=== PATIENT | female | born 1950 | race Caucasian/White ===

== ENCOUNTER 2019-01-10 16:20 | Inpatient (IN) ==
[2019-01-10] MEDS ORDERED: OPTIRAY 320 125ml IV PRN (16:32)
--- NOTE | 2019-01-10 16:37 | CT Scan Report ---
CT SCAN OF THE BRAIN WITHOUT IV CONTRAST CLINICAL HISTORY: Strokelike symptoms. COMPARISON STUDY: CT of the brain dated 09/04/2015. TECHNIQUE: Unenhanced axial CT scan of the brain is performed from the vertex to the skull base. A do se lowering technique was utilized adhering to the principles of ALARA. FINDINGS: Brain parenchyma: There are age-related involutional changes noting mild subcortical and periventric ular microangiopathic change. There is no hemorrhage, mass effect, or evidence of acute territorial i schemia by CT criteria. There is a tiny chronic lacunar infarct in the right caudate head. Phan-white matter differentiation is preserved. No extra-axial fluid collection is seen. Mineralization is note d in the basal ganglia. Ventricles, sulci, cisterns: Prominent secondary to involutional change. Intracranial vasculature: There is atherosclerotic calcification of the cavernous carotid and vertebr al arteries. Calvarium: Unremarkable. Sinuses and mastoids: The visualized paranasal sinuses are clear. The mastoid air cells are well pneu matized. Orbits: The bony orbits are grossly intact. There are bilateral ocular lens implants. IMPRESSION: There is no hemorrhage, mass effect, or evidence of acute territorial ischemia by CT sandra weinstein. Electronically signed by: Jaren Alonzo M.D. 01/10/2019 4:35 PM
[2019-01-10] MEDS ORDERED: methylPREDNISolone 125 MG/2 ML VIAL IV STA (16:46)
[2019-01-10] MEDS ORDERED: VANCOMYCIN HCL 1,250 MG in SODIUM CHLORIDE 0.9% 500 ML IV ONE (16:46)
[2019-01-10] MEDS ORDERED: DOXYCYCLINE HYCLATE 100 MG in DEXTROSE 5% 100 ML IV STA (16:46)
[2019-01-10] MEDS ORDERED: VANCOMYCIN CONSULT ACTIVE PRN ×2 (16:46→22:24)
[2019-01-10] MEDS ORDERED: CEFEPIME 1,000 MG in SYRINGE 0 ML IV STA (16:46)
[2019-01-10] MEDS ORDERED: SODIUM CHLORIDE 0.9% 1000ML 500 ML IV ONE (16:46)
[2019-01-10] MEDS ORDERED: LEVALBUTEROL HCL 0.63 MG/3 ML NEB NEB STA (16:46)
--- NOTE | 2019-01-10 16:48 | XRay Report ---
XR chest 1V portable CLINICAL HISTORY: 68 years-old Female presenting with sob. TECHNIQUE: Portable upright AP view of the chest was obtained. COMPARISON: CTA chest from 12/24/2018 and chest x-ray from 12/24/2018. FINDINGS: Left subclavian implanted cardiac defibrillator with leads to the right atrium, coronary sinus, and r ight ventricular apex. Atherosclerosis of the aortic arch. Cardiac silhouette moderately enlarged. Mi ld pulmonary vascular prominence with overall coarsened lung markings. No focal opacity. No large eff usion or pneumothorax. Possible underlying osteopenia. Mild degenerative changes of the spine. Upper abdomen normal. IMPRESSION: 1. Cardiomegaly with mild volume overload. No will pulmonary edema. Electronically signed by: Keven Santo M.D. 01/10/2019 4:46 PM
[2019-01-10 16:54] LABS: Basophils # (auto) 0.04 K/uL (0-0.2); Basophils % (auto) 0.4 %; Hematocrit (blood only) 41.6 % (37-47); Immature Granulocytes # (auto) 0.02 K/uL (0.00-0.02); Immature Granulocytes % (auto) 0.2 %; Lymphocytes # (auto) 2.01 K/uL (1.2-3.4); Lymphocytes % (auto) 18.9 %; Mean Corpuscular Hgb Conc 33.7 g/dL (32-36); Mean Corpuscular Volume 97.9 fL (80-100); Mean Platelet Volume 9.9 fL (7.4-10.4); Monocytes # (auto) 0.84 K/uL (0.11-0.59); Monocytes % (auto) 7.9 %; Neutrophils # (auto) 7.73 K/uL (1.4-6.5); Neutrophils % (auto) 72.6 %; Platelet Count 175 K/uL (130-400); RDW Coefficient of Variation 13.4 % (11.5-14.5); RDW Standard Deviation 47.5 fL (36.4-46.3); Red Blood Count 4.25 M/uL (4.2-5.4); White Blood Count 10.64 K/uL (4.8-10.8)
--- NOTE | 2019-01-10 16:55 | CT Scan Report ---
CT ANGIOGRAM OF THE BRAIN; CT ANGIOGRAM OF THE NECK CLINICAL HISTORY: Left-sided facial droop. COMPARISON STUDY: CT scans of the brain dated 01/10/2019 and 09/04/2015. TECHNIQUE: Following the IV administration of 115 of Optiray 320, CT angiogram of the head and neck w as performed from the aortic arch to the vertex. Images are reviewed in the axial, sagittal, and lubna nal planes. 3-D MIPS images are created and assessed. IV contrast was administered without complicati on. All measurements were calculated based on NASCET criteria. A dose lowering technique was utilize d adhering to the principles of ALARA. CT DOSE: 1083.28 mGy.cm FINDINGS: Brain parenchyma: There is age-related involutional change noting mild subcortical and periventricula r microangiopathic disease. There is no hemorrhage, mass effect, or evidence of acute territorial isc hemia by CT criteria. There is no evidence of enhancing mass lesion on the angiogram phase images. Th e ventricles, sulci, and cisterns are normal in configuration. Phan-white matter differentiation is p reserved. No extra-axial fluid collection is seen. Thoracic aorta: There is atherosclerotic calcification of the thoracic aorta. Visualized portions of the thoracic aorta are normal in caliber. The aortic arch demonstrates standard 3-vessel anatomy. Right carotid arterial system: The right common carotid artery is widely patent noting atheroscleroti c irregularity. There is approximately 50% stenosis at the origin of the right internal carotid arter y secondary to densely calcified plaque. The remainder of the right internal carotid artery is clear, as is the right external carotid artery. Left carotid arterial system: The left common carotid artery is patent noting advanced atheroscleroti c irregularity. There is less than 50% stenosis at the origin of the left internal carotid artery sec ondary to calcific plaque. The remainder of the internal carotid artery as well as the left external carotid artery are widely patent. Vertebral arteries: The origin of the left vertebral artery is not well-visualized due to significant stranding streak artifact. The vertebral arteries are otherwise patent bilaterally and codominant. 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 The right subclavian artery is patent noting atherosclerotic irregularity. Intracranial vasculature: There is atherosclerotic calcification of the cavernous carotid and vertebr al arteries. There is origin of the right posterior cerebral artery. The internal carotid arter ies are patent at the skull base, as are the anterior and middle cerebral arteries bilaterally. The v ertebrobasilar system and posterior cerebral arteries are widely patent. The right vertebral artery i s dominant. 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 No additional aneurysm is seen. No high-grade stenosis 4 focal vessel cut off s een throughout the intracranial circulation. Jugular veins: Widely patent bilaterally. Dural sinuses: Patent. Lung apices: Emphysematous change is noted at the apices. Partially visualized upper lobe lung parenc hyma is otherwise clear. A cardiac pacemaker is present in the left chest wall. Soft tissues: The visualized pharyngeal soft tissues are normal in appearance noting angiographic pha se technique. The oropharyngeal airway appears widely patent. The salivary and thyroid glands are nor mal in appearance. No cervical lymphadenopathy is seen. Numerous paravertebral collaterals are observ ed. Skeletal structures: The skeletal structures are osteopenic. The calvarium appears intact. The cervic al spine is maintained noting multilevel spondylosis. No lytic or blastic lesion is identified. The p atient is edentulous. Sinuses and mastoids: Trace mucosal thickening is seen in the maxillary antra. The remaining paranasa l sinuses are clear. The mastoid air cells are well pneumatized. IMPRESSION: 1. There is no hemorrhage, mass effect, or evidence of acute territorial ischemia by CT criteria on t his angiographic phase examination. 2. 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 Neurosurgical assessment is advise d. 3. No additional aneurysm is identified throughout the intracranial circulation. There is no high-gra de stenosis or focal vessel cut off seen. 4. 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 Note that places the patient at risk for steal phenomenon. 5. There is approximately 50% stenosis seen at the origin of both the right and left internal carotid arteries. The carotid arteries are otherwise patent bilaterally. 6. The origin of the left vertebral artery is not well-visualized due to significant streak artifact. 7. Emphysematous change is noted at the apices. Electronically signed by: Jaren Alonzo M.D. 01/10/2019 4:53 PM
[2019-01-10 17:04] LABS: INR 1.2 (0.9-1.1); Partial Thromboplastin Ratio 0.9; Partial Thromboplastin Time 24.7 Seconds (21.0-31.0); Prothrombin Time 12.6 Seconds (9.0-12.0)
[2019-01-10 17:04] LABS: Base Excess VBG -2.9 mEq/L; Oxygen Saturation VBG 61.4 %; pH VBG 7.38 (7.36-7.41)
[2019-01-10 17:23] LABS: Albumin Level 3.6 gm/dl (3.4-5.0); BUN Creatinine Ratio 18.7 (10-20); Bilirubin Direct 0.2 mg/dl (0-0.2); Calcium 8.8 mg/dl (8.5-10.1); Creatinine Clr Calc Pharmacy 33.3 ml/min; Est GFR (African American) 45.1; Est GFR (Non-African American) 38.9; Potassium 3.6 mmol/L (3.5-5.1)
[2019-01-10 17:43] LABS: Albumin Globulin Ratio 0.9 (0.9-2); Bilirubin,Total 0.5 mg/dl (0.2-1); Globulin 4.1 gm/dl (2.5-4.0); Phosphorus 1.8 mg/dl (2.5-4.9); Total Protein 7.7 gm/dl (6.4-8.2); Troponin I 0.097 ng/ml (0-0.045)
[2019-01-10] MEDS ORDERED: POTASSIUM PHOS 3 MMOL/1 ML INFUSION IV STA ×2 (18:04→21:54)
[2019-01-10 18:29] LABS: Appearance Urine Clear (Clear); Bacteria Urine Automated 1+ (Negative); Bilirubin Urine Negative (Negative); Blood Urine 2+ (Negative); Color Urine Yellow; Epithelial Cell Urine Auto 0-5 /lpf (0-5); Glucose Urine UA Negative (Negative); Ketones Urine Negative (Negative); Leukocyte Esterase Urine 1+ (Negative); Nitrite Urine Positive (Negative); Protein Urine Negative (Negative); Specific Gravity Urine 1.023 (1.000-1.030); Urobilinogen Urine Negative (Negative); pH Urine 5.5 (4.5-7.5)
[2019-01-10 18:45] LABS: Influenza A virus by PCR Neg for Influ A (Neg); Influenza B virus by PCR Neg for Influ B (Neg)
[2019-01-10] MEDS ORDERED: ACETAMINOPHEN 1,000 MG/100 ML VIAL IV STA (19:06)
[2019-01-10] MEDS ORDERED: SODIUM CHLORIDE 0.9% 500 ML IV STA (19:06)
[2019-01-10 19:16] LABS: Lyme Ab IgG w/WB Rflx Negative (Negative)
[2019-01-10] MEDS ORDERED: POTASSIUM PHOSPHATE 9 MMOL in SODIUM CHLORIDE 0.9% 250 ML IV STA (19:31)
[2019-01-10 20:10] LABS: Lyme Ab IgM w/WB Rflx Equivocal (Negative)
--- NOTE | 2019-01-10 20:11 | Emergency Department Note ---
Entered by Paula Crews acting as a scribe for History of Present Illness General Chief complaint: Stroke Alert Stated complaint: SOB Source: patient Limitations: no limitations History of Present Illness Provider complaint: stoke-like symptoms Onset (ago): hour(s) 4 Location: chest Associated symptoms: + shortness of breath and + other (+slurred speech, +confusion ); no cough The patient is a 68 year old female who presents to the Emergency Room with complaints of stroke-like symptoms. The patient's last time known well was 4 hours prior to arrival. Per daughter, the patient woke up and had no symptoms. Per daughter, the patient was shopping when she started acting weird with slurred speech and confusion. Per daughter, the patient was driving home and noticed that the patient was having difficulty driving so had the patient pull- over. The patient states that she has shortness of breath upon arrival but denies a cough. EMR notes Reviewed: The patient has a history of COPD, CAD, SC, AICD, peripheral vascular disease, and TIA. The patient is a current smoker. The patient was admitted to the hospital for shortness of breath on December 24, 2018 which was thought to be secondary to her COPD exacerbation. The patient's troponin was mildly elevated at 0.05. The patient also had a CT of her chest done on 12/24/18 which showed no PE. 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 Home Medications Home Medications Medication Instructions Recorded Confirmed Type aspirin [Aspir-81] 81 mg PO DAILY 12/24/18 01/10/19 History buspirone 5 mg PO PM 12/24/18 01/10/19 History buspirone 10 mg PO DAILY 12/24/18 01/10/19 History clopidogrel 75 mg PO DAILY 12/24/18 01/10/19 History ezetimibe 10 mg PO DAILY 12/24/18 01/10/19 History furosemide 20 mg PO DAILY 12/24/18 01/10/19 History gabapentin 300 mg PO QID 12/24/18 01/10/19 History isosorbide mononitrate 30 mg PO DAILY 12/24/18 01/10/19 History losartan 25 mg PO DAILY 12/24/18 01/10/19 History magnesium oxide 400 mg PO HS 12/24/18 01/10/19 History pantoprazole 40 mg PO DAILY 12/24/18 01/10/19 History potassium chloride 20 meq PO DAILY 12/24/18 01/10/19 History spironolactone 12.5 mg PO DAILY 12/24/18 01/10/19 History ipratropium-albuterol [Combivent 1 puffs INH Q6H PRN #4 gm 12/26/18 01/10/19 Rx Respimat] carvedilol 1 tab PO BID 01/10/19 01/10/19 History ipratropium-albuterol [Combivent 1 puff INHALATION Q6H PRN 01/10/19 01/10/19 History Respimat] oxycodone-acetaminophen 5 mg PO DAILY PRN 01/10/19 01/10/19 History Allergies Allergy/AdvReac Type Severity Reaction Status Date / Time lisinopril AdvReac Mild cough Unverified 01/10/19 17:11 Past Med/Surg History Medical History GERD (gastroesophageal reflux disease) (Chronic) HTN (hypertension) (Chronic) COPD (chronic obstructive pulmonary disease) CHF (congestive heart failure) (Chronic) SC (myocardial infarction) (Resolved) Cardiac defibrillator in place (Chronic) CAD (coronary artery disease) (Chronic) PVD (peripheral vascular disease) (Chronic) History of TIA (transient ischemic attack) (Chronic) Hyperlipemia (Chronic) Pacemaker (Chronic) Bilateral femoral artery stenosis (Chronic) "Multiple stents " Depression (Chronic) Chronic low back pain (Chronic) Surgical History Stented coronary artery (Chronic) Family History Other Hypertension Social History Preferred Language: Iranian 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 Ability: Effective Beliefs That Will Affect Care: None marital status: Current Living Situation: Spouse and Other Current Living Situation Comment: Lived with and grandchildren Feels Safe at Home: Yes Smoking Status: Current every day smoker Hx Alcohol Use: No Hx Substance Use: No Review of Systems See HPI for pertinent positives & negatives. and A total of 10 systems reviewed and were otherwise negative See HPI for pertinent positives & negatives. A total of 10 systems reviewed and were otherwise negative. Physical Exam Vital Signs Vital Signs - 24 hr 01/10/19 16:38 01/10/19 16:46 01/10/19 17:14 Temperature 38.0 C H Temperature Source Oral Sepsis Recent Fever Within 48 Hours Yes Sepsis New/Unexplained Change in Mental Status Yes Sepsis Action Taken by Nursing Physician Notified Pulse Rate 121 H Pulse Rate [Finger] 106 H Pulse Rhythm Regular Pulse Rhythm [Finger] Pulse Strength Normal Pulse Strength [Finger] Respiratory Rate 32 H 20 Respiratory Effort / Characteristics Labored Non-Labored Spontaneous Respiratory Depth Normal Respiratory Pattern Regular Blood Pressure 105/69 Blood Pressure [Right Arm] Blood Pressure Mean 81 Blood Pressure Mean [Right Arm] Blood Pressure Position Sitting Blood Pressure Position [Right Arm] Pulse Oximetry 92 89 L 93 Oxygen Delivery Method Room Air Room Air Nasal Cannula Oxygen Flow Rate 3 01/10/19 17:54 01/10/19 18:20 01/10/19 19:58 Temperature 37 C Temperature Source Oral Sepsis Recent Fever Within 48 Hours Sepsis New/Unexplained Change in Mental Status Sepsis Action Taken by Nursing Pulse Rate Pulse Rate [Finger] 104 H 102 H 90 Pulse Rhythm Pulse Rhythm [Finger] Regular Pulse Strength Pulse Strength [Finger] Normal Respiratory Rate 30 H 22 18 Respiratory Effort / Characteristics Non-Labored Spontaneous Respiratory Depth Normal Respiratory Pattern Regular Blood Pressure Blood Pressure [Right Arm] 113/64 114/73 104/65 Blood Pressure Mean Blood Pressure Mean [Right Arm] 80 86 78 Blood Pressure Position Blood Pressure Position [Right Arm] Lying Sitting Pulse Oximetry 94 95 97 Oxygen Delivery Method Nasal Cannula Nasal Cannula Nasal Cannula Oxygen Flow Rate 4 3 4 01/10/19 21:06 01/10/19 23:27 01/11/19 01:44 Temperature 36.4 C L 36.3 C L Temperature Source Oral Axillary Sepsis Recent Fever Within 48 Hours Sepsis New/Unexplained Change in Mental Status Sepsis Action Taken by Nursing Pulse Rate Pulse Rate [Finger] 74 62 65 Pulse Rhythm Pulse Rhythm [Finger] Pulse Strength Pulse Strength [Finger] Respiratory Rate 18 17 14 Respiratory Effort / Characteristics Respiratory Depth Respiratory Pattern Blood Pressure Blood Pressure [Right Arm] 88/55 L 96/61 L Blood Pressure Mean Blood Pressure Mean [Right Arm] 66 72 Blood Pressure Position Blood Pressure Position [Right Arm] Lying Pulse Oximetry 92 95 96 Oxygen Delivery Method Nasal Cannula Nasal Cannula Nasal Cannula Oxygen Flow Rate 3 3 3 GENERAL: Awake, alert, chronically ill-appearing, in no distress HENT: Normocephalic, atraumatic. Oropharynx with dry mucous membranes and otherwise unremarkable. EYES: Normal conjunctiva. Sclera non-icteric. EOMI. No nystamgus. PEARRL. NECK: Supple. No nuchal rigidity. FROM. No JVD. RESPIRATORY: Diminished breath sounds at bases with scant intermittent wheezes. CARDIAC: Regular rate, normal rhythm. Extremities warm and well perfused. ABDOMEN: Soft, non-distended. No tenderness to palpation. No rebound or guarding. No masses. RECTAL: Deferred. MUSCULOSKELETAL: Chest examination reveals no tenderness. The back is symmetrical on inspection without obvious abnormality. There is no CVA tendern ess to palpation. No joint edema. LOWER EXTREMITIES: Calves are equal size bilaterally and non-tender. Scant BLE edema. No discoloration. NEURO: Normal sensorium. Mild left-sided droop. No dysarthria. NIH stroke scale of 3 ( 2+ facial droop, 1+ confusion). 5/5 strength and SILT x4 extremities. SKIN: No rash or jaundice noted. Course 163: Past medical records reviewed. The patient was evaluated in room B1, and a complete history and physical examination were performed. 1755: I discussed the patient's case with Dr. Chacon- Neurology who agrees with the CT findings of a subclavian occlusion. He states that the patient's ACS aneurysm are unlikely to be related to the patient's presentation today and states that it is reasonable to admit the patient today due to the patient's symptoms. 1807: I discussed the patient's case with Dr. Norbert Phillip Hospitalist who will evaluate the patient for further hospitalization. Consultations Consultation #1: Dr. Chacon- Neurology Time: 17:55 Consultation #2: Dr. Norbert Phillip Hospitalist Time: 18:08 Administered Medications Ioversol (Optiray 320 125ml) 115 ml IV ONCE PRN PRN Reason: Interaction Checking Stop: 01/14/19 16:31 Last Admin: 01/10/19 16:33 Dose: 115 ml Documented by: [id number] Levalbuterol HCl (Xopenex 0.63 Mg/3 Ml Neb) 0.63 mg NEB Q6R NIKOS Stop: 02/10/19 01:59 Last Admin: 01/11/19 01:44 Dose: 0.63 mg Documented by: [id number] Discontinued Medications Doxycycline Hyclate 100 mg/ (Dextrose) 110 mls @ 50 mls/hr IV NOW STA Stop: 01/10/19 18:57 Last Infusion: 01/10/19 19:56 Dose: 0 mls/hr Documented by: [id number] Admin: 01/10/19 17:50 Dose: 50 mls/hr Documented by: [id number] Sodium Chloride (Nss 1000ml) 500 mls @ 999 mls/hr IV .Q31M ONE Stop: 01/10/19 17:16 Last Infusion: 01/10/19 17:58 Dose: 0 mls/hr Documented by: [id number] Admin: 01/10/19 17:03 Dose: 999 mls/hr Documented by: [id number] Cefepime HCl 1,000 mg/ Syringe 11.3 mls @ 5.5 mls/min IV NOW STA Stop: 01/10/19 16:48 Last Admin: 01/10/19 17:49 Dose: 5.5 mls/min Documented by: [id number] Vancomycin HCl 1,250 mg/ (Sodium Chloride) 525 mls @ 200 mls/hr IV NOW ONE Stop: 01/10/19 19:23 Last Infusion: 01/10/19 20:58 Dose: 0 mls/hr Documented by: [id number] Admin: 01/10/19 18:08 Dose: 200 mls/hr Documented by: [id number] Sodium Chloride (Nss) 500 mls @ 125 mls/hr IV .Q4H STA Stop: 01/10/19 23:05 Last Infusion: 01/11/19 00:11 Dose: 0 mls/hr Documented by: [id number] Admin: 01/10/19 19:52 Dose: 125 mls/hr Documented by: [id number] Acetaminophen (Ofirmev) 1,000 mg in 100 mls @ 400 mls/hr IV NOW STA Stop: 01/10/19 19:20 Last Infusion: 01/10/19 19:48 Dose: 0 mls/hr Documented by: [id number] Admin: 01/10/19 19:33 Dose: 400 mls/hr Documented by: [id number] Potassium Phosphate 9 mmol/ (Sodium Chloride) 253 mls @ 88 mls/hr IV NOW STA Stop: 01/10/19 22:23 Last Infusion: 01/10/19 22:53 Dose: 0 mls/hr Documented by: [id number] Admin: 01/10/19 19:44 Dose: 88 mls/hr Documented by: [id number] Potassium Phosphate 9 mmol/ (Sodium Chloride) 253 mls @ 88 mls/hr IV ONE ONE Stop: 01/11/19 01:52 Last Infusion: 01/11/19 01:58 Dose: 0 mls/hr Documented by: [id number] Admin: 01/10/19 23:00 Dose: 88 mls/hr Documented by: [id number] Sodium Chloride (Nss 1000ml) 1,000 mls @ 100 mls/hr IV .Q10H NIKOS Stop: 01/11/19 08:14 Last Infusion: 01/10/19 23:46 Dose: 0 mls/hr Documented by: [id number] Admin: 01/10/19 23:00 Dose: 100 mls/hr Documented by: [id number] Levalbuterol HCl (Xopenex 0.63 Mg/3 Ml Neb) 0.63 mg NEB NOW STA Stop: 01/10/19 16:47 Last Admin: 01/10/19 17:14 Dose: 0.63 mg Documented by: [id number] Methylprednisolone (Solumedrol) 125 mg IV NOW STA Stop: 01/10/19 16:47 Last Admin: 01/10/19 17:03 Dose: 125 mg Documented by: [id number] Medical Decision Making Differential Diagnosis Differential diagnosis: Etiologies such as viral syndrome, otitis, pharyngitis, pneumonia, influenza, meningitis, urinary tract infection, sepsis, bacteremia, as well as others were entertained. Medical Records Attestation: I reviewed the patient's medical records. Home Medications Current Medication List: was personally reviewed by me Laboratory Data Attestation: I reviewed the patient's lab results. Result diagrams: 01/10/19 15:42 01/10/19 15:42 Lab Results 01/10/19 01/10/19 01/10/19 Range/Units 15:42 15:42 15:42 WBC 10.64 (4.8-10.8) K/uL RBC 4.25 (4.2-5.4) M/uL Hgb 14.0 (12.0-16.0) g/dL Hct 41.6 (37-47) % MCV 97.9 (80-100) fL MCH 32.9 (25-34) pg MCHC 33.7 (32-36) g/dL RDW Std Deviation 47.5 H (36.4-46.3) fL RDW Coeff of Ariela 13.4 (11.5-14.5) % Plt Count 175 (130-400) K/uL MPV 9.9 (7.4-10.4) fL Immature Gran % (Auto) 0.2 % Neut % (Auto) 72.6 % Lymph % (Auto) 18.9 % [place] % (Auto) 7.9 % Eos % (Auto) 0.0 % Baso % (Auto) 0.4 % Immature Gran # (Auto) 0.02 (0.00-0.02) K/uL Neut # (Auto) 7.73 H (1.4-6.5) K/uL Lymph # (Auto) 2.01 (1.2-3.4) K/uL [place] # (Auto) 0.84 H (0.11-0.59) K/uL Eos # (Auto) 0.00 (0-0.5) K/uL Baso # (Auto) 0.04 (0-0.2) K/uL PT 12.6 H (9.0-12.0) Seconds INR 1.2 H (0.9-1.1) APTT 24.7 (21.0-31.0) Seconds PTT Ratio 0.9 VBG pH (7.36-7.41) VBG pCO2 (38-50) mmHg VBG pO2 mmHg VBG HCO3 mmol/L VBG O2 Saturation % VBG Base Excess mEq/L Barometric Pressure mm/Hg Sodium 135 L (136-145) mmol/L Potassium 3.6 (3.5-5.1) mmol/L Chloride 101 (98-107) mmol/L Carbon Dioxide 25 (21-32) mmol/L Anion Gap 10.0 (3-11) BUN 26 H (7-18) mg/dl Creatinine 1.38 H (0.6-1.2) mg/dl Est Cr Clr Drug Dosing 33.3 ml/min Est GFR ( Amer) 45.1 Est GFR (Non-Af Amer) 38.9 BUN/Creatinine Ratio 18.7 (10-20) Glucose 98 (70-99) mg/dl Lactate (0.4-2.0) mmol/L Calcium 8.8 (8.5-10.1) mg/dl Phosphorus 1.8 L (2.5-4.9) mg/dl Magnesium 2.0 (1.8-2.4) mg/dl Total Bilirubin 0.5 (0.2-1) mg/dl Direct Bilirubin 0.2 (0-0.2) mg/dl AST 18 (15-37) U/L ALT 23 (12-78) U/L Alkaline Phosphatase 95 (45-117) U/L Troponin I 0.097 H* (0-0.045) ng/ml NT-Pro-B Natriuret Pep 7715 H (0-900) pg/ml Total Protein 7.7 (6.4-8.2) gm/dl Albumin 3.6 (3.4-5.0) gm/dl Globulin 4.1 H (2.5-4.0) gm/dl Albumin/Globulin Ratio 0.9 (0.9-2) TSH 0.563 (0.300-4.500) uIu/ml Urine Color Urine Appearance (Clear) Urine pH (4.5-7.5) Ur Specific [place] (1.000-1.030) Urine Protein (Negative) Urine Glucose (UA) (Negative) Urine Ketones (Negative) Urine Blood (Negative) Urine Nitrite (Negative) Urine Bilirubin (Negative) Urine Urobilinogen (Negative) Ur Leukocyte Esterase (Negative) Urine WBC (Auto) (0-5) /hpf Urine RBC (Auto) (0-4) /hpf U Hyaline Cast (Auto) (0-5) /lpf U Epithel Cells (Auto) (0-5) /lpf Urine Bacteria (Auto) (Negative) Urine Opiates Screen (Neg) Ur Methadone, Qual (Neg) Urine Barbiturates (Neg) Ur Phencyclidine (PCP) (Neg) U Amphetamin/Meth Scrn (Neg) MDMA (Ecstasy) Screen (Neg) U Benzodiazepines Scrn (Neg) Ur Cocaine Metabolite (Neg) U Marijuana (THC) Screen (Neg) Lyme Disease IgG Ab (Negative) Lyme Disease IgM Ab (Negative) Influenza Type A (PCR) (Neg) Influenza Type B (PCR) (Neg) Blood Type Antibody Screen 01/10/19 01/10/1901/10/19 Range/Units 16:55 16:55 17:40 WBC (4.8-10.8) K/uL RBC (4.2-5.4) M/uL Hgb (12.0-16.0) g/dL Hct (37-47) % MCV (80-100) fL MCH (25-34) pg MCHC (32-36) g/dL RDW Std Deviation (36.4-46.3) fL RDW Coeff of Ariela (11.5-14.5) % Plt Count (130-400) K/uL MPV (7.4-10.4) fL Immature Gran % (Auto) % Neut % (Auto) % Lymph % (Auto) % [place] % (Auto) % Eos % (Auto) % Baso % (Auto) % Immature Gran # (Auto) (0.00-0.02) K/uL Neut # (Auto) (1.4-6.5) K/uL Lymph # (Auto) (1.2-3.4) K/uL [place] # (Auto) (0.11-0.59) K/uL Eos # (Auto) (0-0.5) K/uL Baso # (Auto) (0-0.2) K/uL PT (9.0-12.0) Seconds INR (0.9-1.1) APTT (21.0-31.0) Seconds PTT Ratio VBG pH 7.38 (7.36-7.41) VBG pCO2 37 L (38-50) mmHg VBG pO2 31 mmHg VBG HCO3 22 mmol/L VBG O2 Saturation 61.4 % VBG Base Excess -2.9 mEq/L Barometric Pressure 721.7 mm/Hg Sodium (136-145) mmol/L Potassium (3.5-5.1) mmol/L Chloride (98-107) mmol/L Carbon Dioxide (21-32) mmol/L Anion Gap (3-11) BUN (7-18) mg/dl Creatinine (0.6-1.2) mg/dl Est Cr Clr Drug Dosing ml/min Est GFR ( Amer) Est GFR (Non-Af Amer) BUN/Creatinine Ratio (10-20) Glucose (70-99) mg/dl Lactate 1.3 (0.4-2.0) mmol/L Calcium (8.5-10.1) mg/dl Phosphorus (2.5-4.9) mg/dl Magnesium (1.8-2.4) mg/dl Total Bilirubin (0.2-1) mg/dl Direct Bilirubin (0-0.2) mg/dl AST (15-37) U/L ALT (12-78) U/L Alkaline Phosphatase (45-117) U/L Troponin I (0-0.045) ng/ml NT-Pro-B Natriuret Pep (0-900) pg/ml Total Protein (6.4-8.2) gm/dl Albumin (3.4-5.0) gm/dl Globulin (2.5-4.0) gm/dl Albumin/Globulin Ratio (0.9-2) TSH (0.300-4.500) uIu/ml Urine Color Urine Appearance (Clear) Urine pH (4.5-7.5) Ur Specific [place] (1.000-1.030) Urine Protein (Negative) Urine Glucose (UA) (Negative) Urine Ketones (Negative) Urine Blood (Negative) Urine Nitrite (Negative) Urine Bilirubin (Negative) Urine Urobilinogen (Negative) Ur Leukocyte Esterase (Negative) Urine WBC (Auto) (0-5) /hpf Urine RBC (Auto) (0-4) /hpf U Hyaline Cast (Auto) (0-5) /lpf U Epithel Cells (Auto) (0-5) /lpf Urine Bacteria (Auto) (Negative) Urine Opiates Screen (Neg) Ur Methadone, Qual (Neg) Urine Barbiturates (Neg) Ur Phencyclidine (PCP) (Neg) U Amphetamin/Meth Scrn (Neg) MDMA (Ecstasy) Screen (Neg) U Benzodiazepines Scrn (Neg) Ur Cocaine Metabolite (Neg) U Marijuana (THC) Screen (Neg) Lyme Disease IgG Ab (Negative) Lyme Disease IgM Ab (Negative) Influenza Type A (PCR) (Neg) Influenza Type B (PCR) (Neg) Blood Type A Positive Antibody Screen NEGATIVE 01/10/19 01/10/19 01/10/19 Range/Units 17:40 17:44 17:58 WBC (4.8-10.8) K/uL RBC (4.2-5.4) M/uL Hgb (12.0-16.0) g/dL Hct (37-47) % MCV (80-100) fL MCH (25-34) pg MCHC (32-36) g/dL RDW Std Deviation (36.4-46.3) fL RDW Coeff of Ariela (11.5-14.5) % Plt Count (130-400) K/uL MPV (7.4-10.4) fL Immature Gran % (Auto) % Neut % (Auto) % Lymph % (Auto) % [place] % (Auto) % Eos % (Auto) % Baso % (Auto) % Immature Gran # (Auto) (0.00-0.02) K/uL Neut # (Auto) (1.4-6.5) K/uL Lymph # (Auto) (1.2-3.4) K/uL [place] # (Auto) (0.11-0.59) K/uL Eos # (Auto) (0-0.5) K/uL Baso # (Auto) (0-0.2) K/uL PT (9.0-12.0) Seconds INR (0.9-1.1) APTT (21.0-31.0) Seconds PTT Ratio VBG pH (7.36-7.41) VBG pCO2 (38-50) mmHg VBG pO2 mmHg VBG HCO3 mmol/L VBG O2 Saturation % VBG Base Excess mEq/L Barometric Pressure mm/Hg Sodium (136-145) mmol/L Potassium (3.5-5.1) mmol/L Chloride (98-107) mmol/L Carbon Dioxide (21-32) mmol/L Anion Gap (3-11) BUN (7-18) mg/dl Creatinine (0.6-1.2) mg/dl Est Cr Clr Drug Dosing ml/min Est GFR ( Amer) Est GFR (Non-Af Amer) BUN/Creatinine Ratio (10-20) Glucose (70-99) mg/dl Lactate (0.4-2.0) mmol/L Calcium (8.5-10.1) mg/dl Phosphorus (2.5-4.9) mg/dl Magnesium (1.8-2.4) mg/dl Total Bilirubin (0.2-1) mg/dl Direct Bilirubin (0-0.2) mg/dl AST (15-37) U/L ALT (12-78) U/L Alkaline Phosphatase (45-117) U/L Troponin I (0-0.045) ng/ml NT-Pro-B Natriuret Pep (0-900) pg/ml Total Protein (6.4-8.2) gm/dl Albumin (3.4-5.0) gm/dl Globulin (2.5-4.0) gm/dl Albumin/Globulin Ratio (0.9-2) TSH (0.300-4.500) uIu/ml Urine Color Yellow Urine Appearance Clear (Clear) Urine pH 5.5 (4.5-7.5) Ur Specific [place] 1.023 (1.000-1.030) Urine Protein Negative (Negative) Urine Glucose (UA) Negative (Negative) Urine Ketones Negative (Negative) Urine Blood 2+ H (Negative) Urine Nitrite Positive H (Negative) Urine Bilirubin Negative (Negative) Urine Urobilinogen Negative (Negative) Ur Leukocyte Esterase 1+ H (Negative) Urine WBC (Auto) 10-30 H (0-5) /hpf Urine RBC (Auto) 5-10 H (0-4) /hpf U Hyaline Cast (Auto) 1-5 (0-5) /lpf U Epithel Cells (Auto) 0-5 (0-5) /lpf Urine Bacteria (Auto) 1+ H (Negative) Urine Opiates Screen (Neg) Ur Methadone, Qual (Neg) Urine Barbiturates (Neg) Ur Phencyclidine (PCP) (Neg) U Amphetamin/Meth Scrn (Neg) MDMA (Ecstasy) Screen (Neg) U Benzodiazepines Scrn (Neg) Ur Cocaine Metabolite (Neg) U Marijuana (THC) Screen (Neg) Lyme Disease IgG Ab Negative (Negative) Lyme Disease IgM Ab Equivocal H (Negative) Influenza Type A (PCR) Neg for Influ A (Neg) Influenza Type B (PCR) Neg for Influ B (Neg) Blood Type Antibody Screen 01/10/19 01/11/19 Range/Units 21:28 00:00 WBC (4.8-10.8) K/uL RBC (4.2-5.4) M/uL Hgb (12.0-16.0) g/dL Hct (37-47) % MCV (80-100) fL MCH (25-34) pg MCHC (32-36) g/dL RDW Std Deviation (36.4-46.3) fL RDW Coeff of Ariela (11.5-14.5) % Plt Count (130-400) K/uL MPV (7.4-10.4) fL Immature Gran % (Auto) % Neut % (Auto) % Lymph % (Auto) % [place] % (Auto) % Eos % (Auto) % Baso % (Auto) % Immature Gran # (Auto) (0.00-0.02) K/uL Neut # (Auto) (1.4-6.5) K/uL Lymph # (Auto) (1.2-3.4) K/uL [place] # (Auto) (0.11-0.59) K/uL Eos # (Auto) (0-0.5) K/uL Baso # (Auto) (0-0.2) K/uL PT (9.0-12.0) Seconds INR (0.9-1.1) APTT (21.0-31.0) Seconds PTT Ratio VBG pH (7.36-7.41) VBG pCO2 (38-50) mmHg VBG pO2 mmHg VBG HCO3 mmol/L VBG O2 Saturation % VBG Base Excess mEq/L Barometric Pressure mm/Hg Sodium (136-145) mmol/L Potassium (3.5-5.1) mmol/L Chloride (98-107) mmol/L Carbon Dioxide (21-32) mmol/L Anion Gap (3-11) BUN (7-18) mg/dl Creatinine (0.6-1.2) mg/dl Est Cr Clr Drug Dosing ml/min Est GFR ( Amer) Est GFR (Non-Af Amer) BUN/Creatinine Ratio (10-20) Glucose (70-99) mg/dl Lactate (0.4-2.0) mmol/L Calcium (8.5-10.1) mg/dl Phosphorus (2.5-4.9) mg/dl Magnesium (1.8-2.4) mg/dl Total Bilirubin (0.2-1) mg/dl Direct Bilirubin (0-0.2) mg/dl AST (15-37) U/L ALT (12-78) U/L Alkaline Phosphatase (45-117) U/L Troponin I 0.109 H* (0-0.045) ng/ml NT-Pro-B Natriuret Pep (0-900) pg/ml Total Protein (6.4-8.2) gm/dl Albumin (3.4-5.0) gm/dl Globulin (2.5-4.0) gm/dl Albumin/Globulin Ratio (0.9-2) TSH (0.300-4.500) uIu/ml Urine Color Urine Appearance (Clear) Urine pH (4.5-7.5) Ur Specific [place] (1.000-1.030) Urine Protein (Negative) Urine Glucose (UA) (Negative) Urine Ketones (Negative) Urine Blood (Negative) Urine Nitrite (Negative) Urine Bilirubin (Negative) Urine Urobilinogen (Negative) Ur Leukocyte Esterase (Negative) Urine WBC (Auto) (0-5) /hpf Urine RBC (Auto) (0-4) /hpf U Hyaline Cast (Auto) (0-5) /lpf U Epithel Cells (Auto) (0-5) /lpf Urine Bacteria (Auto) (Negative) Urine Opiates Screen Neg (Neg) Ur Methadone, Qual Neg (Neg) Urine Barbiturates Neg (Neg) Ur Phencyclidine (PCP) Neg (Neg) U Amphetamin/Meth Scrn Neg (Neg) MDMA (Ecstasy) Screen Neg (Neg) U Benzodiazepines Scrn Neg (Neg) Ur Cocaine Metabolite Neg (Neg) U Marijuana (THC) Screen Neg (Neg) Lyme Disease IgG Ab (Negative) Lyme Disease IgM Ab (Negative) Influenza Type A (PCR) (Neg) Influenza Type B (PCR) (Neg) Blood Type Antibody Screen Imaging Data Radiologist's Impression: Radiology results as stated below per my review and the radiologist's interpretation: CT ANGIOGRAM OF THE BRAIN; CT ANGIOGRAM OF THE NECK CLINICAL HISTORY: Left-sided facial droop. COMPARISON STUDY: CT scans of the brain dated 01/10/2019 and 09/04/2015. TECHNIQUE: Following the IV administration of 115 of Optiray 320, CT angiogram of the head and neck was performed from the aortic arch to the vertex. Images are reviewed in the axial, sagittal, and coronal planes. 3-D MIPS images are created and assessed. IV contrast was administered without complication. All measurements were calculated based on NASCET criteria. A dose lowering t echnique was utilized adhering to the principles of ALARA. CT DOSE: 1083.28 mGy.cm FINDINGS: Brain parenchyma: There is age-related involutional change noting mild subcortical and periventricular microangiopathic disease. There is no hemorrhage, mass effect, or evidence of acute territorial ischemia by CT criteria. There is no evidence of enhancing mass lesion on the angiogram phase images. The ventricles, sulci, and cisterns are normal in configuration. Phan- white matter differentiation is preserved. No extra-axial fluid collection is seen. Thoracic aorta: There is atherosclerotic calcification of the thoracic aorta. Visualized portions of the thoracic aorta are normal in caliber. The aortic arch demonstrates standard 3-vessel anatomy. Right carotid arterial system: The right common carotid artery is widely patent noting atherosclerotic irregularity. There is approximately 50% stenosis at the origin of the right internal carotid artery secondary to densely calcified plaque. The remainder of the right internal carotid artery is clear, as is the right external carotid artery. Left carotid arterial system: The left common carotid artery is patent noting advanced atherosclerotic irregularity. There is less than 50% stenosis at the origin of the left internal carotid artery secondary to calcific plaque. The remainder of the internal carotid artery as well as the left external carotid artery are widely patent. Vertebral arteries: The origin of the left vertebral artery is not well- visualized due to significant stranding streak artifact. The vertebral arteries are otherwise patent bilaterally and codominant. 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 The right subclavian artery is patent noting atherosclerotic irregularity. Intracranial vasculature: There is atherosclerotic calcification of the cavernous carotid and vertebral arteries. There is origin of the right posterior cerebral artery. The internal carotid arteries are patent at the skull base, as are the anterior and middle cerebral arteries bilaterally. The vertebrobasilar system and posterior cerebral arteries are widely patent. The right vertebral artery is dominant. 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 No additional aneurysm is seen. No high-grade stenosis 4 focal vessel cut off seen throughout the intracranial circulation. Jugular veins: Widely patent bilaterally. Dural sinuses: Patent. Lung apices: Emphysematous change is noted at the apices. Partially visualized upper lobe lung parenchyma is otherwise clear. A cardiac pacemaker is present in the left chest wall. Soft tissues: The visualized pharyngeal soft tissues are normal in appearance noting angiographic phase technique. The oropharyngeal airway appears widely patent. The salivary and thyroid glands are normal in appearance. No cervical lymphadenopathy is seen. Numerous paravertebral collaterals are observed. Skeletal structures: The skeletal structures are osteopenic. The calvarium appears intact. The cervical spine is maintained noting multilevel spondylosis. No lytic or blastic lesion is identified. The patient is edentulous. Sinuses and mastoids: Trace mucosal thickening is seen in the maxillary antra. The remaining paranasal sinuses are clear. The mastoid air cells are well pneumatized. IMPRESSION: 1. There is no hemorrhage, mass effect, or evidence of acute territorial ischemia by CT criteria on this angiographic phase examination. 2. 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 Neurosurgical assessment is advised. 3. No additional aneurysm is identified throughout the intracranial circulation. There is no high-grade stenosis or focal vessel cut off seen. 4. 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 Note that places the patient at risk for steal phenomenon. 5. There is approximately 50% stenosis seen at the origin of both the right and left internal carotid arteries. The carotid arteries are otherwise patent bilaterally. 6. The origin of the left vertebral artery is not well-visualized due to significant streak artifact. 7. Emphysematous change is noted at the apices. Electronically signed by: Jaren Alonzo M.D. 01/10/2019 4:[address] SCAN OF THE BRAIN WITHOUT IV CONTRAST CLINICAL HISTORY: Strokelike symptoms. COMPARISON STUDY: CT of the brain dated 09/04/2015. TECHNIQUE: Unenhanced axial CT scan of the brain is performed from the vertex to the skull base. A dose lowering technique was utilized adhering to the principles of ALARA. FINDINGS: Brain parenchyma: There are age-related involutional changes noting mild subcortical and periventricular microangiopathic change. There is no hemorrhage, mass effect, or evidence of acute territorial ischemia by CT criteria. There is a tiny chronic lacunar infarct in the right caudate head. Phan-white matter differentiation is preserved. No extra-axial fluid collection is seen. Mineralization is noted in the basal ganglia. Ventricles, sulci, cisterns: Prominent secondary to involutional change. Intracranial vasculature: There is atherosclerotic calcification of the cavernous carotid and vertebral arteries. Calvarium: Unremarkable. Sinuses and mastoids: The visualized paranasal sinuses are clear. The mastoid air cells are well pneumatized. Orbits: The bony orbits are grossly intact. There are bilateral ocular lens implants. IMPRESSION: There is no hemorrhage, mass effect, or evidence of acute territorial ischemia by CT criteria. Electronically signed by: Jaren Alonzo M.D. 01/10/2019 4:35 PM XR chest 1V portable CLINICAL HISTORY: 68 years-old Female presenting with sob. TECHNIQUE: Portable upright AP view of the chest was obtained. COMPARISON: CTA chest from 12/24/2018 and chest x-ray from 12/24/2018. FINDINGS: Left subclavian implanted cardiac defibrillator with leads to the right atrium, coronary sinus, and right ventricular apex. Atherosclerosis of the aortic arch. Cardiac silhouette moderately enlarged. Mild pulmonary vascular prominence with overall coarsened lung markings. No focal opacity. No large effusion or pneumothorax. Possible underlying osteopenia. Mild degenerative changes of the spine. Upper abdomen normal. IMPRESSION: 1. Cardiomegaly with mild volume overload. No will pulmonary edema. Electronically signed by: Keven Santo M.D. 01/10/2019 4:[address] ANGIOGRAM OF THE BRAIN; CT ANGIOGRAM OF THE NECK CLINICAL HISTORY: Left-sided facial droop. COMPARISON STUDY: CT scans of the brain dated 01/10/2019 and 09/04/2015. TECHNIQUE: Following the IV administration of 115 of Optiray 320, CT angiogram of the head and neck was performed from the aortic arch to the vertex. Images are reviewed in the axial, sagittal, and coronal planes. 3-D MIPS images are created and assessed. IV contrast was administered without complication. All measurements were calculated based on NASCET criteria. A dose lowering technique was utilized adhering to the principles of ALARA. CT DOSE: 1083.28 mGy.cm FINDINGS: Brain parenchyma: There is age-related involutional change noting mild subcortical and periventricular microangiopathic disease. There is no hemorrhage, mass effect, or evidence of acute territorial ischemia by CT criteria. There is no evidence of enhancing mass lesion on the angiogram phase images. The ventricles, sulci, and cisterns are normal in configuration. Phan- white matter differentiation is preserved. No extra-axial fluid collection is seen. Thoracic aorta: There is atherosclerotic calcification of the thoracic aorta. Visualized portions of the thoracic aorta are normal in caliber. The aortic arch demonstrates standard 3-vessel anatomy. Right carotid arterial system: The right common carotid artery is widely patent noting atherosclerotic irregularity. There is approximately 50% stenosis at the origin of the right internal carotid artery secondary to densely calcified plaque. The remainder of the right internal carotid artery is clear, as is the right external carotid artery. Left carotid arterial system: The left common carotid artery is patent noting advanced atherosclerotic irregularity. There is less than 50% stenosis at the origin of the left internal carotid artery secondary to calcific plaque. The remainder of the internal carotid artery as well as the left external carotid artery are widely patent. Vertebral arteries: The origin of the left vertebral artery is not well- visualized due to significant stranding streak artifact. The vertebral arteries are otherwise patent bilaterally and codominant. 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 The right subclavian artery is patent noting atherosclerotic irregularity. Intracranial vasculature: There is atherosclerotic calcification of the cavernous carotid and vertebral arteries. There is origin of the right posterior cerebral artery. The internal carotid arteries are patent at the skull base, as are the anterior and middle cerebral arteries bilaterally. The vertebrobasilar system and posterior cerebral arteries are widely patent. The right vertebral artery is dominant. 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 No additional aneurysm is seen. No high-grade stenosis 4 focal vessel cut off seen throughout the intracranial circulation. Jugular veins: Widely patent bilaterally. Dural sinuses: Patent. Lung apices: Emphysematous change is noted at the apices. Partially visualized upper lobe lung parenchyma is otherwise clear. A cardiac pacemaker is present in the left chest wall. Soft tissues: The visualized pharyngeal soft tissues are normal in appearance noting angiographic phase technique. The oropharyngeal airway appears widely patent. The salivary and thyroid glands are normal in appearance. No cervical lymphadenopathy is seen. Numerous paravertebral collaterals are observed. Skeletal structures: The skeletal structures are osteopenic. The calvarium appears intact. The cervical spine is maintained noting multilevel spondylosis. No lytic or blastic lesion is identified. The patient is edentulous. Sinuses and mastoids: Trace mucosal thickening is seen in the maxillary antra. The remaining paranasal sinuses are clear. The mastoid air cells are well pneumatized. IMPRESSION: 1. There is no hemorrhage, mass effect, or evidence of acute territorial ischemia by CT criteria on this angiographic phase examination. 2. 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 Neurosurgical assessment is advised. 3. No additional aneurysm is identified throughout the intracranial circulation. There is no high-grade stenosis or focal vessel cut off seen. 4. 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 Note that places the patient at risk for steal phenomenon. 5. There is approximately 50% stenosis seen at the origin of both the right and left internal carotid arteries. The carotid arteries are otherwise patent bilaterally. 6. The origin of the left vertebral artery is not well-visualized due to significant streak artifact. 7. Emphysematous change is noted at the apices. Electronically signed by: Jaren Alonzo M.D. 01/10/2019 4:53 PM ECG Data Attestation: I personally reviewed and interpreted this ECG as follows: Indication: other (stroke-like symptoms ) Rate (beats per minute): 118 Rhythm: other (atrial sense ventricular rhythm ) Findings: no acute ischemic change and no ectopy Blood Pressure Blood Pressure Findings: Normal blood pressure MDM Narrative The patient is a pleasant 68-year-old woman with a past medical history of COPD, CAD/SC, CHF status post AICD, PVD, hyperlipidemia, bilateral femoral artery stenosis who presents emergency department with worsening shortness of breath that began abruptly today with strokelike symptoms with left-sided facial droop, slurred speech and complaints of left arm numbness which occurred with last known well approximately 12:30 PM, per family per hpi. Patient was admitted to [facility] at the end of December for a COPD exacerbation and the family report that the patient has been doing well subsequently. Moreover, they felt the patient was feeling well enough to go shopping to where she drove herself and family member, however upon returning from shopping the family member noticed that the patient was more confused and not driving safely and so they pulled over and switch drivers. EMS was called several hours later for the patient's shortness of breath. Upon EMS arrival they did notice the patient's left-sided facial droop but the patient's slurred speech had improved did not have any additional focal deficits. Stroke alert was activated from med command call and patient was transferred directly to CT scan for CT head and CTA of the head and neck. Upon arrival to the critical care bay the patient did still exhibit mild left-sided facial droop and slight confusion where she provided the incorrect birthday so was given an NIH score of 3. The patient was also noted to be febrile to 38.0 with tachycardia and tachypnea and hypoxia on room air to 89%. Given the patient was already well beyond the 3-hour window for TPA, and her symptoms were minimal and also in the setting of evidence to suggest infectious metabolic process, it was determined that the patient was not a candidate for extended window for TPA. Moreover the patient's CTA subsequently did demonstrate an 11 mm NITHYA aneurysm, which would be a contraindication for TPA. On exam the patient does show some evidence of fluid overload with scant bilateral lower extremity edema however her mucous membranes did appear dry. A limited bedside echo demonstrated IVC with 100% variability, despite evidence of reduced EF, therefore the patient was provided with 500 cc NS bolus with improvement in her mental status. EKG demonstrates paced rhythm. Chest x-ray with evidence of mild venous congestion without overt pulmonary edema. WBC, H/H, and platelets within normal limits. VBG unremarkable. Creatinine 1.38 similar to prior admission in December. Phosphorus 1.8 with repletion provided. Electrolytes otherwise unremarkable. The patient's troponin was 0.097 which does appear similar to recent elevations on last admission but will continue to trend. BNP 7715, without prior values for comparison and therefore unclear significance at this time. Straight cath UA does show evidence of urinary infection with positive nitrites, LE 1+, WBC 10-30 and 1+ bacteria. Patient was treated empirically for sepsis upon arrival with empiric cefepime, vancomycin, and doxycycline for atypical coverage. Flu negative. I did discuss the patient's presentation and CT findings with [facility] neurology on-call, Dr. Chacon, and we agree that the patient's NITHYA aneurysm and left subclavian occlusion are unlikely to be contributing the patient's symptoms at this time therefore it is reasonable to continue with admission here at [facility]. Of note, I did review these findings with the patient and her family and they re port they were aware of her intracranial aneurysm as well as her left subclavian occlusion which was visualized on her last admission. Otherwise, the patient was feeling improved after her IV fluid hydration as well as Solu-Medrol, Xopenex for component of COPD exacerbation with heart rate improved from 120s- 100s respiratory rate improved from 30s to low 20s. Case was discussed with Dr. Porter, [facility] hospitalist, who will evaluate the patient for admission. Impression & Plan Acute UTI (urinary tract infection), Facial droop, COPD exacerbation Discharge Plan Visit Data *Final* Discharge Date/Time: 01/10/19 20:17 Chief Complaint: Stroke Alert Stated Complaint: SOB ED Provider: Robert Pollock Discharge Problem: Acute UTI (urinary tract infection), Facial droop, COPD exacerbation Patient Disposition: Admitted As Inpatient Discharge Instructions Interventions: ED Discharge Assessment Last Done: 01/10/19 20:17 The scribe's documentation has been prepared under my direction and personally reviewed by me in its entirety. I confirm that the note above accurately reflects all work, treatment, procedures, and medical decision making performed by me.
[2019-01-10] MEDS ORDERED: PHARMACIST DISCHARGE MED REC CONSULT PRN (20:24)
--- NOTE | 2019-01-10 22:05 | History & Physical Report ---
Date of Service January 10, 2019 Assessment & Plan (1) Slurred speech: (2) Weakness: Pt presented to ER for weakness, slurred speech and L arm numbness. Pt reports today around 1230 was driving home from shopping when started having blurred vision and she pulled over alongside the road and her [id number] drove her home. She denies any other symptoms at that time. Upon arrival home family then noticed pt with weakness and she needed assistance with transfer to bathroom. At that time they report some slurred speech and pt c/o left arm numbness. CT HEAD: no acute changes CTA HEAD & NECK: 1. There is no hemorrhage, mass effect, or evidence of acute territorial ischemia by CT criteria on this angiographic phase examination. 2. 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 Neurosurgical assessment is advised. 3. No additional aneurysm is identified throughout the intracranial circulation. There is no high-grade stenosis or focal vessel cut off seen. 4. 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 Note that places the patient at risk for steal phenomenon. 5. There is approximately 50% stenosis seen at the origin of both the right and left internal carotid arteries. The carotid arteries are otherwise patent bilaterally. 6. The origin of the left vertebral artery is not well-visualized due to significant streak artifact. DDX: stroke, UTI -In ER noted left sided facial droop which has since resolved. tele stroke recom mended not TPA candidate with known aneurysm. No noted slurred speech, or facial drooping, and has generalized weakness upon admission exam. 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 Note that places the patient at risk for steal phenomenon. Possible subclavian steal syndrome -may need to consider further consult (4) Hypoxia: In ER pt initially 92% on RA and noted dropped to 89% on RA and up to 94% on 4L oxygen via NC. It is reported that pt had some wheezing on exam. She was given solumedrol and xopenex neb. Upon admission exam pt without wheezing. She denies any SOB, CP, cough. CXR: Cardiomegaly with mild volume overload. No will pulmonary edema. Possible COPD exacerbation -pt reports uses oxygen HS and has been needing to use oxygen during the day -supplemental oxygen -xopenex nebs -monitor, if no improvement or worsening consider imaging to R/O PE (5) Fever: T: 38C in ER. P: 121 down to 102, R: 32 down to 22, 105/69, 114/73 CXR: Cardiomegaly with mild volume overload. No will pulmonary edema. WBC: 10, lactate: 1.3, negative flu PCR, UA: 1+ leuk, +nitrite, 1+bacteria, 10- 30 WBC, 5-10 RBC In ER given Tylenol, 500ml NSS, cefepime, vancomycin, doxycycline Pt does not examine fluid overloaded at this time and appears euvolemic. -cefepime, vancomycin -blood cultures, urine cultures pending (6) CHF (congestive heart failure): (7) Cardiac defibrillator in place: Cardiomyopathy Follows with Dr. Watson -[facility] cardiology. History echo 12/04/18: Severe global hypokinesis, EF: 15%, mild mitral regurgitation, mild aortic insufficiency, mild pulmonary hypertension -pt does not appear fluid overloaded at this time -hold lasix, spironolactone with borderline BP's (8) Elevated troponin: Denies CP, SOB Troponin: 0.09, paced rhythm on EKG Probable demand ischemia -Will trend troponin -continue ASA & beta maya, isosorbide -consider cardiology consult if worsening (9) CAD (coronary artery disease): S/P cardiac stent -continue ASA & beta maya, isosorbide (10) Hypophosphatemia: Phosphorus: 1.8. Magnesium, K: 3.6: 2 In ER given 9mmol pot phos -replace and monitor (11) Renal insufficiency: Cr: 1.38. Was 1.0 on 12/24/18 admission, then 1.5 -monitor renal functions -try to avoid nephrotoxic agents when possible (12) PVD (peripheral vascular disease): -continue plavix, aspirin (13) HTN (hypertension): lower BP's currently -hold losartan -monitor BP (14) Hyperlipemia: -continue zetia (15) Depression: -continue buspirone (16) GERD (gastroesophageal reflux disease): -continue PPI DVT Prophylaxis -Heparin SQ Full Code as per discussion with pt and pt's family Follows with Dr Crane for routine care Pt was seen with Dr Porter. See addendum History of Present Illness Chief Complaint: weakness Primary Care Provider: Deny Quentin Royce Pt is 68 y/o F with PMH COPD, tobacco use, CAD s/p stent, cardiomyopathy, h/o ICD, PVD, depression, TIA presented to ER with c/o weakness and possible stoke symptoms. She reports today around 1230 was [address] home from shopping when she states she started having blurred vision and then reports she could not see. Patient states she pulled over alongside the road and her [id number] drove her home. She denies any headaches, chest pain or shortness of breath, dizziness at that time. Patient's family report when patient got home they noticed that she had weakness and they had to help transfer her from chair to bathroom. They also noticed patient had some slurred speech and she was complaining of some left arm numbness. Currently patient complains of feeling weak. Denies nausea or vomiting. Reports chronic loose stools with 3-4 BMs daily. Denies known fever/chills, diaphoresis, PEREZ, dizziness, vision changes, neck pain, CP, SOB, orthopnea, palpitations, cough, sore throat, choking, otalgia, rhinorrhea, abdominal pain, extremity edema, rashes, urinary symptoms. Denies hx seizure disorder. Patient's family reports that patient follows with Dr. Watson -[facility] cardiology. History echo 12/04/18: Severe global hypokinesis, EF: 15%, mild mitral regurgitation, mild aortic insufficiency, mild pulmonary hypertension Patient with history hospitalization 12/24/18-12/26/18 for CP and SOB thought secondary to COPD exacerbation. Had CTA chest which was negative for PE. Had noted mild troponin elevation at 0.05, 0.09, 0.05. Family reports that pt had followed with neurology in [place] in past and has known brain aneurysm. Allergies Allergy/AdvReac Type Severity Reaction Status Date / Time lisinopril AdvReac Mild cough Unverified 01/10/19 17:11 Home Medications Home Medications Medication Instructions Recorded Confirmed Type aspirin [Aspir-81] 81 mg PO DAILY 12/24/18 01/10/19 History buspirone 5 mg PO PM 12/24/18 01/10/19 History buspirone 10 mg PO DAILY 12/24/18 01/10/19 History clopidogrel 75 mg PO DAILY 12/24/18 01/10/19 History ezetimibe 10 mg PO DAILY 12/24/18 01/10/19 History furosemide 20 mg PO DAILY 12/24/18 01/10/19 History gabapentin 300 mg PO QID 12/24/18 01/10/19 History isosorbide mononitrate 30 mg PO DAILY 12/24/18 01/10/19 History losartan 25 mg PO DAILY 12/24/18 01/10/19 History magnesium oxide 400 mg PO HS 12/24/18 01/10/19 History pantoprazole 40 mg PO DAILY 12/24/18 01/10/19 History potassium chloride 20 meq PO DAILY 12/24/18 01/10/19 History spironolactone 12.5 mg PO DAILY 12/24/18 01/10/19 History ipratropium-albuterol [Combivent 1 puffs INH Q6H PRN #4 gm 12/26/18 01/10/19 Rx Respimat] carvedilol 1 tab PO BID 01/10/19 01/10/19 History ipratropium-albuterol [Combivent 1 puff INHALATION Q6H PRN 01/10/19 01/10/19 History Respimat] oxycodone-acetaminophen 5 mg PO DAILY PRN 01/10/19 01/10/19 History Past Med/Surg History Medical History GERD (gastroesophageal reflux disease) (Chronic) HTN (hypertension) (Chronic) COPD (chronic obstructive pulmonary disease) CHF (congestive heart failure) (Chronic) GA (myocardial infarction) (Resolved) Cardiac defibrillator in place (Chronic) CAD (coronary artery disease) (Chronic) PVD (peripheral vascular disease) (Chronic) History of TIA (transient ischemic attack) (Chronic) Hyperlipemia (Chronic) Pacemaker (Chronic) Bilateral femoral artery stenosis (Chronic) "Multiple stents " Depression (Chronic) Chronic low back pain (Chronic) Surgical History Stented coronary artery (Chronic) Social History Preferred Language: German 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 Ability: Effective Beliefs That Will Affect Care: None marital status: Current Living Situation: Spouse and Other Current Living Situation Comment: Lived with and grandchildren Feels Safe at Home: Yes Smoking Status: Current every day smoker Hx Alcohol Use: No Hx Substance Use: No Review of Systems All systems reviewed & are unremarkable except as noted in HPI & below Physical Exam Vital Signs (Past 24 Hours): Last Vital Signs Temp 36.4 C L 01/10/19 21:06 Pulse 74 01/10/19 21:06 Resp 18 01/10/19 21:06 BP 88/55 L 01/10/19 21:06 Pulse Ox 92 01/10/19 21:06 Physical Exam: General: chronic ill appearing in no acute distress Head: normocephalic, atraumatic Eyes: PERRL, EOM's intact, conjunctiva non-injected, anicteric ENT: normal inspection external ears, nose, mucous membranes mildly dry Neck: supple, trachea midline Lungs: clear, no respiratory distress, no wheezing/rhonchi/rales noted CV: RRR, no murmur, no pretibial edema Abd: normal BS, soft, non-tender Ext: no cyanosis, no calf tenderness Neuro: Alert and oriented x 3, no focal deficits noted, no slurred speech, somewhat slower speech, no facial drooping noted, somewhat flat affect Skin: warm, wet Results & Data Laboratory Results Short CBC 01/10/19 01/10/19 Range/Units 15:42 15:42 WBC 10.64 (4.8-10.8) K/uL Hgb 14.0 (12.0-16.0) g/dL Hct 41.6 (37-47) % Plt Count 175 (130-400) K/uL Creatinine 1.38 H (0.6-1.2) mg/dl BMP 01/10/19 15:42 Sodium 135 L Potassium 3.6 Chloride 101 Carbon Dioxide 25 BUN 26 H Creatinine 1.38 H Glucose 98 Calcium 8.8 Cardiac Enzymes 01/10/19 01/10/19 Range/Units 15:42 21:28 Troponin I 0.097 H* 0.109 H* (0-0.045) ng/ml Liver Function 01/10/19 Range/Units 15:42 Total Bilirubin 0.5 (0.2-1) mg/dl Direct Bilirubin 0.2 (0-0.2) mg/dl AST 18 (15-37) U/L ALT 23 (12-78) U/L Alkaline Phosphatase 95 (45-117) U/L Albumin 3.6 (3.4-5.0) gm/dl Urine 01/10/19 Range/Units 17:44 Urine Color Yellow Urine Appearance Clear (Clear) Urine pH 5.5 (4.5-7.5) Ur Specific [place] 1.023 (1.000-1.030) Urine Protein Negative (Negative) Urine Glucose (UA) Negative (Negative) Diagnostic Findings CXR: IMPRESSION: 1. Cardiomegaly with mild volume overload. No will pulmonary edema. CT HEAD: IMPRESSION: There is no hemorrhage, mass effect, or evidence of acute territorial ischemia by CT criteria. CTA HEAD & NECK: IMPRESSION: 1. There is no hemorrhage, mass effect, or evidence of acute territorial ischemia by CT criteria on this angiographic phase examination. 2. 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 Neurosurgical assessment is advised. 3. No additional aneurysm is identified throughout the intracranial circulation. There is no high-grade stenosis or focal vessel cut off seen. 4. 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 Note that places the patient at risk for steal phenomenon. 5. There is approximately 50% stenosis seen at the origin of both the right and left internal carotid arteries. The carotid arteries are otherwise patent bilaterally. 6. The origin of the left vertebral artery is not well-visualized due to significant streak artifact. 7. Emphysematous change is noted at the apices. ECG Findings: + paced rhythm Supervising Physician Co-Signing Physician Notes I have seen and examined the patient and have discussed the case with the provider above. I agree with the assessment and plan as stated. This is a 68-year-old female with a history of known cardiomyopathy status post ICD, COPD, peripheral arterial disease who presents after an episode of weakness and possible confusion while coming home from shopping today. She reports feeling well up until today when the acute weakness made her cold and generally feel poorly. She concerned her family who thought days noticed some left-sided facial droop, however, the patient did not feel that she had any strokelike symptoms today. She specifically denies confusion, facial droop, difficulty understanding words or articulating words. She had no focal physical deficit aside from generalized weakness. At baseline she states she has "disequilibrium" and tends to furniture walk at home. She also uses oxygen at night and is reported to be using more oxygen during the day for months, indicat ing this hypoxia is not a new development. She denies any shortness of breath or wheezing or cough. She did have some fevers and has had chronic urinary issues including incomplete voiding and chronic incontinence for a couple of months. Urinalysis reveals presence of possible infection. Her blood pressure is low normal, but she does not appear septic on exam. She appears euvolemic, however, in setting of fever agree with holding diuretics. Baseline creatinine is also difficult to discern. Agree with holding losartan for now. Records requested from outside facility. Exam reveals generalized weakness with no focal deficits. There is no facial droop, no slurred speech, and patient is lucid. Continue plan as above. Appreciate neurology recommendations especially with respect to possible subclavian steal syndrome after CT angiography of the chest revealing occlusion of the left subclavian artery on 12/24/18. DO German
[2019-01-10] MEDS ORDERED: SODIUM CHLORIDE 0.9% 1000ML 1,000 ML IV SCH (22:15)
[2019-01-10] MEDS ORDERED: CEFEPIME CONSULT ACTIVE PRN (22:24)
[2019-01-10] MEDS ORDERED: POTASSIUM PHOSPHATE 9 MMOL in SODIUM CHLORIDE 0.9% 250 ML IV ONE (23:00)
[2019-01-11 00:51] LABS: Amphetamines+Metham, Urine Neg (Neg); Barbiturates, Urine Neg (Neg); Benzodiazepine, Urine Neg (Neg); Cocaine, Urine Neg (Neg); MDMA (Ecstacy), Urine Neg (Neg); Methadone, Urine Neg (Neg); Opiate, Urine Neg (Neg); Phencyclidine, Urine Neg (Neg)
[2019-01-11] MEDS: LEVALBUTEROL HCL 0.63 MG/3 ML NEB NEB SCH ×4 (01:44→19:53)
[2019-01-11 04:10] LABS: Basophils # (auto) 0.01 K/uL (0-0.2); Basophils % (auto) 0.1 %; Hematocrit (blood only) 36.3 % (37-47); Hemoglobin 12.2 g/dL (12.0-16.0); Immature Granulocytes # (auto) 0.02 K/uL (0.00-0.02); Immature Granulocytes % (auto) 0.2 %; Lymphocytes # (auto) 0.67 K/uL (1.2-3.4); Lymphocytes % (auto) 7.3 %; Mean Corpuscular Hgb Conc 33.6 g/dL (32-36); Mean Corpuscular Volume 96.8 fL (80-100); Mean Platelet Volume 9.6 fL (7.4-10.4); Monocytes # (auto) 0.27 K/uL (0.11-0.59); Neutrophils # (auto) 8.18 K/uL (1.4-6.5); Neutrophils % (auto) 89.4 %; Platelet Count 135 K/uL (130-400); RDW Coefficient of Variation 13.4 % (11.5-14.5); RDW Standard Deviation 47.3 fL (36.4-46.3); Red Blood Count 3.75 M/uL (4.2-5.4); White Blood Count 9.15 K/uL (4.8-10.8)
[2019-01-11 04:35] LABS: BUN Creatinine Ratio 19.5 (10-20); Calcium 7.4 mg/dl (8.5-10.1); Est GFR (African American) 63.5; Est GFR (Non-African American) 54.8; Magnesium 1.8 mg/dl (1.8-2.4); Potassium 3.6 mmol/L (3.5-5.1)
[2019-01-11 04:37] LABS: Phosphorus 4.2 mg/dl (2.5-4.9); Troponin I 0.06 ng/ml (0-0.045)
[2019-01-11] MEDS: CEFEPIME 2,000 MG in SYRINGE 7.5 ML IV SCH ×2 (06:01→18:31)
[2019-01-11 07:17] LABS: Estimated Average Glucose 137 mg/dl; Hemoglobin A1C 6.4 % (4.5-5.6)
--- NOTE | 2019-01-11 07:48 | Hospitalist Progress Note ---
Date of Service January 11, 2019 Assessment & Plan (1) Fever: T: 38 C in ER with tachycardia with HR in 120s Blood cx 1/2 now growing GNB Likely source is UTI -CXR - Mild volume overload, EF 15%, avoid IVF. Hold lasix, spironolactone -S/P Doxycyline, IV Vancomycin. Continue with IV Cefepime Q 12 hours. -Blood cx - follow up; Urine cx - follow up; CXR- no pneumonia Present on Admission?: Yes (2) Left arm numbness: Patient had left-sided facial droop, slurred speech, generalized weakness noted in the ED which has since resolved. -Tele stroke recommended no TPA with known aneurysm. No deficits on admission -Work up - CT head- Neg for acute abnormalities, CTA head/neck- Complete thrombosis of left subclavian artery at the thoracic inlet, Lipid panel- LDL 48, Tele monitor- No arrythmias; Echo 12/20 -Unable to do MRI head as has ICD -Continue with ASA, Plavix -Neurology consulted (3) Hypoxia: In Setting of home oxygen use, hx of COPD with active tobacco abuse In ER pt initially 92% on RA and noted dropped to 89% on RA and up to 94% on 4L oxygen via NC. It is reported that pt had some wheezing on exam. She was given solumedrol and xopenex neb. Upon admission exam pt without wheezing. She denies any SOB, CP, cough. CXR: Cardiomegaly with mild volume overload. No will pulmonary edema. Home oxygen: 2 L at night, Day time- As needed for SOB, does not check SaO2 -Xopenex Nebs -Wean as tolerated (4) CHF (congestive heart failure): (5) Cardiac defibrillator in place: Cardiomyopathy with EF 15% Follows with Dr. Watson - [facility] medical cardiology. History echo 12/04/18: Severe global hypokinesis, EF: 15%, mild mitral regurgitation, mild aortic insufficiency, mild pulmonary hypertension -Pt does not appear fluid overloaded at this time -Hold Lasix, Spironolactone with borderline BP's (6) Elevated troponin: Likely secondary to bacteremia/Infection Denies chest pain, SOB Troponin: 0.09, paced rhythm on EKG Probable demand ischemia -Troponin- trending down 0.097--> 0.109--> 0.060 -continue ASA & beta maya, isosorbide (7) CAD (coronary artery disease): S/P cardiac stent -continue ASA & beta maya, isosorbide (8) Hypophosphatemia: Repleted Monitor (9) Renal insufficiency: Cr: 1.38. Was 1.0 on 12/24/18 admission, then 1.5 -monitor renal functions -try to avoid nephrotoxic agents when possible (10) PVD (peripheral vascular disease): -continue plavix, aspirin (11) HTN (hypertension): lower BP's currently -hold losartan -monitor BP (12) Hyperlipemia: -continue zetia (13) Depression: -continue buspirone (14) GERD (gastroesophageal reflux disease): -continue PPI DVT Prophylaxis -Heparin SQ Full Code as per discussion with pt and pt's family Follows with Dr Crane for routine care Updated spouse Josué over phone (15) Fever: Present on Admission?: Yes Subjective Patient is a 68-year-old female who came to ER with generalized weakness, fever, chills, questionable left facial droop/arm numbness. Patient is not quite clear about what exactly happened. She has been sick for the past 2 days. T-max 38 C. No more chills. Denies any worsening of shortness of breath, no chest pain, cough, leg swelling or weight gain. On 3 L of oxygen now. At home, had been using 2-3 L oxygen as needed for shortness of breath, 2 L at night Physical Exam Vital Signs (Past 24 Hours): Vital Signs Temp Pulse Resp BP Pulse Ox 38.0 C H 121 H 32 H 105/69 92 01/10/19 16:38 01/10/19 16:38 01/10/19 16:38 01/10/19 16:38 01/10/19 16:38 Physical Exam: GENERAL- AAOX3, No acute distress, generalized weakness + HEAD- Atraumatic, Normocephalic EYES- No pallor, icterus, redness, discharge. Pupils are equal, round, reactive to light and accomodation. EARS- Normal pinna, no discharge, tenderness noted NOSE- No nasal discharge noted NECK- Supple, no JVD LUNGS- Air entry bilaterally decreased. No wheezing HEART- Regular rate and rhythm. No murmurs ABDOMEN- Soft, non tender, non distended, Bowel sounds heard. EXTREMITIES- Good peripheral pulses, no edema NEUROMUSCULAR- AAOX3, Grossly no focal deficits SKIN- No rashes
[2019-01-11] MEDS: CARVEDILOL 3.125 MG TAB PO SCH ×2 (09:34→20:49)
[2019-01-11] MEDS: HEPARIN SOD 5,000 UNIT/0.5 ML VIAL SQ SCH ×2 (09:35→20:49)
[2019-01-11] MEDS: ISOSORBIDE MONO EXTENDED REL 30 MG TABCR PO SCH (09:35)
[2019-01-11] MEDS: ASPIRIN 81 MG ECTAB PO SCH (09:35)
[2019-01-11] MEDS: EZETIMIBE 10 MG TABLET PO SCH (09:36)
[2019-01-11] MEDS: PANTOprazole 40 MG TAB PO SCH (09:36)
[2019-01-11] MEDS: CLOPIDOGREL BISULFATE 75 MG TAB PO SCH (09:36)
[2019-01-11] MEDS: GABAPENTIN 300 MG CAP PO SCH ×4 (09:36→20:49)
--- NOTE | 2019-01-11 14:31 | Neurology Consultation ---
Date of Consultation January 11, 2019 Assessment & Plan (1) Slurred speech: 1. CT head with no acute findings 2. CTA head/neck - 13 mm NITHYA ANR will need referral to neuro surgery for follow up 3. UTI treat to culture likely cause of change in MS febrile on presentation 4. repeat CT head with MS change 5. continue aspirin 81 mg 6. TTE done 12/04/18 per report 15% EF 7. subclavian artery occlusion chronic previous stenting 8. optimize HTN, DM, HDL LDL <70 9. smoking cessation strongly urged 10. PT/OT for discharge needs (2) Left arm numbness: (3) Weakness: Supervising Physician Co-Signing Physician Notes I have seen and discussed above patient with Dr Yehuda Chacon. Patient was seen and examined. Admitted yesterday from ED for weakness, confusion, fever. Urine cultures + E.Coli. Agree with treatment of UTI for suspected encephalopathy secondary to UTI. CT head Negative for acute hemorrhage or ischemic stroke. CTA head and neck reviewed and shows chronic thrombosis of left subclavian artery and large Anterior communicating artery aneurysm. Patient is currently smoking and has been for many years. Discussed findings with patient. I believe these are incidental findings. Patient will need Neurosurgery consult in [place] on discharge to discuss aneurysm. Discussed importance of smoking cessation and risk of smoking and intracranial aneurysms. Recommend to continue her current home dual antiplatlet therapy. States she has been on this for some time without complication. Please call with any further questions or concerns. History of Present Illness Reason for Consultation: altered MS and stroke like symptoms Requesting Physician: Yari Tobar MD Attending Physician: Yari Tobar History of Present Illness Samantha is a 68 year old female PMH COPD, tobacco use, CAD s/p stent, cardiomyopathy, h/o ICD, PVD, depression, TIA presented to ED with weakness and possible stoke symptoms. She was shopping and didn't feel well and started getting really cold. She was driving home and she remembers her daughter yelling at her so she pulled over alongside the road and her [id number] drove her home. The family noticed that she had weakness and they had to help transfer her from chair to bathroom and had some slurred speech and she was complaining of some left arm numbness. She has chronic loose stools with 3-4 BMs daily. She states she still feels cold and somewhat week. She states the aneurysm is known and she saw a neurosurgeon before in [place] but has not been back to see her. denies CP, SOB, abdominal pain, one sided weakness, numbness tingling, N, V, headache, swallowing difficulties, urinary urgency or loss of urine, burning. She has COPD and wears O2 at night. She started smoking when she was 14 and is now only smoking 5 cigs per day. She does not drink EtOH but does drink alot of coffee and soda with caffeine. Allergies Allergy/AdvReac Type Severity Reaction Status Date / Time lisinopril AdvReac Mild cough Unverified 01/10/19 17:11 Home Medications Home Medications Medication Instructions Recorded Confirmed Type aspirin [Aspir-81] 81 mg PO DAILY 12/24/18 01/10/19 History buspirone 5 mg PO PM 12/24/18 01/10/19 History buspirone 10 mg PO DAILY 12/24/18 01/10/19 History clopidogrel 75 mg PO DAILY 12/24/18 01/10/19 History ezetimibe 10 mg PO DAILY 12/24/18 01/10/19 History furosemide 20 mg PO DAILY 12/24/18 01/10/19 History gabapentin 300 mg PO QID 12/24/18 01/10/19 History isosorbide mononitrate 30 mg PO DAILY 12/24/18 01/10/19 History losartan 25 mg PO DAILY 12/24/18 01/10/19 History magnesium oxide 400 mg PO HS 12/24/18 01/10/19 History pantoprazole 40 mg PO DAILY 12/24/18 01/10/19 History potassium chloride 20 meq PO DAILY 12/24/18 01/10/19 History spironolactone 12.5 mg PO DAILY 12/24/18 01/10/19 History ipratropium-albuterol [Combivent 1 puffs INH Q6H PRN #4 gm 12/26/18 01/10/19 Rx Respimat] carvedilol 1 tab PO BID 01/10/19 01/10/19 History ipratropium-albuterol [Combivent 1 puff INHALATION Q6H PRN 01/10/19 01/10/19 History Respimat] oxycodone-acetaminophen 5 mg PO DAILY PRN 01/10/19 01/10/19 History Patient History Medical History GERD (gastroesophageal reflux disease) (Chronic) HTN (hypertension) (Chronic) COPD (chronic obstructive pulmonary disease) CHF (congestive heart failure) (Chronic) VT (myocardial infarction) (Resolved) Cardiac defibrillator in place (Chronic) CAD (coronary artery disease) (Chronic) PVD (peripheral vascular disease) (Chronic) History of TIA (transient ischemic attack) (Chronic) Hyperlipemia (Chronic) Pacemaker (Chronic) Bilateral femoral artery stenosis (Chronic) "Multiple stents " Depression (Chronic) Chronic low back pain (Chronic) Surgical History Stented coronary artery (Chronic) Family History Other Hypertension Social History 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 Ability: Effective Beliefs That Will Affect Care: None marital status: Current Living Situation: Spouse and Other Current Living Situation Comment: Lived with and grandchildren Feels Safe at Home: Yes Smoking Status: Current every day smoker Hx Alcohol Use: No Hx Substance Use: No Physical Exam Vital Signs (Past 24 Hours): Last Vital Signs Temp 36.6 C 01/11/19 12:02 Pulse 65 01/11/19 14:15 Resp 18 01/11/19 14:15 BP 94/58 L 01/11/19 12:02 Pulse Ox 96 01/11/19 14:15 Physical Exam: Constitutional: appearance nourished, ill appearing Ears, Nose, Mouth and Throat: mucous membranes moist, no injection and skin normal, eyes normal Cardiovascular: regular Respiratory: course breath sounds wearing O2 3/L and breathing treatment Musculoskeletal: no peripheral edema and distant pulses Skin: no stigmata of neurocutaneous disease noted and normal and intact Eyes: extraocular muscles intact (EOMI) and pupils equal, round and reactive to light (PERRL) NEUROLOGIC EXAMINATION: Mental status: Alert and interactive Oriented to full date and location Oriented to person Speech fluent with no evidence of aphasia Cranial Nerves smile eye brow raise intact Reflexes: Deep tendon reflexes were symmetrical and graded 2/5. Sensory: decrease sensation to vibration to ankle L>R, GT proprioception absent Coordination: finger to nose no bi pass Gait/Stance: Posture lying in bed Motor: Negative for pronator drift of out stretched arms with eyes closed. Strength: biceps triceps hand bar captain 5/5 bilaterally, hip flex plantar flex ext 5/5 bilaterally Results & Data Laboratory Results Abnormal lab results 01/10/19 01/10/19 01/10/19 Range/Units 15:42 15:42 15:42 RBC (4.2-5.4) M/uL Hct (37-47) % RDW Std Deviation 47.5 H (36.4-46.3) fL Neut # (Auto) 7.73 H (1.4-6.5) K/uL Lymph # (Auto) (1.2-3.4) K/uL [place] # (Auto) 0.84 H (0.11-0.59) K/uL PT 12.6 H (9.0-12.0) Seconds INR 1.2 H (0.9-1.1) VBG pCO2 (38-50) mmHg Sodium 135 L (136-145) mmol/L Chloride (98-107) mmol/L BUN 26 H (7-18) mg/dl Creatinine 1.38 H (0.6-1.2) mg/dl Glucose (70-99) mg/dl Hemoglobin A1c (4.5-5.6) % Calcium (8.5-10.1) mg/dl Phosphorus 1.8 L (2.5-4.9) mg/dl Troponin I 0.097 H* (0-0.045) ng/ml NT-Pro-B Natriuret Pep 7715 H (0-900) pg/ml Globulin 4.1 H (2.5-4.0) gm/dl Urine Blood (Negative) Urine Nitrite (Negative) Ur Leukocyte Esterase (Negative) Urine WBC (Auto) (0-5) /hpf Urine RBC (Auto) (0-4) /hpf Urine Bacteria (Auto) (Negative) Lyme Disease IgM Ab (Negative) 01/10/19 01/10/19 01/10/19 Range/Units 16:55 16:59 17:40 RBC (4.2-5.4) M/uL Hct (37-47) % RDW Std Deviation (36.4-46.3) fL Neut # (Auto) (1.4-6.5) K/uL Lymph # (Auto) (1.2-3.4) K/uL [place] # (Auto) (0.11-0.59) K/uL PT (9.0-12.0) Seconds INR (0.9-1.1) VBG pCO2 37 L (38-50) mmHg Sodium (136-145) mmol/L Chloride (98-107) mmol/L BUN (7-18) mg/dl Creatinine (0.6-1.2) mg/dl Glucose (70-99) mg/dl Hemoglobin A1c 6.4 H (4.5-5.6) % Calcium (8.5-10.1) mg/dl Phosphorus (2.5-4.9) mg/dl Troponin I (0-0.045) ng/ml NT-Pro-B Natriuret Pep (0-900) pg/ml Globulin (2.5-4.0) gm/dl Urine Blood (Negative) Urine Nitrite (Negative) Ur Leukocyte Esterase (Negative) Urine WBC (Auto) (0-5) /hpf Urine RBC (Auto) (0-4) /hpf Urine Bacteria (Auto) (Negative) Lyme Disease IgM Ab Equivocal H (Negative) 01/10/19 01/10/19 01/11/19 Range/Units 17:44 21:28 03:40 RBC (4.2-5.4) M/uL Hct (37-47) % RDW Std Deviation (36.4-46.3) fL Neut # (Auto) (1.4-6.5) K/uL Lymph # (Auto) (1.2-3.4) K/uL [place] # (Auto) (0.11-0.59) K/uL PT (9.0-12.0) Seconds INR (0.9-1.1) VBG pCO2 (38-50) mmHg Sodium (136-145) mmol/L Chloride 111 H (98-107) mmol/L BUN 20 H (7-18) mg/dl Creatinine (0.6-1.2) mg/dl Glucose 151 H (70-99) mg/dl Hemoglobin A1c (4.5-5.6) % Calcium 7.4 L D (8.5-10.1) mg/dl Phosphorus (2.5-4.9) mg/dl Troponin I 0.109 H* 0.060 H* (0-0.045) ng/ml NT-Pro-B Natriuret Pep (0-900) pg/ml Globulin (2.5-4.0) gm/dl Urine Blood 2+ H (Negative) Urine Nitrite Positive H (Negative) Ur Leukocyte Esterase 1+ H (Negative) Urine WBC (Auto) 10-30 H (0-5) /hpf Urine RBC (Auto) 5-10 H (0-4) /hpf Urine Bacteria (Auto) 1+ H (Negative) Lyme Disease IgM Ab (Negative) 01/11/19 Range/Units 03:40 RBC 3.75 L (4.2-5.4) M/uL Hct 36.3 L (37-47) % RDW Std Deviation 47.3 H (36.4-46.3) fL Neut # (Auto) 8.18 H (1.4-6.5) K/uL Lymph # (Auto) 0.67 L (1.2-3.4) K/uL [place] # (Auto) (0.11-0.59) K/uL PT (9.0-12.0) Seconds INR (0.9-1.1) VBG pCO2 (38-50) mmHg Sodium (136-145) mmol/L Chloride (98-107) mmol/L BUN (7-18) mg/dl Creatinine (0.6-1.2) mg/dl Glucose (70-99) mg/dl Hemoglobin A1c (4.5-5.6) % Calcium (8.5-10.1) mg/dl Phosphorus (2.5-4.9) mg/dl Troponin I (0-0.045) ng/ml NT-Pro-B Natriuret Pep (0-900) pg/ml Globulin (2.5-4.0) gm/dl Urine Blood (Negative) Urine Nitrite (Negative) Ur Leukocyte Esterase (Negative) Urine WBC (Auto) (0-5) /hpf Urine RBC (Auto) (0-4) /hpf Urine Bacteria (Auto) (Negative) Lyme Disease IgM Ab (Negative) Diagnostic Findings CXR- Cardiomegaly with mild volume overload. No will pulmonary edema. CT head- There are age-related involutional changes noting mild subcortical and periventricular microangiopathic change. There is no hemorrhage, mass effect, or evidence of acute territorial ischemia by CT criteria. There is a tiny chronic lacunar infarct in the right caudate head. Phan-white matter differentiation is preserved. No extra-axial fluid collection is seen. Mineralization is noted in the basal ganglia. CTA head and neck -There is no hemorrhage, mass effect, or evidence of acute territorial ischemia by CT criteria on this angiographic phase examination. 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 Neurosurgical assessment is advised. No additional aneurysm is identified throughout the intracranial circulation. There is no high-grade stenosis or focal vessel cut off seen. 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 Note that places the patient at risk for steal phenomenon. There is approximately 50% stenosis seen at the origin of both the right and left internal carotid arteries. The carotid arteries are otherwise patent bilate rally. The origin of the left vertebral artery is not well-visualized due to significant streak artifact. Emphysematous change is noted at the apices.
[2019-01-12] MEDS: LEVALBUTEROL HCL 0.63 MG/3 ML NEB NEB SCH ×4 (02:00→19:51)
[2019-01-12] MEDS ORDERED: METOPROLOL TARTRATE 1 MG/ML VIAL IV STA ×2 (04:06→06:24)
[2019-01-12] MEDS ORDERED: METOPROLOL TARTRATE 1 MG/ML VIAL IV ONE ×2 (04:07→06:25)
[2019-01-12] MEDS ORDERED: POTASSIUM CHLORIDE 20 MEQ TABCR PO STA (04:08)
[2019-01-12] MEDS ORDERED: MAGNESIUM SULFATE / D5W 1 GM/100 ML BAG IV ONE (04:08)
[2019-01-12 04:25] LABS: Basophils # (auto) 0.02 K/uL (0-0.2); Basophils % (auto) 0.2 %; Hematocrit (blood only) 34.6 % (37-47); Hemoglobin 11.8 g/dL (12.0-16.0); Immature Granulocytes # (auto) 0.03 K/uL (0.00-0.02); Immature Granulocytes % (auto) 0.2 %; Lymphocytes # (auto) 1.82 K/uL (1.2-3.4); Lymphocytes % (auto) 15.1 %; Mean Corpuscular Hgb Conc 34.1 g/dL (32-36); Mean Corpuscular Volume 96.9 fL (80-100); Mean Platelet Volume 9.6 fL (7.4-10.4); Monocytes # (auto) 0.68 K/uL (0.11-0.59); Monocytes % (auto) 5.7 %; Neutrophils # (auto) 9.48 K/uL (1.4-6.5); Neutrophils % (auto) 78.8 %; Platelet Count 146 K/uL (130-400); RDW Coefficient of Variation 13.6 % (11.5-14.5); RDW Standard Deviation 48.9 fL (36.4-46.3); Red Blood Count 3.57 M/uL (4.2-5.4); White Blood Count 12.03 K/uL (4.8-10.8)
[2019-01-12 04:41] LABS: BUN Creatinine Ratio 23.1 (10-20); Calcium 8.1 mg/dl (8.5-10.1); Creatinine Clr Calc Pharmacy 33.5 ml/min; Est GFR (African American) 45.9; Est GFR (Non-African American) 39.6; Magnesium 1.8 mg/dl (1.8-2.4)
[2019-01-12] MEDS ORDERED: ALBUMIN 25% 50 ML IV ONE (04:47)
[2019-01-12] MEDS: CEFEPIME 2,000 MG in SYRINGE 7.5 ML IV SCH (05:47)
[2019-01-12] MEDS: HEPARIN SOD 5,000 UNIT/0.5 ML VIAL SQ SCH ×2 (08:17→21:30)
[2019-01-12] MEDS: EZETIMIBE 10 MG TABLET PO SCH (08:18)
[2019-01-12] MEDS: CLOPIDOGREL BISULFATE 75 MG TAB PO SCH (08:18)
[2019-01-12] MEDS: GABAPENTIN 300 MG CAP PO SCH ×4 (08:18→21:30)
[2019-01-12] MEDS: CARVEDILOL 3.125 MG TAB PO SCH ×2 (08:18→21:32)
[2019-01-12] MEDS: PANTOprazole 40 MG TAB PO SCH (08:18)
[2019-01-12] MEDS: ISOSORBIDE MONO EXTENDED REL 30 MG TABCR PO SCH (08:19)
[2019-01-12] MEDS: ASPIRIN 81 MG ECTAB PO SCH (08:19)
[2019-01-12] MEDS ORDERED: ACETAMINOPHEN 325 MG TAB PO PRN (08:25)
[2019-01-12] MEDS ORDERED: ACETAMINOPHEN 325 MG TAB ONE (08:28)
[2019-01-12] MEDS ORDERED: FUROSEMIDE 40 MG/4 ML VIAL IV ONE (08:34)
[2019-01-12] MEDS ORDERED: LORazepam 2 MG/4 ML VIAL ONE (08:35)
[2019-01-12] MEDS ORDERED: MoRPHine SULFATE 2 MG/ML CARP ONE (08:38)
--- NOTE | 2019-01-12 09:01 | XRay Report ---
XR chest 1V portable HISTORY: 68 years-old Female SOB acute shortness of breath COMPARISON: Chest radiograph 01/10/2019 TECHNIQUE: Portable AP view of the chest FINDINGS: Cardiac silhouette is enlarged, unchanged. Stable positioning of the left subclavian pacer/AICD. Calc ification of the thoracic aortic arch. No pneumothorax. Mild pulmonary vascular congestion with progr essed bibasilar densities. Possible trace pleural effusion on the left. Degenerative changes of the s houlders and spine. IMPRESSION: 1. Cardiomegaly with progressed pulmonary vascular congestion and possible mild pulmonary edema. 2. Progressed bibasilar densities suggestive of probable atelectasis. 3. Possible trace left pleural effusion. The above report was generated using voice recognition software. It may contain grammatical, syntax o r spelling errors. Electronically signed by: Felipe Tan M.D. 01/12/2019 8:59 AM
[2019-01-12] MEDS ORDERED: MoRPHine SULFATE 2 MG/ML CARP IV STA (09:06)
[2019-01-12] MEDS ORDERED: LORazepam 1 MG/2 ML VIAL IV STA (09:06)
[2019-01-12] MEDS ORDERED: FUROSEMIDE 40 MG/4 ML VIAL IV STA (09:06)
[2019-01-12 09:16] LABS: iSTAT Allen Test Pass; iSTAT Arterial Blood Gas HCO3 17 meg/L (19-24); iSTAT Arterial Blood Gas pCO2 33 mmHg (35-46); iSTAT Arterial Blood Gas pH 7.35 (7.35-7.45); iSTAT Carbon Dioxide 18 mEq/l (24-31); iSTAT FiO2 100 %; iSTAT Site R Radial
[2019-01-12] MEDS ORDERED: FUROSEMIDE 40 MG in SYRINGE 0 ML IV STA (09:18)
--- NOTE | 2019-01-12 09:26 | Hospitalist Progress Note ---
Date of Service January 12, 2019 Assessment & Plan (1) Acute and chronic respiratory failure with hypoxia: Worsening, went into acute respiratory distress today AM S/P Code purple today morning Secondary to CHF exacerbation, systolic dysfunction, history of COPD, active tobacco abuse, on home oxygen2 L at night, as needed during daytime which she has been using for the past few weeks In ER pt initially 92% on RA and noted dropped to 89% on RA and up to 94% on 4L oxygen via NC. It is reported that pt had some wheezing on exam. She was given solumedrol and xopenex neb. CXR: Cardiomegaly with mild volume overload. No will pulmonary edema. 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 Will transfer patient to ICU. Present on Admission?: No (2) Sepsis: (3) Bacteremia: T: 38 C in ER with tachycardia with HR in 120s--> met sepsis criteria Still febrile 39 F, leucocytosis trending down Blood cx 1/2 now growing GNB Likely source is UTI with urine culture growing E coli -CXR - Mild volume overload, EF 15%, avoided IVF. Hold lasix, spironolactone - home, but received IV Lasix 40 mg x 1 dose today -S/P Doxycyline, IV Vancomycin. Continue with IV Cefepime Q 12 hours - Day 2 -Blood cx 1/2- GNB; Urine cx - E coli; CXR- no pneumonia -Will repeat blood cultures today (4) Altered mental status: Likely Metabolic Encephalopathy secondary to sepsis/bacteremia/resp failure Confused and disoriented and in distress Monitor response to treatment (5) CHF (congestive heart failure): SYSTOLIC Known Cardiomyopathy with EF 15% Follows with Dr. Watson - [facility] medical cardiology. History echo 12/04/18: Severe global hypokinesis, EF: 15%, mild mitral regurgitation, mild aortic insufficiency, mild pulmonary hypertension Mildly elevated troponin admission likely secondary to demand ischemia -Pt was not fluid overloaded on admission. Lasix, Aldactone was held due to sepsis. No IVF were given while she was on floors. -Today went into CHF exacerbation---> Hypoxic, resp distress, Crackles, CXR- pulm congestion/pulm edema -Received IV lasix 40 mg x 1 dose ---> IV lasix 40 mg BID -Continue with coreg, not on ACEI (may be due to low BP) - (6) Wide-complex tachycardia: Hx of CMP with EF 15% with ICD in situ Noted to have wide-complex tachycardia overnight. Coreg was held, restarted today morning. Received IV Lopressor overnight for tachycardia Heart rate went up to 160s in a.m. Did come down to 130s after IV Ativan, IV morphine Continue with Coreg with holding parameters Monitor (7) Left arm numbness: Patient had left-sided facial droop, slurred speech, generalized weakness noted in the ED which has since resolved. -Tele stroke recommended no TPA with known aneurysm. No deficits on admission -Work up - CT head- Neg for acute abnormalities, CTA head/neck- Complete thrombosis of left subclavian artery at the thoracic inlet, Lipid panel- LDL 48, Tele monitor- No arrythmias; Echo 12/20 -Unable to do MRI head as has ICD -Continue with ASA, Plavix -Neurology consulted (8) Cardiac defibrillator in place: Cardiomyopathy with EF 15% Follows with Dr. Shirley [facility] medical cardiology. History echo 12/04/18: Severe global hypokinesis, EF: 15%, mild mitral regurgitation, mild aortic insufficiency, mild pulmonary hypertension -Pt does not appear fluid overloaded at this time -Hold Lasix, Spironolactone with borderline BP's (9) Elevated troponin: Likely secondary to bacteremia/Infection Denies chest pain, SOB Troponin: 0.09, paced rhythm on EKG Probable demand ischemia -Troponin- trending down 0.097--> 0.109--> 0.060 -continue ASA & beta maya, isosorbide (10) CAD (coronary artery disease): S/P cardiac stent -continue ASA & beta maya, isosorbide (11) Hypophosphatemia: Repleted Monitor (12) Renal insufficiency: Cr: 1.38. Was 1.0 on 12/24/18 admission, then 1.5 -monitor renal functions -try to avoid nephrotoxic agents when possible (13) PVD (peripheral vascular disease): -continue plavix, aspirin (14) HTN (hypertension): lower BP's currently -hold losartan -monitor BP (15) Hyperlipemia: -continue zetia (16) Depression: -continue buspirone (17) GERD (gastroesophageal reflux disease): -continue PPI DVT Prophylaxis -Heparin SQ Full Code as per discussion with pt and pt's family Follows with Dr Crane for routine care Updated spouse Josué over phone Subjective Patient is a 68-year-old female who came to ER with generalized weakness, fever, chills, questionable left facial droop/arm numbness. S/P Stroke alert. Overnight patient had more SOB, HR in 120s, received IV Lopressor. 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 Temp 39 C. On evaluation, patient is very restless and in distress secondary to SOB. Received IV morphine 2 mg , IV Lorazepam 1 mg, IV Lasix 40 mg which calmed her down. BIPAP placed. Physical Exam Vital Signs (Past 24 Hours): Last Vital Signs Temp 39.0 C H 01/12/19 07:07 Pulse 143 H 01/12/19 08:40 Resp 38 H 01/12/19 08:40 BP 107/68 01/12/19 07:07 Pulse Ox 95 01/12/19 08:40 Physical Exam: GENERAL- Awake, restless, in resp distress HEAD- Atraumatic, Normocephalic NECK- Supple, no JVD LUNGS- Air entry bilaterally decreased, coarse breath sounds, crackles +, no wheezing HEART- Tachycaria + EXTREMITIES-No edema NEUROMUSCULAR- Grossly moving all extremities (1) CHF (congestive heart failure) Heart failure chronicity: acute on chronic Heart failure type: systolic Qualified Code(s): I50.23 - Acute on chronic systolic (congestive) heart failure
[2019-01-12] MEDS ORDERED: ACETAMINOPHEN 650 MG SUPP PR PRN (10:10)
--- NOTE | 2019-01-12 11:57 | Critical Care Progress Note ---
Date of Service January 12, 2019 Assessment & Plan (1) Admitted to intensive care unit: Reason Critically Ill: 68-year-old female here for ARDS in setting of bateremia concerning for sepsis. Past medical history significant for COPD, tobacco use, CAD s/p stent, cardiomyopathy, h/o ICD, PVD, depression, TIA Neuro: -[facility] ICU: NEGATIVE -presented to the ED as a stroke alert, -ve workup. AMS thought to be 2/2 to bacteremia -13 mm NITHYA aneurysm noted on CTA will need f/u with neurosurg Cardiac: -Mildly elevated Trop on admission thought to be demand ischemia, -ve ekg changes, trop trended down no cp/ pressure -CHF: last echo 12/04/18 showed EF of 15%, defibrillator in place, AI, PHTN -Crackles on resp exam this am given lasix -HX of CAD and stent placement -HX HTN holding home meds in setting of hypotension -cont carvedilol 3.125 po bid -Lasix 40 mgs q12h -Episode of wide complex tachycardia last night resolved s/p lopressor, this morning tachy as well likely 2/2 to hypoxia Respiratory: -Severe COPD requiring 2L of O2 at night at home -PRN o2 sat goal 90-94%, avoid elevated sats as pt has chronic COPD and this may lead to inappropriate responce -Tobacco Abuse-> smoking cessation -CXR negative for pneumonia, consider procal if no improvement -Code purple this morning for ARDS possibly 2/2 to CHF, previously on 3L NC now requiring BIpap -s/p 1mg lorzapam, 2mg morphine -xopenex nebs prn -ABG pH7.374, pCO2 29.8, pO2 147, BE-8, bicarb 17.4, O2 sat 99% -monitor in the ICU on Bipap, wean as tolerated GI: -AHA diet -pantoprazole for ppx RENAL/LYTES: -No significant electrolyte derangement. -Replace lytes as needed. -Elevated CR 1.04->1.36 continue to trend -avoid nephrotoxic meds : - Castle in place, no concerns at this time. ENDO: - no hx of dm or thyroid dz -ICU hyperglycemia protocol HEME: -Stable H&H. ID: -Pt dx'd with UTI ecoli resistant to amp and currently bactermic with Gram - bacilli speciation pending -Leukocytosis was resolving, today 12.03 from 9, febrile overnight and ths morning -F/U cultures -Started on CTX today dc'd cefepime -PT s/p dose of vanc, doxy, solumedrol in the ED has been on cefepime since admission w/o significant improvement -Monitor fever curve. LINES/IV ACCESS: -PIVs x2 intact -if pt remains hypotensive, can consider central line for ease of access and admin of medication DVT PROPHYLAXIS: - Heparin Sq 5000 units q12h Dispo:Monitor in the ICU if stable overnight tx out of the ICU Thank you for allowing us to be part of this patient's care. Please refer to Dr. Moore's documentation for any further recommendations. Supervising Physician Co-Signing Physician Notes Dr. Catalan was resident physician during care of patient. I separately evaluated patient for turner portions of the history and the exam. I was present during the critical portion of medical decision making, and I discussed the case with the resident. I generally agree with the findings and plan. Severe sepsis secondary to bacteremia, gram-negative E. coli I have personally spent 35 minutes of critical care time in the direct management of this patient. This is a life/limb threatening event. This inc ludes time spent evaluating patient, direct bedside care, chart review, placing orders, interpretation of diagnostic studies, discussion with consultants, patient, and/or family members regarding treatment decisions, as well as other required patient management activities. This time is exclusive of all separately billable procedures, and teaching time and separate from and in addition to any other critical care service time. Subjective Code purple was called this morning as pt was having respiratory distress and difficulty breathing. Pt was in bed struggling to find a comfortable position and repeatedly stating she cannot breathe. Pt was evaluated at bedside. Code was completed with application of bipap mask and administration of morphine and lorazepam. Pt has since stabilized, is in no acute distress, transferred to the ICU, and resting comfortably with bipap mask in place. Pt has been tolerating her diet, castle is in place, no bm recorded, sleeping well. Nursing offered to d/c bipap and place to pt on NC, she requested to remain on Bipap. No acute concerns at present, will continue to monitor. Admission H&P:She is a 68-year-old female with significant past medical history of COPD with continued smoking, CAD with history of heart attack and placement of a ICD in the past, peripheral vascular disease, history of TIA and depression has been complaining of shortness of breath with central chest pain since last evening. She has had an attack of chest pain with shortness of breath one third of this month at [facility] and she was transferred to [facility] for continuation of care. She was discharged on the sixth of this month from [facility]. She has been complaining of shortness of breath since last night associated with some chest pain and has been using her nitro to control the chest pain. She denies any fever and/or chills with the pain and she does not have any cough or hemoptysis. She denies any sweating no radiation of the pain or any increase in leg swelling and/or weight recently. In the ER she received Nitropaste and her chest pain was reasonably controlled she was more than with a stable and chest x-ray did not show any CHF and troponin was borderline elevated at 0.055. Given the complex cardiac history she was admitted to telemetry unit for continuation of care. Physical Exam Vital Signs (Past 24 Hours): Last Vital Signs Temp 38.5 C H 01/12/19 10:09 Pulse 115 H 01/12/19 11:01 Resp 19 01/12/19 11:01 BP 102/69 01/12/19 11:01 Pulse Ox 98 01/12/19 11:01 Physical Exam: Gen: WD/WN female wearing bipap Eyes: EOMI Neck: trachea midline, normal to visual inspection -ve JVD Chest: B/L poor air movement, crackles, scattered wheezes Cards: RRR no MRG nl s1/s2, good capillary refill, -ve edema GI: Soft, Nontender, Nondistended, nl bs MSK: moves all extremities Neuro: alert awake anxious earlier has since resolved : Castle in place Results & Data Laboratory Results 01/12/19 04:14 01/12/19 04:14 01/12/19 01/12/19 01/12/19 Range/Units 10:35 08:58 04:14 WBC (4.8-10.8) K/uL RBC (4.2-5.4) M/uL Hgb (12.0-16.0) g/dL Hct (37-47) % MCV (80-100) fL MCH (25-34) pg MCHC (32-36) g/dL RDW Std Deviation (36.4-46.3) fL RDW Coeff of Ariela (11.5-14.5) % Plt Count (130-400) K/uL MPV (7.4-10.4) fL Immature Gran % (Auto) % Neut % (Auto) % Lymph % (Auto) % [place] % (Auto) % Eos % (Auto) % Baso % (Auto) % Immature Gran # (Auto) (0.00-0.02) K/uL Neut # (Auto) (1.4-6.5) K/uL Lymph # (Auto) (1.2-3.4) K/uL [place] # (Auto) (0.11-0.59) K/uL Eos # (Auto) (0-0.5) K/uL Baso # (Auto) (0-0.2) K/uL Sample Site R Radial POC pH 7.35 (7.35-7.45) POC pCO2 33 L (35-46) mmHg POC pO2 160 H (80-95) mmHg POC HCO3 17 L (19-24) maria fernanda/L POC Total CO2 18 L (24-31) mEq/l POC Base Excess -8.0 (-9-1.8) maria fernanda/L POC ABG O2 Sat 99.0 H (90-95) % Rafi Test Pass O2 Delivery Device BIPAP POC O2 Rate 12 POC FiO2 100 % IPAP 14 Sodium 138 (136-145) mmol/L Potassium 4.0 (3.5-5.1) mmol/L Chloride 108 H (98-107) mmol/L Carbon Dioxide 25 (21-32) mmol/L Anion Gap 5.0 (3-11) BUN 31 H D (7-18) mg/dl Creatinine 1.36 H D (0.6-1.2) mg/dl Est Cr Clr Drug Dosing 33.5 ml/min Est GFR ( Amer) 45.9 Est GFR (Non-Af Amer) 39.6 BUN/Creatinine Ratio 23.1 H (10-20) Glucose 91 (70-99) mg/dl POC Glucose 98 (70-99) Calcium 8.1 L (8.5-10.1) mg/dl Magnesium 1.8 (1.8-2.4) mg/dl 01/12/19 Range/Units 04:14 WBC 12.03 H (4.8-10.8) K/uL RBC 3.57 L (4.2-5.4) M/uL Hgb 11.8 L (12.0-16.0) g/dL Hct 34.6 L (37-47) % MCV 96.9 (80-100) fL MCH 33.1 (25-34) pg MCHC 34.1 (32-36) g/dL RDW Std Deviation 48.9 H (36.4-46.3) fL RDW Coeff of Ariela 13.6 (11.5-14.5) % Plt Count 146 (130-400) K/uL MPV 9.6 (7.4-10.4) fL Immature Gran % (Auto) 0.2 % Neut % (Auto) 78.8 % Lymph % (Auto) 15.1 % [place] % (Auto) 5.7 % Eos % (Auto) 0.0 % Baso % (Auto) 0.2 % Immature Gran # (Auto) 0.03 H (0.00-0.02) K/uL Neut # (Auto) 9.48 H (1.4-6.5) K/uL Lymph # (Auto) 1.82 (1.2-3.4) K/uL [place] # (Auto) 0.68 H (0.11-0.59) K/uL Eos # (Auto) 0.00 (0-0.5) K/uL Baso # (Auto) 0.02 (0-0.2) K/uL Sample Site POC pH (7.35-7.45) POC pCO2 (35-46) mmHg POC pO2 (80-95) mmHg POC HCO3 (19-24) maria fernanda/L POC Total CO2 (24-31) mEq/l POC Base Excess (-9-1.8) maria fernanda/L POC ABG O2 Sat (90-95) % Rafi Test O2 Delivery Device POC O2 Rate POC FiO2 % IPAP Sodium (136-145) mmol/L Potassium (3.5-5.1) mmol/L Chloride (98-107) mmol/L Carbon Dioxide (21-32) mmol/L Anion Gap (3-11) BUN (7-18) mg/dl Creatinine (0.6-1.2) mg/dl Est Cr Clr Drug Dosing ml/min Est GFR ( Amer) Est GFR (Non-Af Amer) BUN/Creatinine Ratio (10-20) Glucose (70-99) mg/dl POC Glucose (70-99) Calcium (8.5-10.1) mg/dl Magnesium (1.8-2.4) mg/dl Medications Administered Current Inpatient Medications Acetaminophen (Tylenol) 650 mg PO Q4H PRN PRN Reason: Fever Stop: 02/11/19 08:24 Acetaminophen (Tylenol) 650 mg SD Q4H PRN PRN Reason: Fever Stop: 02/11/19 10:09 Last Admin: 01/12/19 10:41 Dose: 650 mg Documented by: Aspirin (Ecotrin Ectab) 81 mg PO DAILY [facility] Stop: 02/10/19 08:59 Last Admin: 01/12/19 08:19 Dose: 81 mg Documented by: Buspirone HCl (Buspar) 10 mg PO DAILY NIKOS Stop: 02/10/19 08:59 Last Admin: 01/12/19 08:17 Dose: 10 mg Documented by: Buspirone HCl (Buspar) 5 mg PO PM NIKOS Stop: 02/10/19 20:59 Last Admin: 01/11/19 20:49 Dose: 5 mg Documented by: Carvedilol (Coreg) 3.125 mg PO BID [facility] Stop: 02/10/19 08:59 Last Admin: 01/12/19 08:18 Dose: 3.125 mg Documented by: Clopidogrel Bisulfate (Plavix) 75 mg PO DAILY NIKOS Stop: 02/10/19 08:59 Last Admin: 01/12/19 08:18 Dose: 75 mg Documented by: Ezetimibe (Zetia) 10 mg PO DAILY NIKOS Stop: 02/10/19 08:59 Last Admin: 01/12/19 08:18 Dose: 10 mg Documented by: Gabapentin (Neurontin) 300 mg PO QID NIKOS Stop: 02/10/19 08:59 Last Admin: 01/12/19 08:18 Dose: 300 mg Documented by: Heparin Sodium (Porcine) (Heparin Sodium (Porcine)) 5,000 units SQ Q12 NIKOS Stop: 02/10/19 08:59 Last Admin: 01/12/19 08:17 Dose: 5,000 units Documented by: Furosemide 40 mg/ Syringe 4 mls @ 4 mls/min IV Q12 NIKOS Stop: 02/11/19 20:59 Ceftriaxone Sodium 2,000 mg/ (Dextrose) 70 mls @ 140 mls/hr IV Q24H NIKOS Stop: 01/25/19 23:59 Ioversol (Optiray 320 125ml) 115 ml IV ONCE PRN PRN Reason: Interaction Checking Stop: 01/14/19 16:31 Last Admin: 01/10/19 16:33 Dose: 115 ml Documented by: Isosorbide Mononitrate (Imdur Extended Rel) 30 mg PO DAILY NIKOS Stop: 02/10/19 08:59 Last Admin: 01/12/19 08:19 Dose: 30 mg Documented by: Levalbuterol HCl (Xopenex 0.63 Mg/3 Ml Neb) 0.63 mg NEB Q6R [facility] Stop: 02/10/19 01:59 Last Admin: 01/12/19 07:15 Dose: 0.63 mg Documented by: Miscellaneous Information (Pharmacist Discharge Med Rec Consult) 1 ea N/A UD PRN PRN Reason: Consult Stop: 02/09/19 20:23 Pantoprazole Sodium (Protonix) 40 mg PO DAILY NIKOS Stop: 02/10/19 08:59 Last Admin: 01/12/19 08:18 Dose: 40 mg Documented by: Resident Activity Tracking Resident Involvement: Resident Care Provided Care Provided: Adult Hospital Medicine (ICU )
[2019-01-12] MEDS: cefTRIAXone SODIUM 2,000 MG in DEXTROSE 5% 50 ML IV SCH (17:25)
[2019-01-12] MEDS ORDERED: FUROSEMIDE 40 MG in SYRINGE 0 ML IV SCH (21:00)
[2019-01-12] MEDS: FUROSEMIDE 40 MG in SYRINGE 0 ML IV SCH (21:44)
[2019-01-13] MEDS: LEVALBUTEROL HCL 0.63 MG/3 ML NEB NEB SCH ×4 (01:56→19:54)
[2019-01-13 04:22] LABS: 18KDIGG Band NONREACTIVE (NONREACTIVE); 23KDIGG Band NONREACTIVE (NONREACTIVE); 23KDIGM Band REACTIVE (NONREACTIVE); 28KDIGG Band REACTIVE (NONREACTIVE); 30KDIGG Band NONREACTIVE (NONREACTIVE); 39KDIGG Band NONREACTIVE (NONREACTIVE); 39KDIGM Band NONREACTIVE (NONREACTIVE); 41KDIGG Band NONREACTIVE (NONREACTIVE); 41KDIGM Band NONREACTIVE (NONREACTIVE); 45KDIGG Band NONREACTIVE (NONREACTIVE); 58KDIGG Band NONREACTIVE (NONREACTIVE); 66KDIGG Band REACTIVE (NONREACTIVE); 93KDIGG Band NONREACTIVE (NONREACTIVE); Lyme Antibodies, WB IgG NEGATIVE (NEGATIVE); Lyme Antibodies, WB IgM NEGATIVE (NEGATIVE)
--- NOTE | 2019-01-13 06:49 | Critical Care Progress Note ---
Date of Service January 13, 2019 Assessment & Plan (1) Admitted to intensive care unit: Reason Critically Ill: 68-year-old female here for ARDS in setting of bateremia concerning for sepsis. Past medical history significant for COPD, tobacco use, CAD s/p stent, cardiomyopathy, h/o ICD, PVD, depression, TIA Neuro: -[facility] ICU: NEGATIVE -presented to the ED as a stroke alert, -ve workup. AMS thought to be 2/2 to bacteremia -AMS improving AAOx3 today -cx resulted see ID -13 mm NITHYA aneurysm noted on CTA will need f/u with neurosurg Cardiac: -borderline HOTN 87/60 -> 500 ml normosol bolus -> responded bp now 110/60 -Mildly elevated Trop on admission thought to be demand ischemia, -ve ekg changes, trop trended down no cp/ pressure - Hx of significant cardiomyopathy s/p pacemaker Paced rhythm - -CHF: last echo 12/04/18 showed EF of 15%, defibrillator in place, AI, PHTN -HX of CAD and stent placement -HX HTN holding home meds in setting of hypotension -cont carvedilol 3.125 po bid -Lasix 40 mgs q12h -Episode of wide complex tachycardia last night resolved s/p lopressor, this morning tachy as well likely 2/2 to hypoxia Respiratory: -Severe COPD requiring 2L of O2 at night at home -PRN O2 sat goal 90-94%, avoid elevated sats as pt has chronic COPD and this may lead to inappropriate response -Tobacco Abuse-> smoking cessation -CXR negative for pneumonia, consider procal if no improvement -Code purple 01/12 for ARDS possibly 2/2 to CHF, back on NC satting 97% on 2L -wears bipap at night GI: -AHA diet -pantoprazole for ppx RENAL/LYTES: -No significant electrolyte derangement. -Replace lytes as needed. -Elevated CR 1.04->1.36->1.25 gianluca resolving -avoid nephrotoxic meds : - Castle in place, no concerns at this time. ENDO: -No hx of dm or thyroid dz -ICU hyperglycemia protocol HEME: -Stable H&H. ID: -Pt dx'd with UTI ecoli resistant to amp and currently bacteremic with e coli as well -Downgraded abx to CTX yesterday day 01/15 of abx therapy -Leukocytosis was resolving, 9->12.3->4.85, afebrile overnight -Cx from 01/12 NGTD continue to follow -PT s/p dose of vanc, doxy, solumedrol in the ED has been on cefepime since admission w/o significant improvement -Monitor fever curve. LINES/IV ACCESS: -PIVs x2 intact -if pt remains hypotensive, can consider central line for ease of access and admin of medication DVT PROPHYLAXIS: -Heparin Sq 5000 units q12h -SCDS Dispo:ICU for ongoing supervision of bacteremia and sepsis Thank you for allowing us to be part of this patient's care. Please refer to Dr. Moore's documentation for any further recommendations. Supervising Physician Co-Signing Physician Notes Dr. Catalan was resident physician during care of patient. I separately evaluated patient for turner portions of the history and the exam. I was present during the critical portion of medical decision making, and I discussed the case with the resident. I generally agree with the findings and plan. Cardiovascular: Borderline hypotension, responded to 500 mL bolus of Normosol. Paced rhythm, known cardiomyopathy with poor EF, elevated troponins which are downtrending including in the setting of an GIANLUCA, holding antihypertensives for today Respiratory wears BiPAP at nighttime otherwise stable Renal: GIANLUCA, careful fluid resuscitation continue diet: Healthy heart Infectious disease: de-escalated to ceftriaxone for E. coli bacteremia and UTI, 14-day course of effective therapy day day 4 of 14, repeat blood cultures negative to date Endocrine: Random cortisol pending Hematology: DVT prophylaxis subcutaneous heparin with SCDs CODE STATUS: Full Dispel: Remains in ICU secondary to ongoing resuscitative efforts for bacteremia and sepsis I have personally spent 30 minutes of critical care time in the direct management of this patient. This is a life/limb threatening event. This includes time spent evaluating patient, direct bedside care, chart review, placing orders, interpretation of diagnostic studies, discussion with consultants, patient, and/or family members regarding treatment decisions, as well as other required patient management activities. This time is exclusive of all separately billable procedures, and teaching time and separate from and in addition to any other critical care service time. Subjective Pt laying in bed this morning receiving neb tx in NAD. PT did well vernight, no complaints. She has no recollection of the Code purple that occurred yesterday. Pt reports respirtory status has improved. Pt producing uring castle in place, no reported bm, tolerating her diet, satting 97% on 2L per nc, and slept well overnight. No current concerns. Physical Exam Vital Signs (Past 24 Hours): Last Vital Signs Temp 36.6 C 01/13/19 04:00 Pulse 92 H 01/13/19 06:02 Resp 26 H 01/13/19 06:02 BP 122/68 01/13/19 06:02 Pulse Ox 97 01/13/19 06:02 Physical Exam: Gen: WD/WN female Eyes: EOMI Neck: trachea midline, normal to visual inspection -ve JVD Chest: B/L poor air movement, crackles, scattered wheezes s/p neb tx Cards: RRR no MRG nl s1/s2, good capillary refill, -ve edema GI: Soft, Nontender, Nondistended, nl bs MSK: moves all extremities Neuro: AAOx3 : Castle in place Results & Data Laboratory Results 01/13/19 07:59 01/13/19 07:59 01/13/19 01/13/19 01/13/19 Range/Units 08:25 07:59 07:59 WBC 4.85 (4.8-10.8) K/uL RBC 3.48 L (4.2-5.4) M/uL Hgb 11.3 L (12.0-16.0) g/dL Hct 33.6 L (37-47) % MCV 96.6 (80-100) fL MCH 32.5 (25-34) pg MCHC 33.6 (32-36) g/dL RDW Std Deviation 48.4 H (36.4-46.3) fL RDW Coeff of Ariela 13.6 (11.5-14.5) % Plt Count 144 (130-400) K/uL MPV 9.9 (7.4-10.4) fL Immature Gran % (Auto) 0.2 % Neut % (Auto) 73.5 % Lymph % (Auto) 21.4 % [place] % (Auto) 4.7 % Eos % (Auto) 0.0 % Baso % (Auto) 0.2 % Immature Gran # (Auto) 0.01 (0.00-0.02) K/uL Neut # (Auto) 3.56 (1.4-6.5) K/uL Lymph # (Auto) 1.04 L (1.2-3.4) K/uL [place] # (Auto) 0.23 (0.11-0.59) K/uL Eos # (Auto) 0.00 (0-0.5) K/uL Baso # (Auto) 0.01 (0-0.2) K/uL Sodium 136 (136-145) mmol/L Potassium 3.5 (3.5-5.1) mmol/L Chloride 105 (98-107) mmol/L Carbon Dioxide 23 (21-32) mmol/L Anion Gap 9.0 (3-11) BUN 27 H (7-18) mg/dl Creatinine 1.25 H (0.6-1.2) mg/dl Est Cr Clr Drug Dosing 33.6 ml/min Est GFR ( Amer) 50.8 Est GFR (Non-Af Amer) 43.9 BUN/Creatinine Ratio 21.4 H (10-20) Glucose 107 H (70-99) mg/dl POC Glucose (70-99) Calcium 8.1 L (8.5-10.1) mg/dl Phosphorus 2.4 L (2.5-4.9) mg/dl Magnesium 2.2 (1.8-2.4) mg/dl Random Cortisol 12.32 mcg/dl Nasal Screen MRSA (PCR) (Negative) Lyme IgG (Western Blot) (NEGATIVE) Lyme IgG 18 kDa Band (NONREACTIVE) Lyme IgG 23 kDa Band (NONREACTIVE) Lyme IgG 28 kDa Band (NONREACTIVE) Lyme IgG 30 kDa Band (NONREACTIVE) Lyme IgG 39 kDa Band (NONREACTIVE) Lyme IgG 41 kDa Band (NONREACTIVE) Lyme IgG 45 kDa Band (NONREACTIVE) Lyme IgG 58 kDa Band (NONREACTIVE) Lyme IgG 66 kDa Band (NONREACTIVE) Lyme IgG 93 kDa Band (NONREACTIVE) Lyme IgM (Western Blot) (NEGATIVE) Lyme IgM 23 kDa Band (NONREACTIVE) Lyme IgM 39 kDa Band (NONREACTIVE) Lyme IgM 41 kDa Band (NONREACTIVE) 01/13/19 01/12/19 01/12/19 Range/Units 06:45 20:11 16:27 WBC (4.8-10.8) K/uL RBC (4.2-5.4) M/uL Hgb (12.0-16.0) g/dL Hct (37-47) % MCV (80-100) fL MCH (25-34) pg MCHC (32-36) g/dL RDW Std Deviation (36.4-46.3) fL RDW Coeff of Ariela (11.5-14.5) % Plt Count (130-400) K/uL MPV (7.4-10.4) fL Immature Gran % (Auto) % Neut % (Auto) % Lymph % (Auto) % [place] % (Auto) % Eos % (Auto) % Baso % (Auto) % Immature Gran # (Auto) (0.00-0.02) K/uL Neut # (Auto) (1.4-6.5) K/uL Lymph # (Auto) (1.2-3.4) K/uL [place] # (Auto) (0.11-0.59) K/uL Eos # (Auto) (0-0.5) K/uL Baso # (Auto) (0-0.2) K/uL Sodium (136-145) mmol/L Potassium (3.5-5.1) mmol/L Chloride (98-107) mmol/L Carbon Dioxide (21-32) mmol/L Anion Gap (3-11) BUN (7-18) mg/dl Creatinine (0.6-1.2) mg/dl Est Cr Clr Drug Dosing ml/min Est GFR ( Amer) Est GFR (Non-Af Amer) BUN/Creatinine Ratio (10-20) Glucose (70-99) mg/dl POC Glucose 99 98 97 (70-99) Calcium (8.5-10.1) mg/dl Phosphorus (2.5-4.9) mg/dl Magnesium (1.8-2.4) mg/dl Random Cortisol mcg/dl Nasal Screen MRSA (PCR) (Negative) Lyme IgG (Western Blot) (NEGATIVE) Lyme IgG 18 kDa Band (NONREACTIVE) Lyme IgG 23 kDa Band (NONREACTIVE) Lyme IgG 28 kDa Band (NONREACTIVE) Lyme IgG 30 kDa Band (NONREACTIVE) Lyme IgG 39 kDa Band (NONREACTIVE) Lyme IgG 41 kDa Band (NONREACTIVE) Lyme IgG 45 kDa Band (NONREACTIVE) Lyme IgG 58 kDa Band (NONREACTIVE) Lyme IgG 66 kDa Band (NONREACTIVE) Lyme IgG 93 kDa Band (NONREACTIVE) Lyme IgM (Western Blot) (NEGATIVE) Lyme IgM 23 kDa Band (NONREACTIVE) Lyme IgM 39 kDa Band (NONREACTIVE) Lyme IgM 41 kDa Band (NONREACTIVE) 01/12/19 01/10/19 Range/Units 11:40 17:40 WBC (4.8-10.8) K/uL RBC (4.2-5.4) M/uL Hgb (12.0-16.0) g/dL Hct (37-47) % MCV (80-100) fL MCH (25-34) pg MCHC (32-36) g/dL RDW Std Deviation (36.4-46.3) fL RDW Coeff of Ariela (11.5-14.5) % Plt Count (130-400) K/uL MPV (7.4-10.4) fL Immature Gran % (Auto) % Neut % (Auto) % Lymph % (Auto) % [place] % (Auto) % Eos % (Auto) % Baso % (Auto) % Immature Gran # (Auto) (0.00-0.02) K/uL Neut # (Auto) (1.4-6.5) K/uL Lymph # (Auto) (1.2-3.4) K/uL [place] # (Auto) (0.11-0.59) K/uL Eos # (Auto) (0-0.5) K/uL Baso # (Auto) (0-0.2) K/uL Sodium (136-145) mmol/L Potassium (3.5-5.1) mmol/L Chloride (98-107) mmol/L Carbon Dioxide (21-32) mmol/L Anion Gap (3-11) BUN (7-18) mg/dl Creatinine (0.6-1.2) mg/dl Est Cr Clr Drug Dosing ml/min Est GFR ( Amer) Est GFR (Non-Af Amer) BUN/Creatinine Ratio (10-20) Glucose (70-99) mg/dl POC Glucose (70-99) Calcium (8.5-10.1) mg/dl Phosphorus (2.5-4.9) mg/dl Magnesium (1.8-2.4) mg/dl Random Cortisol mcg/dl Nasal Screen MRSA (PCR) Negative (Negative) Lyme IgG (Western Blot) NEGATIVE (NEGATIVE) Lyme IgG 18 kDa Band NONREACTIVE (NONREACTIVE) Lyme IgG 23 kDa Band NONREACTIVE (NONREACTIVE) Lyme IgG 28 kDa Band REACTIVE A (NONREACTIVE) Lyme IgG 30 kDa Band NONREACTIVE (NONREACTIVE) Lyme IgG 39 kDa Band NONREACTIVE (NONREACTIVE) Lyme IgG 41 kDa Band NONREACTIVE (NONREACTIVE) Lyme IgG 45 kDa Band NONREACTIVE (NONREACTIVE) Lyme IgG 58 kDa Band NONREACTIVE (NONREACTIVE) Lyme IgG 66 kDa Band REACTIVE A (NONREACTIVE) Lyme IgG 93 kDa Band NONREACTIVE (NONREACTIVE) Lyme IgM (Western Blot) NEGATIVE (NEGATIVE) Lyme IgM 23 kDa Band REACTIVE A (NONREACTIVE) Lyme IgM 39 kDa Band NONREACTIVE (NONREACTIVE) Lyme IgM 41 kDa Band NONREACTIVE (NONREACTIVE) Medications Administered Current Inpatient Medications Acetaminophen (Tylenol) 650 mg PO Q4H PRN PRN Reason: Fever Stop: 02/11/19 08:24 Acetaminophen (Tylenol) 650 mg MA Q4H PRN PRN Reason: Fever Stop: 02/11/19 10:09 Last Admin: 01/12/19 10:41 Dose: 650 mg Documented by: Aspirin (Ecotrin Ectab) 81 mg PO DAILY [facility] Stop: 02/10/19 08:59 Last Admin: 01/13/19 07:53 Dose: 81 mg Documented by: Bisacodyl (Dulcolax) 5 mg PO DAILY PRN PRN Reason: CONSTIPATION Stop: 02/12/19 08:58 Buspirone HCl (Buspar) 10 mg PO DAILY [facility] Stop: 02/10/19 08:59 Last Admin: 01/13/19 07:52 Dose: 10 mg Documented by: Buspirone HCl (Buspar) 5 mg PO PM [facility] Stop: 02/10/19 20:59 Last Admin: 01/12/19 21:30 Dose: 5 mg Documented by: Carvedilol (Coreg) 3.125 mg PO BID [facility] Stop: 02/10/19 08:59 Last Admin: 01/13/19 08:30 Dose: Not Given Documented by: Clopidogrel Bisulfate (Plavix) 75 mg PO DAILY [facility] Stop: 02/10/19 08:59 Last Admin: 01/13/19 07:54 Dose: 75 mg Documented by: Docusate Sodium (Colace) 100 mg PO BID PRN PRN Reason: CONSTIPATION Stop: 02/12/19 08:59 Last Admin: 01/13/19 09:07 Dose: 100 mg Documented by: Ezetimibe (Zetia) 10 mg PO DAILY [facility] Stop: 02/10/19 08:59 Last Admin: 01/13/19 07:54 Dose: 10 mg Documented by: Gabapentin (Neurontin) 300 mg PO QID [facility] Stop: 02/10/19 08:59 Last Admin: 01/13/19 07:54 Dose: 300 mg Documented by: Heparin Sodium (Porcine) (Heparin Sodium (Porcine)) 5,000 units SQ Q12 [facility] Stop: 02/10/19 08:59 Last Admin: 01/13/19 07:53 Dose: 5,000 units Documented by: Furosemide 40 mg/ Syringe 4 mls @ 4 mls/min IV Q12 [facility] Stop: 02/11/19 20:59 Last Admin: 01/13/19 08:31 Dose: Not Given Documented by: Ceftriaxone Sodium 2,000 mg/ (Dextrose) 70 mls @ 140 mls/hr IV Q24H [facility] Stop: 01/25/19 23:59 Last Infusion: 01/12/19 18:00 Dose: Infused Documented by: Ioversol (Optiray 320 125ml) 115 ml IV ONCE PRN PRN Reason: Interaction Checking Stop: 01/14/19 16:31 Last Admin: 01/10/19 16:33 Dose: 115 ml Documented by: Isosorbide Mononitrate (Imdur Extended Rel) 30 mg PO DAILY [facility] Stop: 02/10/19 08:59 Last Admin: 01/13/19 08:31 Dose: Not Given Documented by: Levalbuterol HCl (Xopenex 0.63 Mg/3 Ml Neb) 0.63 mg NEB Q6R [facility] Stop: 02/10/19 01:59 Last Admin: 01/13/19 07:13 Dose: 0.63 mg Documented by: Miscellaneous Information (Pharmacist Discharge Med Rec Consult) 1 ea N/A UD PRN PRN Reason: Consult Stop: 02/09/19 20:23 Pantoprazole Sodium (Protonix) 40 mg PO DAILY [facility] Stop: 02/10/19 08:59 Last Admin: 01/13/19 07:54 Dose: 40 mg Documented by: Polyethylene Glycol (Miralax Powder Packet) 17 gm PO DAILY PRN PRN Reason: CONSTIPATION Stop: 02/12/19 08:59 Last Admin: 01/13/19 09:07 Dose: 17 gm Documented by: Resident Activity Tracking Resident Involvement: Resident Care Provided Care Provided: Adult Hospital Medicine (ICU )
[2019-01-13] MEDS: CARVEDILOL 3.125 MG TAB PO SCH ×3 (07:52→20:33)
[2019-01-13] MEDS: ISOSORBIDE MONO EXTENDED REL 30 MG TABCR PO SCH ×2 (07:53→08:31)
[2019-01-13] MEDS: FUROSEMIDE 40 MG in SYRINGE 0 ML IV SCH ×3 (07:53→20:39)
[2019-01-13] MEDS: ASPIRIN 81 MG ECTAB PO SCH (07:53)
[2019-01-13] MEDS: HEPARIN SOD 5,000 UNIT/0.5 ML VIAL SQ SCH ×2 (07:53→20:35)
[2019-01-13] MEDS: GABAPENTIN 300 MG CAP PO SCH ×4 (07:54→20:34)
[2019-01-13] MEDS: EZETIMIBE 10 MG TABLET PO SCH (07:54)
[2019-01-13] MEDS: PANTOprazole 40 MG TAB PO SCH (07:54)
[2019-01-13] MEDS: CLOPIDOGREL BISULFATE 75 MG TAB PO SCH (07:54)
[2019-01-13] MEDS ORDERED: NORMOSOL-R 500 ML IV SCH (08:15)
[2019-01-13 08:42] LABS: Basophils # (auto) 0.01 K/uL (0-0.2); Basophils % (auto) 0.2 %; Hematocrit (blood only) 33.6 % (37-47); Hemoglobin 11.3 g/dL (12.0-16.0); Immature Granulocytes # (auto) 0.01 K/uL (0.00-0.02); Immature Granulocytes % (auto) 0.2 %; Lymphocytes # (auto) 1.04 K/uL (1.2-3.4); Lymphocytes % (auto) 21.4 %; Mean Corpuscular Hgb Conc 33.6 g/dL (32-36); Mean Corpuscular Volume 96.6 fL (80-100); Mean Platelet Volume 9.9 fL (7.4-10.4); Monocytes # (auto) 0.23 K/uL (0.11-0.59); Monocytes % (auto) 4.7 %; Neutrophils # (auto) 3.56 K/uL (1.4-6.5); Neutrophils % (auto) 73.5 %; Platelet Count 144 K/uL (130-400); RDW Coefficient of Variation 13.6 % (11.5-14.5); RDW Standard Deviation 48.4 fL (36.4-46.3); Red Blood Count 3.48 M/uL (4.2-5.4); White Blood Count 4.85 K/uL (4.8-10.8)
[2019-01-13 08:52] LABS: BUN Creatinine Ratio 21.4 (10-20); Calcium 8.1 mg/dl (8.5-10.1); Creatinine Clr Calc Pharmacy 33.6 ml/min; Est GFR (African American) 50.8; Est GFR (Non-African American) 43.9; Magnesium 2.2 mg/dl (1.8-2.4); Potassium 3.5 mmol/L (3.5-5.1)
[2019-01-13] MEDS ORDERED: BISACODYL 5 MG TABEC PO PRN (08:59)
[2019-01-13] MEDS ORDERED: POLYETHYLENE (MIRALAX) 17 GM PACK PO PRN (09:00)
[2019-01-13] MEDS ORDERED: DOCUSATE SODIUM 100 MG CAP PO PRN (09:00)
[2019-01-13 09:04] LABS: Phosphorus 2.4 mg/dl (2.5-4.9)
--- NOTE | 2019-01-13 13:01 | Hospitalist Progress Note ---
Date of Service January 13, 2019 Assessment & Plan (1) Acute and chronic respiratory failure with hypoxia: S/P Code purple on 01/12/19 --> Transferred to ICU Secondary to CHF exacerbation, systolic dysfunction, history of COPD, active tobacco abuse, on home oxygen2 L at night, as needed during daytime which she has been using for the past few weeks In ER pt initially 92% on RA and noted dropped to 89% on RA and up to 94% on 4L oxygen via NC. It is reported that pt had some wheezing on exam. She was given solumedrol and xopenex neb. CXR: Cardiomegaly with mild volume overload. No will pulmonary edema. Repeat CXR 01/12: Cardiomegaly with progressive pulmonary vascular congestion and possible mild pulmonary edema, atelectasis, trace left pleural effusion From oxygen 3 L --> Code purple :non re breather mask --> BIPAP briefly---> 2 L oxy -Mx as below -Xopenex Nebs -Wean as tolerated -Appreciate Software Quality Specialist inputs (2) Sepsis: (3) Bacteremia: T: 38 C in ER with tachycardia with HR in 120s--> met sepsis criteria Afebrile now, Leucocytosis has resolved Blood cx 1/2 & Urine culture now growing E coli -CXR - Mild volume overload, EF 15%, avoided IVF. Hold lasix, spironolactone - home, but received IV Lasix 40 mg x 1 dose today -S/P Doxycyline, IV Vancomycin. IV Cefepime x 2 days--> IV Rocephin (Day 4/14 of antibiotics. Duration: 14 days from negative blood cultures) -Blood cx 1/2- GNB; Urine cx - E coli; CXR- no pneumonia -Follow up repeat blood cultures (4) Altered mental status: Likely Metabolic Encephalopathy secondary to sepsis/bacteremia/resp failure Resolved Currently: AAOX3 (5) CHF (congestive heart failure): SYSTOLIC Known Cardiomyopathy with EF 15% Follows with Dr. Watson - [facility] medical cardiology. History echo 12/04/18: Severe global hypokinesis, EF: 15%, mild mitral regurgitation, mild aortic insufficiency, mild pulmonary hypertension Mildly elevated troponin admission likely secondary to demand ischemia -Pt was not fluid overloaded on admission. Lasix, Aldactone was held due to sepsis. No IVF were given while she was on floors. -On 01/12 went into CHF exacerbation---> Hypoxic, resp distress, Crackles, CXR- pulm congestion/pulm edema Weight is down by approx 5 Kilos -Received IV lasix 40 mg x 1 dose ---> IV lasix 40 mg BID - Day 2 -Continue with coreg, not on ACEI (may be due to low BP) - (6) Wide-complex tachycardia: Hx of CMP with EF 15% with ICD in situ Resolved -Noted to have wide-complex tachycardia overnight 01/12. Received IV Lopressor -Continue with Coreg with holding parameters -Monitor (7) Left arm numbness: Patient had left-sided facial droop, slurred speech, generalized weakness noted in the ED which has since resolved. -Tele stroke recommended no TPA with known aneurysm. 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 Watson [facility] medical cardiology. History echo 12/04/18: Severe global hypokinesis, EF: 15%, mild mitral regurgitation, mild aortic insufficiency, mild pulmonary hypertension (9) Elevated troponin: Likely secondary to bacteremia/Infection Denies chest pain, SOB Troponin: 0.09, paced rhythm on EKG Probable demand ischemia -Troponin- trending down 0.097--> 0.109--> 0.060 -continue ASA & beta maya, isosorbide (10) CAD (coronary artery disease): S/P cardiac stent -continue ASA & beta maya, isosorbide (11) Hypophosphatemia: Resolved Monitor (12) Renal insufficiency: Cr: 1.38. Was 1.0 on 12/24/18 admission, then 1.5--> trending down -try to avoid nephrotoxic agents when possible (13) Aneurysm of anterior communicating artery: as per CTA head/neck Follow up with neurosurgery outpatient as per neurology (14) PVD (peripheral vascular disease): -continue plavix, aspirin (15) HTN (hypertension): lower BP's currently -hold losartan due to borderline low BP and elevated creatinine -monitor BP (16) Hyperlipemia: -continue zetia (17) Depression: -continue buspirone (18) GERD (gastroesophageal reflux disease): -continue PPI DVT Prophylaxis -Heparin SQ Disposition Continue with ICU monitoring Full Code as per discussion with pt and pt's family Follows with Dr Crane for routine care Updated daughter over phone Subjective Patient was transferred to ICU yesterday for acute respiratory distress, CHF exacerbation, bacteremia/Sepsis. Doing better. C/o generalized weakness. No nausea, vomiting, fever, chills Fever has resolved Tolerating PO well Weight is down by approx 5 Kilos On 2 L oxgyen Tele monitor- NSR Physical Exam Vital Signs (Past 24 Hours): Last Vital Signs Temp 36.6 C 01/13/19 12:05 Pulse 78 01/13/19 12:06 Resp 23 01/13/19 12:06 BP 102/81 01/13/19 12:06 Pulse Ox 94 01/13/19 12:06 Physical Exam: GENERAL- Awake, restless, in resp distress HEAD- Atraumatic, Normocephalic NECK- Supple, no JVD LUNGS- Air entry bilaterally decreased, coarse breath sounds, crackles +, no wheezing HEART- Tachycardia + EXTREMITIES-No edema (1) CHF (congestive heart failure) Heart failure chronicity: acute on chronic Heart failure type: systolic Qualified Code(s): I50.23 - Acute on chronic systolic (congestive) heart failure
[2019-01-13] MEDS: cefTRIAXone SODIUM 2,000 MG in DEXTROSE 5% 50 ML IV SCH (16:56)
[2019-01-14] MEDS: LEVALBUTEROL HCL 0.63 MG/3 ML NEB NEB SCH ×4 (01:56→19:39)
[2019-01-14 05:10] LABS: Hematocrit (blood only) 35.2 % (37-47); Mean Corpuscular Hgb Conc 34.1 g/dL (32-36); Mean Corpuscular Volume 95.1 fL (80-100); Mean Platelet Volume 9.9 fL (7.4-10.4); Platelet Count 168 K/uL (130-400); RDW Coefficient of Variation 13.4 % (11.5-14.5); RDW Standard Deviation 46.7 fL (36.4-46.3); White Blood Count 4.99 K/uL (4.8-10.8)
[2019-01-14 05:37] LABS: Calcium 8.1 mg/dl (8.5-10.1); Creatinine Clr Calc Pharmacy 32.3 ml/min; Est GFR (African American) 48.5; Est GFR (Non-African American) 41.8; Potassium 3.4 mmol/L (3.5-5.1)
[2019-01-14] MEDS: HEPARIN SOD 5,000 UNIT/0.5 ML VIAL SQ SCH ×2 (07:39→20:15)
[2019-01-14] MEDS: ASPIRIN 81 MG ECTAB PO SCH (07:39)
[2019-01-14] MEDS: CLOPIDOGREL BISULFATE 75 MG TAB PO SCH (07:40)
[2019-01-14] MEDS: GABAPENTIN 300 MG CAP PO SCH ×4 (07:40→20:14)
[2019-01-14] MEDS: PANTOprazole 40 MG TAB PO SCH (07:40)
[2019-01-14] MEDS: EZETIMIBE 10 MG TABLET PO SCH (07:41)
[2019-01-14] MEDS: ISOSORBIDE MONO EXTENDED REL 30 MG TABCR PO SCH (09:23)
[2019-01-14] MEDS: CARVEDILOL 3.125 MG TAB PO SCH ×2 (09:23→20:08)
[2019-01-14] MEDS: FUROSEMIDE 40 MG in SYRINGE 0 ML IV SCH ×2 (09:23→20:08)
[2019-01-14] MEDS ORDERED: POTASSIUM CHLORIDE 20 MEQ TABCR PO STA (09:24)
--- NOTE | 2019-01-14 09:27 | Critical Care Progress Note ---
Date of Service January 14, 2019 Supervising Physician Co-Signing Physician Notes Admitted to intensive care unit: Reason Critically Ill: 68-year-old female here for ARDS in setting of bateremia concerning for sepsis. Past medical history significant for COPD, tobacco use, CAD s/p stent, cardiomyopathy, h/o ICD, PVD, depression, TIA Neuro: -[facility] ICU: NEGATIVE -presented to the ED as a stroke alert, -ve workup. AMS thought to be 2/2 to bacteremia -AMS improving AAOx3 today -cx resulted see ID -13 mm NITHYA aneurysm noted on CTA will need f/u with neurosurg Cardiac: Hypotension: Resolved - Hx of significant cardiomyopathy s/p pacemaker Paced rhythm - -CHF: last echo 12/04/18 showed EF of 15%, defibrillator in place, AI, PHTN -HX of CAD and stent placement -HX HTN holding home meds today -cont carvedilol 3.125 po bid -Lasix 40 mgs q12h Elevated troponins: Improved Respiratory: -Severe COPD requiring 2L of O2 at night at home -PRN O2 sat goal 90-94%, avoid elevated sats as pt has chronic COPD and this may lead to inappropriate response -Tobacco Abuse-> smoking cessation -wears bipap at night GI: -AHA diet -pantoprazole for ppx RENAL/LYTES: Hypokalemia: 20 mEq K-Dur -Elevated CR : -Discontinue German ENDO: -No hx of dm or thyroid dz -ICU hyperglycemia protocol HEME: -Stable H&H. ID: -Bacteremia: Improved -2 weeks antibiotics day 5 of 14 -Convert from IV ceftriaxone to Omnicef 300 mg twice daily for 20 total doses -Urinary tract infection LINES/IV ACCESS: -PIVs x2 intact -if pt remains hypotensive, can consider central line for ease of access and admin of medication DVT PROPHYLAXIS: -Heparin Sq 5000 units q12h -SCDS Stable for downgrade out of ICU today Subjective No overnight events Physical Exam Vital Signs (Past 24 Hours): Last Vital Signs Temp 36.3 C L 01/14/19 04:01 Pulse 73 01/14/19 07:56 Resp 16 01/14/19 07:56 BP 137/78 01/14/19 04:01 Pulse Ox 95 01/14/19 07:56 General: Alert. nontoxic. Skin: Warm, dry, Head: Atraumatic Ears, nose, mouth and throat: airway patent Cardiovascular: Normal peripheral perfusion Respiratory: no respiratory distress Gastrointestinal: Non distended Musculoskeletal: No deformity Results & Data Laboratory Results 01/14/19 01/14/19 01/14/19 Range/Units 04:36 04:36 00:05 WBC 4.99 (4.8-10.8) K/uL RBC 3.70 L (4.2-5.4) M/uL Hgb 12.0 (12.0-16.0) g/dL Hct 35.2 L (37-47) % MCV 95.1 (80-100) fL MCH 32.4 (25-34) pg MCHC 34.1 (32-36) g/dL RDW Std Deviation 46.7 H (36.4-46.3) fL RDW Coeff of Ariela 13.4 (11.5-14.5) % Plt Count 168 (130-400) K/uL MPV 9.9 (7.4-10.4) fL Sodium 135 L (136-145) mmol/L Potassium 3.4 L (3.5-5.1) mmol/L Chloride 103 (98-107) mmol/L Carbon Dioxide 25 (21-32) mmol/L Anion Gap 7.0 (3-11) BUN 21 H (7-18) mg/dl Creatinine 1.30 H (0.6-1.2) mg/dl Est Cr Clr Drug Dosing 32.3 ml/min Est GFR ( Amer) 48.5 Est GFR (Non-Af Amer) 41.8 BUN/Creatinine Ratio 16.0 (10-20) Glucose 110 H (70-99) mg/dl POC Glucose 116 H (70-99) Calcium 8.1 L (8.5-10.1) mg/dl
[2019-01-14] MEDS: CEFDINIR 300 MG CAP PO SCH ×2 (11:11→20:17)
--- NOTE | 2019-01-14 12:42 | Hospitalist Progress Note ---
Date of Service January 14, 2019 Assessment & Plan (1) Acute and chronic respiratory failure with hypoxia: S/P Code purple on 01/12/19 --> Transferred to ICU --> Transfer back to floor 01/14/19 Secondary to CHF exacerbation, systolic,, history of COPD, active tobacco abuse, on home oxygen2 L at night, as needed during daytime which she has been using for the past few weeks -CXR: Cardiomegaly with mild volume overload. No will pulmonary edema. Repeat CXR 01/12: Cardiomegaly with progressive pulmonary vascular congestion and possible mild pulmonary edema, atelectasis, trace left pleural effusion From oxygen 3 L --> Code purple :non re breather mask --> BIPAP briefly---> 2 L oxy--> 1 L oxygen today -Mx as below -Xopenex Nebs -Wean as tolerated -Appreciate Paper Production Engineer inputs (2) Sepsis: (3) Bacteremia: T: 38 C in ER with tachycardia with HR in 120s--> met sepsis criteria Afebrile now, Leucocytosis has resolved Blood cx 1/2 & Urine culture now growing E coli -CXR - Mild volume overload, EF 15%, avoided IVF. On lasix -S/P Doxycyline, IV Vancomycin. IV Cefepime x 2 days--> IV Rocephin--> Omnicef 300 mg PO BID started today (Day 314 of antibx from neg blood cx) -Blood cx 1/2- E coli; Urine cx - E coli; CXR- no pneumonia -Follow up repeat blood cultures- Negative preliminary (4) Altered mental status: Likely Metabolic Encephalopathy secondary to sepsis/bacteremia/resp failure Resolved Currently: AAOX3 (5) CHF (congestive heart failure): SYSTOLIC Known Cardiomyopathy with EF 15% History echo 12/04/18: Severe global hypokinesis, EF: 15%, mild mitral regurgitation, mild aortic insufficiency, mild pulmonary hypertension Mildly elevated troponin admission likely secondary to demand ischemia -Pt was not fluid overloaded on admission. Lasix, Aldactone was held due to sepsis. No IVF were given while she was on floors. -On 01/12 went into CHF exacerbation---> Hypoxic, resp distress, Crackles, CXR- pulm congestion/pulm edema--> Tx to ICU Weight is down by approx 3.6 kilos, neg balance -Received IV lasix 40 mg x 1 dose ---> IV lasix 40 mg BID - Day 3--> Likely convert to PO in AM -Continue with coreg, not on ACEI (may be due to low BP) - (6) Wide-complex tachycardia: Hx of CMP with EF 15% with ICD in situ Resolved -Noted to have wide-complex tachycardia overnight 01/12. Received IV Lopressor -Continue with Coreg with holding parameters -Monitor (7) Left arm numbness: Patient had left-sided facial droop, slurred speech, generalized weakness noted in the ED which has since resolved. -Tele stroke recommended no TPA with known aneurysm. 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 Watson - [facility] medical cardiology. History echo 12/04/18: Severe global hypokinesis, EF: 15%, mild mitral regurgitation, mild aortic insufficiency, mild pulmonary hypertension (9) Elevated troponin: Likely secondary to bacteremia/Infection Denies chest pain, SOB Troponin: 0.09, paced rhythm on EKG Probable demand ischemia -Troponin- trending down 0.097--> 0.109--> 0.060 -continue ASA & beta maya, isosorbide (10) CAD (coronary artery disease): S/P cardiac stent -continue ASA & beta maya, isosorbide (11) Hypophosphatemia: Resolved Monitor (12) Renal insufficiency: Cr: 1.38. 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 C/o generalized weakness. No nausea, vomiting, fever, chills Fever has resolved Tolerating PO well Weight is down by approx 3.6 Kilos since admission Oxygen down to 1 L Tele monitor- NSR Physical Exam Vital Signs (Past 24 Hours): Last Vital Signs Temp 36.6 C 01/14/19 12:00 Pulse 85 01/14/19 12:02 Resp 19 01/14/19 12:02 BP 177/113 H 01/14/19 12:02 Pulse Ox 95 01/14/19 12:02 Physical Exam: GENERAL- Awake, restless, in resp distress HEAD- Atraumatic, Normocephalic NECK- Supple, no JVD LUNGS- Air entry bilaterally decreased, coarse breath sounds, mild wheezing HEART- S1, S2 normal EXTREMITIES-No edema (1) CHF (congestive heart failure) Heart failure type: systolic Heart failure chronicity: acute on chronic Qualified Code(s): I50.23 - Acute on chronic systolic (congestive) heart failure
[2019-01-15] MEDS: LEVALBUTEROL HCL 0.63 MG/3 ML NEB NEB SCH ×4 (02:00→18:52)
[2019-01-15 06:45] LABS: Hematocrit (blood only) 37.5 % (37-47); Hemoglobin 12.8 g/dL (12.0-16.0); Mean Corpuscular Hgb Conc 34.1 g/dL (32-36); Mean Corpuscular Volume 95.9 fL (80-100); Mean Platelet Volume 9.7 fL (7.4-10.4); Platelet Count 194 K/uL (130-400); RDW Coefficient of Variation 13.4 % (11.5-14.5); RDW Standard Deviation 47.1 fL (36.4-46.3); Red Blood Count 3.91 M/uL (4.2-5.4); White Blood Count 5.66 K/uL (4.8-10.8)
[2019-01-15 07:21] LABS: BUN Creatinine Ratio 18.5 (10-20); Calcium 8.9 mg/dl (8.5-10.1); Creatinine Clr Calc Pharmacy 35.9 ml/min; Est GFR (African American) 55.1; Est GFR (Non-African American) 47.5; Potassium 4.2 mmol/L (3.5-5.1)
[2019-01-15] MEDS: HEPARIN SOD 5,000 UNIT/0.5 ML VIAL SQ SCH ×2 (09:08→20:07)
[2019-01-15] MEDS: EZETIMIBE 10 MG TABLET PO SCH (09:09)
[2019-01-15] MEDS: CEFDINIR 300 MG CAP PO SCH ×2 (09:09→20:08)
[2019-01-15] MEDS: ISOSORBIDE MONO EXTENDED REL 30 MG TABCR PO SCH (09:09)
[2019-01-15] MEDS: ASPIRIN 81 MG ECTAB PO SCH (09:09)
[2019-01-15] MEDS: CARVEDILOL 3.125 MG TAB PO SCH ×2 (09:09→20:07)
[2019-01-15] MEDS: GABAPENTIN 300 MG CAP PO SCH ×4 (09:09→20:07)
[2019-01-15] MEDS: CLOPIDOGREL BISULFATE 75 MG TAB PO SCH (09:09)
[2019-01-15] MEDS: PANTOprazole 40 MG TAB PO SCH (09:09)
[2019-01-15] MEDS: FUROSEMIDE 40 MG in SYRINGE 0 ML IV SCH (09:33)
--- NOTE | 2019-01-15 09:54 | Hospitalist Progress Note ---
Date of Service January 15, 2019 Assessment & Plan (1) Acute and chronic respiratory failure with hypoxia: S/P Code purple on 01/12/19 --> Transferred to ICU --> Transfer back to floor 01/14/19 Secondary to CHF exacerbation, systolic,, history of COPD, active tobacco abuse, on home oxygen2 L at night, as needed during daytime which she has been using for the past few weeks -CXR: Cardiomegaly with mild volume overload. No will pulmonary edema. Repeat CXR 01/12: Cardiomegaly with progressive pulmonary vascular congestion and possible mild pulmonary edema, atelectasis, trace left pleural effusion From oxygen 3 L --> Code purple :non re breather mask --> BIPAP briefly---> 2 L oxy--> 1 L oxygen today -Mx as below -Xopenex Nebs -Wean as tolerated -Appreciate Maintenance Electrician inputs (2) Sepsis: (3) Bacteremia: T: 38 C in ER with tachycardia with HR in 120s--> met sepsis criteria Afebrile now, Leucocytosis has resolved Blood cx 1/2 & Urine culture now growing E coli -CXR - Mild volume overload, EF 15%, avoided IVF. On lasix -S/P Doxycyline, IV Vancomycin. IV Cefepime x 2 days--> IV Rocephin--> Omnicef 300 mg PO BID started today (Day 01/15 of antibx from neg blood cx) -Blood cx 1/2- E coli; Urine cx - E coli; CXR- no pneumonia -Follow up repeat blood cultures- Negative preliminary (4) Altered mental status: Likely Metabolic Encephalopathy secondary to sepsis/bacteremia/resp failure Resolved Currently: AAOX3 (5) CHF (congestive heart failure): SYSTOLIC Known Cardiomyopathy with EF 15% History echo 12/04/18: Severe global hypokinesis, EF: 15%, mild mitral regurgitation, mild aortic insufficiency, mild pulmonary hypertension Mildly elevated troponin admission likely secondary to demand ischemia -Pt was not fluid overloaded on admission. Lasix, Aldactone was held due to sepsis. No IVF were given while she was on floors. -On 01/12 went into CHF exacerbation---> Hypoxic, resp distress, Crackles, CXR- pulm congestion/pulm edema--> Tx to ICU -Baseline weight around 58-59 kilos, went up to 63.5, now down to 60.1 kilos -Received IV lasix 40 mg x 1 dose ---> IV lasix 40 mg BID - Day 3--> Change to lasix 40 mg daily from today (Home dose: lasix 20 mg daily) -Continue with coreg, on losartan at home (held here due to GIANLUCA). Will restart and monitor BP on all these medications - (6) Wide-complex tachycardia: Hx of CMP with EF 15% with ICD in situ Resolved -Noted to have wide-complex tachycardia overnight 01/12. Received IV Lopressor -Continue with Coreg with holding parameters -Monitor (7) Left arm numbness: Patient had left-sided facial droop, slurred speech, generalized weakness noted in the ED which has since resolved. -Tele stroke recommended no TPA with known aneurysm. 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 Watson - [facility] cardiology. History echo 12/04/18: Severe global hypokinesis, EF: 15%, mild mitral regurgitation, mild aortic insufficiency, mild pulmonary hypertension (9) Elevated troponin: Likely secondary to bacteremia/Infection Denies chest pain, SOB Troponin: 0.09, paced rhythm on EKG Probable demand ischemia -Troponin- trending down 0.097--> 0.109--> 0.060 -continue ASA & beta maya, isosorbide (10) CAD (coronary artery disease): S/P cardiac stent -continue ASA & beta maya, isosorbide (11) Hypophosphatemia: Resolved Monitor (12) Renal insufficiency: GIANLUCA-creatinine peaked to 1.5 -GIANLUCA now resolved -Monitor on diuretics (13) Aneurysm of anterior communicating artery: As per CTA head/neck Follow up with neurosurgery outpatient as per neurology (14) PVD (peripheral vascular disease): -continue plavix, aspirin (15) HTN (hypertension): lower BP's currently -Restart losartan as creatinine has normalized -BP in 100s, will have to monitor BP closely with restarting all these medications, increased dose of lasix. Restart Aldactone as well -monitor BP (16) Hyperlipemia: -continue zetia (17) Depression: -continue buspirone (18) GERD (gastroesophageal reflux disease): -continue PPI DVT Prophylaxis -Heparin SQ Disposition Transferred from ICU to floors on 01/14/19 Home with home health services- likely in 1-2 days Full Code as per discussion with pt and pt's family Follows with Dr Crane for routine care Subjective Doing much better. Generalized weakness has improved. Afebrile. No nausea, vomiting, abdominal pain, urinary frequency or burning. Tolerating PO well Weight is down, Negative balance Oxygen down to 2 L Tele monitor- NSR Physical Exam Vital Signs (Past 24 Hours): Last Vital Signs Temp 36.6 C 01/15/19 07:09 Pulse 76 01/15/19 07:18 Resp 18 01/15/19 07:18 BP 101/67 01/15/19 07:09 Pulse Ox 95 01/15/19 07:18 Physical Exam: GENERAL- Awake, alert, oriented x3, not in acute distress HEAD- Atraumatic, Normocephalic NECK- Supple, no JVD LUNGS- Air entry bilaterally equal, no wheezing. HEART- S1, S2 normal EXTREMITIES-No edema (1) CHF (congestive heart failure) Heart failure type: systolic Heart failure chronicity: acute on chronic Qualified Code(s): I50.23 - Acute on chronic systolic (congestive) heart failure
[2019-01-15] MEDS: LOSARTAN POTASSIUM 25 MG TAB PO SCH (10:47)
[2019-01-15] MEDS: FUROSEMIDE 40 MG TAB PO SCH (10:47)
[2019-01-15] MEDS: SPIRONOLACTONE 25 MG TAB PO SCH (10:47)
[2019-01-16] MEDS: LEVALBUTEROL HCL 0.63 MG/3 ML NEB NEB SCH ×3 (01:58→13:36)
[2019-01-16 05:42] LABS: Basophils # (auto) 0.02 K/uL (0-0.2); Basophils % (auto) 0.3 %; Eosinophils # (auto) 0.01 K/uL (0-0.5); Eosinophils % (auto) 0.2 %; Hematocrit (blood only) 34.9 % (37-47); Hemoglobin 11.7 g/dL (12.0-16.0); Immature Granulocytes # (auto) 0.01 K/uL (0.00-0.02); Immature Granulocytes % (auto) 0.2 %; Lymphocytes # (auto) 2.11 K/uL (1.2-3.4); Lymphocytes % (auto) 32.7 %; Mean Corpuscular Hgb Conc 33.5 g/dL (32-36); Mean Corpuscular Volume 96.1 fL (80-100); Mean Platelet Volume 9.3 fL (7.4-10.4); Monocytes # (auto) 0.61 K/uL (0.11-0.59); Monocytes % (auto) 9.4 %; Neutrophils % (auto) 57.2 %; Platelet Count 215 K/uL (130-400); RDW Coefficient of Variation 13.3 % (11.5-14.5); RDW Standard Deviation 46.7 fL (36.4-46.3); Red Blood Count 3.63 M/uL (4.2-5.4); White Blood Count 6.46 K/uL (4.8-10.8)
[2019-01-16 06:07] LABS: Calcium 8.9 mg/dl (8.5-10.1); Creatinine Clr Calc Pharmacy 34.7 ml/min; Est GFR (African American) 52.9; Est GFR (Non-African American) 45.6; Potassium 4.1 mmol/L (3.5-5.1)
[2019-01-16] MEDS: GABAPENTIN 300 MG CAP PO SCH ×3 (07:49→16:38)
[2019-01-16] MEDS: PANTOprazole 40 MG TAB PO SCH (07:49)
[2019-01-16] MEDS: EZETIMIBE 10 MG TABLET PO SCH (07:50)
[2019-01-16] MEDS: CLOPIDOGREL BISULFATE 75 MG TAB PO SCH (07:50)
[2019-01-16] MEDS: CEFDINIR 300 MG CAP PO SCH (07:50)
[2019-01-16] MEDS: ASPIRIN 81 MG ECTAB PO SCH (07:50)
[2019-01-16] MEDS: HEPARIN SOD 5,000 UNIT/0.5 ML VIAL SQ SCH (07:51)
[2019-01-16] MEDS: SPIRONOLACTONE 25 MG TAB PO SCH (09:28)
[2019-01-16] MEDS: LOSARTAN POTASSIUM 25 MG TAB PO SCH (09:28)
[2019-01-16] MEDS: CARVEDILOL 3.125 MG TAB PO SCH (09:30)
[2019-01-16] MEDS: FUROSEMIDE 40 MG TAB PO SCH (09:30)
--- NOTE | 2019-01-16 10:49 | Hospitalist Progress Note ---
Date of Service January 16, 2019 Assessment & Plan (1) Acute and chronic respiratory failure with hypoxia: RESOLVED- Currently off oxygen day time, 2 L at night (As at home) -S/P Code purple on 01/12/19 --> Transferred to ICU --> Transfer back to floor 01/14/19 -Secondary to CHF exacerbation, systolic,, history of COPD, active tobacco abuse, home oxygen -CXR: Cardiomegaly with mild volume overload. No will pulmonary edema. -Repeat CXR 01/12: Cardiomegaly with progressive pulmonary vascular congestion and possible mild pulmonary edema, atelectasis, trace left pleural effusion From oxygen 3 L --> Code purple :non re breather mask --> BIPAP briefly---> 2 L oxy--> 1 L oxygen --> now off it -Mx as below -Xopenex Nebs -Wean as tolerated -Appreciate Engineering Laboratory Technician inputs (2) Sepsis: (3) Bacteremia: T: 38 C in ER with tachycardia with HR in 120s--> met sepsis criteria Afebrile now, Leucocytosis has resolved Blood cx 1/2 & Urine culture now growing E coli -CXR - Mild volume overload, EF 15%, avoided IVF. On lasix -S/P Doxycyline, IV Vancomycin. IV Cefepime x 2 days--> IV Rocephin--> Omnicef 300 mg PO BID started today (Day 5 of antibx from neg blood cx) -Blood cx 1/2- E coli; Urine cx - E coli; CXR- no pneumonia -Follow up repeat blood cultures- Negative (4) Altered mental status: Likely Metabolic Encephalopathy secondary to sepsis/bacteremia/resp failure Resolved Currently: AAOX3 (5) CHF (congestive heart failure): SYSTOLIC Known Cardiomyopathy with EF 15% History echo 12/04/18: Severe global hypokinesis, EF: 15%, mild mitral regurgitation, mild aortic insufficiency, mild pulmonary hypertension Mildly elevated troponin admission likely secondary to demand ischemia -Pt was not fluid overloaded on admission. Lasix, Aldactone was held due to sepsis. No IVF were given while she was on floors. -On 01/12 went into CHF exacerbation---> Hypoxic, resp distress, Crackles, CXR- pulm congestion/pulm edema--> Tx to ICU -Baseline weight around 58-59 kilos, went up to 63.5, now down to 60 kilos -S/P IV lasix 40 mg BID - Day 3--> Changed to lasix 40 mg daily on 01/15/19 (Home dose: lasix 20 mg daily) -Continue with coreg, lasix with holding parameters -Will discontinue Losartan as BP unable to tolerate it - (6) Wide-complex tachycardia: Hx of CMP with EF 15% with ICD in situ Resolved -Noted to have wide-complex tachycardia overnight 01/12. Received IV Lopressor -Continue with Coreg with holding parameters (7) Left arm numbness: Patient had left-sided facial droop, slurred speech, generalized weakness noted in the ED which has since resolved. -Tele stroke recommended no TPA with known aneurysm. 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 Watson - [facility] medical cardiology. History echo 12/04/18: Severe global hypokinesis, EF: 15%, mild mitral regurgitation, mild aortic insufficiency, mild pulmonary hypertension (9) Elevated troponin: Likely secondary to bacteremia/Infection Denies chest pain, SOB Troponin: 0.09, paced rhythm on EKG Probable demand ischemia -Troponin- trending down 0.097--> 0.109--> 0.060 -continue ASA & beta maya, isosorbide (10) CAD (coronary artery disease): S/P cardiac stent -continue ASA & beta maya, isosorbide -Discontinued losartan as BP unable to tolerate it (11) Hypophosphatemia: Resolved Monitor (12) Renal insufficiency: GIANLUCA-creatinine peaked to 1.5 -GIANLUCA now resolved -Monitor on diuretics (13) Aneurysm of anterior communicating artery: As per CTA head/neck Follow up with neurosurgery outpatient as per neurology (14) PVD (peripheral vascular disease): -continue plavix, aspirin (15) HTN (hypertension): BP has been persistently low throughout hospitalization I restarted her losartan, aldactone yesterday, BP dropped down to 80s. Per patient she is not on aldactone any more--> discontinued. Will discontinue Losartan as well as increased dose of lasix from 20 to 40 mg and BP unable to tolerate it. -Will continue with coreg, lasix, isosorbide -Monitor BP for next few hours (16) Hyperlipemia: -continue zetia (17) Depression: -continue buspirone (18) GERD (gastroesophageal reflux disease): -continue PPI DVT Prophylaxis -Heparin SQ Disposition Transferred from ICU to floors on 01/14/19 Eager to be discharged. Monitor BP for next few hours, if stable, okay to discharge Home with home health services today Full Code as per discussion with pt and pt's family Follows with Dr Crane for routine care Subjective Doing much better. Generalized weakness has improved. Afebrile. No nausea, vomiting, abdominal pain, urinary frequency or burning. Tolerating PO well Weight is down, Negative balance Off oxygen now, saturating 94% on room air Tele monitor- NSR Physical Exam Vital Signs (Past 24 Hours): Last Vital Signs Temp 36.5 C 01/16/19 03:05 Pulse 84 01/16/19 09:27 Resp 18 01/16/19 07:01 BP 87/58 L 01/16/19 09:27 Pulse Ox 94 01/16/19 09:31 Physical Exam: GENERAL- Awake, alert, oriented x3, not in acute distress HEAD- Atraumatic, Normocephalic NECK- Supple, no JVD LUNGS- Air entry bilaterally equal, no wheezing. HEART- S1, S2 normal EXTREMITIES-No edema (1) CHF (congestive heart failure) Heart failure chronicity: acute on chronic Heart failure type: systolic Qualified Code(s): I50.23 - Acute on chronic systolic (congestive) heart failure
[2019-01-16] MEDS: ISOSORBIDE MONO EXTENDED REL 30 MG TABCR PO SCH (10:52)
[2019-01-16] MEDS ORDERED: ISOSORBIDE MONO EXTENDED REL 30 MG TABCR PO SCH (13:00)
--- NOTE | 2019-01-16 16:26 | Discharge Summary ---
Date of Service January 16, 2019 Admission HPI Per Admitting Provider Pt is 68 y/o F with PMH COPD, tobacco use, CAD s/p stent, cardiomyopathy, h/o ICD, PVD, depression, TIA presented to ER with c/o weakness and possible stoke symptoms. She reports today around 1230 [address] home from shopping when she states she started having blurred vision and then reports she could not see. Patient states she pulled over alongside the road and her [id number] drove her home. She denies any headaches, chest pain or shortness of breath, dizziness at that time. Patient's family report when patient got home they noticed that she had weakness and they had to help transfer her from chair to bathroom. They also noticed patient had some slurred speech and she was complaining of some left arm numbness. Currently patient complains of feeling weak. Denies nausea or vomiting. Reports chronic loose stools with 3-4 BMs daily. Denies known fever/chills, diaphoresis, PEREZ, dizziness, vision changes, neck pain, CP, SOB, orthopnea, palpitations, cough, sore throat, choking, otalgia, rhinorrhea, abdominal pain, extremity edema, rashes, urinary symptoms. Denies hx seizure disorder. Patient's family reports that patient follows with Dr. Watson -[facility] medical cardiology. History echo 12/04/18: Severe global hypokinesis, EF: 15%, mild mitral regurgitation, mild aortic insufficiency, mild pulmonary hypertension Patient with history hospitalization 12/24/18-12/26/18 for CP and SOB thought secondary to COPD exacerbation. Had CTA chest which was negative for PE. Had noted mild troponin elevation at 0.05, 0.09, 0.05. Family reports that pt had followed with neurology in [place] in past and has known brain aneurysm. Principal Diagnosis 1. Bacteremia secondary to UTI, E. coli 2. Sepsis secondary to above 3. Acute on chronic systolic congestive heart failure 4. Acute on chronic hypoxic respiratory failure 6. Elevated troponin secondary to demand ischemia 7. GIANLUCA 8. Hypophosphatemia Secondary diagnoses on discharge 1. ICD in situ 2. Coronary artery disease status post stent 3. Anterior communicating artery aneurysm 4. Hypertension 5. Hyperlipidemia 6. GERD Discharge Exam GENERAL- Awake, alert, oriented x3, not in acute distress HEAD- Atraumatic, Normocephalic NECK- Supple, no JVD LUNGS- Air entry bilaterally equal, no wheezing. HEART- S1, S2 normal EXTREMITIES-No edema Discharge Data Allergies Allergy/AdvReac Type Severity Reaction Status Date / Time lisinopril AdvReac Mild cough Unverified 01/10/19 17:11 Consultations 01/10/19 18:03 ED Decision to Admit Stat 01/10/19 20:24 Consult Case Management - Discharge Planning Routine Consult Case Management - Discharge Planning Routine Consult Neurology Routine 01/12/19 10:10 Consult Bowling Alley Refinisher Routine Ordered Studies 01/10/19 16:12 CT head/brain wo con Stat 01/10/19 16:13 CT angio head w con Stat CT angio neck with con Stat Hospital Course (1) Acute and chronic respiratory failure with hypoxia: RESOLVED - Currently off oxygen day time, 2 L at night (As at home) -S/P Code purple on 01/12/19 --> Transferred to ICU --> Transfer back to floor 01/14/19 -Secondary to CHF exacerbation, systolic,, history of COPD, active tobacco abuse, home oxygen -CXR: Cardiomegaly with mild volume overload. No will pulmonary edema. -Repeat CXR 01/12: Cardiomegaly with progressive pulmonary vascular congestion and possible mild pulmonary edema, atelectasis, trace left pleural effusion From oxygen 3 L --> Code purple :non re breather mask --> BIPAP briefly---> 2 L oxy--> 1 L oxygen --> now off it -Mx as below -Xopenex Nebs -Wean as tolerated -Appreciate Bowling Alley Refinisher inputs (2) Sepsis: (3) Bacteremia: T: 38 C in ER with tachycardia with HR in 120s--> met sepsis criteria Afebrile now, Leucocytosis has resolved Blood cx 1/2 & Urine culture now growing E coli -CXR - Mild volume overload, EF 15%, avoided IVF. On lasix -S/P Doxycyline, IV Vancomycin. IV Cefepime x 2 days--> IV Rocephin--> Omnicef 300 mg PO BID started today (Day 5/14 of antibx from neg blood cx) -Blood cx 1/2- E coli; Urine cx - E coli; CXR- no pneumonia -Follow up repeat blood cultures- Negative (4) Altered mental status: Likely Metabolic Encephalopathy secondary to sepsis/bacteremia/resp failure Resolved Currently: AAOX3 (5) CHF (congestive heart failure): SYSTOLIC Known Cardiomyopathy with EF 15% History echo 12/04/18: Severe global hypokinesis, EF: 15%, mild mitral regurgitation, mild aortic insufficiency, mild pulmonary hypertension Mildly elevated troponin admission likely secondary to demand ischemia -Pt was not fluid overloaded on admission. Lasix, Aldactone was held due to sepsis. No IVF were given while she was on floors. -On 01/12 went into CHF exacerbation---> Hypoxic, resp distress, Crackles, CXR- pulm congestion/pulm edema--> Tx to ICU -Baseline weight around 58-59 kilos, went up to 63.5, now down to 60 kilos -S/P IV lasix 40 mg BID - Day 3--> Changed to lasix 40 mg daily on 01/15/19 (Home dose: lasix 20 mg daily) -Continue with coreg, lasix with holding parameters -Will discontinue Losartan as BP unable to tolerate it - (6) Wide-complex tachycardia: Hx of CMP with EF 15% with ICD in situ Resolved -Noted to have wide-complex tachycardia overnight 01/12. Received IV Lopressor -Continue with Coreg with holding parameters (7) Left arm numbness: Patient had left-sided facial droop, slurred speech, generalized weakness noted in the ED which has since resolved. -Tele stroke recommended no TPA with known aneurysm. 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 Watson - [facility] medical cardiology. History echo 12/04/18: Severe global hypokinesis, EF: 15%, mild mitral regurgitation, mild aortic insufficiency, mild pulmonary hypertension (9) Elevated troponin: Likely secondary to bacteremia/Infection Denies chest pain, SOB Troponin: 0.09, paced rhythm on EKG Probable demand ischemia -Troponin- trending down 0.097--> 0.109--> 0.060 -continue ASA & beta maya, isosorbide (10) CAD (coronary artery disease): S/P cardiac stent -continue ASA & beta maya, isosorbide -Discontinued losartan as BP unable to tolerate it (11) Hypophosphatemia: Resolved Monitor (12) Renal insufficiency: GIANLUCA-creatinine peaked to 1.5 -GIANLUCA now resolved -Monitor on diuretics (13) Aneurysm of anterior communicating artery: As per CTA head/neck Follow up with neurosurgery outpatient as per neurology (14) PVD (peripheral vascular disease): -continue plavix, aspirin (15) HTN (hypertension): BP has been persistently low throughout hospitalization I restarted her losartan, aldactone yesterday, BP dropped down to 80s. Per patient she is not on aldactone any more--> discontinued. Will discontinue Losartan as well as increased dose of lasix from 20 to 40 mg and BP unable to tolerate it. -Will continue with coreg, lasix, isosorbide -Monitor BP outpatient (16) Hyperlipemia: -continue zetia (17) Depression: -continue buspirone (18) GERD (gastroesophageal reflux disease): -continue PPI DVT Prophylaxis -Heparin SQ Disposition Transferred from ICU to floors on 01/14/19 Eager to be discharged. Monitor BP for next few hours, if stable, okay to discharge Home with home health services today Full Code as per discussion with pt and pt's family Follows with Dr Crane for routine care Total Time Total Time Spent Total Time Spent (In Minutes): 40 minutes Discharge Plan Discharge Items Patient Disposition: Home - Home Health Services Reason For Visit: SOB Discharge Diagnosis: 1. Bacteremia secondary to UTI 2. Congestive heart failure exacerbation Discharge Goals: Improve disease control Activity: Resume your previous activity Non-emergency contact: Primary Care Provider Call non-emergency contact if: your symptoms worsen Follow-up/Referrals: Deny Crane [Primary Care Provider] - (Call for an appt within 7 days) Diet: Low Sodium (2gm) Addtl Provider Instructions: MEDICATION CHANGES 1. New medication- Omnicef 300 mg PO BID x 10 more days to complete 14 days of antibiotics 2. Losartan and Aldactone discontinued 3. Lasix increased to 40 mg daily Prescriptions: New furosemide 40 mg Tablet 40 mg PO QAM 30 Days Qty: 30 RF: 0 cefdinir 300 mg Capsule 300 mg PO BID 10 Days Qty: 20 RF: 0 Continued buspirone 5 mg tablet 5 mg PO PM RF: 0 buspirone 5 mg tablet 10 mg PO DAILY RF: 0 isosorbide mononitrate 30 mg tablet extended release 24 hr 30 mg PO DAILY RF: 0 clopidogrel 75 mg tablet 75 mg PO DAILY RF: 0 aspirin [Aspir-81] 81 mg Tablet,Delayed Release (Dr/Ec) 81 mg PO DAILY RF: 0 gabapentin 300 mg capsule 300 mg PO QID RF: 0 ezetimibe 10 mg tablet 10 mg PO DAILY RF: 0 pantoprazole 40 mg tablet,delayed release (DR/EC) 40 mg PO DAILY RF: 0 potassium chloride 20 mEq Tablet Extended Release 20 meq PO DAILY RF: 0 magnesium oxide 400 mg magnesium Tablet 400 mg PO HS RF: 0 Combivent Respimat 20-100 mcg/actuation mist 1 puffs INH Q6H PRN (Reason: Shortness of breath and wheezing) Qty: 4 RF: 0 oxycodone-acetaminophen 5-325 mg tablet 5 mg PO DAILY PRN (Reason: Pain) RF: 0 Combivent Respimat 20-100 mcg/actuation mist 1 puff inhalation Q6H PRN (Reason: Shortness Of Breath) RF: 0 carvedilol 3.125 mg tablet 1 tab PO BID RF: 0 Discontinued spironolactone 25 mg tablet 12.5 mg PO DAILY RF: 0 losartan 25 mg tablet 25 mg PO DAILY RF: 0 furosemide 20 mg tablet 20 mg PO DAILY RF: 0 Stand-Alone Forms: [facility]/Other Patient Handouts: Prediabetes, Diabetes Meal Planning Discharge Orders: Discharge Order (Routine); Ordered 01/16/19 Ordered By: Yari Tobar Admission Data Admit Date/Time: 01/10/19 19:09 Attending Provider: Yari Tobar Admit Provider: Jodi Porter Primary Care Provider: Deny Crane. Other Providers: Jodi Porter ; Amanda Grey ; Valeriy Schroeder ; Amanda [place] ; Benoit Fagan ; Yehuda Chacon ; Yan Moore Service: Telemetry Medical
== END 2019-01-16 16:45 | disposition home or self-care (01) | DRG 871 ==
LOC: ED 16:20 → SUATTDRO 19:09 → 2S 19:09 → 1E 01-12 08:56 → 2N 01-14 13:33

== ENCOUNTER 2021-05-07 12:52 | Observation (INO) ==
[2021-05-07] MEDS ORDERED: SODIUM CHLORIDE 0.9% 1000ML 500 ML IV ONE ×2 (13:15→15:39)
--- NOTE | 2021-05-07 13:25 | Emergency Department Note ---
Impression & Plan Urinary tract infection, Weakness, Hypoxia, Acute hypotension ED Provider Note NAME: JOSE DUTTA AGE: 70 SEX: F : 1950 ARRIVES VIA: Walk-In INFORMANT: Patient, ED PROVIDER(S): Cheikh Fisher DO CHIEF COMPLAINT: Weakness HPI: The patient is a 70-year-old female who presented to the emergency department with multiple complaints. She presented with a family member who states that she has had problems with frequent and recurrent urinary tract infections for the last month or so. The patient has a history of COPD and continues to smoke. She has a history of sepsis from bacteremia from urinary tract infection. She has a history of ventricular tachycardia and has a pacer defibrillator. She also has a history of renal insufficiency. The patient states that she has tried to be compliant with her outpatient medications. She is not been seen by her primary care physician recently for the symptoms. She denies having any vomiting but does have some nausea. She notices some back pain as well. She also notices difficulty breathing and generalized weakness. The patient states her symptoms are mildly improved with rest. She has had no hematuria. She denies having any black or bloody bowel movements. ROS: See above HPI for pertinent positives & negatives. A total of 10 systems reviewed and were otherwise negative. PAST MEDICAL HISTORY: See Below PAST SURGICAL HISTORY: See Below FAMILY HISTORY: See Below SOCIAL HISTORY: See Below HOME MEDICATIONS: See Below ALLERGIES: See Below VITALS: See Below PHYSICAL EXAMINATION: GENERAL: The patient is awake and alert. She is frail appearing. EYES: The conjunctivae are clear. The pupils are round and reactive. EARS, NOSE, MOUTH AND THROAT: The nose is without any evidence of any deformity. Mucous membranes are dry. NECK: The neck is nontender and supple. RESPIRATORY: Diminished breath sounds are noted throughout. Rales were noted in all lung calderon. CARDIOVASCULAR: Irregular heart sounds were noted to auscultation. No definite murmur could be noted. GASTROINTESTINAL: The abdomen was soft and mildly distended. There is right upper quadrant tenderness to palpation but no guarding rigidity. MUSCULOSKELETAL/EXTREMITIES: There is no evidence of gross deformity full range of motion is noted in the hips and shoulders. SKIN: Skin was warm and dry. There was trace pedal edema bilaterally. NEUROLOGIC: Patient is awake alert and oriented x3. MEDICAL DECISION MAKING: The patient is a 70-year-old female who presented to the emergency department with family member for an evaluation of generalized weakness. The patient was found to have hypotension. She does have a history of frequent urinary tract infections in the past. The patient also has a history of COPD and continues to use tobacco products. Exam was consistent with abnormal lung sounds which could be related to pulmonary edema given her history but also COPD. The patient was treated with a small fluid bolus as well as IV antibiotics for presumed urinary tract infection. I discussed the patient's laboratory and radiographic studies with her. She was feeling somewhat improved on reevaluation. Given the patient's findings and comorbidities I did [facility] have agreed to evaluate the patient in the emergency department for further management and disposition. Triage Nursing notes reviewed. Prior medical records reviewed Vital Signs: reviewed and remarkable for no significant abnormalities Differential diagnosis: Sepsis, UTI, pneumonia, metabolic, electrolyte abnormalities, cardiac sources, intracerebral event, toxicologic, neurologic, as well as other pathologies. ER treatment provided: See below Diagnostics interpreted by me: ECG: EKG was obtained in the emergency department. My interpretation is atrial sensed rhythm with a ventricular paced rhythm. PVCs were noted. Diffuse ST depressions with T wave abnormalities were noted. This was compared to a tracing from January 12, 2019. The T wave inversions are new compared to the earlier tracing. Cardiac Monitoring: An order was placed for continuous cardiac monitoring. The monitor shows a rate of 88 bpm with sinus rhythm. Laboratory studies: As stated above and show below. Imaging studies: See below Consultation(s): I discussed this case with Diane who [facility] They will evaluate the patient in the emergency department for further management. Past Med/Surg History Medical History (Updated 05/07/21 @ 18:59 by Cheikh Fisher DO) Bilateral femoral artery stenosis "Multiple stents " CAD (coronary artery disease) Cardiac defibrillator in place CHF (congestive heart failure) Chronic low back pain COPD (chronic obstructive pulmonary disease) Depression GERD (gastroesophageal reflux disease) History of TIA (transient ischemic attack) HTN (hypertension) Hyperlipemia MD (myocardial infarction) Pacemaker PVD (peripheral vascular disease) Surgical History Stented coronary artery Family History Other Hypertension Social History Smoking Status: Current every day smoker Cigarettes Per Day: 5; Second Hand Exposure: No; Hx Alcohol Use: No Hx Substance Use: No Preferred Language: Spanish 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 Ability: Effective Legal Document Assistant Required: No Beliefs That Will Affect Care: None marital status: Current Living Situation: Family Current Living Situation Comment: Lived with and grandchildren Other Information That Helps Us Care for You: No Feels Safe at Home: Yes Safety Concerns: Feels Safe At This Time Assistive Devices: Cane, Denture - Upper, Denture - Lower, Glasses and Oxygen - at Night Allergies Allergies Allergy/AdvReac Type Severity Reaction Status Date / Time lisinopril AdvReac Mild cough Unverified 05/07/21 15:13 Home Meds Home Medications Medication Instructions Recorded Confirmed buspirone 5 mg tablet 5 mg PO TID 12/24/18 05/07/21 clopidogrel 75 mg tablet (Plavix) 75 mg PO HS 12/24/18 05/07/21 ezetimibe 10 mg tablet (Zetia) 10 mg PO HS 12/24/18 05/07/21 gabapentin 300 mg capsule 300 mg PO QID 12/24/18 05/07/21 (Neurontin) isosorbide mononitrate 30 mg 30 mg PO BID 12/24/18 05/07/21 tablet,extended release 24 hr magnesium oxide 400 mg PO HS 12/24/18 05/07/21 pantoprazole 40 mg tablet,delayed 40 mg PO QAM 12/24/18 05/07/21 release (Protonix) carvedilol 3.125 mg tablet (Coreg) 3.125 tab PO BID 01/10/19 05/07/21 furosemide 20 mg tablet 20 mg PO QAM 08/07/19 05/07/21 losartan 25 mg tablet (Cozaar) 12.5 mg PO QAM 08/07/19 05/07/21 nitroglycerin 0.4 mg sublingual 0.4 mg SUBLINGUAL UD 08/07/19 05/07/21 tablet (Nitrostat) rosuvastatin 20 mg tablet (Crestor) 20 mg PO HS 08/07/19 05/07/21 aspirin 81 mg tablet,delayed 81 mg PO QAM 05/07/21 05/07/21 release (Aspirin Low Dose) cranberry extract 650 mg capsule 1,300 mg PO UD 05/07/21 05/07/21 (Theracran) phenazopyridine 95 mg tablet (Azo 95 mg PO UD 05/07/21 05/07/21 Urinary Pain Relief) Previous Rx's Medication Instructions Recorded ipratropium 20 mcg-albuterol 100 1 puffs INH Q6H PRN #4 gm 12/26/18 mcg/actuation mist for inhalation (Combivent Respimat) Results & Data (ED) Vital Signs Vital Signs - 24 hr 05/07/21 12:57 05/07/21 14:00 05/07/21 14:11 Temperature 37.5 C Temperature Source Temporal Artery Scan Pulse Rate 113 H 100 H 86 Pulse Rate from SpO2 Sensor 97 H Pulse Rhythm Regular Regular Pulse Strength Normal Respiratory Rate 16 24 24 Respiratory Effort / Characteristics Non-Labored Spontaneous Labored Respiratory Depth Normal Respiratory Pattern Regular Blood Pressure 94/63 L 93/67 L Blood Pressure Mean 73 75 Blood Pressure Position Sitting Pulse Oximetry 90 92 92 Oxygen Delivery Method Room Air Nasal Cannula Oxygen Flow Rate 3 Sepsis Recent Fever Within 48 Hours No Sepsis New/Unexplained Change in Mental Status N/A Sepsis Action Taken by Nursing No Action Required 05/07/21 14:30 05/07/21 15:00 05/07/21 15:19 Temperature Temperature Source Pulse Rate 99 H 93 H Pulse Rate from SpO2 Sensor 99 H 94 H Pulse Rhythm Pulse Strength Respiratory Rate 29 H 26 H Respiratory Effort / Characteristics Non-Labored Spontaneous Respiratory Depth Respiratory Pattern Blood Pressure 84/68 L 91/59 L Blood Pressure Mean 73 69 Blood Pressure Position Pulse Oximetry 90 92 92 Oxygen Delivery Method Room Air Nasal Cannula Oxygen Flow Rate 2 Sepsis Recent Fever Within 48 Hours Sepsis New/Unexplained Change in Mental Status Sepsis Action Taken by Nursing 05/07/21 15:30 05/07/21 16:00 05/07/21 16:30 Temperature Temperature Source Pulse Rate 91 H 91 H 89 Pulse Rate from SpO2 Sensor 90 90 90 Pulse Rhythm Pulse Strength Respiratory Rate 23 24 27 H Respiratory Effort / Characteristics Respiratory Depth Respiratory Pattern Blood Pressure 81/52 L 93/67 L 103/62 Blood Pressure Mean 61 75 75 Blood Pressure Position Pulse Oximetry 91 93 94 Oxygen Delivery Method Oxygen Flow Rate Sepsis Recent Fever Within 48 Hours Sepsis New/Unexplained Change in Mental Status Sepsis Action Taken by Nursing 05/07/21 17:00 05/07/21 17:30 05/07/21 18:00 Temperature Temperature Source Pulse Rate 88 87 88 Pulse Rate from SpO2 Sensor 89 87 89 Pulse Rhythm Pulse Strength Respiratory Rate 50 H 26 H 21 Respiratory Effort / Characteristics Respiratory Depth Respiratory Pattern Blood Pressure 114/75 108/65 109/74 Blood Pressure Mean 88 79 85 Blood Pressure Position Pulse Oximetry 93 94 92 Oxygen Delivery Method Oxygen Flow Rate Sepsis Recent Fever Within 48 Hours Sepsis New/Unexplained Change in Mental Status Sepsis Action Taken by Nursing 05/07/21 18:30 Temperature Temperature Source Pulse Rate Pulse Rate from SpO2 Sensor 105 H Pulse Rhythm Pulse Strength Respiratory Rate 18 Respiratory Effort / Characteristics Respiratory Depth Respiratory Pattern Blood Pressure 103/65 Blood Pressure Mean 77 Blood Pressure Position Pulse Oximetry 93 Oxygen Delivery Method Oxygen Flow Rate Sepsis Recent Fever Within 48 Hours Sepsis New/Unexplained Change in Mental Status Sepsis Action Taken by Assisted Medications Current Medication List: was personally reviewed by me Laboratory Data Attestation: I reviewed the patient's lab results. Result diagrams: 05/07/21 14:00 05/07/21 14:00 Lab Results 05/07/21 05/07/21 05/07/21 Range/Units 14:00 14:00 14:00 WBC 11.36 H (4.8-10.8) K/uL RBC 4.08 L (4.2-5.4) M/uL Hgb 13.0 (12.0-16.0) g/dL Hct 39.4 (37-47) % MCV 96.6 (80-100) fL MCH 31.9 (25-34) pg MCHC 33.0 (32-36) g/dL RDW Std Deviation 50.2 H (36.4-46.3) fL RDW Coeff of Ariela 14.1 (11.5-14.5) % Plt Count 242 (130-400) K/uL MPV 9.8 (7.4-10.4) fL Immature Gran % (Auto) 0.1 % Neut % (Auto) 84.9 % Lymph % (Auto) 9.9 % [place] % (Auto) 4.8 % Eos % (Auto) 0.1 % Baso % (Auto) 0.2 % Neut # (Auto) 9.65 H (1.4-6.5) K/uL Lymph # (Auto) 1.13 L (1.2-3.4) K/uL [place] # (Auto) 0.54 (0.11-0.59) K/uL Eos # (Auto) 0.01 (0-0.5) K/uL Baso # (Auto) 0.02 (0-0.2) K/uL Immature Gran # (Auto) 0.01 (0.00-0.02) K/uL PT 11.6 (9.0-12.0) Seconds INR 1.2 H (0.9-1.1) APTT 25.9 (21.0-31.0) Seconds PTT Ratio 1.0 VBG pH (7.36-7.41) VBG pCO2 (38-50) mmHg VBG pO2 mmHg VBG HCO3 mmol/L VBG O2 Saturation % VBG Base Excess mEq/L Barometric Pressure mm/Hg Sodium 135 L (136-145) mmol/L Potassium 4.4 (3.5-5.1) mmol/L Chloride 105 (98-107) mmol/L Carbon Dioxide 24 (21-32) mmol/L Anion Gap 6.0 (3-11) BUN 9 (7-18) mg/dl Creatinine 1.04 (0.6-1.2) mg/dl Est Cr Clr Drug Dosing Not Reportable Est GFR ( Amer) 62.6 ml/min Est GFR (Non-Af Amer) 54.0 ml/min BUN/Creatinine Ratio 8.5 L (10-20) Glucose 108 H (70-99) mg/dl Lactate (0.4-2.0) mmol/L Calcium 8.6 (8.5-10.1) mg/dl Magnesium 2.0 (1.8-2.4) mg/dl Total Bilirubin 0.4 (0.2-1) mg/dl AST 19 (15-37) U/L ALT 14 (12-78) U/L Alkaline Phosphatase 94 (45-117) U/L Troponin I 0.750 H* (0-0.045) ng/ml NT-Pro-B Natriuret Pep (0-900) pg/ml Total Protein 7.3 (6.4-8.2) gm/dl Albumin 3.1 L (3.4-5.0) gm/dl Globulin 4.2 H (2.5-4.0) gm/dl Albumin/Globulin Ratio 0.7 L (0.9-2) Procalcitonin (0-0.5) ng/ml Urine Color Urine Appearance (Clear) Urine pH (4.5-7.5) Ur Specific [place] (1.000-1.030) Urine Protein (Negative) Urine Glucose (UA) (Negative) Urine Ketones (Negative) Urine Blood (Negative) Urine Nitrite (Negative) Urine Bilirubin (Negative) Urine Urobilinogen (Negative) Ur Leukocyte Esterase (Negative) Urine WBC (Auto) (0-5) /hpf Urine RBC (Auto) (0-4) /hpf U Hyaline Cast (Auto) (0-5) /lpf U Epithel Cells (Auto) (0-5) /lpf Urine Bacteria (Auto) (Negative) COVID-19 Eval Order SARS-CoV-2 (PCR) (Negative) 05/07/21 05/07/21 05/07/21 Range/Units 14:00 14:00 14:00 WBC (4.8-10.8) K/uL RBC (4.2-5.4) M/uL Hgb (12.0-16.0) g/dL Hct (37-47) % MCV (80-100) fL MCH (25-34) pg MCHC (32-36) g/dL RDW Std Deviation (36.4-46.3) fL RDW Coeff of Ariela (11.5-14.5) % Plt Count (130-400) K/uL MPV (7.4-10.4) fL Immature Gran % (Auto) % Neut % (Auto) % Lymph % (Auto) % [place] % (Auto) % Eos % (Auto) % Baso % (Auto) % Neut # (Auto) (1.4-6.5) K/uL Lymph # (Auto) (1.2-3.4) K/uL [place] # (Auto) (0.11-0.59) K/uL Eos # (Auto) (0-0.5) K/uL Baso # (Auto) (0-0.2) K/uL Immature Gran # (Auto) (0.00-0.02) K/uL PT (9.0-12.0) Seconds INR (0.9-1.1) APTT (21.0-31.0) Seconds PTT Ratio VBG pH (7.36-7.41) VBG pCO2 (38-50) mmHg VBG pO2 mmHg VBG HCO3 mmol/L VBG O2 Saturation % VBG Base Excess mEq/L Barometric Pressure mm/Hg Sodium (136-145) mmol/L Potassium (3.5-5.1) mmol/L Chloride (98-107) mmol/L Carbon Dioxide (21-32) mmol/L Anion Gap (3-11) BUN (7-18) mg/dl Creatinine (0.6-1.2) mg/dl Est Cr Clr Drug Dosing Est GFR ( Amer) ml/min Est GFR (Non-Af Amer) ml/min BUN/Creatinine Ratio (10-20) Glucose (70-99) mg/dl Lactate 2.0 (0.4-2.0) mmol/L Calcium (8.5-10.1) mg/dl Magnesium (1.8-2.4) mg/dl Total Bilirubin (0.2-1) mg/dl AST (15-37) U/L ALT (12-78) U/L Alkaline Phosphatase (45-117) U/L Troponin I (0-0.045) ng/ml NT-Pro-B Natriuret Pep (0-900) pg/ml Total Protein (6.4-8.2) gm/dl Albumin (3.4-5.0) gm/dl Globulin (2.5-4.0) gm/dl Albumin/Globulin Ratio (0.9-2) Procalcitonin 0.08 (0-0.5) ng/ml Urine Color Dark Yellow Urine Appearance Clear (Clear) Urine pH 6.5 (4.5-7.5) Ur Specific [place] 1.015 (1.000-1.030) Urine Protein 3+ H (Negative) Urine Glucose (UA) Negative (Negative) Urine Ketones Negative (Negative) Urine Blood 2+ H (Negative) Urine Nitrite Negative (Negative) Urine Bilirubin Negative (Negative) Urine Urobilinogen Negative (Negative) Ur Leukocyte Esterase 1+ H (Negative) Urine WBC (Auto) >30 H (0-5) /hpf Urine RBC (Auto) 5-10 H (0-4) /hpf U Hyaline Cast (Auto) 1-5 (0-5) /lpf U Epithel Cells (Auto) >30 H (0-5) /lpf Urine Bacteria (Auto) Negative (Negative) COVID-19 Eval Order SARS-CoV-2 (PCR) (Negative) 05/07/21 05/07/21 05/07/21 Range/Units 14:00 14:10 14:10 WBC (4.8-10.8) K/uL RBC (4.2-5.4) M/uL Hgb (12.0-16.0) g/dL Hct (37-47) % MCV (80-100) fL MCH (25-34) pg MCHC (32-36) g/dL RDW Std Deviation (36.4-46.3) fL RDW Coeff of Ariela (11.5-14.5) % Plt Count (130-400) K/uL MPV (7.4-10.4) fL Immature Gran % (Auto) % Neut % (Auto) % Lymph % (Auto) % [place] % (Auto) % Eos % (Auto) % Baso % (Auto) % Neut # (Auto) (1.4-6.5) K/uL Lymph # (Auto) (1.2-3.4) K/uL [place] # (Auto) (0.11-0.59) K/uL Eos # (Auto) (0-0.5) K/uL Baso # (Auto) (0-0.2) K/uL Immature Gran # (Auto) (0.00-0.02) K/uL PT (9.0-12.0) Seconds INR (0.9-1.1) APTT (21.0-31.0) Seconds PTT Ratio VBG pH (7.36-7.41) VBG pCO2 (38-50) mmHg VBG pO2 mmHg VBG HCO3 mmol/L VBG O2 Saturation % VBG Base Excess mEq/L Barometric Pressure mm/Hg Sodium (136-145) mmol/L Potassium (3.5-5.1) mmol/L Chloride (98-107) mmol/L Carbon Dioxide (21-32) mmol/L Anion Gap (3-11) BUN (7-18) mg/dl Creatinine (0.6-1.2) mg/dl Est Cr Clr Drug Dosing Est GFR ( Amer) ml/min Est GFR (Non-Af Amer) ml/min BUN/Creatinine Ratio (10-20) Glucose (70-99) mg/dl Lactate (0.4-2.0) mmol/L Calcium (8.5-10.1) mg/dl Magnesium (1.8-2.4) mg/dl Total Bilirubin (0.2-1) mg/dl AST (15-37) U/L ALT (12-78) U/L Alkaline Phosphatase (45-117) U/L Troponin I (0-0.045) ng/ml NT-Pro-B Natriuret Pep 5985 H (0-900) pg/ml Total Protein (6.4-8.2) gm/dl Albumin (3.4-5.0) gm/dl Globulin (2.5-4.0) gm/dl Albumin/Globulin Ratio (0.9-2) Procalcitonin (0-0.5) ng/ml Urine Color Urine Appearance (Clear) Urine pH (4.5-7.5) Ur Specific [place] (1.000-1.030) Urine Protein (Negative) Urine Glucose (UA) (Negative) Urine Ketones (Negative) Urine Blood (Negative) Urine Nitrite (Negative) Urine Bilirubin (Negative) Urine Urobilinogen (Negative) Ur Leukocyte Esterase (Negative) Urine WBC (Auto) (0-5) /hpf Urine RBC (Auto) (0-4) /hpf U Hyaline Cast (Auto) (0-5) /lpf U Epithel Cells (Auto) (0-5) /lpf Urine Bacteria (Auto) (Negative) COVID-19 Eval Order Cov[facility] at [facility] SARS-CoV-2 (PCR) NEGATIVE (Negative) 05/07/21 Range/Units 14:15 WBC (4.8-10.8) K/uL RBC (4.2-5.4) M/uL Hgb (12.0-16.0) g/dL Hct (37-47) % MCV (80-100) fL MCH (25-34) pg MCHC (32-36) g/dL RDW Std Deviation (36.4-46.3) fL RDW Coeff of Ariela (11.5-14.5) % Plt Count (130-400) K/uL MPV (7.4-10.4) fL Immature Gran % (Auto) % Neut % (Auto) % Lymph % (Auto) % [place] % (Auto) % Eos % (Auto) % Baso % (Auto) % Neut # (Auto) (1.4-6.5) K/uL Lymph # (Auto) (1.2-3.4) K/uL [place] # (Auto) (0.11-0.59) K/uL Eos # (Auto) (0-0.5) K/uL Baso # (Auto) (0-0.2) K/uL Immature Gran # (Auto) (0.00-0.02) K/uL PT (9.0-12.0) Seconds INR (0.9-1.1) APTT (21.0-31.0) Seconds PTT Ratio VBG pH 7.43 H (7.36-7.41) VBG pCO2 37 L (38-50) mmHg VBG pO2 34 mmHg VBG HCO3 24 mmol/L VBG O2 Saturation < 60.0 % VBG Base Excess 0.1 mEq/L Barometric Pressure 735.4 mm/Hg Sodium (136-145) mmol/L Potassium (3.5-5.1) mmol/L Chloride (98-107) mmol/L Carbon Dioxide (21-32) mmol/L Anion Gap (3-11) BUN (7-18) mg/dl Creatinine (0.6-1.2) mg/dl Est Cr Clr Drug Dosing Est GFR ( Amer) ml/min Est GFR (Non-Af Amer) ml/min BUN/Creatinine Ratio (10-20) Glucose (70-99) mg/dl Lactate (0.4-2.0) mmol/L Calcium (8.5-10.1) mg/dl Magnesium (1.8-2.4) mg/dl Total Bilirubin (0.2-1) mg/dl AST (15-37) U/L ALT (12-78) U/L Alkaline Phosphatase (45-117) U/L Troponin I (0-0.045) ng/ml NT-Pro-B Natriuret Pep (0-900) pg/ml Total Protein (6.4-8.2) gm/dl Albumin (3.4-5.0) gm/dl Globulin (2.5-4.0) gm/dl Albumin/Globulin Ratio (0.9-2) Procalcitonin (0-0.5) ng/ml Urine Color Urine Appearance (Clear) Urine pH (4.5-7.5) Ur Specific [place] (1.000-1.030) Urine Protein (Negative) Urine Glucose (UA) (Negative) Urine Ketones (Negative) Urine Blood (Negative) Urine Nitrite (Negative) Urine Bilirubin (Negative) Urine Urobilinogen (Negative) Ur Leukocyte Esterase (Negative) Urine WBC (Auto) (0-5) /hpf Urine RBC (Auto) (0-4) /hpf U Hyaline Cast (Auto) (0-5) /lpf U Epithel Cells (Auto) (0-5) /lpf Urine Bacteria (Auto) (Negative) COVID-19 Eval Order SARS-CoV-2 (PCR) (Negative) Administered Medications Discontinued Medications Furosemide (Furosemide 40 Mg/4 Ml Vial) 20 mg IV NOW STA Stop: 05/07/21 17:42 Last Admin: 05/07/21 17:50 Dose: 20 mg Documented by: [id number] Sodium Chloride (Nss 1000ml) 500 mls @ 999 mls/hr IV .Q31M ONE Stop: 05/07/21 13:45 Last Admin: 05/07/21 13:40 Dose: Not Given Documented by: [id number] Ceftriaxone Sodium (Rocephin) 1,000 mg in 50 mls @ 100 mls/hr IV NOW STA Stop: 05/07/21 16:04 Last Infusion: 05/07/21 16:30 Dose: 0 mls/hr Documented by: [id number] Admin: 05/07/21 16:00 Dose: 100 mls/hr Documented by: [id number] Sodium Chloride (Nss 1000ml) 500 mls @ 999 mls/hr IV .Q31M ONE Stop: 05/07/21 16:09 Last Infusion: 05/07/21 17:33 Dose: 0 mls/hr Documented by: [id number] Admin: 05/07/21 15:59 Dose: 999 mls/hr Documented by: [id number] Imaging Data Radiologist's Impression: Chest X-Ray 05/07/21 13:15 XR chest 1V portable HISTORY: 70 years-old Female SEPSIS acute sepsis COMPARISON: Chest radiograph 01/12/2019 TECHNIQUE: Portable AP view of the chest FINDINGS: Cardiac silhouette is enlarged. Left subclavian pacer/AICD. Calcified plaque of the thoracic aorta. Pulmonary vascular congestion with mild bibasilar opacities. Blunting of the costophrenic angles suggestive of trace effusions. No pneumothorax. Degenerative changes of the shoulders and spine. IMPRESSION: 1. Cardiomegaly with pulmonary vascular congestion. 2. Trace pleural effusions with mild bibasilar opacities suggestive of atelectasis versus pneumonitis. ACT 112: Negative or not required by law. The above report was generated using voice recognition software. It may contain grammatical, syntax or spelling errors. Electronically signed by: Logan Tan M.D. 05/07/2021 1:42 PM Abdomen/Pelvis CT 05/07/21 13:25 CT SCAN OF THE ABDOMEN AND PELVIS WITHOUT IV CONTRAST CLINICAL HISTORY: Right-sided abdominal pain. Dysuria. COMPARISON STUDY: Abdominal CT dated 08/07/2019. TECHNIQUE: CT scan of the abdomen and pelvis is performed from the lung bases to the proximal femora. Images are reviewed in the axial, sagittal, and coronal planes. IV contrast was not administered for this examination. A dose lowering technique was utilized adhering to the principles of ALARA. CT DOSE: 287.28 mGy.cm FINDINGS: Lung bases: The heart is enlarged and without pericardial effusion. Pacemaker leads are noted. The coronary arteries are densely calcified. There is a tiny hiatal hernia. There are trace pleural effusions with bibasilar consolidation. Liver: The unenhanced liver is normal in size, contour, and attenuation. There i s no intrahepatic biliary ductal dilatation. A 3.3 cm cyst is noted in the caudate. Additional 1.2 cm cyst is seen in the right lobe. Gallbladder: Unremarkable. Spleen: Normal in size and attenuation. Axillary bypass Pancreas: Unremarkable. Adrenal glands: Unremarkable. Kidneys: There is asymmetric cortical atrophy of the left kidney as compared the right. No hydronephrosis is seen. There are no renal calculi identified. Renovascular calcifications are seen on the left. There is no evidence of contour deforming renal mass lesion. Abdominal vasculature: There is advanced atherosclerotic calcification and mild ectasia of the abdominal aorta. An axillary-bifemoral bypass graft is noted. A left common iliac artery stent is in place. Bowel: There is mild colonic diverticulosis without CT evidence of acute diverticulitis. No bowel obstruction is seen. Fecal retention is noted throughou t the colon. The appendix is well-visualized and normal. Peritoneum: There is no intraperitoneal free air or abdominal ascites. Lymphadenopathy: None. Pelvic viscera: The bladder is partially decompressed and grossly unremarkable. The uterus is surgically absent. No adnexal lesion is seen. Skeletal structures: The skeletal structures are osteopenic. There is a minimal chronic compression deformity of T11. Mild lumbosacral spondylosis is observed. No lytic or blastic lesions are seen. IMPRESSION: 1. There are no acute infectious or inflammatory findings in the abdomen or pelvis. 2. There are trace pleural effusions with bibasilar consolidation. Correlate clinically for evidence of pneumonia/aspiration pneumonitis. 3. Cardiomegaly. 4. Again seen is advanced atherosclerotic change with an axillary-bifemoral bypass graft in place. 5. Mild colonic diverticulosis without CT evidence of acute diverticulitis. 6. Additional findings as above. ACT 112: Negative or not required by law. Electronically signed by: Jaren Alonzo M.D. 05/07/2021 2:52 PM Discharge Plan Visit Data Chief Complaint: Urinary Symptoms Stated Complaint: POSSIBLE UTI ED Provider: Cheikh Fisher Discharge Problem: Urinary tract infection, Weakness, Hypoxia, Acute hypotension Patient Disposition: Being Evaluated by Hospitalist Condition: Good Forms Stand Alone Forms: My [facility] Prescriptions Prescriptions: No Action buspirone 5 mg tablet 5 mg PO TID RF: 0 isosorbide mononitrate 30 mg tablet extended release 24 hr 30 mg PO BID RF: 0 clopidogrel [Plavix] 75 mg tablet 75 mg PO HS RF: 0 gabapentin [Neurontin] 300 mg capsule 300 mg PO QID RF: 0 ezetimibe [Zetia] 10 mg tablet 10 mg PO HS RF: 0 pantoprazole [Protonix] 40 mg tablet,delayed release (DR/EC) 40 mg PO QAM RF: 0 magnesium oxide 400 mg magnesium Tablet 400 mg PO HS RF: 0 Combivent Respimat 20-100 mcg/actuation mist 1 puffs INH Q6H PRN (Reason: Shortness of breath and wheezing) Qty: 4 RF: 0 carvedilol [Coreg] 3.125 mg tablet 3.125 tab PO BID RF: 0 losartan [Cozaar] 25 mg tablet 12.5 mg PO QAM RF: 0 nitroglycerin [Nitrostat] 0.4 mg tablet, sublingual 0.4 mg sublingual UD RF: 0 furosemide 20 mg tablet 20 mg PO QAM RF: 0 rosuvastatin [Crestor] 20 mg tablet 20 mg PO HS RF: 0 aspirin [Aspirin Low Dose] 81 mg Tablet,Delayed Release (Dr/Ec) 81 mg PO QAM RF: 0 phenazopyridine [Azo Urinary Pain Relief] 95 mg Tablet 95 mg PO UD RF: 0 Theracran 650 mg Capsule 1,300 mg PO UD RF: 0 Referrals Referrals: Deny Crane [Outside Practitioners] -
--- NOTE | 2021-05-07 13:43 | XRay Report ---
XR chest 1V portable HISTORY: 70 years-old Female SEPSIS acute sepsis COMPARISON: Chest radiograph 01/12/2019 TECHNIQUE: Portable AP view of the chest FINDINGS: Cardiac silhouette is enlarged. Left subclavian pacer/AICD. Calcified plaque of the thoracic aorta. P ulmonary vascular congestion with mild bibasilar opacities. Blunting of the costophrenic angles sugge stive of trace effusions. No pneumothorax. Degenerative changes of the shoulders and spine. IMPRESSION: 1. Cardiomegaly with pulmonary vascular congestion. 2. Trace pleural effusions with mild bibasilar opacities suggestive of atelectasis versus pneumonitis . ACT 112: Negative or not required by law. The above report was generated using voice recognition software. It may contain grammatical, syntax o r spelling errors. Electronically signed by: Logan Tan M.D. 05/07/2021 1:42 PM
[2021-05-07 14:31] LABS: INR 1.2 (0.9-1.1); Partial Thromboplastin Time 25.9 Seconds (21.0-31.0); Prothrombin Time 11.6 Seconds (9.0-12.0)
[2021-05-07 14:34] LABS: Basophils # (auto) 0.02 K/uL (0-0.2); Basophils % (auto) 0.2 %; Eosinophils # (auto) 0.01 K/uL (0-0.5); Eosinophils % (auto) 0.1 %; Hematocrit (blood only) 39.4 % (37-47); Immature Granulocytes # (auto) 0.01 K/uL (0.00-0.02); Immature Granulocytes % (auto) 0.1 %; Lymphocytes # (auto) 1.13 K/uL (1.2-3.4); Lymphocytes % (auto) 9.9 %; Mean Corpuscular Hemoglobin 31.9 pg (25-34); Mean Corpuscular Volume 96.6 fL (80-100); Mean Platelet Volume 9.8 fL (7.4-10.4); Monocytes # (auto) 0.54 K/uL (0.11-0.59); Monocytes % (auto) 4.8 %; Neutrophils # (auto) 9.65 K/uL (1.4-6.5); Neutrophils % (auto) 84.9 %; Platelet Count 242 K/uL (130-400); RDW Coefficient of Variation 14.1 % (11.5-14.5); RDW Standard Deviation 50.2 fL (36.4-46.3); Red Blood Count 4.08 M/uL (4.2-5.4); White Blood Count 11.36 K/uL (4.8-10.8)
[2021-05-07 14:35] LABS: Alanine Aminotransferase 14 U/L (12-78); Albumin Level 3.1 gm/dl (3.4-5.0); Aspartate Aminotransferase 19 U/L (15-37); BUN Creatinine Ratio 8.5 (10-20); Blood Urea Nitrogen 9 mg/dl (7-18); Calcium 8.6 mg/dl (8.5-10.1); Carbon Dioxide 24 mmol/L (21-32); Chloride 105 mmol/L (98-107); Est GFR (African American) 62.6 ml/min; Glucose 108 mg/dl (70-99); Potassium 4.4 mmol/L (3.5-5.1); Sodium 135 mmol/L (136-145)
[2021-05-07 14:36] LABS: Base Excess VBG 0.1 mEq/L; HCO3 VBG 24 mmol/L; Oxygen Saturation VBG < 60.0 %; PCO2 VBG 37 mmHg (38-50); PO2 VBG 34 mmHg; pH VBG 7.43 (7.36-7.41)
[2021-05-07 14:46] LABS: Albumin Globulin Ratio 0.7 (0.9-2); Alkaline Phosphatase 94 U/L (45-117); Bilirubin,Total 0.4 mg/dl (0.2-1); Globulin 4.2 gm/dl (2.5-4.0); Total Protein 7.3 gm/dl (6.4-8.2)
--- NOTE | 2021-05-07 14:53 | CT Scan Report ---
CT SCAN OF THE ABDOMEN AND PELVIS WITHOUT IV CONTRAST CLINICAL HISTORY: Right-sided abdominal pain. Dysuria. COMPARISON STUDY: Abdominal CT dated 08/07/2019. TECHNIQUE: CT scan of the abdomen and pelvis is performed from the lung bases to the proximal femora. Images are reviewed in the axial, sagittal, and coronal planes. IV contrast was not administered for this examination. A dose lowering technique was utilized adhering to the principles of ALARA. CT DOSE: 287.28 mGy.cm FINDINGS: Lung bases: The heart is enlarged and without pericardial effusion. Pacemaker leads are noted. The co ronary arteries are densely calcified. There is a tiny hiatal hernia. There are trace pleural effusio ns with bibasilar consolidation. Liver: The unenhanced liver is normal in size, contour, and attenuation. There is no intrahepatic juanjose iary ductal dilatation. A 3.3 cm cyst is noted in the caudate. Additional 1.2 cm cyst is seen in the right lobe. Gallbladder: Unremarkable. Spleen: Normal in size and attenuation. Axillary bypass Pancreas: Unremarkable. Adrenal glands: Unremarkable. Kidneys: There is asymmetric cortical atrophy of the left kidney as compared the right. No hydronephr osis is seen. There are no renal calculi identified. Renovascular calcifications are seen on the left . There is no evidence of contour deforming renal mass lesion. Abdominal vasculature: There is advanced atherosclerotic calcification and mild ectasia of the abdomi nal aorta. An axillary-bifemoral bypass graft is noted. A left common iliac artery stent is in place. Bowel: There is mild colonic diverticulosis without CT evidence of acute diverticulitis. No bowel obs truction is seen. Fecal retention is noted throughout the colon. The appendix is well-visualized and normal. Peritoneum: There is no intraperitoneal free air or abdominal ascites. Lymphadenopathy: None. Pelvic viscera: The bladder is partially decompressed and grossly unremarkable. The uterus is surgica lly absent. No adnexal lesion is seen. Skeletal structures: The skeletal structures are osteopenic. There is a minimal chronic compression d eformity of T11. Mild lumbosacral spondylosis is observed. No lytic or blastic lesions are seen. IMPRESSION: 1. There are no acute infectious or inflammatory findings in the abdomen or pelvis. 2. There are trace pleural effusions with bibasilar consolidation. Correlate clinically for evidence of pneumonia/aspiration pneumonitis. 3. Cardiomegaly. 4. Again seen is advanced atherosclerotic change with an axillary-bifemoral bypass graft in place. 5. Mild colonic diverticulosis without CT evidence of acute diverticulitis. 6. Additional findings as above. ACT 112: Negative or not required by law. Electronically signed by: Jaren Alonzo M.D. 05/07/2021 2:52 PM
[2021-05-07 14:58] LABS: Appearance Urine Clear (Clear); Bacteria Urine Automated Negative (Negative); Bilirubin Urine Negative (Negative); Blood Urine 2+ (Negative); Color Urine Dark Yellow; Epithelial Cell Urine Auto >30 /lpf (0-5); Glucose Urine UA Negative (Negative); Ketones Urine Negative (Negative); Leukocyte Esterase Urine 1+ (Negative); Nitrite Urine Negative (Negative); Protein Urine 3+ (Negative); Specific Gravity Urine 1.015 (1.000-1.030); Urobilinogen Urine Negative (Negative); WBC Urine Automated >30 /hpf (0-5); pH Urine 6.5 (4.5-7.5)
[2021-05-07] MEDS ORDERED: cefTRIAXone SODIUM 1,000 MG/50 ML BAG IV STA (15:35)
--- NOTE | 2021-05-07 17:20 | History & Physical Report ---
Date of Service May 07, 2021 Assessment & Plan (1) Weakness: Plan: Pt is 70 y/o F with PMH COPD, nocturnal hypoxia on 2 L at bedtime, tobacco use, CAD s/p stent, cardiomyopathy, s/p ICD, PVD, depression, TIA presented to ER with c/o weakness past several days. May be secondary to underlying infection-UTI, pneumonia, CHF In ER patient afebrile, P: 119 down to 91, R: 16, BP: 94/63, 90% on room air. WBC: 11 Blood cultures pending Treat as below PT/OT eval Fall precautions (2) Fluid overload: (3) Cardiomyopathy: Plan: Patient reports nonproductive cough x1 month. Reports chronic intermittent chest pain Follows with Dr. Shirley Victoria [facility] cardiology. History echo 2019: Severe global hypokinesis, EF: 15%, mild mitral regurgitation, mild aortic insufficiency, mild pulmonary hypertension CXR:Cardiomegaly with pulmonary vascular congestion. In ER was given total 1L NSS secondary to hypotension Patient examines as fluid overload Lasix 20 mg IV was given Monitor I's and O's, daily weight, low-sodium diet Echo Cardiology consult BMP in a.m. (4) Urinary tract infection: Plan: Patient reports dysuria, urinary frequency and urgency. Treated for UTI several weeks ago with Augmentin. Then treated 04/29 with nitrofurantoin WBC: 11, lactate: 2.0 In ER given Rocephin We will continue Rocephin Urine culture pending (5) Pneumonia: Plan: Possible pneumonia. Normal lactate. Normal procalcitonin CXR: Trace pleural effusions with mild bibasilar opacities suggestive of atelectasis versus pneumonitis In ER given Rocephin Continue Rocephin (6) Elevated troponin: Plan: H/O CAD Troponin: 0.7. EKG paced rhythm No current chest pain. Patient reports intermittent chest pain at baseline and uses nitro with relief R/O ACS Will trend troponin Echo Continue aspirin, carvedilol, Crestor, Plavix, isosorbide Cardiology consult (7) COPD (chronic obstructive pulmonary disease): Plan: Nocturnal hypoxia Continue 2 L oxygen at bedtime Continue home inhalers (8) HTN (hypertension): Plan: Hypertensive in ER Hold losartan Monitor BP DVT Prophylaxis -Lovenox SQ Full Code as per discussion with pt Follows with Paula Cartwright PA-C/Dr Crane for routine care Pt was seen and care coordinated with Dr Huerta. See addendum History of Present Illness Chief Complaint: Weakness Primary Care Provider: Paula Cartwright PA-C/ Dr Crane Pt is 70 y/o F with PMH COPD, nocturnal hypoxia on 2 L at bedtime, tobacco use, CAD s/p stent, cardiomyopathy, s/p ICD, PVD, depression, TIA presented to ER with c/o weakness past 4 days. Reports several weeks ago started with dysuria, urgency, frequency. She also had episode of lightheadedness and near syncope. Patient had denied EMS transport to ER at that time. Several days later she went to urgent care for dysuria and was diagnosed with UTI and started on Augmentin. Patient states dysuria continued and was started on nitrofurantoin 04/23/2021 however has continued symptoms. States several days ago had some lower abdominal pain and left flank pain but denies any pain currently. The past day with generalized weakness, lightheadedness. Patient reports history of chronic intermittent chest pain and uses nitro as needed. She states couple days ago had chest pain and use nitro with relief. Denies any current chest pain. Patient reports chronic shortness of breath. She is unsure if she had increased shortness of breath recently. Reports nonproductive cough for the past month. Denies any lower extremity edema. Reports chronic loose stools, usually having 1-5 stools a day. Yesterday had 5 loose stools. Denies fever/chills, diaphoresis, N/V/C, PEREZ, vision changes, neck pain, palpitations, hemoptysis, sore throat, choking, otalgia, rhinorrhea, paresthesias, weakness, extremity weakness, rashes, hematuria. Allergies Allergy/AdvReac Type Severity Reaction Status Date / Time lisinopril AdvReac Mild cough Unverified 05/07/21 15:13 Home Medications Medication Instructions Recorded Confirmed Type buspirone 5 mg tablet 5 mg PO TID 12/24/18 05/07/21 History clopidogrel 75 mg tablet (Plavix) 75 mg PO HS 12/24/18 05/07/21 History ezetimibe 10 mg tablet (Zetia) 10 mg PO HS 12/24/18 05/07/21 History gabapentin 300 mg capsule 300 mg PO QID 12/24/18 05/07/21 History (Neurontin) isosorbide mononitrate 30 mg 30 mg PO BID 12/24/18 05/07/21 History tablet,extended release 24 hr magnesium oxide 400 mg PO HS 12/24/18 05/07/21 History pantoprazole 40 mg tablet,delayed 40 mg PO QAM 12/24/18 05/07/21 History release (Protonix) ipratropium 20 mcg-albuterol 100 1 puffs INH Q6H PRN #4 gm 12/26/18 05/07/21 Rx mcg/actuation mist for inhalation (Combivent Respimat) carvedilol 3.125 mg tablet (Coreg) 3.125 tab PO BID 01/10/19 05/07/21 History furosemide 20 mg tablet 20 mg PO QAM 08/07/19 05/07/21 History losartan 25 mg tablet (Cozaar) 12.5 mg PO QAM 08/07/19 05/07/21 History nitroglycerin 0.4 mg sublingual 0.4 mg SUBLINGUAL UD 08/07/19 05/07/21 History tablet (Nitrostat) rosuvastatin 20 mg tablet (Crestor) 20 mg PO HS 08/07/19 05/07/21 History aspirin 81 mg tablet,delayed 81 mg PO QAM 05/07/21 05/07/21 History release (Aspirin Low Dose) cranberry extract 650 mg capsule 1,300 mg PO UD 05/07/21 05/07/21 History (Theracran) phenazopyridine 95 mg tablet (Azo 95 mg PO UD 05/07/21 05/07/21 History Urinary Pain Relief) Past Med/Surg History Medical History (Updated 05/07/21 @ 19:43 by Opal Regalado PA-C) Bilateral femoral artery stenosis "Multiple stents " CAD (coronary artery disease) Cardiac defibrillator in place CHF (congestive heart failure) Chronic low back pain COPD (chronic obstructive pulmonary disease) Depression GERD (gastroesophageal reflux disease) History of TIA (transient ischemic attack) HTN (hypertension) Hyperlipemia ME (myocardial infarction) Pacemaker PVD (peripheral vascular disease) Surgical History Stented coronary artery Family History Other Hypertension Social History Smoking Status: Current every day smoker Cigarettes Per Day: 5; Second Hand Exposure: No; Hx Alcohol Use: No Hx Substance Use: No Preferred Language: Eritrean 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 Ability: Effective Mineral Mixer Required: No Beliefs That Will Affect Care: None marital status: Current Living Situation: Family Current Living Situation Comment: Lived with and grandchildren Other Information That Helps Us Care for You: No Feels Safe at Home: Yes Safety Concerns: Feels Safe At This Time Assistive Devices: Cane, Denture - Upper, Denture - Lower, Glasses and Oxygen - at Night Review of Systems Review of Systems: All systems reviewed & are unremarkable except as noted in HPI & below Physical Exam Physical Exam: General: no acute distress, WDWN Head: normocephalic, atraumatic Eyes: PERRL, EOM's intact, conjunctiva non-injected, anicteric ENT: normal inspection external ears, nose, mucous membranes moist Neck: supple, trachea midline Lungs: no respiratory distress, 95% on RA, able to speak in full sentences, +rales bases bilaterally CV: RRR, no pretibial edema Abd: normal BS, soft, non-tender Ext: no cyanosis, no calf tenderness Neuro: A&O x 3, no focal deficits noted, normal affect Skin: warm, dry Results & Data Results & Data ([facility]) Vital Signs (Past 12 Hours) Vital Signs Temp Pulse Resp BP Pulse Ox 05/07/21 16:00 91 H 24 93/67 L 93 05/07/21 15:30 91 H 23 81/52 L 91 05/07/21 15:19 92 05/07/21 15:00 93 H 26 H 91/59 L 92 05/07/21 14:30 99 H 29 H 84/68 L 90 05/07/21 14:11 86 24 92 05/07/21 14:00 100 H 24 93/67 L 92 05/07/21 12:57 37.5 C 113 H 16 94/63 L 90 Laboratory Results Short CBC 05/07/21 Range/Units 14:00 WBC 11.36 H (4.8-10.8) K/uL Hgb 13.0 (12.0-16.0) g/dL Hct 39.4 (37-47) % Plt Count 242 (130-400) K/uL BMP 05/07/21 14:00 Sodium 135 L Potassium 4.4 Chloride 105 Carbon Dioxide 24 BUN 9 Creatinine 1.04 Glucose 108 H Calcium 8.6 Cardiac Enzymes 05/07/21 Range/Units 14:00 Troponin I 0.750 H* (0-0.045) ng/ml Liver Function 05/07/21 Range/Units 14:00 Total Bilirubin 0.4 (0.2-1) mg/dl AST 19 (15-37) U/L ALT 14 (12-78) U/L Alkaline Phosphatase 94 (45-117) U/L Albumin 3.1 L (3.4-5.0) gm/dl Urine 05/07/21 Range/Units 14:00 Urine Color Dark Yellow Urine Appearance Clear (Clear) Urine pH 6.5 (4.5-7.5) Ur Specific [place] 1.015 (1.000-1.030) Urine Protein 3+ H (Negative) Urine Glucose (UA) Negative (Negative) Diagnostic Findings Chest X-Ray 05/07/21 13:15 XR chest 1V portable HISTORY: 70 years-old Female SEPSIS acute sepsis COMPARISON: Chest radiograph 01/12/2019 TECHNIQUE: Portable AP view of the chest FINDINGS: Cardiac silhouette is enlarged. Left subclavian pacer/AICD. Calcified plaque of the thoracic aorta. Pulmonary vascular congestion with mild bibasilar opacities. Blunting of the costophrenic angles suggestive of trace effusions. No pneumothorax. Degenerative changes of the shoulders and spine. IMPRESSION: 1. Cardiomegaly with pulmonary vascular congestion. 2. Trace pleural effusions with mild bibasilar opacities suggestive of atelectasis versus pneumonitis. ACT 112: Negative or not required by law. The above report was generated using voice recognition software. It may contain grammatical, syntax or spelling errors. Electronically signed by: Logan Tan M.D. 05/07/2021 1:42 PM Abdomen/Pelvis CT 05/07/21 13:25 CT SCAN OF THE ABDOMEN AND PELVIS WITHOUT IV CONTRAST CLINICAL HISTORY: Right-sided abdominal pain. Dysuria. COMPARISON STUDY: Abdominal CT dated 08/07/2019. TECHNIQUE: CT scan of the abdomen and pelvis is performed from the lung bases to the proximal femora. Images are reviewed in the axial, sagittal, and coronal planes. IV contrast was not administered for this examination. A dose lowering technique was utilized adhering to the principles of ALARA. CT DOSE: 287.28 mGy.cm FINDINGS: Lung bases: The heart is enlarged and without pericardial effusion. Pacemaker leads are noted. The coronary arteries are densely calcified. There is a tiny hiatal hernia. There are trace pleural effusions with bibasilar consolidation. Liver: The unenhanced liver is normal in size, contour, and attenuation. There is no intrahepatic biliary ductal dilatation. A 3.3 cm cyst is noted in the caudate. Additional 1.2 cm cyst is seen in the right lobe. Gallbladder: Unremarkable. Spleen: Normal in size and attenuation. Axillary bypass Pancreas: Unremarkable. Adrenal glands: Unremarkable. Kidneys: There is asymmetric cortical atrophy of the left kidney as compared the right. No hydronephrosis is seen. There are no renal calculi identified. Renovascular calcifications are seen on the left. There is no evidence of contour deforming renal mass lesion. Abdominal vasculature: There is advanced atherosclerotic calcification and mild ectasia of the abdominal aorta. An axillary-bifemoral bypass graft is noted. A left common iliac artery stent is in place. Bowel: There is mild colonic diverticulosis without CT evidence of acute diverticulitis. No bowel obstruction is seen. Fecal retention is noted throughout the colon. The appendix is well-visualized and normal. Peritoneum: There is no intraperitoneal free air or abdominal ascites. Lymphadenopathy: None. Pelvic viscera: The bladder is partially decompressed and grossly unremarkable. The uterus is surgically absent. No adnexal lesion is seen. Skeletal structures: The skeletal structures are osteopenic. There is a minimal chronic compression deformity of T11. Mild lumbosacral spondylosis is observed. No lytic or blastic lesions are seen. IMPRESSION: 1. There are no acute infectious or inflammatory findings in the abdomen or pelvis. 2. There are trace pleural effusions with bibasilar consolidation. Correlate clinically for evidence of pneumonia/aspiration pneumonitis. 3. Cardiomegaly. 4. Again seen is advanced atherosclerotic change with an axillary-bifemoral bypass graft in place. 5. Mild colonic diverticulosis without CT evidence of acute diverticulitis. 6. Additional findings as above. ACT 112: Negative or not required by law. Electronically signed by: Jaren Alonzo M.D. 05/07/2021 2:52 PM ECG Findings: + paced rhythm Supervising Physician Co-Signing Physician Notes History and physical exam obtained by me. History, as detailed by Elvira Regalado PA-C notable for 70-year-old woman with COPD, nocturnal hypoxia on 2 L/min at bedtime, cigarette smoking, CAD status post stent, cardiomyopathies, ICD, PVD, depression, TIA who presented to the ER complaining of progressive weakness, dizziness over the past couple of weeks as well as dysuria and frequency Also reported chronic cough, chronic two-pillow orthopnea, occasional exertional dyspnea Physical exam notable for bibasilar crackles, oxygen saturation low 90s on 2 L/min nasal oxygen. Lab work notable for troponin of 0.75, BNP of 5985 Chest x-ray noted cardiomegaly with pulmonary vascular congestion with trace pleural effusion and bibasilar opacities suggestive of atelectasis versus pneumonitis -Acute on chronic systolic heart failure -Urinary tract infection -Generalized weakness Based on patient history, normal procalcitonin, lactate, my suspicion for pneumonia is low. However will monitor. Continue ceftriaxone for UTI follow-up urine culture Cardiology consult Patient blood pressure is running low. We will do IV Lasix 20 mg for now. Get 2D echo Trend trop PT/OT Agree with other plans as detailed by Elvira Regalado PA-C (1) Urinary tract infection Hematuria presence: without hematuria Urinary tract infection type: site unspecified Qualified Code(s): N39.0 - Urinary tract infection, site not specified
[2021-05-07] MEDS ORDERED: FUROSEMIDE 40 MG/4 ML VIAL IV STA (17:41)
[2021-05-07] MEDS ORDERED: IPRATROPIUM BROMIDE/ALBUTEROL respimat INH INH PRN (20:58)
[2021-05-07] MEDS ORDERED: ACETAMINOPHEN 325 MG TAB PO PRN (20:58)
[2021-05-07] MEDS ORDERED: POLYETHYLENE (MIRALAX) 17 GM PACK PO PRN (20:58)
[2021-05-07] MEDS ORDERED: ROSUVASTATIN CALCIUM 20 MG TAB PO SCH (21:00)
[2021-05-07] MEDS ORDERED: Ipratropium HFA Inhaler (Combivent Respimat P&T Subs) INH PRN (21:18)
[2021-05-07] MEDS ORDERED: Albuterol HFA 8 GM Inhaler (Combivent Respimat P&T Subs) INH PRN (21:18)
[2021-05-07] MEDS: ENOXAPARIN INJ 40 MG/0.4 ML SYR SQ SCH (22:10)
[2021-05-07] MEDS: MAGNESIUM OXIDE 400 MG TAB PO SCH (22:10)
[2021-05-07] MEDS: NICOTINE 7 MG/24 HR TDSY TD SCH (22:10)
[2021-05-07] MEDS: GABAPENTIN 300 MG CAP PO SCH (22:11)
[2021-05-07] MEDS: busPIRone 5 MG TAB PO SCH (22:11)
[2021-05-07] MEDS: ISOSORBIDE MONO EXTENDED REL 30 MG TABCR PO SCH (22:11)
[2021-05-07] MEDS: EZETIMIBE 10 MG TABLET PO SCH (22:12)
[2021-05-07] MEDS: CLOPIDOGREL BISULFATE 75 MG TAB PO SCH (22:12)
[2021-05-07] MEDS: carvediloL 3.125 MG TAB PO SCH (22:12)
[2021-05-08 03:22] LABS: Basophils # (auto) 0.02 K/uL (0-0.2); Basophils % (auto) 0.3 %; Eosinophils # (auto) 0.02 K/uL (0-0.5); Eosinophils % (auto) 0.3 %; Hematocrit (blood only) 33.9 % (37-47); Hemoglobin 11.4 g/dL (12.0-16.0); Immature Granulocytes # (auto) 0.01 K/uL (0.00-0.02); Immature Granulocytes % (auto) 0.1 %; Lymphocytes # (auto) 1.83 K/uL (1.2-3.4); Lymphocytes % (auto) 24.9 %; Mean Corpuscular Hemoglobin 32.4 pg (25-34); Mean Corpuscular Hgb Conc 33.6 g/dL (32-36); Mean Corpuscular Volume 96.3 fL (80-100); Mean Platelet Volume 9.6 fL (7.4-10.4); Monocytes # (auto) 0.56 K/uL (0.11-0.59); Monocytes % (auto) 7.6 %; Neutrophils % (auto) 66.8 %; Platelet Count 213 K/uL (130-400); RDW Coefficient of Variation 14.1 % (11.5-14.5); RDW Standard Deviation 49.9 fL (36.4-46.3); Red Blood Count 3.52 M/uL (4.2-5.4); White Blood Count 7.34 K/uL (4.8-10.8)
[2021-05-08 03:42] LABS: BUN Creatinine Ratio 14.4 (10-20); Calcium 8.2 mg/dl (8.5-10.1); Creatinine Clr Calc Pharmacy 50.4 ml/min; Est GFR (African American) 76.6 ml/min; Est GFR (Non-African American) 66.1 ml/min; Potassium 3.7 mmol/L (3.5-5.1); Troponin I 0.577 ng/ml (0-0.045)
[2021-05-08] MEDS: carvediloL 3.125 MG TAB PO SCH (08:20)
[2021-05-08] MEDS: ASPIRIN 81 MG ECTAB PO SCH (08:20)
[2021-05-08] MEDS: NICOTINE 7 MG/24 HR TDSY TD SCH (08:20)
[2021-05-08] MEDS: busPIRone 5 MG TAB PO SCH ×3 (08:20→19:58)
[2021-05-08] MEDS: ISOSORBIDE MONO EXTENDED REL 30 MG TABCR PO SCH ×2 (08:21→19:58)
[2021-05-08] MEDS: PANTOprazole 40 MG TAB PO SCH (08:21)
[2021-05-08] MEDS: GABAPENTIN 300 MG CAP PO SCH ×4 (08:21→19:59)
--- NOTE | 2021-05-08 10:17 | Cardiology Consultation ---
Date of Consultation May 08, 2021 Assessment & Plan (1) Urinary tract infection: (2) Pneumonia: (3) CHF (congestive heart failure): (4) Elevated troponin: (5) COPD exacerbation: Complex 70-year-old female admitted with dysuria, urinary frequency, weakness, and chills suggesting ongoing urinary tract infection despite outpatient attempts at treatments. Cardiology consultation requested due to concern for congestive heart failure as well as elevated troponin. Chest x-ray interpreted as revealing pulmonary vascular congestion with trace pleural effusions, mild bibasilar opacities suggestive of atelectasis versus pneumonitis. BNP is elevated though examination is less concerning for acute decompensation. The mild elevated troponin concentration elevation is without other findings suggesting an acute coronary syndrome and likely due to strain from the acute illnesses. Recommend cautious diuresis. Given hypotension, underlying pulmonary disease, and observed heart rates, recommend switching carvedilol to metoprolol succinate. Rosuvastatin to be increased to 40 mg/day, attempting to achieve an optimal LDL goal of less than 70 mg/dL. Aspirin, clopidogrel, ARB, and nitrates to be continued. Further recommendations pending the above, evaluation by Dr. Spencer, and patient's ongoing hospitalization. Supervising Physician Co-Signing Physician Notes Patient was seen and examined, chart, medications, telemetry reviewed. Full assessment as well outlined above. Patient does not examine is significantly volume overloaded with recent presentation consistent with acute infectious process. We will give additional increase in daily dose of furosemide 40 mg today. Would continue inpatient therapy at least an additional day given fragile status Continue prehospital medication We will follow with patient and assume care post hospital discharge with previous care through Dr. Evan Campbell (retired) History of Present Illness Reason for Consultation: Cardiomyopathy, fluid overload Requesting Physician: Fabricio/Bradley Attending Physician: Bradley History of Present Illness Mrs. Valdes is a 70-year-old female who states that she has been dealing with a recurrent urinary tract infection for about the last 2 weeks. She notes no improvement despite two different courses of antibiotics as an outpatient. Yesterday, she awoke with shaking chills and presented to the ER. She notes weakness, dysuria, and urinary frequency, improved since admission. Mrs. Valdes describes having a chronic cough productive of mucous, chronic two-pillow orthopnea, and ? intermittent PND. She notes previously being diagnosed with obstructive sleep apnea, untreated. She uses supplement oxygen at night. She is a dedicated smoker, currently smoking 1/4 ppd. She describes stable exertional dyspnea consistent with [place] Heart Association class III, appearing to be multifactorial in etiology. She notes indigestion, especially after eating gravy or spaghetti, always worse in the evening when attempting to lie down. She notes taking Polina-Sutton then Tums and if no improvement then sublingual nitroglycerin. She notes that the indigestion pain is unlike the pain previously associated with her DE. She notes no recent overt angina. No tachypalpitations. No device alarms or discharges. No peripheral edema. No abrupt weight change. Previously followed by Dr. Marcelle Watson of [facility] Cardiology in [place] (retired) Past Medical and Surgical History Coronary artery disease with prior myocardial infarction Severe ischemic cardiomyopathy with prior ejection fraction of 15% [place] Heart Association class III CHF Status post [facility] device implantation in 2012, upgrade to a biventricular pacemaker defibrillator in 2014 Cardiac catheterization on October 06, 2016 revealed a patent stent in the mid RCA and a 20% proximal LAD stenosis Right heart catheterization performed on December 06, 2018 revealed pulmonary hypertension Moderate mitral regurgitation Moderate aortic regurgitation Chronic CCS class II angina pectoris Anterior communicating artery aneurysm Diffuse vascular disease, followed by [facility] Vascular Surgery History of TIA Carotid stenosis, 50 to 69% bilateral internal carotid artery disease. Left subclavian steal syndrome Chart history of MANAGER CASE to the left subclavian in June 2013 Status post femoro-femoral bypass grafting with occlusion, status post right axillary to bilateral femoral grafting in May 2015 Chart history of bacterial endocarditis Hypertension Dyslipidemia Chronic tobacco abuse COPD with nocturnal hypoxemia, 2 L/min at bedtime Obstructive sleep apnea, untreated GERD Depression Carpal tunnel Status post cataract extraction Status post hysterectomy Family History: Mother with Alzheimer's disease and Parkinsons' disease. Father with metastatic prostate cancer. One brother with an DE at 50, undergoing renal transplant in his 30's. She has another brother who also has CAD. Social History: Smoker, 1/4 pack/day. No alcohol. No illegal drug use. . Her daughter and four grandchildren currently live with them. Lives in [place]. 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 Allergies Allergy/AdvReac Type Severity Reaction Status Date / Time lisinopril AdvReac Mild cough Unverified 05/07/21 15:13 Home Medications Medication Instructions Recorded Confirmed Type buspirone 5 mg tablet 5 mg PO TID 12/24/18 05/07/21 History clopidogrel 75 mg tablet (Plavix) 75 mg PO HS 12/24/18 05/07/21 History ezetimibe 10 mg tablet (Zetia) 10 mg PO HS 12/24/18 05/07/21 History gabapentin 300 mg capsule 300 mg PO QID 12/24/18 05/07/21 History (Neurontin) isosorbide mononitrate 30 mg 30 mg PO BID 12/24/18 05/07/21 History tablet,extended release 24 hr magnesium oxide 400 mg PO HS 12/24/18 05/07/21 History pantoprazole 40 mg tablet,delayed 40 mg PO QAM 12/24/18 05/07/21 History release (Protonix) ipratropium 20 mcg-albuterol 100 1 puffs INH Q6H PRN #4 gm 12/26/18 05/07/21 Rx mcg/actuation mist for inhalation (Combivent Respimat) carvedilol 3.125 mg tablet (Coreg) 3.125 tab PO BID 01/10/19 05/07/21 History furosemide 20 mg tablet 20 mg PO QAM 08/07/19 05/07/21 History losartan 25 mg tablet (Cozaar) 12.5 mg PO QAM 08/07/19 05/07/21 History nitroglycerin 0.4 mg sublingual 0.4 mg SUBLINGUAL UD 08/07/19 05/07/21 History tablet (Nitrostat) rosuvastatin 20 mg tablet (Crestor) 20 mg PO HS 08/07/19 05/07/21 History aspirin 81 mg tablet,delayed 81 mg PO QAM 05/07/21 05/07/21 History release (Aspirin Low Dose) cranberry extract 650 mg capsule 1,300 mg PO UD 05/07/21 05/07/21 History (Theracran) phenazopyridine 95 mg tablet (Azo 95 mg PO UD 05/07/21 05/07/21 History Urinary Pain Relief) Patient History Medical History Bilateral femoral artery stenosis "Multiple stents " CAD (coronary artery disease) Cardiac defibrillator in place CHF (congestive heart failure) CHF (congestive heart failure) Chronic low back pain COPD (chronic obstructive pulmonary disease) Depression Elevated troponin GERD (gastroesophageal reflux disease) History of TIA (transient ischemic attack) HTN (hypertension) Hyperlipemia DE (myocardial infarction) Pacemaker PVD (peripheral vascular disease) Surgical History Stented coronary artery Family History Other Hypertension Social History Smoking Status: Current every day smoker Cigarettes Per Day: 5; Second Hand Exposure: No; Hx Alcohol Use: No Hx Substance Use: No Preferred Language: Lao 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 Ability: Effective [place] Required: No Beliefs That Will Affect Care: None marital status: Current Living Situation: Family Current Living Situation Comment: Lived with and grandchildren Other Information That Helps Us Care for You: No Feels Safe at Home: Yes Safety Concerns: Feels Safe At This Time Assistive Devices: None Review of Systems Review of Systems: Complete Review of Systems is as stated above, negative, or noncontributory Physical Exam Physical Exam: General: A&Ox3. NAD. HENT: Normocephalic. Atraumatic. PER. Conjunctiva pink, sclera clear. Neck: Bilateral carotid bruits. No JVD. No HJR. Heart: Regular at 80 bpm. Grade II/ systolic ejection murmur. No diastolic murmur. No rub. Lungs: Diminished. Decreased. Scattered rhonchi. No wheeze. Abdomen: +BS. Soft. Nontender. No masses or organomegaly. Extremities: No clubbing, cyanosis, or edema. Limited neurological examination is without focal deficits. Pulses: radial=0/4, posterior tibial=0/4. Results & Data ([facility]) Vital Signs (Past 12 Hours) Vital Signs Temp Pulse Pulse Resp BP Pulse Ox 05/08/21 07:15 80 05/08/21 07:11 36.5 C 82 18 123/75 95 05/08/21 04:20 36.7 C 77 18 97/58 L 97 05/08/21 00:48 81/48 L 05/08/21 00:31 93 H 05/07/21 23:54 36.6 C 80 18 82/41 L 93 Laboratory Results Laboratory Results - last 24 hr 05/07/21 05/07/21 05/07/21 14:00 14:00 14:00 WBC 11.36 H RBC 4.08 L Hgb 13.0 Hct 39.4 MCV 96.6 MCH 31.9 MCHC 33.0 RDW Std Deviation 50.2 H RDW Coeff of Ariela 14.1 Plt Count 242 MPV 9.8 Immature Gran % (Auto) 0.1 Neut % (Auto) 84.9 Lymph % (Auto) 9.9 [place] % (Auto) 4.8 Eos % (Auto) 0.1 Baso % (Auto) 0.2 Neut # (Auto) 9.65 H Lymph # (Auto) 1.13 L [place] # (Auto) 0.54 Eos # (Auto) 0.01 Baso # (Auto) 0.02 Immature Gran # (Auto) 0.01 PT 11.6 INR 1.2 H APTT 25.9 PTT Ratio 1.0 VBG pH VBG pCO2 VBG pO2 VBG HCO3 VBG O2 Saturation VBG Base Excess Barometric Pressure Sodium 135 L Potassium 4.4 Chloride 105 Carbon Dioxide 24 Anion Gap 6.0 BUN 9 Creatinine 1.04 Est Cr Clr Drug Dosing Not Reportable Est GFR ( Amer) 62.6 Est GFR (Non-Af Amer) 54.0 BUN/Creatinine Ratio 8.5 L Glucose 108 H Lactate Calcium 8.6 Magnesium 2.0 Total Bilirubin 0.4 AST 19 ALT 14 Alkaline Phosphatase 94 Troponin I 0.750 H* NT-Pro-B Natriuret Pep Total Protein 7.3 Albumin 3.1 L Globulin 4.2 H Albumin/Globulin Ratio 0.7 L Triglycerides Cholesterol LDL Cholesterol, Calc VLDL Cholesterol, Calc HDL Cholesterol Cholesterol/HDL Ratio Procalcitonin Urine Color Urine Appearance Urine pH Ur Specific [place] Urine Protein Urine Glucose (UA) Urine Ketones Urine Blood Urine Nitrite Urine Bilirubin Urine Urobilinogen Ur Leukocyte Esterase Urine WBC (Auto) Urine RBC (Auto) U Hyaline Cast (Auto) U Epithel Cells (Auto) Urine Bacteria (Auto) COVID-19 Eval Order SARS-CoV-2 (PCR) 05/07/21 05/07/21 05/07/21 14:00 14:00 14:00 WBC RBC Hgb Hct MCV MCH MCHC RDW Std Deviation RDW Coeff of Ariela Plt Count MPV Immature Gran % (Auto) Neut % (Auto) Lymph % (Auto) [place] % (Auto) Eos % (Auto) Baso % (Auto) Neut # (Auto) Lymph # (Auto) [place] # (Auto) Eos # (Auto) Baso # (Auto) Immature Gran # (Auto) PT INR APTT PTT Ratio VBG pH VBG pCO2 VBG pO2 VBG HCO3 VBG O2 Saturation VBG Base Excess Barometric Pressure Sodium Potassium Chloride Carbon Dioxide Anion Gap BUN Creatinine Est Cr Clr Drug Dosing Est GFR ( Amer) Est GFR (Non-Af Amer) BUN/Creatinine Ratio Glucose Lactate 2.0 Calcium Magnesium Total Bilirubin AST ALT Alkaline Phosphatase Troponin I NT-Pro-B Natriuret Pep Total Protein Albumin Globulin Albumin/Globulin Ratio Triglycerides Cholesterol LDL Cholesterol, Calc VLDL Cholesterol, Calc HDL Cholesterol Cholesterol/HDL Ratio Procalcitonin 0.08 Urine Color Dark Yellow Urine Appearance Clear Urine pH 6.5 Ur Specific [place] 1.015 Urine Protein 3+ H Urine Glucose (UA) Negative Urine Ketones Negative Urine Blood 2+ H Urine Nitrite Negative Urine Bilirubin Negative Urine Urobilinogen Negative Ur Leukocyte Esterase 1+ H Urine WBC (Auto) >30 H Urine RBC (Auto) 5-10 H U Hyaline Cast (Auto) 1-5 U Epithel Cells (Auto) >30 H Urine Bacteria (Auto) Negative COVID-19 Eval Order SARS-CoV-2 (PCR) 05/07/21 05/07/21 05/07/21 14:00 14:10 14:10 WBC RBC Hgb Hct MCV MCH MCHC RDW Std Deviation RDW Coeff of Ariela Plt Count MPV Immature Gran % (Auto) Neut % (Auto) Lymph % (Auto) [place] % (Auto) Eos % (Auto) Baso % (Auto) Neut # (Auto) Lymph # (Auto) [place] # (Auto) Eos # (Auto) Baso # (Auto) Immature Gran # (Auto) PT INR APTT PTT Ratio VBG pH VBG pCO2 VBG pO2 VBG HCO3 VBG O2 Saturation VBG Base Excess Barometric Pressure Sodium Potassium Chloride Carbon Dioxide Anion Gap BUN Creatinine Est Cr Clr Drug Dosing Est GFR ( Amer) Est GFR (Non-Af Amer) BUN/Creatinine Ratio Glucose Lactate Calcium Magnesium Total Bilirubin AST ALT Alkaline Phosphatase Troponin I NT-Pro-B Natriuret Pep 5985 H Total Protein Albumin Globulin Albumin/Globulin Ratio Triglycerides Cholesterol LDL Cholesterol, Calc VLDL Cholesterol, Calc HDL Cholesterol Cholesterol/HDL Ratio Procalcitonin Urine Color Urine Appearance Urine pH Ur Specific [place] Urine Protein Urine Glucose (UA) Urine Ketones Urine Blood Urine Nitrite Urine Bilirubin Urine Urobilinogen Ur Leukocyte Esterase Urine WBC (Auto) Urine RBC (Auto) U Hyaline Cast (Auto) U Epithel Cells (Auto) Urine Bacteria (Auto) COVID-19 Eval Order Covid19 at [facility] SARS-CoV-2 (PCR) NEGATIVE 05/07/21 05/07/21 05/08/21 14:15 21:04 02:37 WBC 7.34 RBC 3.52 L Hgb 11.4 L Hct 33.9 L MCV 96.3 MCH 32.4 MCHC 33.6 RDW Std Deviation 49.9 H RDW Coeff of Ariela 14.1 Plt Count 213 MPV 9.6 Immature Gran % (Auto) 0.1 Neut % (Auto) 66.8 Lymph % (Auto) 24.9 [place] % (Auto) 7.6 Eos % (Auto) 0.3 Baso % (Auto) 0.3 Neut # (Auto) 4.90 Lymph # (Auto) 1.83 [place] # (Auto) 0.56 Eos # (Auto) 0.02 Baso # (Auto) 0.02 Immature Gran # (Auto) 0.01 PT INR APTT PTT Ratio VBG pH 7.43 H VBG pCO2 37 L VBG pO2 34 VBG HCO3 24 VBG O2 Saturation < 60.0 VBG Base Excess 0.1 Barometric Pressure 735.4 Sodium Potassium Chloride Carbon Dioxide Anion Gap BUN Creatinine Est Cr Clr Drug Dosing Est GFR ( Amer) Est GFR (Non-Af Amer) BUN/Creatinine Ratio Glucose Lactate Calcium Magnesium Total Bilirubin AST ALT Alkaline Phosphatase Troponin I 0.767 H* NT-Pro-B Natriuret Pep Total Protein Albumin Globulin Albumin/Globulin Ratio Triglycerides Cholesterol LDL Cholesterol, Calc VLDL Cholesterol, Calc HDL Cholesterol Cholesterol/HDL Ratio Procalcitonin Urine Color Urine Appearance Urine pH Ur Specific [place] Urine Protein Urine Glucose (UA) Urine Ketones Urine Blood Urine Nitrite Urine Bilirubin Urine Urobilinogen Ur Leukocyte Esterase Urine WBC (Auto) Urine RBC (Auto) U Hyaline Cast (Auto) U Epithel Cells (Auto) Urine Bacteria (Auto) COVID-19 Eval Order SARS-CoV-2 (PCR) 05/08/21 02:37 WBC RBC Hgb Hct MCV MCH MCHC RDW Std Deviation RDW Coeff of Ariela Plt Count MPV Immature Gran % (Auto) Neut % (Auto) Lymph % (Auto) [place] % (Auto) Eos % (Auto) Baso % (Auto) Neut # (Auto) Lymph # (Auto) [place] # (Auto) Eos # (Auto) Baso # (Auto) Immature Gran # (Auto) PT INR APTT PTT Ratio VBG pH VBG pCO2 VBG pO2 VBG HCO3 VBG O2 Saturation VBG Base Excess Barometric Pressure Sodium 136 Potassium 3.7 D Chloride 105 Carbon Dioxide 29 Anion Gap 2.0 L BUN 13 Creatinine 0.88 Est Cr Clr Drug Dosing 50.4 Est GFR ( Amer) 76.6 Est GFR (Non-Af Amer) 66.1 BUN/Creatinine Ratio 14.4 Glucose 104 H Lactate Calcium 8.2 L Magnesium Total Bilirubin AST ALT Alkaline Phosphatase Troponin I 0.577 H* NT-Pro-B Natriuret Pep Total Protein Albumin Globulin Albumin/Globulin Ratio Triglycerides 117 Cholesterol 181 LDL Cholesterol, Calc 108 VLDL Cholesterol, Calc 23 HDL Cholesterol 50 Cholesterol/HDL Ratio 4 Procalcitonin Urine Color Urine Appearance Urine pH Ur Specific [place] Urine Protein Urine Glucose (UA) Urine Ketones Urine Blood Urine Nitrite Urine Bilirubin Urine Urobilinogen Ur Leukocyte Esterase Urine WBC (Auto) Urine RBC (Auto) U Hyaline Cast (Auto) U Epithel Cells (Auto) Urine Bacteria (Auto) COVID-19 Eval Order SARS-CoV-2 (PCR) Diagnostic Findings May 08, 2021 TTE interpretation summary ([facility], Dr. Spencer): Left ventricle size is normal. Moderate concentric LVH. Large sized apical, inferior, and posterior wall motion abnormality with hypokinesis to akinesis of the segments. Ejection fraction 45 to 50%. Grade 1 diastolic dysfunction. Mild aortic valve sclerosis, without significant stenosis. Mild aortic regurgitation. Mild to moderate mitral regurgitation. Trace tricuspid regurgitation. Continuous telemetry monitoring reveals paced rhythm in the 80s to 90s (1) Urinary tract infection Hematuria presence: without hematuria Urinary tract infection type: site unspecified Qualified Code(s): N39.0 - Urinary tract infection, site not specified
[2021-05-08] MEDS ORDERED: FUROSEMIDE 40 MG TAB PO ONE (11:55)
[2021-05-08] MEDS ORDERED: POTASSIUM CHLORIDE 10 MEQ TABCR PO ONE (11:56)
--- NOTE | 2021-05-08 13:12 | Hospitalist Progress Note ---
Date of Service May 08, 2021 Assessment & Plan (1) Weakness: (2) Fluid overload: (3) Cardiomyopathy: Plan: Patient reports nonproductive cough x1 month. Reports chronic intermittent chest pain [facility]. History echo 2019: Severe global hypokinesis, EF: 15%, mild mitral regurgitation, mild aortic insufficiency, mild pulmonary hypertension CXR:Cardiomegaly with pulmonary vascular congestion. In ER was given total 1L NSS secondary to hypotension Mild acute on chronic systolic heart failure Got iv lasix 20mg yesterday Fish [facility]ter evaluation noted Got lasix 40mg today Echo today noted EF of 45 to 60%, large sized septal, inferior and posterior wall motion abnormality with hypokinesis to kinesis of the segments Chest x-ray reports cardiomegaly with vascular congestion, trace pleural effusion with mild bibasilar opacities suggestive of atelectasis versus pneumonitis Normal lactate, no leukocytosis. Low suspicion for pneumonia at this time. Continue incentive spirometry (4) Urinary tract infection: Plan: Patient reports dysuria, urinary frequency and urgency. Treated for UTI several weeks ago with Augmentin. Then treated 04/29 with nitrofurantoin WBC: 11, lactate: 2.0 In ER given Rocephin We will continue Rocephin for now Follow-up urine culture (5) Pneumonia: (6) Elevated troponin: Plan: H/O CAD Troponin: 0.7--0.5. EKG paced rhythm No current chest pain. Echo noted Continue aspirin, carvedilol, Crestor, Plavix, isosorbide (7) COPD (chronic obstructive pulmonary disease): Plan: Nocturnal hypoxia Continue 2 L oxygen at bedtime Currently on nasal oxygen. Wean off as tolerated (8) HTN (hypertension): Plan: Hypotensive in ER Continue Hold losartan Monitor BP DVT Prophylaxis -Lovenox SQ Full Code as per discussion with pt Follows with Paula Cartwright PA-C/Dr Crane for routine care Admission and Anticipated Discharge Date Admission Date: May 07, 2021 Subjective 70-year-old woman with COPD, nocturnal hypoxia on 2 L/min at bedtime, cigarette smoking, CAD status post stent, cardiomyopathies, ICD, PVD, depression, TIA who presented to the ER complaining of progressive weakness, dizziness over the past couple of weeks as well as dysuria and frequency Patient seen and examined this morning. Reports feeling better. Still reports dysuria and frequency. Review of Systems Constitutional: no fever, no chills and no fatigue Eyes: no problem reported Ear, Nose, Mouth, Throat: no problem reported Respiratory: + cough and + dyspnea on exertion Cardiovascular: + dyspnea on exertion and + orthopnea (chronic, stable); no chest pain and no edema Gastrointestinal: no problem reported Genitourinary: + dysuria and + urinary frequency; no difficulty urinating Neurologic: no dizziness and no headache(s) Psychiatric: no depression and no anxiety Physical Exam Constitutional: + well hydrated; no acute distress Eyes: PERRL, conjunctivae normal, anicteric sclerae ENMT: external ear and nose normal, oropharynx normal Respiratory: normal respiratory effort; no respiratory distress Diminished breath sounds. Few rhonchi. Mild crackles in lung base (Right) Cardiovascular: Rate/Rhythm: regular rate and regular rhythm S1 S2 Gastrointestinal (Abdomen): normal bowel sounds, soft, nontender, no hepatosplenomegaly Musculoskeletal: no cyanosis or clubbing, extremities motor strength 5/5 No pedal edema Neurologic: PERRL, EOMI, accommodation nl, no face palsy, no dysarthria Psychiatric: A+Ox3, euthymic affect Genitourinary: no CVA tenderness Results & Data Results & Data ([facility]) Vital Signs (Past 12 Hours) Vital Signs Temp Pulse Pulse Resp BP Pulse Ox 05/08/21 11:37 36.3 C L 75 18 98/56 L 95 05/08/21 07:15 80 05/08/21 07:11 36.5 C 82 18 123/75 95 05/08/21 04:20 36.7 C 77 18 97/58 L 97 Laboratory Results Abnormal lab results 05/07/21 05/07/21 05/08/21 Range/Units 14:00 21:04 02:37 RBC 3.52 L (4.2-5.4) M/uL Hgb 11.4 L (12.0-16.0) g/dL Hct 33.9 L (37-47) % RDW Std Deviation 49.9 H (36.4-46.3) fL Anion Gap (3-11) Glucose (70-99) mg/dl Calcium (8.5-10.1) mg/dl Troponin I 0.767 H* (0-0.045) ng/ml NT-Pro-B Natriuret Pep 5985 H (0-900) pg/ml 05/08/21 Range/Units 02:37 RBC (4.2-5.4) M/uL Hgb (12.0-16.0) g/dL Hct (37-47) % RDW Std Deviation (36.4-46.3) fL Anion Gap 2.0 L (3-11) Glucose 104 H (70-99) mg/dl Calcium 8.2 L (8.5-10.1) mg/dl Troponin I 0.577 H* (0-0.045) ng/ml NT-Pro-B Natriuret Pep (0-900) pg/ml (1) Urinary tract infection Hematuria presence: without hematuria Urinary tract infection type: site unspecified Qualified Code(s): N39.0 - Urinary tract infection, site not specified
[2021-05-08] MEDS ORDERED: cefTRIAXone SODIUM 2,000 MG in DEXTROSE 5% 50 ML IV SCH (16:00)
[2021-05-08] MEDS: ENOXAPARIN INJ 40 MG/0.4 ML SYR SQ SCH (19:55)
[2021-05-08] MEDS: CLOPIDOGREL BISULFATE 75 MG TAB PO SCH (19:58)
[2021-05-08] MEDS: METOPROLOL SUCC 25MG EXT REL TAB PO SCH (19:59)
[2021-05-08] MEDS: EZETIMIBE 10 MG TABLET PO SCH (19:59)
[2021-05-08] MEDS: MAGNESIUM OXIDE 400 MG TAB PO SCH (19:59)
[2021-05-08] MEDS ORDERED: ROSUVASTATIN CALCIUM 20 MG TAB PO SCH (21:00)
[2021-05-09] MEDS: ISOSORBIDE MONO EXTENDED REL 30 MG TABCR PO SCH (07:47)
[2021-05-09] MEDS: GABAPENTIN 300 MG CAP PO SCH ×2 (07:47→13:49)
[2021-05-09] MEDS: METOPROLOL SUCC 25MG EXT REL TAB PO SCH (07:47)
[2021-05-09] MEDS: NICOTINE 7 MG/24 HR TDSY TD SCH (07:47)
[2021-05-09] MEDS: ASPIRIN 81 MG ECTAB PO SCH (07:48)
[2021-05-09] MEDS: PANTOprazole 40 MG TAB PO SCH (07:48)
[2021-05-09] MEDS: busPIRone 5 MG TAB PO SCH ×2 (07:48→13:49)
[2021-05-09 08:05] LABS: Hematocrit (blood only) 35.8 % (37-47); Hemoglobin 11.9 g/dL (12.0-16.0); Mean Corpuscular Hemoglobin 32.3 pg (25-34); Mean Corpuscular Hgb Conc 33.2 g/dL (32-36); Mean Corpuscular Volume 97.3 fL (80-100); Mean Platelet Volume 9.3 fL (7.4-10.4); Platelet Count 225 K/uL (130-400); RDW Coefficient of Variation 13.9 % (11.5-14.5); RDW Standard Deviation 49.9 fL (36.4-46.3); Red Blood Count 3.68 M/uL (4.2-5.4); White Blood Count 5.75 K/uL (4.8-10.8)
[2021-05-09 08:38] LABS: BUN Creatinine Ratio 18.4 (10-20); Calcium 8.8 mg/dl (8.5-10.1); Creatinine Clr Calc Pharmacy 40.3 ml/min; Est GFR (African American) 58.5 ml/min; Est GFR (Non-African American) 50.5 ml/min; Potassium 4.2 mmol/L (3.5-5.1)
--- NOTE | 2021-05-09 08:59 | Cardiology Progress Note ---
Date of Service May 09, 2021 Assessment & Plan (1) Urinary tract infection: (2) Elevated troponin: (3) CHF (congestive heart failure): (4) CAD (coronary artery disease): (5) PVD (peripheral vascular disease): (6) Biventricular cardiac pacemaker in situ: Plan: Complex 70-year-old female admitted with an acute infectious process, UTI, complicated by acute decompensated heart failure, elevated troponin, without findings of an acute coronary syndrome. Patient has responded to therapies including antibiotics as well as cautious diuresis. Patient examines as normovolemic and is asymptomatic. Recommend resumption of oral furosemide. Notable cardiac medication changes included switching carvedilol to metoprolol and titration of rosuvastatin to 40 mg/day. Continue aspirin, clopidogrel, ARB, and nitrates. Explore Entresto use as an outpatient. Consider trial of spironolactone as an outpatient. Cardiology follow-up in [place], [place]; office aware, will call patient at [phone] to make arrangements. Admission and Anticipated Discharge Date Admission Date: May 07, 2021 Supervising Physician Co-Signing Physician Notes Patient seen and agree with full assessment and plan as outlined above. Patient to be discharged today Subjective Patient seen and examined Chart, medications, and telemetry reviewed Telemetry: Paced in the 60s to 70s Input/output: +755 mL overall Weight down 0.235 kg since admission Feeling well. Anxious for discharge. Notes plans to go to the [facility] tomorrow. Denies fevers or chills. Breathing is back to baseline. Cough is at baseline. No orthopnea, PND, or peripheral edema. No chest pain or palpitations. No dizziness or syncope. Review of Systems Review of Systems: Complete review of systems is otherwise as stated above, negative, or noncontributory. Physical Exam Physical Exam: General: A&Ox3. NAD. HENT: Normocephalic. Atraumatic. PER. Conjunctiva pink, sclera clear. Neck: Bilateral carotid bruits. No JVD. No HJR. Heart: Regular at 80 bpm. Grade II/ systolic ejection murmur. No diastolic murmur. No rub. Lungs: Diminished. Decreased. Right basilar Rales. No wheeze. Abdomen: +BS. Soft. Nontender. No masses or organomegaly. Extremities: No clubbing, cyanosis, or edema. Limited neurological examination is without focal deficits. Pulses: radial=0/4, posterior tibial=0/4. Results & Data ([facility]) Vital Signs (Past 12 Hours) Vital Signs Temp Pulse Pulse Resp BP Pulse Ox 05/09/21 07:18 36.6 C 77 18 142/80 H 93 05/09/21 03:42 36.6 C 75 20 107/60 94 05/08/21 23:45 36.7 C 84 18 92/52 L 96 05/08/21 22:54 73 Laboratory Results Laboratory Results - last 24 hr 05/09/21 05/09/21 07:45 07:45 WBC 5.75 RBC 3.68 L Hgb 11.9 L Hct 35.8 L MCV 97.3 MCH 32.3 MCHC 33.2 RDW Std Deviation 49.9 H RDW Coeff of Ariela 13.9 Plt Count 225 MPV 9.3 Sodium 137 Potassium 4.2 Chloride 105 Carbon Dioxide 28 Anion Gap 4.0 BUN 20 H D Creatinine 1.10 Est Cr Clr Drug Dosing 40.3 Est GFR ( Amer) 58.5 Est GFR (Non-Af Amer) 50.5 BUN/Creatinine Ratio 18.4 Glucose 122 H Calcium 8.8 (1) Urinary tract infection Hematuria presence: without hematuria Urinary tract infection type: site unspecified Qualified Code(s): N39.0 - Urinary tract infection, site not specified
[2021-05-09] MEDS ORDERED: FUROSEMIDE 20 MG TAB PO SCH (09:15)
--- NOTE | 2021-05-09 10:56 | Electrocardiogram Report ---
Test Reason : Blood Pressure : / mmHG Vent. Rate : 104 BPM Atrial Rate : 104 BPM P-R Int : 114 ms QRS Dur : 138 ms QT Int : 414 ms P-R-T Axes : 053 172 -37 degrees QTc Int : 544 ms Atrial-sensed ventricular-paced rhythm with occasional Premature ventricular complexes Biventricular pacemaker detected Abnormal ECG When compared with ECG of 12-JAN-2019 08:43, Ventricular pacing is now present Confirmed by Tremaine Keller ([id number]) on 05/09/2021 10:55:56 AM Referred By: Confirmed By:Tremaine Keller
--- NOTE | 2021-05-09 12:52 | Discharge Summary ---
Date of Service May 09, 2021 Admission HPI Per Admitting Provider Pt is 70 y/o F with PMH COPD, nocturnal hypoxia on 2 L at bedtime, tobacco use, CAD s/p stent, cardiomyopathy, s/p ICD, PVD, depression, TIA presented to ER with c/o weakness past 4 days. Reports several weeks ago started with dysuria, urgency, frequency. She also had episode of lightheadedness and near syncope. Patient had denied EMS transport to ER at that time. Several days later she went to urgent care for dysuria and was diagnosed with UTI and started on Augmentin. Patient states dysuria continued and was started on nitrofurantoin 04/23/2021 however has continued symptoms. States several days ago had some lower abdominal pain and left flank pain but denies any pain currently. The past day with generalized weakness, lightheadedness. Patient reports history of chronic intermittent chest pain and uses nitro as needed. She states couple days ago had chest pain and use nitro with relief. Denies any current chest pain. Patient reports chronic shortness of breath. She is unsure if she had increased shortness of breath recently. Reports nonproductive cough for the past month. Denies any lower extremity edema. Reports chronic loose stools, usually having 1-5 stools a day. Yesterday had 5 loose stools. Denies fever/chills, diaphoresis, N/V/C, PEREZ, vision changes, neck pain, palpitations, hemoptysis, sore throat, choking, otalgia, rhinorrhea, paresthesias, weakness, extremity weakness, rashes, hematuria. Admission Exam Per Admitting Provider General: no acute distress, WDWN Head: normocephalic, atraumatic Eyes: PERRL, EOM's intact, conjunctiva non-injected, anicteric ENT: normal inspection external ears, nose, mucous membranes moist Neck: supple, trachea midline Lungs: no respiratory distress, 95% on RA, able to speak in full sentences, +rales bases bilaterally CV: RRR, no pretibial edema Abd: normal BS, soft, non-tender Ext: no cyanosis, no calf tenderness Neuro: A&O x 3, no focal deficits noted, normal affect Skin: warm, dry Principal Diagnosis Urinary tract infection Acute on chronic systolic heart failure Discharge Exam Constitutional + well hydrated; no acute distress Eyes PERRL, conjunctivae normal, anicteric sclerae ENMT external ear and nose normal, oropharynx normal Respiratory normal respiratory effort; no respiratory distress Cardiovascular Rate/Rhythm: regular rate and regular rhythm Gastrointestinal (Abdomen) normal bowel sounds, soft, nontender, no hepatosplenomegaly Musculoskeletal no cyanosis or clubbing, extremities motor strength 5/5 Neurologic PERRL, EOMI, accommodation nl, no face palsy, no dysarthria Psychiatric A+Ox3, euthymic affect Genitourinary no CVA tenderness Discharge Data Allergies Allergy/AdvReac Type Severity Reaction Status Date / Time lisinopril AdvReac Mild cough Unverified 05/07/21 15:13 Consultations 05/07/21 16:00 ED Decision to Admit Stat 05/08/21 08:00 Consult Cardiology Routine Ordered Studies 05/07/21 13:25 CT abd pelvis wo con Stat Lung bases: The heart is enlarged and without pericardial effusion. Pacemaker leads are noted. The coronary arteries are densely calcified. There is a tiny hiatal hernia. There are trace pleural effusions with bibasilar consolidation. Liver: The unenhanced liver is normal in size, contour, and attenuation. There is no intrahepatic biliary ductal dilatation. A 3.3 cm cyst is noted in the caudate. Additional 1.2 cm cyst is seen in the right lobe. Gallbladder: Unremarkable. Spleen: Normal in size and attenuation. Axillary bypass Pancreas: Unremarkable. Adrenal glands: Unremarkable. Kidneys: There is asymmetric cortical atrophy of the left kidney as compared the right. No hydronephrosis is seen. There are no renal calculi identified. Renovascular calcifications are seen on the left. There is no evidence of contour deforming renal mass lesion. Abdominal vasculature: There is advanced atherosclerotic calcification and mild ectasia of the abdominal aorta. An axillary-bifemoral bypass graft is noted. A left common iliac artery stent is in place. Bowel: There is mild colonic diverticulosis without CT evidence of acute diverticulitis. No bowel obstruction is seen. Fecal retention is noted throughout the colon. The appendix is well-visualized and normal. Peritoneum: There is no intraperitoneal free air or abdominal ascites. Lymphadenopathy: None. Pelvic viscera: The bladder is partially decompressed and grossly unremarkable. The uterus is surgically absent. No adnexal lesion is seen. Skeletal structures: The skeletal structures are osteopenic. There is a minimal chronic compression deformity of T11. Mild lumbosacral spondylosis is observed. No lytic or blastic lesions are seen. IMPRESSION: 1. There are no acute infectious or inflammatory findings in the abdomen or pelvis. 2. There are trace pleural effusions with bibasilar consolidation. Correlate clinically for evidence of pneumonia/aspiration pneumonitis. 3. Cardiomegaly. 4. Again seen is advanced atherosclerotic change with an axillary-bifemoral bypass graft in place. 5. Mild colonic diverticulosis without CT evidence of acute diverticulitis. 6. Additional findings as above. Hospital Course (1) Weakness: (2) Fluid overload: (3) Cardiomyopathy: Patient reported nonproductive cough x1 month. Reports chronic intermittent chest pain Follows with Dr. [facility] cardiology. History echo 2019: Severe global hypokinesis, EF: 15%, mild mitral regurgitation, mild aortic insufficiency, mild pulmonary hypertension CXR:Cardiomegaly with pulmonary vascular congestion. In ER was given total 1L NSS secondary to hypotension Echo today noted EF of 45 to 60%, large sized septal, inferior and posterior wall motion abnormality with hypokinesis to kinesis of the segments Chest x-ray reports cardiomegaly with vascular congestion, trace pleural effusion with mild bibasilar opacities suggestive of atelectasis versus pneumonitis Normal lactate, no leukocytosis. Low suspicion for pneumonia Mild acute on chronic systolic heart failure Got iv lasix 20mg on admission Was evaluated by cardiology Discharged on her home dose of lasix. Based on Legal Analyst recommendations, her carvedilol was changed to metoprolol and her rosuvastatin increased to 40mg daily Patient will follow up with Cardiology outpatient who will explore possible entresto, spironolactone use (4) Urinary tract infection: Patient reports dysuria, urinary frequency and urgency. Treated for UTI several weeks ago with Augmentin. Then treated 04/29 with nitrofurantoin WBC: 11, lactate: 2.0 UA has +1 leuk esterase, WBC >30 which suggest UTI Patient was started on ceftriaxone empirically Urine culture did not grow anything Discharged on macrobid to complete treatment (5) Elevated troponin: H/O CAD Troponin: 0.7--0.5. EKG paced rhythm No current chest pain. Echo noted Continue aspirin, carvedilol, Crestor, Plavix, isosorbide (6) COPD (chronic obstructive pulmonary disease): Nocturnal hypoxia Continue 2 L oxygen at bedtime (7) HTN (hypertension): Was hypotensive in ER Carvedilol changed to metoprolol as above Continue other home meds Total Time Total Time Spent Total Time Spent (In Minutes): 50 Discharge Plan Discharge Items Patient Disposition: Home - Self-Care Reason For Visit: WEAKNESS Discharge Diagnosis: Urinary tract infection Acute on chronic systolic heart failure Condition on Discharge: Good Activity: Resume your previous activity Non-emergency contact: Primary Care Provider and Legal Analyst Call non-emergency contact if: you have any medication questions Follow-up/Referrals: Paula Cartwright PA-C [Primary Care Provider] - Diet: Heart Healthy Addtl Attending Provider Instructions: Mrs. Valdes He came to the hospital complaining of increase weakness, urinary frequency and discomfort with urination. You were evaluated and treated for urinary tract infection. Please take Macrobid next few days to complete treatment You were also evaluated by cardiology and treated for mild heart failure. Please continue to take your Lasix. Certain medication adjustments were made. Your rosuvastatin was increased to 40 mg at bedtime and your carvedilol was changed to metoprolol. Please continue to use your oxygen at bedtime and with activity It is very important that you follow-up with your primary doctor and your acute care occupational therapist It was a pleasure taking care of you Pending Studies at Discharge: No Stand-Alone Forms: My [facility] [employer], Smoking Cessation Medications and DC Order Prescriptions: New metoprolol succinate 25 mg Tablet Extended Release 24 Hr 25 mg PO BID Qty: 60 RF: 0 nitrofurantoin monohyd/m-cryst [Macrobid] 100 mg capsule 100 mg PO BID 3 Days Qty: 6 RF: 0 Continued buspirone 5 mg tablet 5 mg PO TID RF: 0 isosorbide mononitrate 30 mg tablet extended release 24 hr 30 mg PO BID RF: 0 clopidogrel [Plavix] 75 mg tablet 75 mg PO HS RF: 0 gabapentin [Neurontin] 300 mg capsule 300 mg PO QID RF: 0 ezetimibe [Zetia] 10 mg tablet 10 mg PO HS RF: 0 pantoprazole [Protonix] 40 mg tablet,delayed release (DR/EC) 40 mg PO QAM RF: 0 magnesium oxide 400 mg magnesium Tablet 400 mg PO HS RF: 0 Combivent Respimat 20-100 mcg/actuation mist 1 puffs INH Q6H PRN (Reason: Shortness of breath and wheezing) Qty: 4 RF: 0 losartan [Cozaar] 25 mg tablet 12.5 mg PO QAM RF: 0 nitroglycerin [Nitrostat] 0.4 mg tablet, sublingual 0.4 mg sublingual UD RF: 0 furosemide 20 mg tablet 20 mg PO QAM RF: 0 aspirin [Aspirin Low Dose] 81 mg Tablet,Delayed Release (Dr/Ec) 81 mg PO QAM RF: 0 phenazopyridine [Azo Urinary Pain Relief] 95 mg Tablet 95 mg PO UD RF: 0 Theracran 650 mg Capsule 1,300 mg PO UD RF: 0 Changed rosuvastatin [Crestor] 20 mg tablet 40 mg PO HS Qty: 60 RF: 0 Discontinued carvedilol [Coreg] 3.125 mg tablet 3.125 tab PO BID RF: 0 Discharge Orders: Discharge Order (Routine); Ordered 05/09/21 Ordered By: Shawna Huerta Admission Data Admit Date/Time: 05/07/21 16:23 Attending Provider: Shawna Huerta I. Admit Provider: Shawna Huerta I. Primary Care Provider: Paula Cartwright Other Providers: Steven Spencer Valentine I. Other Interventions: Discharge Summary Assessment (RN) Last Done: 05/09/21 12:53
--- NOTE | 2021-05-09 18:36 | Electrocardiogram Report ---
Test Reason : Blood Pressure : / mmHG Vent. Rate : 090 BPM Atrial Rate : 090 BPM P-R Int : 000 ms QRS Dur : 178 ms QT Int : 504 ms P-R-T Axes : 000 205 -78 degrees QTc Int : 616 ms Atrial-sensed ventricular-paced rhythm Biventricular pacemaker detected Abnormal ECG When compared with ECG of 07-MAY-2021 13:11, Premature ventricular complexes are no longer Present Vent. rate has decreased BY 14 BPM Confirmed by Tremaine Keller ([id number]) on 05/09/2021 6:36:29 PM Referred By: REFERRED SELF Confirmed By:Tremaine Keller
== END 2021-05-09 13:30 | disposition home or self-care (01) ==
LOC: ED 12:52 → INTOOBSV 16:23 → 2S 16:23

== ENCOUNTER 2021-08-11 14:33 | Inpatient (IN) ==
[2021-08-11] MEDS ORDERED: ONDANSETRON INJ 2 MG/ML 2 ML VIAL ONE (15:20)
[2021-08-11] MEDS ORDERED: SODIUM CHLORIDE 0.9% 1000ML 500 ML IV ONE (15:27)
[2021-08-11] MEDS ORDERED: dexAMETHasone**PF** 10 MG/ML VIAL IV ONE (15:27)
--- NOTE | 2021-08-11 15:41 | Emergency Department Note ---
Impression & Plan Pneumonia due to 2019-nCoV, Ventricular tachycardia ED Provider Note NAME: JOSE DUTTA AGE: 70 SEX: F : 1950 ARRIVES VIA: Ambulance INFORMANT: Patient, ED PROVIDER(S): Cheikh Fisher DO CHIEF COMPLAINT: Shortness of breath HPI: The patient is a 70-year-old female who has extensive past medical history including COPD as well as heart failure. She has a ventricular pacemaker with a defibrillator. She is been having problems with shortness of breath over the course of the last week or 2. She was finally seen at an outpatient clinic and diagnosed with COVID-19 last Wednesday. She did have a slight fever and cough but she states this is not new for her. She was prescribed a steroid but did not have a chance to pick this prescription up. She notices cough and shortness of breath with any exertion. She denies having any vomiting. She does complain of mild chest pain. She also complains of lower extremity pain and swelling. She states she has been compliant with all of her usual outpatient medications. She has had no recent trauma. The patient states that she is not seen her family doctor today for the symptoms but because of worsening shortness of breath she presented to the emergency department by ambulance. She states her symptoms are moderate to severe. Prior to my evaluation in room B5 the patient had an episode where she became very nauseated and sat straight up. She went into wide-complex tachycardia which she does have a history of and her defibrillator did fire. She states the defibrillator has not fired in many years. ROS: See above HPI for pertinent positives & negatives. A total of 10 systems reviewed and were otherwise negative. PAST MEDICAL HISTORY: See Below PAST SURGICAL HISTORY: See Below FAMILY HISTORY: See Below SOCIAL HISTORY: See Below HOME MEDICATIONS: See Below ALLERGIES: See Below VITALS: See Below PHYSICAL EXAMINATION: GENERAL: The patient is awake and alert. She is very anxious appearing. EYES: The conjunctivae are clear. The pupils are round and reactive. EARS, NOSE, MOUTH AND THROAT: The nose is without any evidence of any deformity. Mucous membranes are moist. Tongue is midline. NECK: The neck is nontender and supple. RESPIRATORY: Shallow respirations were noted. Scattered wheezing was noted throughout. There was mild conversational dyspnea noted. CARDIOVASCULAR: Regular rate and rhythm noted there no murmurs rubs or gallops normal S1 normal S2. GASTROINTESTINAL: The abdomen is soft. Abdomen is nontender. MUSCULOSKELETAL/EXTREMITIES: There is no evidence of gross deformity full range of motion is noted in the hips and shoulders. SKIN: Bilateral pedal edema was noted. Skin was warm and dry. NEUROLOGIC: Patient is awake alert and oriented x3. MEDICAL DECISION MAKING: The patient is a 70-year-old female who presented to the emergency department by ambulance for an evaluation of shortness of breath. She also had cough and other upper respiratory symptoms. She had GI symptoms as well. The patient was positive for COVID-19. She was treated with a small fluid bolus in the emergency department. She also had an episode of ventricular tachycardia. I w as called to evaluate patient in her room however she was defibrillated by her implantable defibrillator. The patient had no further episodes of ectopy. I discussed the patient's laboratory and radiographic studies with her. Because of her presentation I [facility] have agreed to evaluate the patient in the emergency department for further management and disposition. Triage Nursing notes reviewed. Prior medical records reviewed Vital Signs: reviewed and remarkable for borderline hypoxia. Differential diagnosis: Reactive airway disease, pneumonia, pneumothorax, COPD, CHF, infections, cardiac ischemia, pulmonary embolism, musculoskeletal, gastrointestinal, as well as other pathologies. ER treatment provided: See below Diagnostics interpreted by me: ECG: EKG was obtained in the emergency department. My interpretation is ventricular paced rhythm at 101 bpm. PVCs were noted. This was compared to a tracing from May 082020. No significant changes were noted. Cardiac Monitoring: An order was placed for continuous cardiac monitoring. The monitor shows a rate of 87 bpm with paced rhythm. Laboratory studies: As stated above and show below. Imaging studies: See below Consultation(s): I discussed this case with Dr. Schmitt who [facility] He is agreed to evaluate the patient in the emergency department for further management and disposition. Past Med/Surg History Medical History Bilateral femoral artery stenosis "Multiple stents " Biventricular cardiac pacemaker in situ CAD (coronary artery disease) Cardiac defibrillator in place CHF (congestive heart failure) CHF (congestive heart failure) Chronic low back pain COPD (chronic obstructive pulmonary disease) Depression Elevated troponin GERD (gastroesophageal reflux disease) History of TIA (transient ischemic attack) HTN (hypertension) Hyperlipemia NM (myocardial infarction) Pacemaker PVD (peripheral vascular disease) Surgical History Stented coronary artery Social History Smoking Status: Current every day smoker Cigarettes Per Day: 5; Second Hand Exposure: No; Hx Alcohol Use: No Hx Substance Use: No Preferred Language: Korean 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 Ability: Effective Winter Intern Required: No Beliefs That Will Affect Care: None marital status: Current Living Situation: Family Current Living Situation Comment: Lived with and grandchildren Feels Safe at Home: Yes Assistive Devices: None Allergies Allergies Allergy/AdvReac Type Severity Reaction Status Date / Time lisinopril AdvReac Mild cough Unverified 08/11/21 17:42 Home Meds Home Medications Medication Instructions Recorded Confirmed buspirone 5 mg tablet 5 mg PO TID 12/24/18 08/11/21 clopidogrel 75 mg tablet (Plavix) 75 mg PO HS 12/24/18 08/11/21 ezetimibe 10 mg tablet (Zetia) 10 mg PO HS 12/24/18 08/11/21 gabapentin 300 mg capsule 300 mg PO QID 12/24/18 08/11/21 (Neurontin) magnesium oxide 400 mg PO HS 12/24/18 08/11/21 pantoprazole 40 mg tablet,delayed 40 mg PO QAM 12/24/18 08/11/21 release (Protonix) furosemide 20 mg tablet 20 mg PO QAM 08/07/19 08/11/21 losartan 25 mg tablet (Cozaar) 25 mg PO HS 08/07/19 08/11/21 nitroglycerin 0.4 mg sublingual 0.4 mg SUBLINGUAL UD PRN 08/07/19 08/11/21 tablet (Nitrostat) aspirin 81 mg tablet,delayed 81 mg PO QAM 05/07/21 08/11/21 release (Aspirin Low Dose) carvedilol 3.125 mg tablet 3.125 mg PO BID 08/11/21 08/11/21 rosuvastatin 20 mg tablet (Crestor) 20 mg PO HS 08/11/21 08/11/21 trazodone 50 mg tablet 50 - 100 mg PO HS PRN 08/11/21 08/11/21 Previous Rx's Medication Instructions Recorded metoprolol succinate 25 mg 25 mg PO BID #60 tab 05/09/21 tablet,extended release 24 hr Results & Data (ED) Vital Signs Vital Signs - 24 hr 08/11/21 15:00 08/11/21 16:08 08/11/21 16:25 Temperature 36.8 C 37.2 C Temperature Source Oral Oral Pulse Rate 102 H Pulse Rate [Apical] 100 H Pulse Rate from SpO2 Sensor Pulse Rhythm Regular Pulse Rhythm [Apical] Regular Pulse Strength Normal Pulse Strength [Apical] Normal Respiratory Rate 20 22 Respiratory Effort / Characteristics Non-Labored Spontaneous Non-Labored Spontaneous Respiratory Depth Normal Normal Respiratory Pattern Regular Regular Blood Pressure 123/96 Blood Pressure [Right Arm] 115/79 Blood Pressure Mean 105 Blood Pressure Mean [Right Arm] 91 Blood Pressure Position Sitting Blood Pressure Position [Right Arm] Sitting Pulse Oximetry 93 94 96 Oxygen Delivery Method Nasal Cannula Nasal Cannula Nasal Cannula Oxygen Flow Rate 2 2 Sepsis Recent Fever Within 48 Hours No Sepsis New/Unexplained Change in Mental Status N/A Sepsis Action Taken by Nursing No Action Required 08/11/21 16:28 08/11/21 16:45 08/11/21 17:00 Temperature Temperature Source Pulse Rate 97 H 99 H Pulse Rate [Apical] 100 H Pulse Rate from SpO2 Sensor Pulse Rhythm Pulse Rhythm [Apical] Regular Pulse Strength Pulse Strength [Apical] Normal Respiratory Rate 22 21 20 Respiratory Effort / Characteristics Non-Labored Spontaneous Respiratory Depth Normal Respiratory Pattern Regular Blood Pressure 117/76 125/87 Blood Pressure [Right Arm] 125/79 Blood Pressure Mean 89 99 Blood Pressure Mean [Right Arm] 94 Blood Pressure Position Blood Pressure Position [Right Arm] Sitting Pulse Oximetry 94 94 93 Oxygen Delivery Method Nasal Cannula Nasal Cannula Nasal Cannula Oxygen Flow Rate 2 2 2 Sepsis Recent Fever Within 48 Hours Sepsis New/Unexplained Change in Mental Status Sepsis Action Taken by Nursing 08/11/21 17:15 08/11/21 17:30 08/11/21 17:36 Temperature 36.8 C Temperature Source Oral Pulse Rate 101 H 97 H Pulse Rate [Apical] Pulse Rate from SpO2 Sensor 95 H Pulse Rhythm Pulse Rhythm [Apical] Pulse Strength Pulse Strength [Apical] Respiratory Rate 22 20 Respiratory Effort / Characteristics Respiratory Depth Respiratory Pattern Blood Pressure 129/87 128/80 Blood Pressure [Right Arm] Blood Pressure Mean 101 96 Blood Pressure Mean [Right Arm] Blood Pressure Position Blood Pressure Position [Right Arm] Pulse Oximetry 94 94 Oxygen Delivery Method Nasal Cannula Nasal Cannula Oxygen Flow Rate 2 2 Sepsis Recent Fever Within 48 Hours Sepsis New/Unexplained Change in Mental Status Sepsis Action Taken by Nursing 08/11/21 17:45 08/11/21 18:15 08/11/21 18:30 Temperature Temperature Source Pulse Rate 97 H 94 H 86 Pulse Rate [Apical] Pulse Rate from SpO2 Sensor Pulse Rhythm Pulse Rhythm [Apical] Pulse Strength Pulse Strength [Apical] Respiratory Rate 22 24 18 Respiratory Effort / Characteristics Respiratory Depth Respiratory Pattern Blood Pressure 132/78 110/87 124/80 Blood Pressure [Right Arm] Blood Pressure Mean 96 94 94 Blood Pressure Mean [Right Arm] Blood Pressure Position Blood Pressure Position [Right Arm] Pulse Oximetry 93 94 94 Oxygen Delivery Method Nasal Cannula Nasal Cannula Nasal Cannula Oxygen Flow Rate 2 2 2 Sepsis Recent Fever Within 48 Hours Sepsis New/Unexplained Change in Mental Status Sepsis Action Taken by Nursing 08/11/21 18:45 08/11/21 19:00 Temperature Temperature Source Pulse Rate 86 87 Pulse Rate [Apical] Pulse Rate from SpO2 Sensor Pulse Rhythm Pulse Rhythm [Apical] Pulse Strength Pulse Strength [Apical] Respiratory Rate 19 22 Respiratory Effort / Characteristics Respiratory Depth Respiratory Pattern Blood Pressure 119/74 119/76 Blood Pressure [Right Arm] Blood Pressure Mean 89 90 Blood Pressure Mean [Right Arm] Blood Pressure Position Blood Pressure Position [Right Arm] Pulse Oximetry 93 94 Oxygen Delivery Method Nasal Cannula Nasal Cannula Oxygen Flow Rate 2 2 Sepsis Recent Fever Within 48 Hours Sepsis New/Unexplained Change in Mental Status Sepsis Action Taken by Usp Medications Current Medication List: was personally reviewed by me Laboratory Data Attestation: I reviewed the patient's lab results. Result diagrams: 08/11/21 16:00 08/11/21 17:04 Lab Results 08/11/21 08/11/21 08/11/21 Range/Units 16:00 16:00 16:00 WBC 3.72 L (4.8-10.8) K/uL RBC 3.67 L (4.2-5.4) M/uL Hgb 11.6 L (12.0-16.0) g/dL Hct 33.8 L (37-47) % MCV 92.1 (80-100) fL MCH 31.6 (25-34) pg MCHC 34.3 (32-36) g/dL RDW Std Deviation 47.3 H (36.4-46.3) fL RDW Coeff of Ariela 13.9 (11.5-14.5) % Plt Count 177 (130-400) K/uL MPV 10.3 (7.4-10.4) fL Immature Gran % (Auto) 0.3 % Neut % (Auto) 71.7 % Lymph % (Auto) 20.2 % [place] % (Auto) 7.8 % Eos % (Auto) 0.0 % Baso % (Auto) 0.0 % Neut # (Auto) 2.67 (1.4-6.5) K/uL Lymph # (Auto) 0.75 L (1.2-3.4) K/uL [place] # (Auto) 0.29 (0.11-0.59) K/uL Eos # (Auto) 0.00 (0-0.5) K/uL Baso # (Auto) 0.00 (0-0.2) K/uL Immature Gran # (Auto) 0.01 (0.00-0.02) K/uL PT Cancelled INR Cancelled APTT Cancelled PTT Ratio Cancelled VBG pH (7.36-7.41) VBG pCO2 (38-50) mmHg VBG pO2 mmHg VBG HCO3 mmol/L VBG O2 Saturation % VBG Base Excess mEq/L Barometric Pressure mm/Hg Sodium 132 L (136-145) mmol/L Potassium (3.5-5.1) mmol/L Chloride 99 (98-107) mmol/L Carbon Dioxide 25 (21-32) mmol/L Anion Gap 8.0 (3-11) BUN 13 (7-18) mg/dl Creatinine 0.95 (0.6-1.2) mg/dl Est Cr Clr Drug Dosing 48.4 ml/min Est GFR ( Amer) 69.8 ml/min Est GFR (Non-Af Amer) 60.3 ml/min BUN/Creatinine Ratio 13.8 (10-20) Glucose 88 (70-99) mg/dl Lactate (0.4-2.0) mmol/L Calcium 8.1 L (8.5-10.1) mg/dl Magnesium (1.8-2.4) mg/dl Total Bilirubin 0.4 (0.2-1) mg/dl AST (15-37) U/L ALT 28 (12-78) U/L Alkaline Phosphatase 83 (45-117) U/L Troponin I 0.032 (0-0.045) ng/ml NT-Pro-B Natriuret Pep 2445 H (0-900) pg/ml Total Protein 6.7 (6.4-8.2) gm/dl Albumin 2.4 L (3.4-5.0) gm/dl Globulin 4.3 H (2.5-4.0) gm/dl Albumin/Globulin Ratio 0.6 L (0.9-2) Procalcitonin TSH 0.895 (0.300-4.500) uIu/ml Urine Color Urine Appearance (Clear) Urine pH (4.5-7.5) Ur Specific [place] (1.000-1.030) Urine Protein (Negative) Urine Glucose (UA) (Negative) Urine Ketones (Negative) Urine Blood (Negative) Urine Nitrite (Negative) Urine Bilirubin (Negative) Urine Urobilinogen (Negative) Ur Leukocyte Esterase (Negative) Urine WBC (Auto) (0-5) /hpf Urine RBC (Auto) (0-4) /hpf U Hyaline Cast (Auto) (0-5) /lpf U Epithel Cells (Auto) (0-5) /lpf Urine Bacteria (Auto) (Negative) Adenovirus (PCR) (NotDetected) B. pertussis DNA (PCR) (NotDetected) B.parapertussis DNA PCR (NotDetected) C. pneumoniae DNA (PCR) (NotDetected) Coronavirus OC43 (PCR) (NotDetected) Coronavirus HKU1 (PCR) (NotDetected) Coronavirus 229E (PCR) (NotDetected) COVID-19 Eval Order SARS-CoV-2 (PCR) (NotDetected) Coronavirus NL63 (PCR) (NotDetected) Human Metapneumovir PCR (NotDetected) Influenza Type A (PCR) (NotDetected) Influenza Type B (PCR) (NotDetected) M. pneumoniae (PCR) (NotDetected) Parainfluenza 1 (PCR) (NotDetected) Parainfluenza 2 (PCR) (NotDetected) Parainfluenza 3 (PCR) (NotDetected) Parainfluenza 4 (PCR) (NotDetected) RSV (PCR) (NotDetected) Entero/Rhino (PCR) (NotDetected) 08/11/21 08/11/21 08/11/21 Range/Units 16:00 16:00 16:00 WBC (4.8-10.8) K/uL RBC (4.2-5.4) M/uL Hgb (12.0-16.0) g/dL Hct (37-47) % MCV (80-100) fL MCH (25-34) pg MCHC (32-36) g/dL RDW Std Deviation (36.4-46.3) fL RDW Coeff of Ariela (11.5-14.5) % Plt Count (130-400) K/uL MPV (7.4-10.4) fL Immature Gran % (Auto) % Neut % (Auto) % Lymph % (Auto) % [place] % (Auto) % Eos % (Auto) % Baso % (Auto) % Neut # (Auto) (1.4-6.5) K/uL Lymph # (Auto) (1.2-3.4) K/uL [place] # (Auto) (0.11-0.59) K/uL Eos # (Auto) (0-0.5) K/uL Baso # (Auto) (0-0.2) K/uL Immature Gran # (Auto) (0.00-0.02) K/uL PT INR APTT PTT Ratio VBG pH 7.41 (7.36-7.41) VBG pCO2 41 (38-50) mmHg VBG pO2 39 mmHg VBG HCO3 25 mmol/L VBG O2 Saturation 71.8 % VBG Base Excess 0.5 mEq/L Barometric Pressure 736.1 mm/Hg Sodium (136-145) mmol/L Potassium (3.5-5.1) mmol/L Chloride (98-107) mmol/L Carbon Dioxide (21-32) mmol/L Anion Gap (3-11) BUN (7-18) mg/dl Creatinine (0.6-1.2) mg/dl Est Cr Clr Drug Dosing ml/min Est GFR ( Amer) ml/min Est GFR (Non-Af Amer) ml/min BUN/Creatinine Ratio (10-20) Glucose (70-99) mg/dl Lactate 1.1 (0.4-2.0) mmol/L Calcium (8.5-10.1) mg/dl Magnesium (1.8-2.4) mg/dl Total Bilirubin (0.2-1) mg/dl AST (15-37) U/L ALT (12-78) U/L Alkaline Phosphatase (45-117) U/L Troponin I (0-0.045) ng/ml NT-Pro-B Natriuret Pep (0-900) pg/ml Total Protein (6.4-8.2) gm/dl Albumin (3.4-5.0) gm/dl Globulin (2.5-4.0) gm/dl Albumin/Globulin Ratio (0.9-2) Procalcitonin Cancelled TSH (0.300-4.500) uIu/ml Urine Color Urine Appearance (Clear) Urine pH (4.5-7.5) Ur Specific [place] (1.000-1.030) Urine Protein (Negative) Urine Glucose (UA) (Negative) Urine Ketones (Negative) Urine Blood (Negative) Urine Nitrite (Negative) Urine Bilirubin (Negative) Urine Urobilinogen (Negative) Ur Leukocyte Esterase (Negative) Urine WBC (Auto) (0-5) /hpf Urine RBC (Auto) (0-4) /hpf U Hyaline Cast (Auto) (0-5) /lpf U Epithel Cells (Auto) (0-5) /lpf Urine Bacteria (Auto) (Negative) Adenovirus (PCR) (NotDetected) B. pertussis DNA (PCR) (NotDetected) B.parapertussis DNA PCR (NotDetected) C. pneumoniae DNA (PCR) (NotDetected) Coronavirus OC43 (PCR) (NotDetected) Coronavirus HKU1 (PCR) (NotDetected) Coronavirus 229E (PCR) (NotDetected) COVID-19 Eval Order SARS-CoV-2 (PCR) (NotDetected) Coronavirus NL63 (PCR) (NotDetected) Human Metapneumovir PCR (NotDetected) Influenza Type A (PCR) (NotDetected) Influenza Type B (PCR) (NotDetected) M. pneumoniae (PCR) (NotDetected) Parainfluenza 1 (PCR) (NotDetected) Parainfluenza 2 (PCR) (NotDetected) Parainfluenza 3 (PCR) (NotDetected) Parainfluenza 4 (PCR) (NotDetected) RSV (PCR) (NotDetected) Entero/Rhino (PCR) (NotDetected) 08/11/21 08/11/21 08/11/21 Range/Units 16:00 16:00 17:04 WBC (4.8-10.8) K/uL RBC (4.2-5.4) M/uL Hgb (12.0-16.0) g/dL Hct (37-47) % MCV (80-100) fL MCH (25-34) pg MCHC (32-36) g/dL RDW Std Deviation (36.4-46.3) fL RDW Coeff of Ariela (11.5-14.5) % Plt Count (130-400) K/uL MPV (7.4-10.4) fL Immature Gran % (Auto) % Neut % (Auto) % Lymph % (Auto) % [place] % (Auto) % Eos % (Auto) % Baso % (Auto) % Neut # (Auto) (1.4-6.5) K/uL Lymph # (Auto) (1.2-3.4) K/uL [place] # (Auto) (0.11-0.59) K/uL Eos # (Auto) (0-0.5) K/uL Baso # (Auto) (0-0.2) K/uL Immature Gran # (Auto) (0.00-0.02) K/uL PT INR APTT PTT Ratio VBG pH (7.36-7.41) VBG pCO2 (38-50) mmHg VBG pO2 mmHg VBG HCO3 mmol/L VBG O2 Saturation % VBG Base Excess mEq/L Barometric Pressure mm/Hg Sodium (136-145) mmol/L Potassium 4.0 (3.5-5.1) mmol/L Chloride (98-107) mmol/L Carbon Dioxide (21-32) mmol/L Anion Gap (3-11) BUN (7-18) mg/dl Creatinine (0.6-1.2) mg/dl Est Cr Clr Drug Dosing ml/min Est GFR ( Amer) ml/min Est GFR (Non-Af Amer) ml/min BUN/Creatinine Ratio (10-20) Glucose (70-99) mg/dl Lactate (0.4-2.0) mmol/L Calcium (8.5-10.1) mg/dl Magnesium 1.7 L (1.8-2.4) mg/dl Total Bilirubin (0.2-1) mg/dl AST 32 (15-37) U/L ALT (12-78) U/L Alkaline Phosphatase (45-117) U/L Troponin I (0-0.045) ng/ml NT-Pro-B Natriuret Pep (0-900) pg/ml Total Protein (6.4-8.2) gm/dl Albumin (3.4-5.0) gm/dl Globulin (2.5-4.0) gm/dl Albumin/Globulin Ratio (0.9-2) Procalcitonin TSH (0.300-4.500) uIu/ml Urine Color Urine Appearance (Clear) Urine pH (4.5-7.5) Ur Specific [place] (1.000-1.030) Urine Protein (Negative) Urine Glucose (UA) (Negative) Urine Ketones (Negative) Urine Blood (Negative) Urine Nitrite (Negative) Urine Bilirubin (Negative) Urine Urobilinogen (Negative) Ur Leukocyte Esterase (Negative) Urine WBC (Auto) (0-5) /hpf Urine RBC (Auto) (0-4) /hpf U Hyaline Cast (Auto) (0-5) /lpf U Epithel Cells (Auto) (0-5) /lpf Urine Bacteria (Auto) (Negative) Adenovirus (PCR) Not Detected (NotDetected) B. pertussis DNA (PCR) Not Detected (NotDetected) B.parapertussis DNA PCR Not Detected (NotDetected) C. pneumoniae DNA (PCR) Not Detected (NotDetected) Coronavirus OC43 (PCR) Not Detected (NotDetected) Coronavirus HKU1 (PCR) Not Detected (NotDetected) Coronavirus 229E (PCR) Not Detected (NotDetected) COVID-19 Eval Order [facility] at [facility] SARS-CoV-2 (PCR) DETECTED A* (NotDetected) Coronavirus NL63 (PCR) Not Detected (NotDetected) Human Metapneumovir PCR Not Detected (NotDetected) Influenza Type A (PCR) Not Detected (NotDetected) Influenza Type B (PCR) Not Detected (NotDetected) M. pneumoniae (PCR) Not Detected (NotDetected) Parainfluenza 1 (PCR) Not Detected (NotDetected) Parainfluenza 2 (PCR) Not Detected (NotDetected) Parainfluenza 3 (PCR) Not Detected (NotDetected) Parainfluenza 4 (PCR) Not Detected (NotDetected) RSV (PCR) Not Detected (NotDetected) Entero/Rhino (PCR) Not Detected (NotDetected) 08/11/21 08/11/21 08/11/21 Range/Units 17:04 17:04 17:34 WBC (4.8-10.8) K/uL RBC (4.2-5.4) M/uL Hgb (12.0-16.0) g/dL Hct (37-47) % MCV (80-100) fL MCH (25-34) pg MCHC (32-36) g/dL RDW Std Deviation (36.4-46.3) fL RDW Coeff of Ariela (11.5-14.5) % Plt Count (130-400) K/uL MPV (7.4-10.4) fL Immature Gran % (Auto) % Neut % (Auto) % Lymph % (Auto) % [place] % (Auto) % Eos % (Auto) % Baso % (Auto) % Neut # (Auto) (1.4-6.5) K/uL Lymph # (Auto) (1.2-3.4) K/uL [place] # (Auto) (0.11-0.59) K/uL Eos # (Auto) (0-0.5) K/uL Baso # (Auto) (0-0.2) K/uL Immature Gran # (Auto) (0.00-0.02) K/uL PT 11.6 INR 1.2 H APTT 32.4 H PTT Ratio 1.2 VBG pH (7.36-7.41) VBG pCO2 (38-50) mmHg VBG pO2 mmHg VBG HCO3 mmol/L VBG O2 Saturation % VBG Base Excess mEq/L Barometric Pressure mm/Hg Sodium (136-145) mmol/L Potassium (3.5-5.1) mmol/L Chloride (98-107) mmol/L Carbon Dioxide (21-32) mmol/L Anion Gap (3-11) BUN (7-18) mg/dl Creatinine (0.6-1.2) mg/dl Est Cr Clr Drug Dosing ml/min Est GFR ( Amer) ml/min Est GFR (Non-Af Amer) ml/min BUN/Creatinine Ratio (10-20) Glucose (70-99) mg/dl Lactate (0.4-2.0) mmol/L Calcium (8.5-10.1) mg/dl Magnesium (1.8-2.4) mg/dl Total Bilirubin (0.2-1) mg/dl AST (15-37) U/L ALT (12-78) U/L Alkaline Phosphatase (45-117) U/L Troponin I (0-0.045) ng/ml NT-Pro-B Natriuret Pep (0-900) pg/ml Total Protein (6.4-8.2) gm/dl Albumin (3.4-5.0) gm/dl Globulin (2.5-4.0) gm/dl Albumin/Globulin Ratio (0.9-2) Procalcitonin < 0.05 TSH (0.300-4.500) uIu/ml Urine Color Yellow Urine Appearance Clear (Clear) Urine pH 5.5 (4.5-7.5) Ur Specific [place] 1.016 (1.000-1.030) Urine Protein 1+ H (Negative) Urine Glucose (UA) Negative (Negative) Urine Ketones Trace H (Negative) Urine Blood 2+ H (Negative) Urine Nitrite Negative (Negative) Urine Bilirubin Negative (Negative) Urine Urobilinogen Negative (Negative) Ur Leukocyte Esterase 1+ H (Negative) Urine WBC (Auto) 5-10 H (0-5) /hpf Urine RBC (Auto) 5-10 H (0-4) /hpf U Hyaline Cast (Auto) 1-5 (0-5) /lpf U Epithel Cells (Auto) >30 H (0-5) /lpf Urine Bacteria (Auto) Negative (Negative) Adenovirus (PCR) (NotDetected) B. pertussis DNA (PCR) (NotDetected) B.parapertussis DNA PCR (NotDetected) C. pneumoniae DNA (PCR) (NotDetected) Coronavirus OC43 (PCR) (NotDetected) Coronavirus HKU1 (PCR) (NotDetected) Coronavirus 229E (PCR) (NotDetected) COVID-19 Eval Order SARS-CoV-2 (PCR) (NotDetected) Coronavirus NL63 (PCR) (NotDetected) Human Metapneumovir PCR (NotDetected) Influenza Type A (PCR) (NotDetected) Influenza Type B (PCR) (NotDetected) M. pneumoniae (PCR) (NotDetected) Parainfluenza 1 (PCR) (NotDetected) Parainfluenza 2 (PCR) (NotDetected) Parainfluenza 3 (PCR) (NotDetected) Parainfluenza 4 (PCR) (NotDetected) RSV (PCR) (NotDetected) Entero/Rhino (PCR) (NotDetected) Administered Medications Discontinued Medications Dexamethasone Sodium Phosphate (DexamethasonePf 10 Mg/Ml Vial) 10 mg IV NOW ONE Stop: 08/11/21 15:28 Last Admin: 08/11/21 16:10 Dose: 10 mg Documented by: [id number] Sodium Chloride (Nss 1000ml) 500 mls @ 999 mls/hr IV .Q31M ONE Stop: 08/11/21 15:57 Last Infusion: 08/11/21 16:40 Dose: 0 mls/hr Documented by: [id number] Admin: 08/11/21 16:10 Dose: 999 mls/hr Documented by: [id number] Ondansetron HCl (Ondansetron Inj 2 Mg/Ml 2 Ml Vial) Confirm Administered Dose 4 mg .ROUTE .STK-MED ONE Stop: 08/11/21 15:21 Last Admin: 08/11/21 15:37 Dose: 4 mg Documented by: [id number] Imaging Data Radiologist's Impression: Chest X-Ray 08/11/21 15:22 XR chest 1V portable CLINICAL HISTORY: Sepsis. COMPARISON STUDY: Chest radiograph May 07, 2021 FINDINGS: Left subclavian biventricular pacer/AICD is in place. Cardiomegaly is unchanged. There is no evidence for pulmonary edema. Bibasilar opacities are noted. These have slightly increased when compared to prior exam. IMPRESSION: 1. Bibasilar opacities which may reflect an infectious process or atelectasis. Radiographic follow-up is recommended. 2. Cardiomegaly without evidence for pulmonary edema. ACT 112: Negative or not required by law. Electronically signed by: Ajay Penaloza M.D. 08/11/2021 4:20 PM Discharge Plan Visit Data Chief Complaint: Illness ED Provider: Cheikh Fisher Discharge Problem: Pneumonia due to 2019-nCoV, Ventricular tachycardia Forms Stand Alone Forms: [facility] [place] [id number] Prescriptions Prescriptions: No Action buspirone 5 mg tablet 5 mg PO TID RF: 0 clopidogrel [Plavix] 75 mg tablet 75 mg PO HS RF: 0 gabapentin [Neurontin] 300 mg capsule 300 mg PO QID RF: 0 ezetimibe [Zetia] 10 mg tablet 10 mg PO HS RF: 0 pantoprazole [Protonix] 40 mg tablet,delayed release (DR/EC) 40 mg PO QAM RF: 0 magnesium oxide 400 mg magnesium Tablet 400 mg PO HS RF: 0 losartan [Cozaar] 25 mg tablet 25 mg PO HS RF: 0 nitroglycerin [Nitrostat] 0.4 mg tablet, sublingual 0.4 mg sublingual UD PRN (Reason: Chest Pain) RF: 0 furosemide 20 mg tablet 20 mg PO QAM RF: 0 aspirin [Aspirin Low Dose] 81 mg Tablet,Delayed Release (Dr/Ec) 81 mg PO QAM RF: 0 metoprolol succinate 25 mg Tablet Extended Release 24 Hr 25 mg PO BID Qty: 60 RF: 0 trazodone 50 mg tablet 50 - 100 mg PO HS PRN (Reason: Sleep) RF: 0 carvedilol 3.125 mg tablet 3.125 mg PO BID RF: 0 rosuvastatin [Crestor] 20 mg tablet 20 mg PO HS RF: 0 Referrals Referrals: Paula Cartwright PA-C [Primary Care Provider] -
[2021-08-11 16:18] LABS: Base Excess VBG 0.5 mEq/L; Oxygen Saturation VBG 71.8 %; pH VBG 7.41 (7.36-7.41)
[2021-08-11 16:20] LABS: Hematocrit (blood only) 33.8 % (37-47); Hemoglobin 11.6 g/dL (12.0-16.0); Immature Granulocytes # (auto) 0.01 K/uL (0.00-0.02); Immature Granulocytes % (auto) 0.3 %; Lymphocytes # (auto) 0.75 K/uL (1.2-3.4); Lymphocytes % (auto) 20.2 %; Mean Corpuscular Hemoglobin 31.6 pg (25-34); Mean Corpuscular Hgb Conc 34.3 g/dL (32-36); Mean Corpuscular Volume 92.1 fL (80-100); Mean Platelet Volume 10.3 fL (7.4-10.4); Monocytes # (auto) 0.29 K/uL (0.11-0.59); Monocytes % (auto) 7.8 %; Neutrophils # (auto) 2.67 K/uL (1.4-6.5); Neutrophils % (auto) 71.7 %; Platelet Count 177 K/uL (130-400); RDW Coefficient of Variation 13.9 % (11.5-14.5); RDW Standard Deviation 47.3 fL (36.4-46.3); Red Blood Count 3.67 M/uL (4.2-5.4); White Blood Count 3.72 K/uL (4.8-10.8)
--- NOTE | 2021-08-11 16:21 | XRay Report ---
XR chest 1V portable CLINICAL HISTORY: Sepsis. COMPARISON STUDY: Chest radiograph May 07, 2021 FINDINGS: Left subclavian biventricular pacer/AICD is in place. Cardiomegaly is unchanged. There is n o evidence for pulmonary edema. Bibasilar opacities are noted. These have slightly increased when com pared to prior exam. IMPRESSION: 1. Bibasilar opacities which may reflect an infectious process or atelectasis. Radiographic follow-up is recommended. 2. Cardiomegaly without evidence for pulmonary edema. ACT 112: Negative or not required by law. Electronically signed by: Ajay Penaloza M.D. 08/11/2021 4:20 PM
[2021-08-11 16:43] LABS: Albumin Level 2.4 gm/dl (3.4-5.0); BUN Creatinine Ratio 13.8 (10-20); Calcium 8.1 mg/dl (8.5-10.1); Creatinine Clr Calc Pharmacy 48.4 ml/min; Est GFR (African American) 69.8 ml/min; Est GFR (Non-African American) 60.3 ml/min
[2021-08-11 16:53] LABS: Albumin Globulin Ratio 0.6 (0.9-2); Bilirubin,Total 0.4 mg/dl (0.2-1); Globulin 4.3 gm/dl (2.5-4.0); Thyroid Stimulating Hormone 0.895 uIu/ml (0.300-4.500); Total Protein 6.7 gm/dl (6.4-8.2); Troponin I 0.032 ng/ml (0-0.045)
[2021-08-11 17:29] LABS: INR 1.2 (0.9-1.1); Partial Thromboplastin Ratio 1.2; Partial Thromboplastin Time 32.4 Seconds (21.0-31.0); Prothrombin Time 11.6 Seconds (9.0-12.0)
[2021-08-11 17:33] LABS: Adenovirus PCR Not Detected (NotDetected); Bordetella parapertussis PCR Not Detected (NotDetected); Bordetella pertussis PCR Not Detected (NotDetected); Chlamydia pneumoniae PCR Not Detected (NotDetected); Coronavirus 229E PCR Not Detected (NotDetected); Coronavirus HKU1 PCR Not Detected (NotDetected); Coronavirus NL63 PCR Not Detected (NotDetected); Coronavirus OC43PCR Not Detected (NotDetected); Human Metapneumovirus PCR Not Detected (NotDetected); Influenza A PCR Not Detected (NotDetected); Influenza B PCR Not Detected (NotDetected); Mycoplasma pneumoniae PCR Not Detected (NotDetected); Parainfluenza Virus 1 PCR Not Detected (NotDetected); Parainfluenza Virus 2 PCR Not Detected (NotDetected); Parainfluenza Virus 3 PCR Not Detected (NotDetected); Parainfluenza Virus 4 PCR Not Detected (NotDetected); Respiratory Syncytial VirusPCR Not Detected (NotDetected); Rhinovirus/Enterovirus PCR Not Detected (NotDetected)
[2021-08-11 17:36] LABS: Magnesium 1.7 mg/dl (1.8-2.4)
[2021-08-11 17:46] LABS: Appearance Urine Clear (Clear); Bacteria Urine Automated Negative (Negative); Bilirubin Urine Negative (Negative); Blood Urine 2+ (Negative); Color Urine Yellow; Epithelial Cell Urine Auto >30 /lpf (0-5); Glucose Urine UA Negative (Negative); Ketones Urine Trace (Negative); Leukocyte Esterase Urine 1+ (Negative); Nitrite Urine Negative (Negative); Protein Urine 1+ (Negative); Specific Gravity Urine 1.016 (1.000-1.030); Urobilinogen Urine Negative (Negative); pH Urine 5.5 (4.5-7.5)
[2021-08-11 18:01] LABS: Coronavirus CoV-2 (COVID19)PCR DETECTED (NotDetected)
[2021-08-11] MEDS: MAGNESIUM SULFATE / D5W 1 GM/100 ML BAG IV SCH ×2 (19:48→22:30)
--- NOTE | 2021-08-11 19:53 | History & Physical Report ---
Date of Service August 11, 2021 Assessment & Plan (1) Pneumonia due to 2019-nCoV: Plan: Superimposed bacterial infection No sepsis for now Paroxysmal VT secondary to illness, mild clinical dehydration, hypomagnesemia chronic systolic heart failure (EF 45-50%, TTE 2020), echo with low volume status hx CAD status post stent/ PVD status post surgery valvular heart disease (moderate MR, mild AR/TR ) hypertension, BP stable hyperlipidemia, on statin Rx history of cerebral aneurysm as per records, patient follows with [facility] Neurosurgery, last follow-up was 2 years ago history TIA hx COPD, current respiratory illness different from COPD attack as per patient nocturnal hypoxemia on home O2 at night as per records chronic anemia, hemoglobin at baseline past tobacco abuse. PCU given wide-complex tachycardia Replace electrolytes, facilitate home beta-maya Follow ICD interrogation report done at the ER Cardiology consult Re: Paroxysmal VT Decadron and Remdesivir for severe COVID-19 pneumonia. (Patient was counseled regarding potential adverse effects from Remdesivir therapy and provided with patient education sheet.) Pulmonary consult if without improvement. DVT prophylaxis per Lovenox subcu Full code Text document was generated using GMEX voice recognition software. It may contain grammatical or spelling errors. Kindly contact undersigned for clarification of any documentation item in question. Plan: History of Present Illness Chief Complaint: Cough, shortness of breath Primary Care Provider: Paula Cartwright History obtained from patient and records. Medical history significant for chronic systolic heart failure (EF 45-50%, TTE 2020), CAD status post stent, valvular heart disease (moderate MR, mild AR/TR ), hypertension, hyperlipidemia, history of PVD status post surgery, history of cerebral aneurysm as per records, history TIA, COPD, nocturnal hypoxemia on home O2 at night as per records, chronic anemia (baseline hemoglobin of 11), mood disorder, past tobacco abuse. Last confinement May 2021 for UTI, decompensated heart failure. 1 week history of junky cough symptoms, low-grade fever, poor appetite, shortness of breath worse on exertion no chest pain. Admits to sick COVID-19 contacts. Patient does not receive COVID-19 vaccination. At the ER, wide-complex tachycardia noted on the monitor. Patient nauseous during episode. Denies chest pain or unusual shortness of breath. Lowest O2 sats at the ER 93 on room air Patient given Decadron at the ER. 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 Allergies Allergy/AdvReac Type Severity Reaction Status Date / Time lisinopril AdvReac Mild cough Unverified 08/11/21 17:42 Home Medications Medication Instructions Recorded Confirmed Type buspirone 5 mg tablet 5 mg PO TID 12/24/18 08/11/21 History clopidogrel 75 mg tablet (Plavix) 75 mg PO HS 12/24/18 08/11/21 History ezetimibe 10 mg tablet (Zetia) 10 mg PO HS 12/24/18 08/11/21 History gabapentin 300 mg capsule 300 mg PO QID 12/24/18 08/11/21 History (Neurontin) magnesium oxide 400 mg PO HS 12/24/18 08/11/21 History pantoprazole 40 mg tablet,delayed 40 mg PO QAM 12/24/18 08/11/21 History release (Protonix) furosemide 20 mg tablet 20 mg PO QAM 08/07/19 08/11/21 History losartan 25 mg tablet (Cozaar) 25 mg PO HS 08/07/19 08/11/21 History nitroglycerin 0.4 mg sublingual 0.4 mg SUBLINGUAL UD PRN 08/07/19 08/11/21 History tablet (Nitrostat) aspirin 81 mg tablet,delayed 81 mg PO QAM 05/07/21 08/11/21 History release (Aspirin Low Dose) metoprolol succinate 25 mg 25 mg PO BID #60 tab 05/09/21 08/11/21 Rx tablet,extended release 24 hr rosuvastatin 20 mg tablet (Crestor) 20 mg PO HS 08/11/21 08/11/21 History trazodone 50 mg tablet 50 - 100 mg PO HS PRN 08/11/21 08/11/21 History Past Med/Surg History Medical History Bilateral femoral artery stenosis "Multiple stents " Biventricular cardiac pacemaker in situ CAD (coronary artery disease) Cardiac defibrillator in place CHF (congestive heart failure) CHF (congestive heart failure) Chronic low back pain COPD (chronic obstructive pulmonary disease) Depression Elevated troponin GERD (gastroesophageal reflux disease) History of TIA (transient ischemic attack) HTN (hypertension) Hyperlipemia ND (myocardial infarction) Pacemaker PVD (peripheral vascular disease) Surgical History Stented coronary artery Social History Smoking Status: Current every day smoker Cigarettes Per Day: 5; Second Hand Exposure: No; Do You Dip or Chew Tobacco: No; Tobacco Cessation Education Requested by Patient: No Hx Alcohol Use: No Hx Substance Use: No Preferred Language: Czech 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 Ability: Effective 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 Beliefs That Will Affect Care: None marital status: Current Living Situation: Family Current Living Situation Comment: Lived with and grandchildren Other Information That Helps Us Care for You: No Feels Safe at Home: Yes Safety Concerns: Feels Safe At This Time Assistive Devices: Cane and Oxygen - Continuous Review of Systems Review of Systems: As per HPI, all 10 systems reviewed, all other ROS negative Physical Exam Physical Exam: GENERAL: wane, uncomfortable, no respiratory distress SKIN: Normal color, warm HEENT: [place] palpebral conjunctivae, no ptosis, dry buccal mucosa, nasal cannula in place NECK : Supple, no tenderness CHEST : Decreased breath sounds, no tenderness HEART : RRR, no obvious murmurs ABDOMEN: Some distention, nontender EXTREMITIES : Minimal LE swelling, no LE tenderness, no other conspicuous deformities noted NEUROLOGIC : Coherent, no facial asymmetry, no other gross focality Results & Data Results & Data ([facility]) Vital Signs (Past 12 Hours) Vital Signs Temp Pulse Pulse Resp BP BP Pulse Ox 08/11/21 19:00 87 22 119/76 94 08/11/21 18:45 86 19 119/74 93 08/11/21 18:30 86 18 124/80 94 08/11/21 18:15 94 H 24 110/87 94 08/11/21 17:45 97 H 22 132/78 93 08/11/21 17:36 36.8 C 08/11/21 17:30 97 H 20 128/80 94 08/11/21 17:15 101 H 22 129/87 94 08/11/21 17:00 99 H 20 125/87 93 08/11/21 16:45 97 H 21 117/76 94 08/11/21 16:28 100 H 22 125/79 94 08/11/21 16:25 96 08/11/21 16:08 37.2 C 100 H 22 115/79 94 08/11/21 15:00 36.8 C 102 H 20 123/96 93 Laboratory Results Laboratory Results WBC 3.72 K/uL (4.8-10.8) L 08/11/21 16:00 RBC 3.67 M/uL (4.2-5.4) L 08/11/21 16:00 Hgb 11.6 g/dL (12.0-16.0) L 08/11/21 16:00 Hct 33.8 % (37-47) L 08/11/21 16:00 MCV 92.1 fL (80-100) 08/11/21 16:00 MCH 31.6 pg (25-34) 08/11/21 16:00 MCHC 34.3 g/dL (32-36) 08/11/21 16:00 RDW Std Deviation 47.3 fL (36.4-46.3) H 08/11/21 16:00 RDW Coeff of Ariela 13.9 % (11.5-14.5) 08/11/21 16:00 Plt Count 177 K/uL (130-400) 08/11/21 16:00 MPV 10.3 fL (7.4-10.4) 08/11/21 16:00 Immature Gran % (Auto) 0.3 % 08/11/21 16:00 Neut % (Auto) 71.7 % 08/11/21 16:00 Lymph % (Auto) 20.2 % 08/11/21 16:00 [place] % (Auto) 7.8 % 08/11/21 16:00 Eos % (Auto) 0.0 % 08/11/21 16:00 Baso % (Auto) 0.0 % 08/11/21 16:00 Neut # (Auto) 2.67 K/uL (1.4-6.5) 08/11/21 16:00 Lymph # (Auto) 0.75 K/uL (1.2-3.4) L 08/11/21 16:00 [place] # (Auto) 0.29 K/uL (0.11-0.59) 08/11/21 16:00 Eos # (Auto) 0.00 K/uL (0-0.5) 08/11/21 16:00 Baso # (Auto) 0.00 K/uL (0-0.2) 08/11/21 16:00 Immature Gran # (Auto) 0.01 K/uL (0.00-0.02) 08/11/21 16:00 PT 11.6 Seconds (9.0-12.0) 08/11/21 17:04 INR 1.2 (0.9-1.1) H 08/11/21 17:04 APTT 32.4 Seconds (21.0-31.0) H 08/11/21 17:04 PTT Ratio 1.2 08/11/21 17:04 VBG pH 7.41 (7.36-7.41) 08/11/21 16:00 VBG pCO2 41 mmHg (38-50) 08/11/21 16:00 VBG pO2 39 mmHg 08/11/21 16:00 VBG HCO3 25 mmol/L 08/11/21 16:00 VBG O2 Saturation 71.8 % 08/11/21 16:00 VBG Base Excess 0.5 mEq/L 08/11/21 16:00 Barometric Pressure 736.1 mm/Hg 08/11/21 16:00 Sodium 132 mmol/L (136-145) L 08/11/21 16:00 Potassium 4.0 mmol/L (3.5-5.1) 08/11/21 17:04 Chloride 99 mmol/L (98-107) 08/11/21 16:00 Carbon Dioxide 25 mmol/L (21-32) 08/11/21 16:00 Anion Gap 8.0 (3-11) 08/11/21 16:00 BUN 13 mg/dl (7-18) 08/11/21 16:00 Creatinine 0.95 mg/dl (0.6-1.2) 08/11/21 16:00 Est Cr Clr Drug Dosing 48.4 ml/min 08/11/21 16:00 Est GFR ( Amer) 69.8 ml/min 08/11/21 16:00 Est GFR (Non-Af Amer) 60.3 ml/min 08/11/21 16:00 BUN/Creatinine Ratio 13.8 (10-20) 08/11/21 16:00 Glucose 88 mg/dl (70-99) 08/11/21 16:00 Lactate 1.1 mmol/L (0.4-2.0) 08/11/21 16:00 Calcium 8.1 mg/dl (8.5-10.1) L 08/11/21 16:00 Magnesium 1.7 mg/dl (1.8-2.4) L 08/11/21 17:04 Total Bilirubin 0.4 mg/dl (0.2-1) 08/11/21 16:00 AST 32 U/L (15-37) 08/11/21 17:04 ALT 28 U/L (12-78) 08/11/21 16:00 Alkaline Phosphatase 83 U/L (45-117) 08/11/21 16:00 Troponin I 0.032 ng/ml (0-0.045) 08/11/21 16:00 NT-Pro-B Natriuret Pep 2445 pg/ml (0-900) H 08/11/21 16:00 Total Protein 6.7 gm/dl (6.4-8.2) 08/11/21 16:00 Albumin 2.4 gm/dl (3.4-5.0) L 08/11/21 16:00 Globulin 4.3 gm/dl (2.5-4.0) H 08/11/21 16:00 Albumin/Globulin Ratio 0.6 (0.9-2) L 08/11/21 16:00 Procalcitonin < 0.05 ng/ml (0-0.5) 08/11/21 17:04 TSH 0.895 uIu/ml (0.300-4.500) 08/11/21 16:00 Urine Color Yellow 08/11/21 17:34 Urine Appearance Clear (Clear) 08/11/21 17:34 Urine pH 5.5 (4.5-7.5) 08/11/21 17:34 Ur Specific [place] 1.016 (1.000-1.030) 08/11/21 17:34 Urine Protein 1+ (Negative) H 08/11/21 17:34 Urine Glucose (UA) Negative (Negative) 08/11/21 17:34 Urine Ketones Trace (Negative) H 08/11/21 17:34 Urine Blood 2+ (Negative) H 08/11/21 17:34 Urine Nitrite Negative (Negative) 08/11/21 17:34 Urine Bilirubin Negative (Negative) 08/11/21 17:34 Urine Urobilinogen Negative (Negative) 08/11/21 17:34 Ur Leukocyte Esterase 1+ (Negative) H 08/11/21 17:34 Urine WBC (Auto) 5-10 /hpf (0-5) H 08/11/21 17:34 Urine RBC (Auto) 5-10 /hpf (0-4) H 08/11/21 17:34 U Hyaline Cast (Auto) 1-5 /lpf (0-5) 08/11/21 17:34 U Epithel Cells (Auto) >30 /lpf (0-5) H 08/11/21 17:34 Urine Bacteria (Auto) Negative (Negative) 08/11/21 17:34 Adenovirus (PCR) Not Detected (NotDetected) 08/11/21 16:00 B. pertussis DNA (PCR) Not Detected (NotDetected) 08/11/21 16:00 B.parapertussis DNA PCR Not Detected (NotDetected) 08/11/21 16:00 C. pneumoniae DNA (PCR) Not Detected (NotDetected) 08/11/21 16:00 Coronavirus OC43 (PCR) Not Detected (NotDetected) 08/11/21 16:00 Coronavirus HKU1 (PCR) Not Detected (NotDetected) 08/11/21 16:00 Coronavirus 229E (PCR) Not Detected (NotDetected) 08/11/21 16:00 COVID-[address] Eval [address] [facility]PNP at [facility] 08/11/21 16:00 SARS-CoV-2 (PCR) DETECTED (NotDetected) A* 08/11/21 16:00 Coronavirus NL63 (PCR) Not Detected (NotDetected) 08/11/21 16:00 Human Metapneumovir PCR Not Detected (NotDetected) 08/11/21 16:00 Influenza Type A (PCR) Not Detected (NotDetected) 08/11/21 16:00 Influenza Type B (PCR) Not Detected (NotDetected) 08/11/21 16:00 M. pneumoniae (PCR) Not Detected (NotDetected) 08/11/21 16:00 Parainfluenza 1 (PCR) Not Detected (NotDetected) 08/11/21 16:00 Parainfluenza 2 (PCR) Not Detected (NotDetected) 08/11/21 16:00 Parainfluenza 3 (PCR) Not Detected (NotDetected) 08/11/21 16:00 Parainfluenza 4 (PCR) Not Detected (NotDetected) 08/11/21 16:00 RSV (PCR) Not Detected (NotDetected) 08/11/21 16:00 Entero/Rhino (PCR) Not Detected (NotDetected) 08/11/21 16:00 Impressions Chest X-Ray 08/11/21 15:22 XR chest 1V portable CLINICAL HISTORY: Sepsis. COMPARISON STUDY: Chest radiograph May 07, 2021 FINDINGS: Left subclavian biventricular pacer/AICD is in place. Cardiomegaly is unchanged. There is no evidence for pulmonary edema. Bibasilar opacities are noted. These have slightly increased when compared to prior exam. IMPRESSION: 1. Bibasilar opacities which may reflect an infectious process or atelectasis. Radiographic follow-up is recommended. 2. Cardiomegaly without evidence for pulmonary edema. ACT 112: Negative or not required by law. Electronically signed by: Ajay Penaloza M.D. 08/11/2021 4:20 PM Diagnostic Findings EKG as per my interpretation rate 100, paced rhythm
[2021-08-11] MEDS ORDERED: LEVALBUTEROL TARTRATE 15 GM HFA.AER.AD INH PRN (19:58)
[2021-08-11] MEDS ORDERED: DOXYCYCLINE HYCLATE 100 MG in DEXTROSE 5% 100 ML IV STA (19:58)
[2021-08-11] MEDS ORDERED: REMDESIVIR 200 MG in SODIUM CHLORIDE 0.9% 210 ML IV STA (20:01)
[2021-08-11] MEDS ORDERED: traZODone HCL 50 MG TAB PO PRN (21:44)
[2021-08-11] MEDS ORDERED: NITROGLYCERIN SL 0.4 MG/TAB TAB SL PRN (21:44)
[2021-08-11] MEDS: ACETAMINOPHEN 325 MG TAB PO PRN (22:07)
[2021-08-11] MEDS: GABAPENTIN 300 MG CAP PO SCH (22:16)
[2021-08-11] MEDS: busPIRone 5 MG TAB PO SCH (22:17)
[2021-08-11] MEDS: EZETIMIBE 10 MG TABLET PO SCH (22:17)
[2021-08-11] MEDS: LOSARTAN POTASSIUM 25 MG TAB PO SCH (22:17)
[2021-08-11] MEDS: CLOPIDOGREL BISULFATE 75 MG TAB PO SCH (22:17)
[2021-08-11] MEDS: ROSUVASTATIN CALCIUM 20 MG TAB PO SCH (22:17)
[2021-08-11] MEDS ORDERED: MAGNESIUM OXIDE 400 MG TAB PO SCH (23:00)
[2021-08-11] MEDS: SODIUM CHLORIDE 0.9% 10ML FLUSH IV SCH (23:51)
[2021-08-12] MEDS: METOPROLOL SUCC 25MG EXT REL TAB PO SCH ×3 (02:15→20:00)
[2021-08-12 08:05] LABS: Basophils # (auto) 0.01 K/uL (0-0.2); Basophils % (auto) 0.3 %; Hematocrit (blood only) 37.8 % (37-47); Hemoglobin 12.3 g/dL (12.0-16.0); Lymphocytes # (auto) 0.69 K/uL (1.2-3.4); Mean Corpuscular Hgb Conc 32.5 g/dL (32-36); Mean Corpuscular Volume 95.2 fL (80-100); Mean Platelet Volume 10.2 fL (7.4-10.4); Monocytes # (auto) 0.19 K/uL (0.11-0.59); Monocytes % (auto) 5.5 %; Neutrophils # (auto) 2.56 K/uL (1.4-6.5); Neutrophils % (auto) 74.2 %; Platelet Count 166 K/uL (130-400); RDW Coefficient of Variation 13.9 % (11.5-14.5); RDW Standard Deviation 48.5 fL (36.4-46.3); Red Blood Count 3.97 M/uL (4.2-5.4); White Blood Count 3.45 K/uL (4.8-10.8)
[2021-08-12 08:40] LABS: BUN Creatinine Ratio 18.5 (10-20); Creatinine Clr Calc Pharmacy 55.9 ml/min; Est GFR (African American) 84.7 ml/min; Est GFR (Non-African American) 73.1 ml/min; Magnesium 2.7 mg/dl (1.8-2.4); Potassium 4.7 mmol/L (3.5-5.1)
[2021-08-12] MEDS ORDERED: PANTOprazole 40 MG TAB PO SCH (09:00)
[2021-08-12] MEDS: DOXYCYCLINE HYCLATE 100 MG CAP PO SCH ×2 (09:02→20:01)
[2021-08-12] MEDS: GABAPENTIN 300 MG CAP PO SCH ×4 (09:02→20:59)
[2021-08-12] MEDS: busPIRone 5 MG TAB PO SCH ×3 (09:02→19:57)
[2021-08-12] MEDS: ASPIRIN 81 MG ECTAB PO SCH (09:02)
[2021-08-12] MEDS: ENOXAPARIN INJ 40 MG/0.4 ML SYR SQ SCH (09:03)
[2021-08-12] MEDS: dexAMETHasone 6 MG in SYRINGE 0 ML IV SCH (09:12)
[2021-08-12] MEDS ORDERED: MAGNESIUM OXIDE 400 MG TAB PO SCH (11:00)
--- NOTE | 2021-08-12 13:25 | Electrocardiogram Report ---
Test Reason : Blood Pressure : / mmHG Vent. Rate : 101 BPM Atrial Rate : 101 BPM P-R Int : 000 ms QRS Dur : 154 ms QT Int : 434 ms P-R-T Axes : 000 199 -42 degrees QTc Int : 562 ms Poor data quality, interpretation may be adversely affected Ventricular-paced rhythm with occasional Premature ventricular complexes Biventricular pacemaker detected Abnormal ECG When compared with ECG of 08-MAY-2021 06:23, Premature ventricular complexes are now Present Vent. rate has increased BY 11 BPM Confirmed by Cheikh Sifuentes ([id number]) on 08/12/2021 1:24:57 PM Referred By: SELF Confirmed By:Cheikh Sifuentes
--- NOTE | 2021-08-12 13:32 | Cardiology Consultation ---
Date of Consultation August 12, 2021 Assessment & Plan (1) Ventricular tachycardia: (2) Biventricular cardiac pacemaker in situ: (3) Ischemic cardiomyopathy: (4) CAD (coronary artery disease): (5) PVD (peripheral vascular disease): 70-year-old female admitted with respiratory insufficiency and acute COVID-19 pneumonia. Nonsustained ventricular tachycardia with spontaneous resolution recorded on telemetry. ICD interrogation pending, however, no evidence of of ICD discharge per review of telemetry. Continue beta-maya therapy and replace electrolytes as indicated. Most recent LV ejection fraction in the range of 45-50%. 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 She does not appear volume overloaded. Treatment of COVID-19 pneumonia and urinary tract infection as per internal medicine. Continue outpatient cardiovascular medications including furosemide 40 mg Wednesday, Wednesday, and Wednesday, 20 mg all other days, isosorbide monohydrate 30 mg daily, losartan 25 mg daily, metoprolol succinate 25 mg twice daily, aspirin 81 mg daily, clopidogrel 75 mg daily, and rosuvastatin 40 mg daily. Monitor telemetry. History of Present Illness Reason for Consultation: Ventricular tachycardia Requesting Physician: Dr. Rodriguez Attending Physician: Rafael Davis MD History of Present Illness 70-year-old female presented to the emergency department with shortness of breath, cough, low-grade fever, poor appetite, and fatigue. Diagnosed with COVID-19 pneumonia. She is unvaccinated. Grandchildren recently Covid positive. In the emergency department, ventricular tachycardia reported. Telemetry rhythm strips reviewed demonstrating ventricular tachycardia with spontaneous conversion to sinus rhythm. Hypomagnesemia noted. Patient treated with IV magnesium sulfate, corticosteroids, and remdesivir per Covid protocol. Seen and examined in the COVID-19 unit. Appropriate PPE worn. She reports cough worsening over the past week. Notes intermittent fevers. Denies any palpitations, lightheadedness, dizziness, syncope, or near syncope. Denies any ICD discharges. Currently resting comfortably and lying supine. Most recent echocardiogram reports mild LV systolic dysfunction with ejection fraction of 4 5-50%. No orthopnea, PND, lower extreme edema, or recent weight gain. Complex medical history listed below. Past Medical and Surgical History (copied from the [facility] medical record) Coronary artery disease with prior myocardial infarction Severe ischemic cardiomyopathy with prior ejection fraction of 15% [place] [employer] class III CHF Status post [place] device implantation in 2012, upgrade to a biventricular pacemaker defibrillator in 2014 Cardiac catheterization on October 06, 2016 revealed a patent stent in the mid RCA and a 20% proximal LAD stenosis Right heart catheterization performed on December 06, 2018 revealed pulmonary hypertension Moderate mitral regurgitation Moderate aortic regurgitation Chronic CCS class II angina pectoris Anterior communicating artery aneurysm Diffuse vascular disease, followed by [facility] Vascular Surgery History of TIA Carotid stenosis, 50 - 69% bilateral internal carotid artery disease. 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 Status post femoro-femoral bypass grafting with occlusion, status post right axillary to bilateral femoral grafting in May 2015 ([facility]) Chart history of bacterial endocarditis Hypertension Dyslipidemia Chronic tobacco abuse COPD with nocturnal hypoxemia, 2 L/min at bedtime Obstructive sleep apnea, untreated Allergies Allergy/AdvReac Type Severity Reaction Status Date / Time lisinopril AdvReac Mild cough Unverified 08/11/21 17:42 Home Medications Medication Instructions Recorded Confirmed Type buspirone 5 mg tablet 5 mg PO TID 12/24/18 08/11/21 History clopidogrel 75 mg tablet (Plavix) 75 mg PO HS 12/24/18 08/11/21 History ezetimibe 10 mg tablet (Zetia) 10 mg PO HS 12/24/18 08/11/21 History gabapentin 300 mg capsule 300 mg PO QID 12/24/18 08/11/21 History (Neurontin) magnesium oxide 400 mg PO HS 12/24/18 08/11/21 History pantoprazole 40 mg tablet,delayed 40 mg PO QAM 12/24/18 08/11/21 History release (Protonix) furosemide 20 mg tablet 20 mg PO QAM 08/07/19 08/11/21 History losartan 25 mg tablet (Cozaar) 25 mg PO HS 08/07/19 08/11/21 History nitroglycerin 0.4 mg sublingual 0.4 mg SUBLINGUAL UD PRN 08/07/19 08/11/21 History tablet (Nitrostat) aspirin 81 mg tablet,delayed 81 mg PO QAM 05/07/21 08/11/21 History release (Aspirin Low Dose) metoprolol succinate 25 mg 25 mg PO BID #60 tab 08/06/21 11/08/21 Rx tablet,extended release 24 hr rosuvastatin 20 mg tablet (Crestor) 20 mg PO HS 08/11/21 08/11/21 History trazodone 50 mg tablet 50 - 100 mg PO HS PRN 08/11/21 08/11/21 History Patient History Medical History Bilateral femoral artery stenosis "Multiple stents " Biventricular cardiac pacemaker in situ CAD (coronary artery disease) Cardiac defibrillator in place CHF (congestive heart failure) CHF (congestive heart failure) Chronic low back pain COPD (chronic obstructive pulmonary disease) Depression Elevated troponin GERD (gastroesophageal reflux disease) History of TIA (transient ischemic attack) HTN (hypertension) Hyperlipemia [place] (myocardial infarction) Pacemaker PVD (peripheral vascular disease) Surgical History Stented coronary artery Social History Smoking Status: Current every day smoker Cigarettes Per Day: 5; Second Hand Exposure: No; Do You Dip or Chew Tobacco: No; Tobacco Cessation Education Requested by Patient: No Hx Alcohol Use: No Hx Substance Use: No Preferred Language: Albanian 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 Ability: Effective 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 Beliefs That Will Affect Care: None marital status: Current Living Situation: Family Current Living Situation Comment: Lived with and grandchildren Other Information That Helps Us Care for You: No Feels Safe at Home: Yes Safety Concerns: Feels Safe At This Time Assistive Devices: Denture - Upper, Denture - Lower, Glasses and Oxygen - Continuous Review of Systems Review of Systems: All systems reviewed & are unremarkable except as noted in Subjective Physical Exam Constitutional: well developed, well nourished and + ill appearing; no acute distress Respiratory: normal respiratory effort Auscultation: + rhonchi and + wheezes; no crackles and no rales Cardiovascular: Rate/Rhythm: regular rate and regular rhythm Heart Sounds: normal S1 and normal S2; no murmur Vessels: radial pulses present; no JVD and no carotid bruit Gastrointestinal (Abdomen): Inspection/Auscultation: normal bowel sounds; abdomen not distended Percussion/Palpation: abdomen soft; abdomen nontender, no guarding and abdomen not rigid Psychiatric: A+Ox3, euthymic affect Results & Data ([facility]) Vital Signs (Past 12 Hours) Vital Signs Temp Pulse Pulse Resp BP Pulse Ox 08/12/21 11:22 36.4 C L 67 19 111/58 L 95 08/12/21 08:00 80 08/12/21 07:42 36.4 C L 71 19 124/67 96 08/12/21 05:45 126/72 95 08/12/21 03:02 36.4 C L 60 16 137/62 96 08/12/21 02:14 68 114/58 L
--- NOTE | 2021-08-12 13:46 | Hospitalist Progress Note ---
Date of Service August 12, 2021 Assessment & Plan (1) Pneumonia due to 2019-nCoV: (2) Ventricular tachycardia: (3) Urinary tract infection: Plan: 70-year-old lady with PMH of chronic heart failure [EF 45 to 50% on 2020 TTE], CAD status post stent, valvular heart disease [moderate MR, mild AR/TR], HTN, HLD, PVD status post surgery, cerebral aneurysm, TIA, COPD, nocturnal hypoxemia on home oxygen at night (per records), chronic anemia [baseline hemoglobin of 11 ], mood disorder and past tobacco use presented 08/11 to our ED with complaint of shortness of breath. Per patient she had had symptoms for about 1 week prior to arrival. She reports likely she might have gotten Covid from her grandchildren. #. COVID-19 #. Covid pneumonia Per Pt, 1 week history of junky cough symptoms, low-grade fever, poor appetite, shortness of breath worse on exertion a/w no chest pain. Admits to sick COVID- 19 contacts. Patient does not receive COVID-19 vaccination. 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 Admitting Covid test positive. Admitting CXR: Bibasilar opacities suggestive of infectious process versus atelectasis. Admitting WBC 3.72K, patient afebrile. PT/OT, incentive spirometry, flutter valve, prone as able Daily BMP, Lasix as needed to keep her on sample stitcher side. Continue with dexamethasone 08/11 and remdesivir 08/11 Currently on 2 L nasal cannula oxygen, continue to monitor, titrate as needed. Concern for secondary bacterial infection, patient started on doxycycline 08/11. Continue with doxycycline, patient also has signs and symptoms of UTI. #. UTI Patient complains of pain burning while passing urine since last few days Patient on doxycycline for suspicion of superimposed bacterial infection on viral Covid pneumonia. #. Ventricular tachycardia #. Ischemic cardiomyopathy #. CAD/PAD/HTN/HLD/TIA COPD EF 45 to 50% on 2020 TTE, Ventricular pacemaker with a defibrillator in situ Admitting EKG: Ventricular paced rhythm with occasional premature ventricular complexes At the ER, wide-complex tachycardia noted on the monitor. Patient nauseous during episode. Denies chest pain or unusual shortness of breath. Spontaneous resolution. Admitting CXR: Cardiomegaly without evidence of pulmonary edema Electrolytes WNL, pacemaker being interrogated, cardiology on board - appreciate recs. Patient clinically euvolemic. Monitor electrolytes and replace as appropriate. Continue home meds. #. History of cerebral aneurysm Patient follows with [facility] [place] neurology, last follow-up was 2 years ago. #. COPD #. Past tobacco abuse #. Nocturnal hypoxemia -on home oxygen at night per records No wheezing, continue to monitor clinically Clinically appears stable with regard to COPD #. Chronic anemia At baseline DVT prophylaxis per Lovenox subcu Full code Admission and Anticipated Discharge Date Admission Date: August 11, 2021 Subjective Patient was sitting up in chair, on 2 L nasal cannula oxygen, NAD, no new acute events overnight. Patient reports cough with whitish phlegm. Patient reports changes in her taste and smell sensation. Patient reports improvement in her bowel movements back to normal. Patient reports pain and burning with passing urine since last few days. Denies fever/headache/chills/chest pain/palpitation/other review of symptoms. Patient is eating and moving bowels okay per her. Physical Exam Physical Exam: GENERAL: Alert and oriented x3. NAD, on 2L HEENT: No pallor, no icterus. Pupils equal, round and reactive to light. Oral mucosa moist. NECK: No JVD, no neck masses. HEART: S1 and S2 heard. Regular rate and rhythm. No murmur, no gallop. RESPIRATORY SYSTEM: Normal AP diameter. No accessory muscle use. No wheezing, bibasilar crackles appreciated. ABDOMEN: Soft, bowel sounds present, nontender, no distention. CENTRAL NERVOUS SYSTEM: Alert and oriented x3. No facial droop. Speech is clear. Obeys simple commands. Moves extremities. EXTREMITIES: Trace edema, no erythema seen. Results & Data Results & Data ([facility]) Vital Signs (Past 12 Hours) Vital Signs Temp Pulse Pulse Resp BP Pulse Ox 08/12/21 11:22 36.4 C L 67 19 111/58 L 95 08/12/21 08:00 80 08/12/21 07:42 36.4 C L 71 19 124/67 96 08/12/21 05:45 126/72 95 08/12/21 03:02 36.4 C L 60 16 137/62 96 08/12/21 02:14 68 114/58 L (1) Urinary tract infection Hematuria presence: without hematuria Urinary tract infection type: site unspecified Qualified Code(s): N39.0 - Urinary tract infection, site not specified
[2021-08-12] MEDS: ACETAMINOPHEN 325 MG TAB PO PRN (19:57)
[2021-08-12] MEDS: ROSUVASTATIN CALCIUM 20 MG TAB PO SCH (20:00)
[2021-08-12] MEDS: EZETIMIBE 10 MG TABLET PO SCH (20:00)
[2021-08-12] MEDS: CLOPIDOGREL BISULFATE 75 MG TAB PO SCH (20:00)
[2021-08-12] MEDS: LOSARTAN POTASSIUM 25 MG TAB PO SCH (20:01)
[2021-08-12] MEDS: REMDESIVIR 100 MG in SODIUM CHLORIDE 0.9% 230 ML IV SCH (20:02)
[2021-08-12] MEDS: SODIUM CHLORIDE 0.9% 10ML FLUSH IV SCH (21:23)
[2021-08-13] MEDS ORDERED: DOCUSATE SODIUM/SENNA 50/8.6MG TAB PO STA (03:24)
[2021-08-13] MEDS ORDERED: POLYETHYLENE (MIRALAX) 17 GM PACK PO STA (03:26)
[2021-08-13] MEDS ORDERED: POLYETHYLENE (MIRALAX) 17 GM PACK PO PRN (03:26)
[2021-08-13] MEDS: PANTOprazole 40 MG TAB PO SCH (03:52)
[2021-08-13] MEDS: METOPROLOL SUCC 25MG EXT REL TAB PO SCH ×2 (03:52→20:22)
[2021-08-13 04:13] LABS: Basophils # (auto) 0.01 K/uL (0-0.2); Basophils % (auto) 0.2 %; Hematocrit (blood only) 36.4 % (37-47); Immature Granulocytes # (auto) 0.01 K/uL (0.00-0.02); Immature Granulocytes % (auto) 0.2 %; Lymphocytes # (auto) 1.25 K/uL (1.2-3.4); Lymphocytes % (auto) 20.8 %; Mean Corpuscular Hemoglobin 31.5 pg (25-34); Mean Corpuscular Volume 95.5 fL (80-100); Mean Platelet Volume 9.9 fL (7.4-10.4); Monocytes # (auto) 0.52 K/uL (0.11-0.59); Monocytes % (auto) 8.7 %; Neutrophils # (auto) 4.21 K/uL (1.4-6.5); Neutrophils % (auto) 70.1 %; Platelet Count 202 K/uL (130-400); RDW Coefficient of Variation 14.1 % (11.5-14.5); RDW Standard Deviation 49.2 fL (36.4-46.3); Red Blood Count 3.81 M/uL (4.2-5.4)
[2021-08-13 04:32] LABS: Albumin Level 2.2 gm/dl (3.4-5.0); BUN Creatinine Ratio 22.8 (10-20); Creatinine Clr Calc Pharmacy 43.9 ml/min; Est GFR (African American) 63.3 ml/min; Est GFR (Non-African American) 54.6 ml/min; Magnesium 2.4 mg/dl (1.8-2.4); Potassium 4.6 mmol/L (3.5-5.1)
[2021-08-13 04:34] LABS: Albumin Globulin Ratio 0.6 (0.9-2); Bilirubin,Total 0.2 mg/dl (0.2-1); Total Protein 6.2 gm/dl (6.4-8.2)
[2021-08-13] MEDS: dexAMETHasone 6 MG in SYRINGE 0 ML IV SCH (08:43)
[2021-08-13] MEDS: DOXYCYCLINE HYCLATE 100 MG CAP PO SCH ×2 (08:44→20:27)
[2021-08-13] MEDS: GABAPENTIN 300 MG CAP PO SCH ×4 (08:44→22:24)
[2021-08-13] MEDS: ENOXAPARIN INJ 40 MG/0.4 ML SYR SQ SCH (08:44)
[2021-08-13] MEDS: ASPIRIN 81 MG ECTAB PO SCH (08:44)
[2021-08-13] MEDS: busPIRone 5 MG TAB PO SCH ×3 (08:45→20:26)
--- NOTE | 2021-08-13 13:15 | Hospitalist Progress Note ---
Date of Service August 13, 2021 Assessment & Plan (1) Pneumonia due to 2019-nCoV: Plan: #. [id number] does not receive COVID-19 vaccination. #. Covid pneumonia 1 week history of junky cough symptoms, low-grade fever, poor appetite, shortness of breath worse on exertion a/w no chest pain. Admits to sick COVID- 19 contacts. 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 Admitting Covid test positive. Admitting CXR: Bibasilar opacities suggestive of infectious process versus atelectasis. Admitting WBC 3.72K, patient afebrile. PT/OT, incentive spirometry, flutter valve, prone as able Continue with dexamethasone 08/11 and remdesivir 08/11 Concern for secondary bacterial infection, patient started on doxycycline 08/11. 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 Ventricular tachycardia #. Ischemic cardiomyopathy #. CAD/PAD/HTN/HLD/TIA COPD EF 45 to 50% on 2020 TTE, Ventricular pacemaker with a defibrillator in situ At the ER, wide-complex tachycardia noted on the monitor. Patient nauseous during episode. Denies chest pain or unusual shortness of breath. Spontaneous resolution. Electrolytes WNL Patient clinically euvolemic. Appreciate cardiology input and recommendation Pacemaker interrogation has been done Monitor electrolytes and replace as appropriate. Continue home meds. No more episodes of arrhythmias (3) Urinary tract infection: Plan: 70-year-old lady with PMH of chronic heart failure [EF 45 to 50% on 2020 TTE], CAD status post stent, valvular heart disease [moderate MR, mild AR/TR], HTN, HLD, PVD status post surgery, cerebral aneurysm, TIA, COPD, nocturnal hypoxemia on home oxygen at night (per records), chronic anemia [baseline hemoglobin of 11], mood disorder and past tobacco use presented 08/11 to our ED with complaint of shortness of breath. Per patient she had had symptoms for about 1 week prior to arrival. She reports likely she might have gotten Covid from her grandchildren. #. UTI Patient complains of pain burning while passing urine since last few days Urine culture grew lactobacillus species and Gardnerella-like bacilli No need to have any treatment #. History of cerebral aneurysm Patient [place] [facility] [place], last follow-up was 2 years ago. #. COPD #. Past tobacco abuse #. Nocturnal hypoxemia -on home oxygen at night per records No wheezing, continue to monitor clinically Clinically appears stable with regard to COPD #. Chronic anemia At baseline DVT prophylaxis per Lovenox subcu Full code Admission and Anticipated Discharge Date Admission Date: August 11, 2021 Subjective 08/13/2021 The patient was seen and examined in telemetry unit and in the Covid room She does not feel any better compared with yesterday Has cough with shortness of breath and has been requiring 3 L of oxygen to maintain saturation Denies any more palpitation and no chest pain Review of Systems Review of Systems: All systems reviewed and are unremarkable except as noted below Respiratory: + cough, + chest congestion and + dyspnea Physical Exam Physical Exam: Lying in bed with moderate shortness of breath at rest Constitutional: well developed, well nourished, + ill appearing and average body habitus Eyes: PERRL, conjunctivae normal, anicteric sclerae ENMT: external ear and nose normal, oropharynx normal Neck: trachea midline, no thyromegaly Respiratory: + respiratory distress (Moderate distress at rest), + cough and + tachypneic Auscultation: + diminished lung sounds and + crackles (At the bases) Cardiovascular: Rate/Rhythm: regular rate and regular rhythm; not tachycardic Heart Sounds: normal S1 and normal S2; no murmur Extremities: + edema (Trace edema bilaterally) Gastrointestinal (Abdomen): Inspection/Auscultation: normal bowel sounds; abdomen not distended Percussion/Palpation: abdomen soft; abdomen nontender Musculoskeletal: No acute arthritis in any joint Neurologic: Alert, awake and oriented x3. Generally weak and lethargic Psychiatric: A+Ox3, euthymic affect Lymphatic: no cervical or axillary lymphadenopathy Results & Data Results & Data ([facility]) Vital Signs (Past 12 Hours) Vital Signs Temp Pulse Pulse Resp BP Pulse Ox 08/13/21 11:24 36.4 C L 60 20 97/55 L 97 08/13/21 08:00 62 08/13/21 07:44 36.6 C 70 20 120/74 94 08/13/21 03:52 75 121/48 L 08/13/21 03:16 36.5 C 60 20 121/54 L 97 Laboratory Results Short CBC 08/13/21 Range/Units 03:58 WBC 6.00 (4.8-10.8) K/uL Hgb 12.0 (12.0-16.0) g/dL Hct 36.4 L (37-47) % Plt Count 202 (130-400) K/uL BMP 08/13/21 03:58 Sodium 138 Potassium 4.6 Chloride 107 Carbon Dioxide 26 BUN 23 H D Creatinine 1.03 Glucose 126 H Calcium 8.0 L Liver Function 08/13/21 Range/Units 03:58 Total Bilirubin 0.2 (0.2-1) mg/dl AST 31 (15-37) U/L ALT 23 (12-78) U/L Alkaline Phosphatase 76 (45-117) U/L Albumin 2.2 L (3.4-5.0) gm/dl Medications Administered Current Inpatient Medications Acetaminophen (Acetaminophen 325 Mg Tab) 650 mg PO Q4H PRN PRN Reason: Pain or Fever Stop: 09/10/21 21:43 Last Admin: 08/12/21 19:57 Dose: 650 mg Documented by: Aspirin (Aspirin 81 Mg Ectab) 81 mg PO QAM [facility] Stop: 09/11/21 08:59 Last Admin: 08/13/21 08:44 Dose: 81 mg Documented by: Buspirone HCl (Buspirone 5 Mg Tab) 5 mg PO TID@0900,1200,2100 [facility] Stop: 09/10/21 21:43 Last Admin: 08/13/21 08:45 Dose: 5 mg Documented by: Clopidogrel Bisulfate (Clopidogrel Bisulfate 75 Mg Tab) 75 mg PO [facility] Stop: 09/10/21 21:43 Last Admin: 08/12/21 20:00 Dose: 75 mg Documented by: Doxycycline Hyclate (Doxycycline Hyclate 100 Mg Cap) 100 mg PO BID [facility] Stop: 08/19/21 08:59 Last Admin: 08/13/21 08:44 Dose: 100 mg Documented by: Ezetimibe (Ezetimibe 10 Mg Tablet) 10 mg PO [facility] Stop: 09/10/21 21:43 Last Admin: 08/12/21 20:00 Dose: 10 mg Documented by: Enoxaparin Sodium (Enoxaparin Inj 40 Mg/0.4 Ml Syr) 40 mg SQ QAM [facility] Stop: 09/11/21 08:59 Last Admin: 08/13/21 08:44 Dose: 40 mg Documented by: Gabapentin (Gabapentin 300 Mg Cap) 300 mg PO QID [facility] Stop: 09/10/21 21:43 Last Admin: 08/13/21 08:44 Dose: 300 mg Documented by: Remdesivir 100 mg/ Sodium (Chloride) 250 mls @ 250 mls/hr IV Q24H [facility]; Protocol Stop: 08/15/21 20:59 Last Infusion: 08/12/21 20:59 Dose: Infused Documented by: Dexamethasone 6 mg/ Syringe 1.5 mls @ 1 mls/min IV DAILY [facility] Stop: 09/11/21 08:59 Last Admin: 08/13/21 08:43 Dose: 1 mls/min Documented by: Levalbuterol HCl (Levalbuterol Tartrate 15 Gm Hfa.Aer.Ad) 2 puffs INH Q4H PRN PRN Reason: sob/wheeze Stop: 09/10/21 19:57 Losartan Potassium (Losartan Potassium 25 Mg Tab) 25 mg PO HS [facility] Stop: 09/10/21 21:43 Last Admin: 08/12/21 20:01 Dose: 25 mg Documented by: Magnesium Oxide (Magnesium Oxide 400 Mg Tab) 400 mg PO HS@2300 [facility] Stop: 09/10/21 22:59 Last Admin: 08/11/21 22:16 Dose: 400 mg Documented by: Magnesium Oxide (Magnesium Oxide 400 Mg Tab) 400 mg PO BID@1100,2300 [facility] Last Admin: 08/12/21 11:25 Dose: 400 mg Documented by: Metoprolol Succinate (Metoprolol Succ 25mg Ext Rel Tab) 25 mg PO BID [facility] Stop: 09/12/21 03:24 Last Admin: 08/13/21 03:52 Dose: 25 mg Documented by: Nitroglycerin (Nitroglycerin Sl 0.4 Mg/Tab Tab) 0.4 mg SL UD PRN PRN Reason: Chest Pain Stop: 09/10/21 21:43 Pantoprazole Sodium (Pantoprazole 40 Mg Tab) 40 mg PO QAM [facility] Stop: 09/12/21 03:24 Last Admin: 08/13/21 03:52 Dose: 40 mg Documented by: Polyethylene Glycol (Polyethylene (Miralax) 17 Gm Pack) 17 gm PO DAILY PRN PRN Reason: Constipation Stop: 09/12/21 03:25 Rosuvastatin Calcium (Rosuvastatin Calcium 20 Mg Tab) 20 mg PO HS NIKOS Stop: 09/10/21 21:43 Last Admin: 08/12/21 20:00 Dose: 20 mg Documented by: Sodium Chloride (Sodium Chloride 0.9% 10ml Flush) 30 ml IV Q24H NIKOS Stop: 08/15/21 21:45 Last Admin: 08/12/21 21:23 Dose: 30 ml Documented by: Trazodone HCl (Trazodone Hcl 50 Mg Tab) 50 mg PO HS PRN PRN Reason: Sleep Stop: 09/10/21 21:43 (1) Urinary tract infection Hematuria presence: without hematuria Urinary tract infection type: site unspecified Qualified Code(s): N39.0 - Urinary tract infection, site not specified
[2021-08-13] MEDS ORDERED: FUROSEMIDE 40 MG/4 ML VIAL IV ONE (13:16)
--- NOTE | 2021-08-13 15:17 | Cardiology Progress Note ---
Date of Service August 13, 2021 Assessment & Plan (1) Ventricular tachycardia: (2) Biventricular cardiac pacemaker in situ: (3) Ischemic cardiomyopathy: (4) CAD (coronary artery disease): (5) PVD (peripheral vascular disease): Plan: Biventricular ICD interrogation reviewed. Her ventricular tachycardia monitor zone is set at 170 bpm. The ventricular tachycardia observed on telemetry was approximately 140 bpm (below the monitor zone). There is no evidence of ICD discharge per interrogation. No recurrent ventricular tachycardia per telemetry. Continue current evidence-based medical therapies losartan and metoprolol. Most recent LV ejection fraction in the range of 45-50%. 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 Restart furosemide 20 mg daily. Continue other outpatient cardiovascular medications including isosorbide monohydrate 30 mg daily, aspirin 81 mg daily, clopidogrel 75 mg daily, and rosuvastatin 40 mg daily. Monitor telemetry. Admission and Anticipated Discharge Date Admission Date: August 11, 2021 Subjective Patient seen and examined the bedside. Reports cough and shortness of breath. No recurrent ventricular tachycardia on telemetry. Denies chest pain. No lightheadedness, or dizziness. ICD interrogation reviewed. No observed or treated episodes of ventricular tachycardia or ventricular fibrillation. Review of Systems Review of Systems: All systems reviewed & are unremarkable except as noted in Subjective Physical Exam Constitutional: well developed, well nourished and + ill appearing; no acute distress Respiratory: normal respiratory effort Auscultation: + rhonchi and + wheezes; no crackles and no rales Cardiovascular: Rate/Rhythm: regular rate and regular rhythm Heart Sounds: normal S1 and normal S2; no murmur Vessels: radial pulses present; no JVD and no carotid bruit Gastrointestinal (Abdomen): Inspection/Auscultation: normal bowel sounds; abdomen not distended Percussion/Palpation: abdomen soft; abdomen nontender, no guarding and abdomen not rigid Psychiatric: A+Ox3, euthymic affect Results & Data ([facility]) Vital Signs (Past 12 Hours) Vital Signs Temp Pulse Pulse Resp BP Pulse Ox 08/13/21 11:24 36.4 C L 60 20 97/55 L 97 08/13/21 08:00 62 08/13/21 07:44 36.6 C 70 20 120/74 94 08/13/21 03:52 75 121/48 L 08/13/21 03:16 36.5 C 60 20 121/54 L 97
[2021-08-13] MEDS: FUROSEMIDE 20 MG TAB PO SCH (15:45)
[2021-08-13] MEDS: REMDESIVIR 100 MG in SODIUM CHLORIDE 0.9% 230 ML IV SCH (20:21)
[2021-08-13] MEDS: LOSARTAN POTASSIUM 25 MG TAB PO SCH (20:21)
[2021-08-13] MEDS: CLOPIDOGREL BISULFATE 75 MG TAB PO SCH (20:26)
[2021-08-13] MEDS: ROSUVASTATIN CALCIUM 20 MG TAB PO SCH (20:27)
[2021-08-13] MEDS: EZETIMIBE 10 MG TABLET PO SCH (20:27)
[2021-08-13] MEDS: SODIUM CHLORIDE 0.9% 10ML FLUSH IV SCH (22:24)
[2021-08-14 07:04] LABS: BUN Creatinine Ratio 25.4 (10-20); Calcium 8.2 mg/dl (8.5-10.1); Est GFR (African American) 76.6 ml/min; Est GFR (Non-African American) 66.1 ml/min; Magnesium 1.9 mg/dl (1.8-2.4); Phosphorus 2.4 mg/dl (2.5-4.9)
[2021-08-14] MEDS: FUROSEMIDE 20 MG TAB PO SCH (08:05)
[2021-08-14] MEDS: busPIRone 5 MG TAB PO SCH ×3 (08:07→20:33)
[2021-08-14] MEDS: DOXYCYCLINE HYCLATE 100 MG CAP PO SCH ×2 (08:07→20:34)
[2021-08-14] MEDS: ASPIRIN 81 MG ECTAB PO SCH (08:07)
[2021-08-14] MEDS: METOPROLOL SUCC 25MG EXT REL TAB PO SCH ×2 (08:08→20:36)
[2021-08-14] MEDS: GABAPENTIN 300 MG CAP PO SCH ×4 (08:08→20:35)
[2021-08-14] MEDS: PANTOprazole 40 MG TAB PO SCH (08:10)
[2021-08-14] MEDS: ENOXAPARIN INJ 40 MG/0.4 ML SYR SQ SCH (08:11)
[2021-08-14] MEDS: dexAMETHasone 6 MG in SYRINGE 0 ML IV SCH (08:51)
--- NOTE | 2021-08-14 12:44 | Cardiology Progress Note ---
Date of Service August 14, 2021 Assessment & Plan (1) Ventricular tachycardia: (2) Biventricular cardiac pacemaker in situ: (3) Ischemic cardiomyopathy: (4) CAD (coronary artery disease): (5) PVD (peripheral vascular disease): Plan: No recurrent ventricular tachycardia per telemetry. Continue current evidence- based medical therapies losartan and metoprolol. Most recent LV ejection fraction in the range of 45-50%. 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 Dose of furosemide clarified. Patient taking 40 mg on Wednesday, Wednesday, and Wednesday, 20 mg all other days. Discussed with pharmacy who will adjust dosing schedule. Continue other outpatient cardiovascular medications including isosorbide monohydrate 30 mg daily, aspirin 81 mg daily, clopidogrel 75 mg daily, and rosuvastatin 40 mg daily. Monitor telemetry. Admission and Anticipated Discharge Date Admission Date: August 11, 2021 Subjective Patient seen and examined at the bedside. Denies chest pain or palpitations. Telemetry reveals sinus rhythm with a ventricular paced rhythm. No recurrent ventricular tachycardia. Cough mildly improved. Review of Systems Review of Systems: All systems reviewed & are unremarkable except as noted in Subjective Physical Exam Constitutional: well developed, well nourished and + ill appearing; no acute distress Respiratory: normal respiratory effort Auscultation: + rhonchi; no crackles, no rales and no wheezes Cardiovascular: Rate/Rhythm: regular rate and regular rhythm Heart Sounds: normal S1 and normal S2; no murmur Vessels: radial pulses present; no JVD and no carotid bruit Gastrointestinal (Abdomen): Inspection/Auscultation: normal bowel sounds; abdomen not distended Percussion/Palpation: abdomen soft; abdomen nontender, no guarding and abdomen not rigid Psychiatric: A+Ox3, euthymic affect Results & Data ([facility]) Vital Signs (Past 12 Hours) Vital Signs Temp Pulse Resp BP Pulse Ox 08/14/21 11:34 36.8 C 60 17 100/62 95 08/14/21 07:02 36.6 C 72 18 142/67 H 94 08/14/21 03:15 36.6 C 60 14 134/55 L 98
--- NOTE | 2021-08-14 16:13 | Hospitalist Progress Note ---
Date of Service August 14, 2021 Assessment & Plan (1) Pneumonia due to 2019-nCoV: Plan: #. [id number] does not receive COVID-19 vaccination. #. Covid pneumonia 1 week history of junky cough symptoms, low-grade fever, poor appetite, shortness of breath worse on exertion a/w no chest pain. Admits to sick COVID- 19 contacts. 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 Admitting CXR: Bibasilar opacities suggestive of infectious process versus atelectasis. Admitting WBC 3.72K, patient afebrile. PT/OT, incentive spirometry, flutter valve, prone as able Continue with dexamethasone 08/11 and remdesivir 08/11 Concern for secondary bacterial infection, patient started on doxycycline 08/11. Feels a little bit better today but still requiring about 3 L of oxygen to maintain saturation We will keep her on the drier feeder side and symptomatic management of cough and names of spirometry Complains today of cough-we will add more cough suppressant (2) Ventricular tachycardia: Plan: #. Ventricular tachycardia #. Ischemic cardiomyopathy #. CAD/PAD/HTN/HLD/TIA COPD EF 45 to 50% on 2020 TTE, Ventricular pacemaker with a defibrillator in situ At the ER, wide-complex tachycardia noted on the monitor. Patient nauseous during episode. Denies chest pain or unusual shortness of breath. Spontaneous resolution. Electrolytes WNL Patient clinically euvolemic. Appreciate cardiology input and recommendation Pacemaker interrogation has been done Monitor electrolytes and replace as appropriate. Continue home meds. No more episodes of arrhythmias (3) Urinary tract infection: Plan: Urine culture is growing lactobacillus species and Gardnerella like bacilli No treatment is required as below Plan: 70-year-old lady with PMH of chronic heart failure [EF 45 to 50% on 2020 TTE], CAD status post stent, valvular heart disease [moderate MR, mild AR/TR], HTN, HLD, PVD status post surgery, cerebral aneurysm, TIA, COPD, nocturnal hypoxemia on home oxygen at night (per records), chronic anemia [baseline hemoglobin of 11], mood disorder and past tobacco use presented 08/11 to our ED with complaint of shortness of breath. Per patient she had had symptoms for about 1 week prior to arrival. She reports likely she might have gotten Covid from her grandchildren. #. UTI Patient complains of pain burning while passing urine since last few days Urine culture grew lactobacillus species and Gardnerella-like bacilli No need to have any treatment #. History of cerebral aneurysm Patient follows with [facility] [place], last follow-up was 2 years ago. #. COPD #. Past tobacco abuse #. Nocturnal hypoxemia -on home oxygen at night per records No wheezing, continue to monitor clinically Clinically appears stable with regard to COPD #. Chronic anemia At baseline DVT prophylaxis per Lovenox subcu Full code Admission and Anticipated Discharge Date Admission Date: August 11, 2021 Subjective 08/13/2021 The patient was seen and examined in telemetry unit and in the Covid room She does not feel any better compared with yesterday Has cough with shortness of breath and has been requiring 3 L of oxygen to maintain saturation Denies any more palpitation and no chest pain 08/14/2021 The patient was seen and examined in telemetry unit and in the Covid room She has been feeling a little better today Still has a lot of cough and moderate shortness of breath at rest No chest pain and/or palpitation Review of Systems Review of Systems: All systems reviewed and are unremarkable except as noted below Respiratory: + cough, + chest congestion and + dyspnea Physical Exam Physical Exam: Lying in bed with moderate shortness of breath at rest Constitutional: well developed, well nourished, + ill appearing and average body habitus Eyes: PERRL, conjunctivae normal, anicteric sclerae ENMT: external ear and nose normal, oropharynx normal Neck: trachea midline, no thyromegaly Respiratory: + respiratory distress (Moderate distress at rest), + cough and + tachypneic Auscultation: + diminished lung sounds and + crackles (At the bases) Cardiovascular: Rate/Rhythm: regular rate and regular rhythm; not tachycardic Heart Sounds: normal S1 and normal S2; no murmur Extremities: + edema (Trace edema bilaterally) Gastrointestinal (Abdomen): Inspection/Auscultation: normal bowel sounds; abdomen not distended Percussion/Palpation: abdomen soft; abdomen nontender Musculoskeletal: No acute arthritis in any joint Neurologic: Alert, awake and oriented x3. Generally very weak and lethargic Psychiatric: A+Ox3, euthymic affect Lymphatic: no cervical or axillary lymphadenopathy Results & Data Results & Data ([facility]) Vital Signs (Past 12 Hours) Vital Signs Temp Pulse Pulse Resp BP Pulse Ox 08/14/21 15:04 36.8 C 62 18 117/58 L 95 08/14/21 11:34 36.8 C 60 17 100/62 95 08/14/21 08:00 63 08/14/21 07:02 36.6 C 72 18 142/67 H 94 Laboratory Results BMP 08/14/21 05:58 Sodium 137 Potassium 4.0 Chloride 104 Carbon Dioxide 30 BUN 22 H Creatinine 0.88 Glucose 85 Calcium 8.2 L Medications Administered Current Inpatient Medications Acetaminophen (Acetaminophen 325 Mg Tab) 650 mg PO Q4H PRN PRN Reason: Pain or Fever Stop: 09/10/21 21:43 Last Admin: 08/12/21 19:57 Dose: 650 mg Documented by: Aspirin (Aspirin 81 Mg Ectab) [facility] Stop: 09/11/21 08:59 Last Admin: 08/14/21 08:07 Dose: 81 mg Documented by: Buspirone HCl (Buspirone 5 Mg Tab) 5 mg PO TID@0900,1200,2100 [facility] Stop: 09/10/21 21:43 Last Admin: 08/14/21 12:31 Dose: 5 mg Documented by: Clopidogrel Bisulfate (Clopidogrel Bisulfate 75 Mg Tab) 75 mg PO [facility] Stop: 09/10/21 21:43 Last Admin: 08/13/21 20:26 Dose: 75 mg Documented by: Doxycycline Hyclate (Doxycycline Hyclate 100 Mg Cap) 100 mg PO BID [facility] Stop: 08/19/21 08:59 Last Admin: 08/14/21 08:07 Dose: 100 mg Documented by: Ezetimibe (Ezetimibe 10 Mg Tablet) 10 mg PO [facility] Stop: 09/10/21 21:43 Last Admin: 08/13/21 20:27 Dose: 10 mg Documented by: Enoxaparin Sodium (Enoxaparin Inj 40 Mg/0.4 Ml Syr) 40 mg SQ QAM [facility] Stop: 09/11/21 08:59 Last Admin: 08/14/21 08:11 Dose: 40 mg Documented by: Furosemide (Furosemide 40 Mg Tab) 40 mg PO MoWeFr@0900 [facility] Stop: 09/14/21 08:59 Furosemide (Furosemide 20 Mg Tab) 20 mg PO SuTuThSa@0900 [facility] Stop: 09/15/21 08:59 Gabapentin (Gabapentin 300 Mg Cap) 300 mg PO QID [facility] Stop: 09/10/21 21:43 Last Admin: 08/14/21 12:31 Dose: 300 mg Documented by: Remdesivir 100 mg/ Sodium (Chloride) 250 mls @ 250 mls/hr IV Q24H [facility]; Protocol Stop: 08/15/21 20:59 Last Infusion: 08/13/21 22:24 Dose: Infused Documented by: Dexamethasone 6 mg/ Syringe 1.5 mls @ 1 mls/min IV DAILY [facility] Stop: 09/11/21 08:59 Last Admin: 08/14/21 08:51 Dose: 1 mls/min Documented by: Levalbuterol HCl (Levalbuterol Tartrate 15 Gm Hfa.Aer.Ad) 2 puffs INH Q4H PRN PRN Reason: sob/wheeze Stop: 09/10/21 19:57 Losartan Potassium (Losartan Potassium 25 Mg Tab) 25 mg PO HS [facility] Stop: 09/10/21 21:43 Last Admin: 08/13/21 20:21 Dose: Not Given Documented by: Magnesium Oxide (Magnesium Oxide 400 Mg Tab) 400 mg PO HS@2300 [facility] Stop: 09/10/21 22:59 Last Admin: 08/11/21 22:16 Dose: 400 mg Documented by: Magnesium Oxide (Magnesium Oxide 400 Mg Tab) 400 mg PO BID@1100,2300 [facility] Last Admin: 08/12/21 11:25 Dose: 400 mg Documented by: Metoprolol Succinate (Metoprolol Succ 25mg Ext Rel Tab) 25 mg PO BID [facility] Stop: 09/12/21 03:24 Last Admin: 08/14/21 08:08 Dose: 25 mg Documented by: Nitroglycerin (Nitroglycerin Sl 0.4 Mg/Tab Tab) 0.4 mg SL UD PRN PRN Reason: Chest Pain Stop: 09/10/21 21:43 Pantoprazole Sodium (Pantoprazole 40 Mg Tab) 40 mg PO QAM [facility] Stop: 09/12/21 03:24 Last Admin: 08/14/21 08:10 Dose: 40 mg Documented by: Polyethylene Glycol (Polyethylene (Miralax) 17 Gm Pack) 17 gm PO DAILY PRN PRN Reason: Constipation Stop: 09/12/21 03:25 Rosuvastatin Calcium (Rosuvastatin Calcium 20 Mg Tab) 20 mg PO HS [facility] Stop: 09/10/21 21:43 Last Admin: 08/13/21 20:27 Dose: 20 mg Documented by: Sodium Chloride (Sodium Chloride 0.9% 10ml Flush) 30 ml IV Q24H [facility] Stop: 08/15/21 21:45 Last Admin: 08/13/21 22:24 Dose: 30 ml Documented by: Trazodone HCl (Trazodone Hcl 50 Mg Tab) 50 mg PO HS PRN PRN Reason: Sleep Stop: 09/10/21 21:43 (1) Urinary tract infection Hematuria presence: without hematuria Urinary tract infection type: site unspecified Qualified Code(s): N39.0 - Urinary tract infection, site not specified
[2021-08-14] MEDS: HYDROcodone/HOMATROPINE SYRUP 5MG/1.5MG 5ML UDP PO PRN (16:46)
[2021-08-14] MEDS: REMDESIVIR 100 MG in SODIUM CHLORIDE 0.9% 230 ML IV SCH (20:32)
[2021-08-14] MEDS: CLOPIDOGREL BISULFATE 75 MG TAB PO SCH (20:34)
[2021-08-14] MEDS: EZETIMIBE 10 MG TABLET PO SCH (20:34)
[2021-08-14] MEDS: guaiFENesin 600 MG TABCR PO SCH (20:35)
[2021-08-14] MEDS: ROSUVASTATIN CALCIUM 20 MG TAB PO SCH (20:36)
[2021-08-14] MEDS: LOSARTAN POTASSIUM 25 MG TAB PO SCH (20:36)
[2021-08-14] MEDS: SODIUM CHLORIDE 0.9% 10ML FLUSH IV SCH (21:32)
[2021-08-15 05:05] LABS: Creatinine Clr Calc Pharmacy 45.3 ml/min; Est GFR (African American) 64.9 ml/min
[2021-08-15] MEDS: ASPIRIN 81 MG ECTAB PO SCH (07:58)
[2021-08-15] MEDS: PANTOprazole 40 MG TAB PO SCH (07:59)
[2021-08-15] MEDS: busPIRone 5 MG TAB PO SCH ×3 (07:59→20:10)
[2021-08-15] MEDS: DOXYCYCLINE HYCLATE 100 MG CAP PO SCH ×2 (07:59→20:10)
[2021-08-15] MEDS: FUROSEMIDE 40 MG TAB PO SCH (07:59)
[2021-08-15] MEDS: GABAPENTIN 300 MG CAP PO SCH ×4 (08:00→20:09)
[2021-08-15] MEDS: METOPROLOL SUCC 25MG EXT REL TAB PO SCH ×2 (08:00→20:09)
[2021-08-15] MEDS: guaiFENesin 600 MG TABCR PO SCH ×2 (08:00→20:11)
[2021-08-15] MEDS: ENOXAPARIN INJ 40 MG/0.4 ML SYR SQ SCH (08:00)
[2021-08-15] MEDS: dexAMETHasone 6 MG in SYRINGE 0 ML IV SCH (08:01)
[2021-08-15] MEDS: HYDROcodone/HOMATROPINE SYRUP 5MG/1.5MG 5ML UDP PO PRN ×2 (08:07→20:02)
[2021-08-15] MEDS ORDERED: FUROSEMIDE INJ 20 MG/2 ML VIAL IV ONE (15:58)
--- NOTE | 2021-08-15 16:16 | Hospitalist Progress Note ---
Date of Service August 15, 2021 Assessment & Plan (1) Pneumonia due to 2019-nCoV: Plan: #. [id number] does not receive COVID-19 vaccination. #. Covid pneumonia 1 week history of junky cough symptoms, low-grade fever, poor appetite, shortness of breath worse on exertion a/w no chest pain. Admits to sick COVID- 19 contacts. 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 Admitting CXR: Bibasilar opacities suggestive of infectious process versus atelectasis. Admitting WBC 3.72K, patient afebrile. PT/OT, incentive spirometry, flutter valve, prone as able Continue with dexamethasone 08/11 and remdesivir 08/11 Concern for secondary bacterial infection, patient started on doxycycline 08/11. Feels a little bit better today but still requiring about 3 L of oxygen to maintain saturation We will keep her on the veneer drier feeder side and symptomatic management of cough and names of spirometry Complains to have more cough and generalized weakness Required 2 L of oxygen with ambulation but she is not yet ready to be discharged We will get PT and OT evaluation We will give 20 mg of IV Lasix x1 now (2) Ventricular tachycardia: Plan: #. Ventricular tachycardia #. Ischemic cardiomyopathy #. CAD/PAD/HTN/HLD/TIA COPD EF 45 to 50% on 2020 TTE, Ventricular pacemaker with a defibrillator in situ At the ER, wide-complex tachycardia noted on the monitor. Patient nauseous during episode. Denies chest pain or unusual shortness of breath. Spontaneous resolution. Electrolytes WNL Patient clinically euvolemic. Appreciate cardiology input and recommendation Pacemaker interrogation has been done Monitor electrolytes and replace as appropriate. Continue home meds. No more episodes of arrhythmias (3) Urinary tract infection: Plan: Urine culture is growing lactobacillus species and Gardnerella like bacilli No treatment is required as below Plan: 70-year-old lady with PMH of chronic heart failure [EF 45 to 50% on 2020 TTE], CAD status post stent, valvular heart disease [moderate MR, mild AR/TR], HTN, HLD, PVD status post surgery, cerebral aneurysm, TIA, COPD, nocturnal hypoxemia on home oxygen at night (per records), chronic anemia [baseline hemoglobin of 11], mood disorder and past tobacco use presented 11/8 to our ED with complaint of shortness of breath. Per patient she had had symptoms for about 1 week prior to arrival. She reports likely she might have gotten Covid from her grandchildren. #. UTI Patient complains of pain burning while passing urine since last few days Urine culture grew lactobacillus species and Gardnerella-like bacilli No need to have any treatment #. History of cerebral aneurysm Patient follows with [facility] [place], last follow-up was 2 years ago. #. COPD #. Past tobacco abuse #. Nocturnal hypoxemia -on home oxygen at night per records No wheezing, continue to monitor clinically Clinically appears stable with regard to COPD #. Chronic anemia At baseline DVT prophylaxis per Lovenox subcu Full code Admission and Anticipated Discharge Date Admission Date: August 11, 2021 Subjective 08/13/2021 The patient was seen and examined in telemetry unit and in the Covid room She does not feel any better compared with yesterday Has cough with shortness of breath and has been requiring 3 L of oxygen to maintain saturation Denies any more palpitation and no chest pain 08/14/2021 The patient was seen and examined in telemetry unit and in the Covid room She has been feeling a little better today Still has a lot of cough and moderate shortness of breath at rest No chest pain and/or palpitation 08/15/2021 The patient was seen and examined in telemetry unit and in the Covid room She remains weak and lethargic and complains to have a lot of cough with whitish-yellow phlegm Denies any fever and/or chills Has been required 0 to 2 L of oxygen at rest Review of Systems Review of Systems: All systems reviewed and are unremarkable except as noted below Respiratory: + cough, + chest congestion and + dyspnea Physical Exam Physical Exam: Lying in bed with moderate shortness of breath at rest Constitutional: well developed, well nourished, + ill appearing and average body habitus Eyes: PERRL, conjunctivae normal, anicteric sclerae ENMT: external ear and nose normal, oropharynx normal Neck: trachea midline, no thyromegaly Respiratory: + respiratory distress (Moderate distress at rest), + cough and + tachypneic Auscultation: + diminished lung sounds and + crackles (At the bases) Cardiovascular: Rate/Rhythm: regular rate and regular rhythm; not tachycardic Heart Sounds: normal S1 and normal S2; no murmur Extremities: + edema (Trace edema bilaterally) Gastrointestinal (Abdomen): Inspection/Auscultation: normal bowel sounds; abdomen not distended Percussion/Palpation: abdomen soft; abdomen nontender Musculoskeletal: No acute arthritis in any joint Neurologic: Alert and awake and oriented x3. Generally very weak and lethargic. No focal neuro deficit Psychiatric: A+Ox3, euthymic affect Lymphatic: no cervical or axillary lymphadenopathy Results & Data Results & Data ([facility]) Vital Signs (Past 12 Hours) Vital Signs Temp Pulse Pulse Pulse Pulse Pulse Resp 08/15/21 15:01 36.6 C 65 21 08/15/21 12:26 75 83 71 65 08/15/21 10:54 36.5 C 60 20 08/15/21 07:24 36.4 C L 80 18 08/15/21 04:17 36.7 C 60 16 Resp Resp Resp Resp BP Pulse Ox Pulse Ox 08/15/21 15:01 102/55 L 90 08/15/21 12:26 20 20 16 20 93 08/15/21 10:54 90/53 L 94 08/15/21 07:24 119/79 97 08/15/21 04:17 108/66 96 Pulse Ox Pulse Ox Pulse Ox 08/15/21 15:01 08/15/21 12:26 87 L 91 90 08/15/21 10:54 08/15/21 07:24 08/15/21 04:17 Laboratory Results BMP 08/15/21 04:30 Creatinine 1.01 Medications Administered Current Inpatient Medications Acetaminophen (Acetaminophen 325 Mg Tab) 650 mg PO Q4H PRN PRN Reason: Pain or Fever Stop: 09/10/21 21:43 Last Admin: 08/12/21 19:57 Dose: 650 mg Documented by: Aspirin (Aspirin 81 Mg Ectab) 81 mg PO QAM [facility] Stop: 09/11/21 08:59 Last Admin: 08/15/21 07:58 Dose: 81 mg Documented by: Buspirone HCl (Buspirone 5 Mg Tab) 5 mg PO TID@0900,1200,2100 [facility] Stop: 09/10/21 21:43 Last Admin: 08/15/21 12:23 Dose: 5 mg Documented by: Clopidogrel Bisulfate (Clopidogrel Bisulfate 75 Mg Tab) 75 mg PO HS [facility] Stop: 09/10/21 21:43 Last Admin: 08/14/21 20:34 Dose: 75 mg Documented by: Doxycycline Hyclate (Doxycycline Hyclate 100 Mg Cap) 100 mg PO BID [facility] Stop: 08/19/21 08:59 Last Admin: 08/15/21 07:59 Dose: 100 mg Documented by: Ezetimibe (Ezetimibe 10 Mg Tablet) 10 mg PO HS [facility] Stop: 09/10/21 21:43 Last Admin: 08/14/21 20:34 Dose: 10 mg Documented by: Enoxaparin Sodium (Enoxaparin Inj 40 Mg/0.4 Ml Syr) 40 mg SQ QAM [facility] Stop: 09/11/21 08:59 Last Admin: 08/15/21 08:00 Dose: 40 mg Documented by: Furosemide (Furosemide 40 Mg Tab) 40 mg PO MoWeFr@0900 [facility] Stop: 09/14/21 08:59 Last Admin: 08/15/21 07:59 Dose: 40 mg Documented by: Furosemide (Furosemide 20 Mg Tab) 20 mg PO SuTuThSa@0900 [facility] Stop: 09/15/21 08:59 Gabapentin (Gabapentin 300 Mg Cap) 300 mg PO QID [facility] Stop: 09/10/21 21:43 Last Admin: 08/15/21 12:23 Dose: 300 mg Documented by: Guaifenesin (Guaifenesin 600 Mg Tabcr) 600 mg PO Q12 [facility] Stop: 09/13/21 20:59 Last Admin: 08/15/21 08:00 Dose: 600 mg Documented by: Hydrocodone Bit/Homatropine Methylb (Hydrocodone/Homatropine Syrup 5mg/1.5mg 5ml Udp) 5 ml PO Q6H PRN PRN Reason: Cough Stop: 08/28/21 16:12 Last Admin: 08/15/21 08:07 Dose: 5 ml Documented by: Remdesivir 100 mg/ Sodium (Chloride) 250 mls @ 250 mls/hr IV Q24H [facility]; Protocol Stop: 08/15/21 20:59 Last Infusion: 08/14/21 21:32 Dose: Infused Documented by: Dexamethasone 6 mg/ Syringe 1.5 mls @ 1 mls/min IV DAILY [facility] Stop: 09/11/21 08:59 Last Admin: 08/15/21 08:01 Dose: 1 mls/min Documented by: Levalbuterol HCl (Levalbuterol Tartrate 15 Gm Hfa.Aer.Ad) 2 puffs INH Q4H PRN PRN Reason: sob/wheeze Stop: 09/10/21 19:57 Losartan Potassium (Losartan Potassium 25 Mg Tab) 25 mg PO HS [facility] Stop: 09/10/21 21:43 Last Admin: 08/14/21 20:36 Dose: 25 mg Documented by: Magnesium Oxide (Magnesium Oxide 400 Mg Tab) 400 mg PO HS@2300 [facility] Stop: 09/10/21 22:59 Last Admin: 08/11/21 22:16 Dose: 400 mg Documented by: Magnesium Oxide (Magnesium Oxide 400 Mg Tab) 400 mg PO BID@1100,2300 [facility] Last Admin: 08/12/21 11:25 Dose: 400 mg Documented by: Metoprolol Succinate (Metoprolol Succ 25mg Ext Rel Tab) 25 mg PO BID [facility] Stop: 09/12/21 03:24 Last Admin: 08/15/21 08:00 Dose: 25 mg Documented by: Nitroglycerin (Nitroglycerin Sl 0.4 Mg/Tab Tab) 0.4 mg SL UD PRN PRN Reason: Chest Pain Stop: 09/10/21 21:43 Pantoprazole Sodium (Pantoprazole 40 Mg Tab) 40 mg PO QAM [facility] Stop: 09/12/21 03:24 Last Admin: 08/15/21 07:59 Dose: 40 mg Documented by: Polyethylene Glycol (Polyethylene (Miralax) 17 Gm Pack) 17 gm PO DAILY PRN PRN Reason: Constipation Stop: 09/12/21 03:25 Rosuvastatin Calcium (Rosuvastatin Calcium 20 Mg Tab) 20 mg PO HS [facility] Stop: 09/10/21 21:43 Last Admin: 08/14/21 20:36 Dose: 20 mg Documented by: Sodium Chloride (Sodium Chloride 0.9% 10ml Flush) 30 ml IV Q24H [facility] Stop: 08/15/21 21:45 Last Admin: 08/14/21 21:32 Dose: 30 ml Documented by: Trazodone HCl (Trazodone Hcl 50 Mg Tab) 50 mg PO HS PRN PRN Reason: Sleep Stop: 09/10/21 21:43 (1) Urinary tract infection Hematuria presence: without hematuria Urinary tract infection type: site unspecified Qualified Code(s): N39.0 - Urinary tract infection, site not specified
[2021-08-15] MEDS: REMDESIVIR 100 MG in SODIUM CHLORIDE 0.9% 230 ML IV SCH (20:03)
[2021-08-15] MEDS: EZETIMIBE 10 MG TABLET PO SCH (20:10)
[2021-08-15] MEDS: ROSUVASTATIN CALCIUM 20 MG TAB PO SCH (20:10)
[2021-08-15] MEDS: LOSARTAN POTASSIUM 25 MG TAB PO SCH (20:11)
[2021-08-15] MEDS: CLOPIDOGREL BISULFATE 75 MG TAB PO SCH (20:11)
[2021-08-15] MEDS: SODIUM CHLORIDE 0.9% 10ML FLUSH IV SCH (21:05)
[2021-08-16 07:01] LABS: BUN Creatinine Ratio 31.3 (10-20); Calcium 8.2 mg/dl (8.5-10.1); Creatinine Clr Calc Pharmacy 45.3 ml/min; Est GFR (African American) 64.9 ml/min; Magnesium 1.8 mg/dl (1.8-2.4); Potassium 3.5 mmol/L (3.5-5.1)
[2021-08-16] MEDS: dexAMETHasone 6 MG in SYRINGE 0 ML IV SCH (08:14)
[2021-08-16] MEDS: METOPROLOL SUCC 25MG EXT REL TAB PO SCH ×3 (08:15→23:44)
[2021-08-16] MEDS: busPIRone 5 MG TAB PO SCH ×3 (08:15→19:35)
[2021-08-16] MEDS: FUROSEMIDE 20 MG TAB PO SCH (08:15)
[2021-08-16] MEDS: DOXYCYCLINE HYCLATE 100 MG CAP PO SCH ×2 (08:16→19:34)
[2021-08-16] MEDS: PANTOprazole 40 MG TAB PO SCH (08:16)
[2021-08-16] MEDS: GABAPENTIN 300 MG CAP PO SCH ×4 (08:16→19:35)
[2021-08-16] MEDS: guaiFENesin 600 MG TABCR PO SCH ×2 (08:16→19:34)
[2021-08-16] MEDS: ASPIRIN 81 MG ECTAB PO SCH (08:16)
[2021-08-16] MEDS: ENOXAPARIN INJ 40 MG/0.4 ML SYR SQ SCH (08:16)
--- NOTE | 2021-08-16 14:35 | Hospitalist Progress Note ---
Date of Service August 16, 2021 Assessment & Plan (1) Pneumonia due to 2019-nCoV: Plan: #. [id number] does not receive COVID-19 vaccination. #. Covid pneumonia 1 week history of junky cough symptoms, low-grade fever, poor appetite, shortness of breath worse on exertion a/w no chest pain. Admits to sick COVID- 19 contacts. 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 Admitting CXR: Bibasilar opacities suggestive of infectious process versus atelectasis. Admitting WBC 3.72K, patient afebrile. PT/OT, incentive spirometry, flutter valve, prone as able Continue with dexamethasone 08/11 and remdesivir 08/11 Concern for secondary bacterial infection, patient started on doxycycline 08/11. 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 Ventricular tachycardia #. Ischemic cardiomyopathy #. CAD/PAD/HTN/HLD/TIA COPD EF 45 to 50% on 2020 TTE, Ventricular pacemaker with a defibrillator in situ At the ER, wide-complex tachycardia noted on the monitor. Patient nauseous during episode. Denies chest pain or unusual shortness of breath. Spontaneous resolution. Electrolytes WNL Patient clinically euvolemic. Appreciate cardiology input and recommendation Pacemaker interrogation has been done Monitor electrolytes and replace as appropriate. Continue home meds. Heart rate remains controlled and denies any cardiac symptoms (3) Urinary tract infection: Plan: Urine culture is growing lactobacillus species and Gardnerella like bacilli No treatment is required as below Plan: 70-year-old lady with PMH of chronic heart failure [EF 45 to 50% on 2020 TTE], CAD status post stent, valvular heart disease [moderate MR, mild AR/TR], HTN, HLD, PVD status post surgery, cerebral aneurysm, TIA, COPD, nocturnal hypoxemia on home oxygen at night (per records), chronic anemia [baseline hemoglobin of 11], mood disorder and past tobacco use presented 08/11 to our ED with complaint of shortness of breath. Per patient she had had symptoms for about 1 week prior to arrival. She reports likely she might have gotten Covid from her grandchildren. #. UTI Patient complains of pain burning while passing urine since last few days Urine culture grew lactobacillus species and Gardnerella-like bacilli No need to have any treatment #. History of cerebral aneurysm Patient follows with [facility] [place] neurology, last follow-up was 2 years ago. #. COPD #. Past tobacco abuse #. Nocturnal hypoxemia -on home oxygen at night per records No wheezing, continue to monitor clinically Clinically appears stable with regard to COPD #. Chronic anemia At baseline DVT prophylaxis per Lovenox subcu Full code Admission and Anticipated Discharge Date Admission Date: August 11, 2021 Subjective 08/13/2021 The patient was seen and examined in telemetry unit and in the Covid room She does not feel any better compared with yesterday Has cough with shortness of breath and has been requiring 3 L of oxygen to maintain saturation Denies any more palpitation and no chest pain 08/14/2021 The patient was seen and examined in telemetry unit and in the Covid room She has been feeling a little better today Still has a lot of cough and moderate shortness of breath at rest No chest pain and/or palpitation 08/15/2021 The patient was seen and examined in telemetry unit and in the Covid room She remains weak and lethargic and complains to have a lot of cough with whitish-yellow phlegm Denies any fever and/or chills Has been required 0 to 2 L of oxygen at rest 08/16/2021 The patient was seen and examined in telemetry unit and in the Covid room She complains to have ongoing cough and weakness Her shortness of breath is stable and has been requiring only 2 L of oxygen via nasal cannula to maintain saturation Denies any chest pain and/or palpitation Review of Systems Review of Systems: All systems reviewed and are unremarkable except as noted below Respiratory: + cough, + chest congestion and + dyspnea Physical Exam Physical Exam: Lying in bed with moderate shortness of breath at rest Constitutional: well developed, well nourished, + ill appearing and average body habitus Eyes: PERRL, conjunctivae normal, anicteric sclerae ENMT: external ear and nose normal, oropharynx normal Neck: trachea midline, no thyromegaly Respiratory: + respiratory distress (Moderate distress at rest), + cough and + tachypneic Auscultation: + diminished lung sounds and + crackles (At the bases) Cardiovascular: Rate/Rhythm: regular rate and regular rhythm; not tachycardic Heart Sounds: normal S1 and normal S2; no murmur Extremities: + edema (Trace edema bilaterally) Gastrointestinal (Abdomen): Inspection/Auscultation: normal bowel sounds; abdomen not distended Percussion/Palpation: abdomen soft; abdomen nontender Musculoskeletal: No acute arthritis in any joint Neurologic: Alert, awake and oriented x3. Generally weak but no focal sensory and motor deficit appreciated Psychiatric: A+Ox3, euthymic affect Lymphatic: no cervical or axillary lymphadenopathy Results & Data Results & Data ([facility]) Vital Signs (Past 12 Hours) Vital Signs Temp Pulse Resp BP Pulse Ox 08/16/21 12:39 36.5 C 66 18 101/67 95 08/16/21 07:48 36.3 C L 60 14 124/55 L 96 08/16/21 03:19 36.4 C L 64 18 101/62 95 Laboratory Results [facility] 08/16/21 06:12 Sodium 135 L Potassium 3.5 Chloride 98 Carbon Dioxide 34 H BUN 32 H Creatinine 1.01 Glucose 86 Calcium 8.2 L Medications Administered Current Inpatient Medications Acetaminophen (Acetaminophen 325 Mg Tab) 650 mg PO Q4H PRN PRN Reason: Pain or Fever Stop: 09/10/21 21:43 Last Admin: 08/12/21 19:57 Dose: 650 mg Documented by: Aspirin (Aspirin 81 Mg Ectab) 81 mg PO QAM [facility] Stop: 09/11/21 08:59 Last Admin: 08/16/21 08:16 Dose: 81 mg Documented by: Benzonatate (Benzonatate 100 Mg Capsule) 100 mg PO TID [facility] Stop: 09/15/21 20:59 Buspirone HCl (Buspirone 5 Mg Tab) 5 mg PO TID@0900,1200,2100 [facility] Stop: 09/10/21 21:43 Last Admin: 08/16/21 11:54 Dose: 5 mg Documented by: Clopidogrel Bisulfate (Clopidogrel Bisulfate 75 Mg Tab) 75 mg PO HS NIKOS Stop: 09/10/21 21:43 Last Admin: 08/15/21 20:11 Dose: 75 mg Documented by: Doxycycline Hyclate (Doxycycline Hyclate 100 Mg Cap) 100 mg PO BID [facility] Stop: 08/19/21 08:59 Last Admin: 08/16/21 08:16 Dose: 100 mg Documented by: Ezetimibe (Ezetimibe 10 Mg Tablet) 10 mg PO HS NIKOS Stop: 09/10/21 21:43 Last Admin: 08/15/21 20:10 Dose: 10 mg Documented by: Enoxaparin Sodium (Enoxaparin Inj 40 Mg/0.4 Ml Syr) 40 mg SQ QAM [facility] Stop: 09/11/21 08:59 Last Admin: 08/16/21 08:16 Dose: 40 mg Documented by: Furosemide (Furosemide 40 Mg Tab) 40 mg PO MoWeFr@0900 [facility] Stop: 09/14/21 08:59 Last Admin: 08/15/21 07:59 Dose: 40 mg Documented by: Furosemide (Furosemide 20 Mg Tab) 20 mg PO SuTuThSa@0900 [facility] Stop: 09/15/21 08:59 Last Admin: 08/16/21 08:15 Dose: 20 mg Documented by: Gabapentin (Gabapentin 300 Mg Cap) 300 mg PO QID [facility] Stop: 09/10/21 21:43 Last Admin: 08/16/21 13:20 Dose: 300 mg Documented by: Guaifenesin (Guaifenesin 600 Mg Tabcr) 600 mg PO Q12 [facility] Stop: 09/13/21 20:59 Last Admin: 08/16/21 08:16 Dose: 600 mg Documented by: Hydrocodone Bit/Homatropine Methylb (Hydrocodone/Homatropine Syrup 5mg/1.5mg 5ml Udp) 5 ml PO Q6H PRN PRN Reason: Cough Stop: 08/28/21 16:12 Last Admin: 08/15/21 20:02 Dose: 5 ml Documented by: Dexamethasone 6 mg/ Syringe 1.5 mls @ 1 mls/min IV DAILY [facility]IK[facility] Stop: 09/11/21 08:59 Last Admin: 08/16/21 08:14 Dose: 1 mls/min Documented by: Levalbuterol HCl (Levalbuterol Tartrate 15 Gm Hfa.Aer.Ad) 2 puffs INH Q4H PRN PRN Reason: sob/wheeze Stop: 09/10/21 19:57 Losartan Potassium (Losartan Potassium 25 Mg Tab) 25 mg PO HS [facility] Stop: 09/10/21 21:43 Last Admin: 08/15/21 20:11 Dose: 25 mg Documented by: Magnesium Oxide (Magnesium Oxide 400 Mg Tab) 400 mg PO HS@2300 [facility] Stop: 09/10/21 22:59 Last Admin: 08/11/21 22:16 Dose: 400 mg Documented by: Magnesium Oxide (Magnesium Oxide 400 Mg Tab) 400 mg PO BID@1100,2300 [facility] Last Admin: 08/12/21 11:25 Dose: 400 mg Documented by: Metoprolol Succinate (Metoprolol Succ 25mg Ext Rel Tab) 25 mg PO BID [facility] Stop: 09/12/21 03:24 Last Admin: 08/16/21 08:15 Dose: 25 mg Documented by: Nitroglycerin (Nitroglycerin Sl 0.4 Mg/Tab Tab) 0.4 mg SL UD PRN PRN Reason: Chest Pain Stop: 09/10/21 21:43 Pantoprazole Sodium (Pantoprazole 40 Mg Tab) 40 mg PO QAM [facility] Stop: 09/12/21 03:24 Last Admin: 08/16/21 08:16 Dose: 40 mg Documented by: Polyethylene Glycol (Polyethylene (Miralax) 17 Gm Pack) 17 gm PO DAILY PRN PRN Reason: Constipation Stop: 09/12/21 03:25 Rosuvastatin Calcium (Rosuvastatin Calcium 20 Mg Tab) 20 mg PO HS [facility] Stop: 09/10/21 21:43 Last Admin: 08/15/21 20:10 Dose: 20 mg Documented by: Trazodone HCl (Trazodone Hcl 50 Mg Tab) 50 mg PO HS PRN PRN Reason: Sleep Stop: 09/10/21 21:43 (1) Urinary tract infection Hematuria presence: without hematuria Urinary tract infection type: site unspecified Qualified Code(s): N39.0 - Urinary tract infection, site not specified
--- NOTE | 2021-08-16 15:22 | XRay Report ---
XR chest 1V portable CLINICAL HISTORY: Covid pneumonia. Difficulty breathing COMPARISON STUDY: 08/11/2021 TECHNIQUE: 1 view of the chest FINDINGS: Single frontal view of the chest demonstrates the heart to again be enlarged with permanent cardiac p acer in place. Compared to the previous examination, there is worsening of interstitial and alveolar opacities at the lung bases bilaterally. The findings are characteristic of a viral type pneumonitis and Covid 19 pneumonia. There is no evidence for pleural effusion. There is no evidence for vascular congestion. There is no acute osseous pathology. IMPRESSION: Interval worsening of interstitial and alveolar opacities at the lung bases bilaterally c haracteristic of a viral type pneumonitis and Covid pneumonia. ACT 112: Negative or not required by law. Electronically signed by: Ruben Boyle M.D. 08/16/2021 3:21 PM
[2021-08-16] MEDS: ROSUVASTATIN CALCIUM 20 MG TAB PO SCH (19:35)
[2021-08-16] MEDS: EZETIMIBE 10 MG TABLET PO SCH (19:35)
[2021-08-16] MEDS: BENZONATATE 100 MG CAPSULE PO SCH (19:36)
[2021-08-16] MEDS: CLOPIDOGREL BISULFATE 75 MG TAB PO SCH (19:37)
[2021-08-16] MEDS: LOSARTAN POTASSIUM 25 MG TAB PO SCH (19:39)
[2021-08-17] MEDS: dexAMETHasone 6 MG in SYRINGE 0 ML IV SCH (08:29)
[2021-08-17] MEDS: ASPIRIN 81 MG ECTAB PO SCH (08:29)
[2021-08-17] MEDS: PANTOprazole 40 MG TAB PO SCH (08:29)
[2021-08-17] MEDS: FUROSEMIDE 20 MG TAB PO SCH (08:29)
[2021-08-17] MEDS: METOPROLOL SUCC 25MG EXT REL TAB PO SCH ×2 (08:29→21:13)
[2021-08-17] MEDS: BENZONATATE 100 MG CAPSULE PO SCH ×3 (08:30→21:13)
[2021-08-17] MEDS: guaiFENesin 600 MG TABCR PO SCH ×2 (08:30→21:13)
[2021-08-17] MEDS: GABAPENTIN 300 MG CAP PO SCH ×4 (08:30→21:13)
[2021-08-17] MEDS: DOXYCYCLINE HYCLATE 100 MG CAP PO SCH ×2 (08:30→21:12)
[2021-08-17] MEDS: busPIRone 5 MG TAB PO SCH ×3 (08:30→21:12)
[2021-08-17] MEDS: ENOXAPARIN INJ 40 MG/0.4 ML SYR SQ SCH (08:31)
--- NOTE | 2021-08-17 12:43 | Hospitalist Progress Note ---
Date of Service August 17, 2021 Assessment & Plan (1) Pneumonia due to 2019-nCoV: Plan: #. [id number] does not receive COVID-19 vaccination. #. Covid pneumonia 1 week history of junky cough symptoms, low-grade fever, poor appetite, shortness of breath worse on exertion a/w no chest pain. Admits to sick COVID- 19 contacts. 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 Admitting CXR: Bibasilar opacities suggestive of infectious process versus atelectasis. Admitting WBC 3.72K, patient afebrile. PT/OT, incentive spirometry, flutter valve, prone as able Continue with dexamethasone 08/11 and remdesivir 08/11 Concern for secondary bacterial infection, patient started on doxycycline 08/11. 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 Ventricular tachycardia #. Ischemic cardiomyopathy #. CAD/PAD/HTN/HLD/TIA COPD EF 45 to 50% on 2020 TTE, Ventricular pacemaker with a defibrillator in situ At the ER, wide-complex tachycardia noted on the monitor. Patient nauseous during episode. Denies chest pain or unusual shortness of breath. Spontaneous resolution. Electrolytes WNL Patient clinically euvolemic. Appreciate cardiology input and recommendation Pacemaker interrogation has been done Monitor electrolytes and replace as appropriate. Continue home meds. Heart rate remains controlled and denies any cardiac symptoms (3) Urinary tract infection: Plan: Urine culture is growing lactobacillus species and Gardnerella like bacilli No treatment is required as below Plan: 70-year-old lady with PMH of chronic heart failure [EF 45 to 50% on 2020 TTE], CAD status post stent, valvular heart disease [moderate MR, mild AR/TR], HTN, HLD, PVD status post surgery, cerebral aneurysm, TIA, COPD, nocturnal hypoxemia on home oxygen at night (per records), chronic anemia [baseline hemoglobin of 11], mood disorder and past tobacco use presented 08/11 to our ED with complaint of shortness of breath. Per patient she had had symptoms for about 1 week prior to arrival. She reports likely she might have gotten Covid from her grandchildren. #. UTI Patient complains of pain burning while passing urine since last few days Urine culture grew lactobacillus species and Gardnerella-like bacilli No need to have any treatment #. History of cerebral aneurysm Patient follows with [facility] [place] neurology, last follow-up was 2 years ago. #. COPD #. Past tobacco abuse #. Nocturnal hypoxemia -on home oxygen at night per records No wheezing, continue to monitor clinically Clinically appears stable with regard to COPD #. Chronic anemia At baseline DVT prophylaxis per Lovenox subcu Full code Admission and Anticipated Discharge Date Admission Date: August 11, 2021 Subjective 08/13/2021 The patient was seen and examined in telemetry unit and in the Covid room She does not feel any better compared with yesterday Has cough with shortness of breath and has been requiring 3 L of oxygen to maintain saturation Denies any more palpitation and no chest pain 08/14/2021 The patient was seen and examined in telemetry unit and in the Covid room She has been feeling a little better today Still has a lot of cough and moderate shortness of breath at rest No chest pain and/or palpitation 08/15/2021 The patient was seen and examined in telemetry unit and in the Covid room She remains weak and lethargic and complains to have a lot of cough with whitish-yellow phlegm Denies any fever and/or chills Has been required 0 to 2 L of oxygen at rest 08/16/2021 The patient was seen and examined in telemetry unit and in the Covid room She complains to have ongoing cough and weakness Her shortness of breath is stable and has been requiring only 2 L of oxygen via nasal cannula to maintain saturation Denies any chest pain and/or palpitation 08/17/2021 The patient was seen and examined in telemetry unit and in the Covid room She complains generalized weakness and ongoing cough Has been requiring 2 L of nasal cannula to maintain saturation Otherwise remains stable Review of Systems Review of Systems: All systems reviewed and are unremarkable except as noted below Respiratory: + cough, + chest congestion and + dyspnea Physical Exam Physical Exam: Lying in bed with moderate shortness of breath at rest Constitutional: well developed, well nourished, + ill appearing and average body habitus Eyes: PERRL, conjunctivae normal, anicteric sclerae ENMT: external ear and nose normal, oropharynx normal Neck: trachea midline, no thyromegaly Respiratory: + respiratory distress (Moderate distress at rest), + cough and + tachypneic Auscultation: + diminished lung sounds and + crackles (At the bases) Cardiovascular: Rate/Rhythm: regular rate and regular rhythm; not tachycardic Heart Sounds: normal S1 and normal S2; no murmur Extremities: + edema (Trace edema bilaterally) Gastrointestinal (Abdomen): Inspection/Auscultation: normal bowel sounds; abdomen not distended Percussion/Palpation: abdomen soft; abdomen nontender Musculoskeletal: No acute arthritis in any joint Neurologic: Alert, awake and oriented x3. Very weak and lethargic Psychiatric: A+Ox3, euthymic affect Lymphatic: no cervical or axillary lymphadenopathy Results & Data Results & Data ([facility]) Vital Signs (Past 12 Hours) Vital Signs Temp Pulse Resp BP Pulse Ox 08/17/21 12:13 36.4 C L 67 20 102/56 L 96 08/17/21 08:10 36.5 C 60 17 109/62 95 08/17/21 04:21 36.6 C 69 16 104/61 94 Medications Administered Current Inpatient Medications Acetaminophen (Acetaminophen 325 Mg Tab) 650 mg PO Q4H PRN PRN Reason: Pain or Fever Stop: 09/10/21 21:43 Last Admin: 08/12/21 19:57 Dose: 650 mg Documented by: Aspirin (Aspirin 81 Mg Ectab) 81 mg PO QAM [facility] Stop: 09/11/21 08:59 Last Admin: 08/17/21 08:29 Dose: 81 mg Documented by: Benzonatate (Benzonatate 100 Mg Capsule) 100 mg PO TID [facility] Stop: 09/15/21 20:59 Last Admin: 08/17/21 08:30 Dose: 100 mg Documented by: Buspirone HCl (Buspirone 5 Mg Tab) 5 mg PO TID@0900,1200,2100 [facility] Stop: 09/10/21 21:43 Last Admin: 08/17/21 12:31 Dose: 5 mg Documented by: Clopidogrel Bisulfate (Clopidogrel Bisulfate 75 Mg Tab) 75 mg PO HS [facility] Stop: 09/10/21 21:43 Last Admin: 08/16/21 19:37 Dose: 75 mg Documented by: Doxycycline Hyclate (Doxycycline Hyclate 100 Mg Cap) 100 mg PO BID [facility] Stop: 08/19/21 08:59 Last Admin: 08/17/21 08:30 Dose: 100 mg Documented by: Ezetimibe (Ezetimibe 10 Mg Tablet) 10 mg PO HS [facility] Stop: 09/10/21 21:43 Last Admin: 08/16/21 19:35 Dose: 10 mg Documented by: Enoxaparin Sodium (Enoxaparin Inj 40 Mg/0.4 Ml Syr) 40 mg SQ QAM [facility] Stop: 09/11/21 08:59 Last Admin: 08/17/21 08:31 Dose: 40 mg Documented by: Furosemide (Furosemide 40 Mg Tab) 40 mg PO MoWeFr@0900 [facility] Stop: 09/14/21 08:59 Last Admin: 08/15/21 07:59 Dose: 40 mg Documented by: Furosemide (Furosemide 20 Mg Tab) 20 mg PO SuTuThSa@0900 [facility] Stop: 09/15/21 08:59 Last Admin: 08/17/21 08:29 Dose: 20 mg Documented by: Gabapentin (Gabapentin 300 Mg Cap) 300 mg PO QID [facility] Stop: 09/10/21 21:43 Last Admin: 08/17/21 12:31 Dose: 300 mg Documented by: Guaifenesin (Guaifenesin 600 Mg Tabcr) 600 mg PO Q12 [facility] Stop: 09/13/21 20:59 Last Admin: 08/17/21 08:30 Dose: 600 mg Documented by: Hydrocodone Bit/Homatropine Methylb (Hydrocodone/Homatropine Syrup 5mg/1.5mg 5ml Udp) 5 ml PO Q6H PRN PRN Reason: Cough Stop: 08/28/21 16:12 Last Admin: 08/15/21 20:02 Dose: 5 ml Documented by: Dexamethasone 6 mg/ Syringe 1.5 mls @ 1 mls/min IV DAILY [facility] Stop: 09/11/21 08:59 Last Admin: 08/17/21 08:29 Dose: 1 mls/min Documented by: Levalbuterol HCl (Levalbuterol Tartrate 15 Gm Hfa.Aer.Ad) 2 puffs INH Q4H PRN PRN Reason: sob/wheeze Stop: 09/10/21 19:57 Losartan Potassium (Losartan Potassium 25 Mg Tab) 25 mg PO HS [facility] Stop: 09/10/21 21:43 Last Admin: 08/16/21 19:39 Dose: 25 mg Documented by: Magnesium Oxide (Magnesium Oxide 400 Mg Tab) 400 mg PO HS@2300 [facility] Stop: 09/10/21 22:59 Last Admin: 08/11/21 22:16 Dose: 400 mg Documented by: Magnesium Oxide (Magnesium Oxide 400 Mg Tab) 400 mg PO BID@1100,2300 [facility] Last Admin: 08/12/21 11:25 Dose: 400 mg Documented by: Metoprolol Succinate (Metoprolol Succ 25mg Ext Rel Tab) 25 mg PO BID [facility] Stop: 09/12/21 03:24 Last Admin: 08/17/21 08:29 Dose: 25 mg Documented by: Nitroglycerin (Nitroglycerin Sl 0.4 Mg/Tab Tab) 0.4 mg SL UD PRN PRN Reason: Chest Pain Stop: 09/10/21 21:43 Pantoprazole Sodium (Pantoprazole 40 Mg Tab) 40 mg PO QAM [facility] Stop: 09/12/21 03:24 Last Admin: 08/17/21 08:29 Dose: 40 mg Documented by: Polyethylene Glycol (Polyethylene (Miralax) 17 Gm Pack) 17 gm PO DAILY PRN PRN Reason: Constipation Stop: 09/12/21 03:25 Rosuvastatin Calcium (Rosuvastatin Calcium 20 Mg Tab) 20 mg PO HS [facility] Stop: 09/10/21 21:43 Last Admin: 08/16/21 19:35 Dose: 20 mg Documented by: Trazodone HCl (Trazodone Hcl 50 Mg Tab) 50 mg PO HS PRN PRN Reason: Sleep Stop: 09/10/21 21:43 (1) Urinary tract infection Hematuria presence: without hematuria Urinary tract infection type: site unspecified Qualified Code(s): N39.0 - Urinary tract infection, site not specified
[2021-08-17] MEDS ORDERED: FUROSEMIDE INJ 20 MG/2 ML VIAL IV ONE (12:47)
[2021-08-17] MEDS: EZETIMIBE 10 MG TABLET PO SCH (21:12)
[2021-08-17] MEDS: ROSUVASTATIN CALCIUM 20 MG TAB PO SCH (21:12)
[2021-08-17] MEDS: CLOPIDOGREL BISULFATE 75 MG TAB PO SCH (21:12)
[2021-08-17] MEDS: LOSARTAN POTASSIUM 25 MG TAB PO SCH (21:12)
[2021-08-18] MEDS ORDERED: MAGNESIUM SULFATE / D5W 1 GM/100 ML BAG IV ONE (00:53)
[2021-08-18] MEDS ORDERED: POTASSIUM CHLORIDE CRTAB 20 MEQ TABCR PO STA (00:53)
[2021-08-18 07:46] LABS: BUN Creatinine Ratio 43.9 (10-20); Calcium 8.7 mg/dl (8.5-10.1); Creatinine Clr Calc Pharmacy 46.8 ml/min; Est GFR (African American) 69.8 ml/min; Est GFR (Non-African American) 60.3 ml/min; Magnesium 2.4 mg/dl (1.8-2.4); Potassium 4.7 mmol/L (3.5-5.1)
[2021-08-18] MEDS: ENOXAPARIN INJ 40 MG/0.4 ML SYR SQ SCH (08:36)
[2021-08-18] MEDS: guaiFENesin 600 MG TABCR PO SCH (08:36)
[2021-08-18] MEDS: BENZONATATE 100 MG CAPSULE PO SCH ×2 (08:37→13:16)
[2021-08-18] MEDS: GABAPENTIN 300 MG CAP PO SCH ×2 (08:37→13:16)
[2021-08-18] MEDS: METOPROLOL SUCC 25MG EXT REL TAB PO SCH (08:37)
[2021-08-18] MEDS: FUROSEMIDE 40 MG TAB PO SCH (08:37)
[2021-08-18] MEDS: DOXYCYCLINE HYCLATE 100 MG CAP PO SCH (08:37)
[2021-08-18] MEDS: busPIRone 5 MG TAB PO SCH ×2 (08:37→13:16)
[2021-08-18] MEDS: PANTOprazole 40 MG TAB PO SCH (08:37)
[2021-08-18] MEDS: dexAMETHasone 6 MG in SYRINGE 0 ML IV SCH (08:38)
[2021-08-18] MEDS: ASPIRIN 81 MG ECTAB PO SCH (08:38)
--- NOTE | 2021-08-18 12:20 | Hospitalist Progress Note ---
Date of Service August 18, 2021 Assessment & Plan (1) Pneumonia due to 2019-nCoV: Plan: #. ILDEE-50-Gmfdfxx does not receive COVID-19 vaccination. #. Covid pneumonia 1 week history of junky cough symptoms, low-grade fever, poor appetite, shortness of breath worse on exertion a/w no chest pain. Admits to sick COVID- 19 contacts. Positive for Covid last Wednesday [employer]. Admitting Covid test positive. Admitting CXR: Bibasilar opacities suggestive of infectious process versus atelectasis. Admitting WBC 3.72K, patient afebrile. PT/OT, incentive spirometry, flutter valve, prone as able Continue with dexamethasone 08/11 and remdesivir 08/11 Concern for secondary bacterial infection, patient started on doxycycline 08/11. Feels a little bit better today but still requiring about 3 L of oxygen to maintain saturation We will keep her on the veneer drier feeder side and symptomatic management of cough and names of spirometry Complains to have more cough and generalized weakness Required 2 L of oxygen with ambulation but she is not yet ready to be discharged We will get PT and OT evaluation We will give 20 mg of IV Lasix x1 now on 08/15/2021 Condition remains stable with ongoing cough-Guru Santos has been added Cough is a little better and he still remains extremely weak and lethargic We will continue PT and OT and possible discharge tomorrow Remains stable as of today and wants to go home (2) Ventricular tachycardia: Plan: #. Ventricular tachycardia #. Ischemic cardiomyopathy #. CAD/PAD/HTN/HLD/TIA COPD EF 45 to 50% on 2020 TTE, Ventricular pacemaker with a defibrillator in situ At the ER, wide-complex tachycardia noted on the monitor. Patient nauseous during episode. Denies chest pain or unusual shortness of breath. Spontaneous resolution. Electrolytes WNL Patient clinically euvolemic. Appreciate cardiology input and recommendation Pacemaker interrogation has been done Monitor electrolytes and replace as appropriate. Continue home meds. Heart rate remains controlled and denies any cardiac symptoms Has had a brief episode of VT resolved spontaneously and after giving electrolytes (3) Urinary tract infection: Plan: Urine culture is growing lactobacillus species and Gardnerella like bacilli No treatment is required as below Plan: 70-year-old lady with PMH of chronic heart failure [EF 45 to 50% on 2020 TTE], CAD status post stent, valvular heart disease [moderate MR, mild AR/TR], HTN, HLD, PVD status post surgery, cerebral aneurysm, TIA, COPD, nocturnal hypoxemia on home oxygen at night (per records), chronic anemia [baseline hemoglobin of 11], mood disorder and past tobacco use presented 08/11 to our ED with complaint of shortness of breath. Per patient she had had symptoms for about 1 week prior to arrival. She reports likely she might have gotten Covid from her grandchildren. #. UTI Patient complains of pain burning while passing urine since last few days Urine culture grew lactobacillus species and Gardnerella-like bacilli No need to have any treatment #. History of cerebral aneurysm Patient [place] [facility] [facility] [place], [place] follow-up was 2 years ago. #. COPD #. Past tobacco abuse #. Nocturnal hypoxemia -on home oxygen at night per records No wheezing, continue to monitor clinically Clinically appears stable with regard to COPD No wheezing at rest #. Chronic anemia At baseline DVT prophylaxis per Lovenox subcu Full code Admission and Anticipated Discharge Date Admission Date: August 11, 2021 Subjective 08/13/2021 The patient was seen and examined in telemetry unit and in the Covid room She does not feel any better compared with yesterday Has cough with shortness of breath and has been requiring 3 L of oxygen to maintain saturation Denies any more palpitation and no chest pain 08/14/2021 The patient was seen and examined in telemetry unit and in the Covid room She has been feeling a little better today Still has a lot of cough and moderate shortness of breath at rest No chest pain and/or palpitation 08/15/2021 The patient was seen and examined in telemetry unit and in the Covid room She remains weak and lethargic and complains to have a lot of cough with whitish-yellow phlegm Denies any fever and/or chills Has been required 0 to 2 L of oxygen at rest 08/16/2021 The patient was seen and examined in telemetry unit and in the Covid room She complains to have ongoing cough and weakness Her shortness of breath is stable and has been requiring only 2 L of oxygen via nasal cannula to maintain saturation Denies any chest pain and/or palpitation 08/17/2021 The patient was seen and examined in telemetry unit and in the Covid room She complains generalized weakness and ongoing cough Has been requiring 2 L of nasal cannula to maintain saturation Otherwise remains stable 08/18/2021 The patient was seen and examined in telemetry unit and in the Covid room She remains generally weak and lethargic with minimal cough and minimal shortness of breath at rest She was noted to have an attack of short V. tach but resolved with replacement of electrolytes She wants to go home if possible Review of Systems Review of Systems: All systems reviewed and are unremarkable except as noted below Respiratory: + cough, + chest congestion and + dyspnea Physical Exam Physical Exam: Sitting on the chair with minimal shortness of breath at rest Constitutional: well developed, well nourished, + ill appearing and average body habitus Eyes: PERRL, conjunctivae normal, anicteric sclerae ENMT: external ear and nose normal, oropharynx normal Neck: trachea midline, no thyromegaly Respiratory: + respiratory distress (Moderate distress at rest), + cough and + tachypneic Auscultation: + diminished lung sounds and + crackles (At the bases) Cardiovascular: Rate/Rhythm: regular rate and regular rhythm; not tachycardic Heart Sounds: normal S1 and normal S2; no murmur Extremities: + edema (Trace edema bilaterally) Gastrointestinal (Abdomen): Inspection/Auscultation: normal bowel sounds; abdomen not distended Percussion/Palpation: abdomen soft; abdomen nontender Musculoskeletal: No acute arthritis in any joint Neurologic: Alert and awake and oriented x3. She generally very weak and lethargic Psychiatric: A+Ox3, euthymic affect Lymphatic: no cervical or axillary lymphadenopathy Results & Data Results & Data ([facility]) Vital Signs (Past 12 Hours) Vital Signs Temp Pulse Pulse Pulse Resp BP Pulse Ox 08/18/21 10:23 08/18/21 08:00 60 08/18/21 07:37 36.5 C 60 18 108/67 97 08/18/21 03:53 36.5 C 61 16 100/64 97 08/18/21 00:47 64 134/64 Pulse Ox Pulse Ox 08/18/21 10:23 92 95 08/18/21 08:00 08/18/21 07:37 08/18/21 03:53 08/18/21 00:47 Laboratory Results [facility] 08/18/21 06:35 Sodium 136 Potassium 4.7 Chloride 101 Carbon Dioxide 27 BUN 42 H Creatinine 0.95 Glucose 91 Calcium 8.7 Medications Administered Current Inpatient Medications Acetaminophen (Acetaminophen 325 Mg Tab) 650 mg PO Q4H PRN PRN Reason: Pain or Fever Stop: 09/10/21 21:43 Last Admin: 08/12/21 19:57 Dose: 650 mg Documented by: Aspirin (Aspirin 81 Mg Ectab) 81 mg PO QAM [facility] Stop: 09/11/21 08:59 Last Admin: 08/18/21 08:38 Dose: 81 mg Documented by: Benzonatate (Benzonatate 100 Mg Capsule) 100 mg PO TID [facility] Stop: 09/15/21 20:59 Last Admin: 08/18/21 08:37 Dose: 100 mg Documented by: Buspirone HCl (Buspirone 5 Mg Tab) 5 mg PO TID@0900,1200,2100 [facility] Stop: 09/10/21 21:43 Last Admin: 08/18/21 08:37 Dose: 5 mg Documented by: Clopidogrel Bisulfate (Clopidogrel Bisulfate 75 Mg Tab) [address] [facility] Stop: 09/10/21 21:43 Last Admin: 08/17/21 21:12 Dose: 75 mg Documented by: Doxycycline Hyclate (Doxycycline Hyclate 100 Mg Cap) 100 mg PO BID [facility] Stop: 08/19/21 08:59 Last Admin: 08/18/21 08:37 Dose: 100 mg Documented by: Ezetimibe (Ezetimibe 10 Mg Tablet) [address] [facility] Stop: 09/10/21 21:43 Last Admin: 08/17/21 21:12 Dose: 10 mg Documented by: Enoxaparin Sodium (Enoxaparin Inj 40 Mg/0.4 Ml Syr) 40 mg SQ QAM [facility] Stop: 09/11/21 08:59 Last Admin: 08/18/21 08:36 Dose: 40 mg Documented by: Furosemide (Furosemide 40 Mg Tab) 40 mg PO MoWeFr@0900 [facility] Stop: 09/14/21 08:59 Last Admin: 08/18/21 08:37 Dose: 40 mg Documented by: Furosemide (Furosemide 20 Mg Tab) 20 mg PO SuTuThSa@0900 [facility] Stop: 09/15/21 08:59 Last Admin: 08/17/21 08:29 Dose: 20 mg Documented by: Gabapentin (Gabapentin 300 Mg Cap) 300 mg PO QID [facility] Stop: 09/10/21 21:43 Last Admin: 08/18/21 08:37 Dose: 300 mg Documented by: Guaifenesin (Guaifenesin 600 Mg Tabcr) 600 mg PO Q12 [facility] Stop: 09/13/21 20:59 Last Admin: 08/18/21 08:36 Dose: 600 mg Documented by: Hydrocodone Bit/Homatropine Methylb (Hydrocodone/Homatropine Syrup 5mg/1.5mg 5ml Udp) 5 ml PO Q6H PRN PRN Reason: Cough Stop: 08/28/21 16:12 Last Admin: 08/15/21 20:02 Dose: 5 ml Documented by: Dexamethasone 6 mg/ Syringe 1.5 mls @ 1 mls/min IV DAILY [facility] Stop: 09/11/21 08:59 Last Admin: 08/18/21 08:38 Dose: 1 mls/min Documented by: Levalbuterol HCl (Levalbuterol Tartrate 15 Gm Hfa.Aer.Ad) 2 puffs INH Q4H PRN PRN Reason: sob/wheeze Stop: 09/10/21 19:57 Losartan Potassium (Losartan Potassium 25 Mg Tab) 25 mg PO HS [facility] Stop: 09/10/21 21:43 Last Admin: 08/17/21 21:12 Dose: 25 mg Documented by: Magnesium Oxide (Magnesium Oxide 400 Mg Tab) 400 mg PO HS@2300 [facility] Stop: 09/10/21 22:59 Last Admin: 08/11/21 22:16 Dose: 400 mg Documented by: Magnesium Oxide (Magnesium Oxide 400 Mg Tab) 400 mg PO BID@1100,2300 [facility] Last Admin: 08/12/21 11:25 Dose: 400 mg Documented by: Metoprolol Succinate (Metoprolol Succ 25mg Ext Rel Tab) 25 mg PO BID [facility] Stop: 09/12/21 03:24 Last Admin: 08/18/21 08:37 Dose: 25 mg Documented by: Nitroglycerin (Nitroglycerin Sl 0.4 Mg/Tab Tab) 0.4 mg SL UD PRN PRN Reason: Chest Pain Stop: 09/10/21 21:43 Pantoprazole Sodium (Pantoprazole 40 Mg Tab) 40 mg PO QAM [facility] Stop: 09/12/21 03:24 Last Admin: 08/18/21 08:37 Dose: 40 mg Documented by: Polyethylene Glycol (Polyethylene (Miralax) 17 Gm Pack) 17 gm PO DAILY PRN PRN Reason: Constipation Stop: 09/12/21 03:25 Rosuvastatin Calcium (Rosuvastatin Calcium 20 Mg Tab) 20 mg PO HS [facility] Stop: 09/10/21 21:43 Last Admin: 08/17/21 21:12 Dose: 20 mg Documented by: Trazodone HCl (Trazodone Hcl 50 Mg Tab) 50 mg PO HS PRN PRN Reason: Sleep Stop: 09/10/21 21:43 (1) Urinary tract infection Hematuria presence: without hematuria Urinary tract infection type: site unspecified Qualified Code(s): N39.0 - Urinary tract infection, site not specified
--- NOTE | 2021-09-01 09:16 | Discharge Summary ---
Date of Service August 18, 2021 Admission HPI Per Admitting Provider History obtained from patient and records. Medical history significant for chronic systolic heart failure (EF 45-50%, TTE 2020), CAD status post stent, valvular heart disease (moderate MR, mild AR/TR ), hypertension, hyperlipidemia, history of PVD status post surgery, history of cerebral aneurysm as per records, history TIA, COPD, nocturnal hypoxemia on home O2 at night as per records, chronic anemia (baseline hemoglobin of 11), mood disorder, past tobacco abuse. Last confinement May 2021 for UTI, decompensated heart failure. 1 week history of junky cough symptoms, low-grade fever, poor appetite, short ness of breath worse on exertion no chest pain. Admits to sick COVID-19 contacts. Patient does not receive COVID-19 vaccination. At the ER, wide-complex tachycardia noted on the monitor. Patient nauseous during episode. Denies chest pain or unusual shortness of breath. Lowest O2 sats at the ER 93 on room air Patient given Decadron at the ER. 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 Per Admitting Provider Physical Exam: GENERAL: wane, uncomfortable, no respiratory distress SKIN: Normal color, warm HEENT: [place] palpebral conjunctivae, no ptosis, dry buccal mucosa, nasal cannula in place NECK : Supple, no tenderness CHEST : Decreased breath sounds, no tenderness HEART : RRR, no obvious murmurs ABDOMEN: Some distention, nontender EXTREMITIES : Minimal LE swelling, no LE tenderness, no other conspicuous deformities noted NEUROLOGIC : Coherent, no facial asymmetry, no other gross focality Principal Diagnosis Pneumonia due to COVID-19 virus infection, ventricular tachycardia, ischemic cardiomyopathy, CAD, COPD Discharge Exam Sitting on the chair with minimal shortness of breath at rest Constitutional well developed, well nourished, + ill appearing and average body habitus Eyes PERRL, conjunctivae normal, anicteric sclerae ENMT external ear and nose normal, oropharynx normal Neck trachea midline, no thyromegaly Respiratory + respiratory distress (Moderate distress at rest), + cough and + tachypneic Auscultation: + diminished lung sounds and + crackles (At the bases) Cardiovascular Rate/Rhythm: regular rate and regular rhythm; not tachycardic Heart Sounds: normal S1 and normal S2; no murmur Extremities: + edema (Trace edema bilaterally) Gastrointestinal (Abdomen) Inspection/Auscultation: normal bowel sounds; abdomen not distended Percussion/Palpation: abdomen soft; abdomen nontender Psychiatric A+Ox3, euthymic affect Lymphatic no cervical or axillary lymphadenopathy Discharge Data Allergies Allergy/AdvReac Type Severity Reaction Status Date / Time lisinopril AdvReac Mild cough Unverified 08/23/21 16:11 Consultations 08/11/21 19:09 ED Decision to Admit Stat 08/11/21 21:44 Consult Cardiology Routine Hospital Course (1) Pneumonia due to 2019-nCoV: #. [id number]-Vzairaq does not receive COVID-19 vaccination. #. Covid pneumonia 1 week history of junky cough symptoms, low-grade fever, poor appetite, shortness of breath worse on exertion a/w no chest pain. Admits to sick COVID- 19 contacts. Positive for Covid last Wednesday [employer]TING [employer]PARTMENT [employer]PER[employer]. Admitting Covid test positive. Admitting CXR: Bibasilar opacities suggestive of infectious process versus atelectasis. Admitting WBC 3.72K, patient afebrile. PT/OT, incentive spirometry, flutter valve, prone as able Continue with dexamethasone 08/11 and remdesivir 08/11 Concern for secondary bacterial infection, patient started on doxycycline 08/11. Feels a little bit better today but still requiring about 3 L of oxygen to maintain saturation We will keep her on the flake drier side and symptomatic management of cough and names of spirometry Complains to have more cough and generalized weakness Required 2 L of oxygen with ambulation but she is not yet ready to be discharged We will get PT and OT evaluation We will give 20 mg of IV Lasix x1 now on 08/15/2021 Condition remains stable with ongoing cough-Guru Santos has been added Cough is a little better and he still remains extremely weak and lethargic We will continue PT and OT and possible discharge tomorrow Remains stable as of today and wants to go home (2) Ventricular tachycardia: #. Ventricular tachycardia #. Ischemic cardiomyopathy #. CAD/PAD/HTN/HLD/TIA COPD EF 45 to 50% on 2020 TTE, Ventricular pacemaker with a defibrillator in situ At the ER, wide-complex tachycardia noted on the monitor. Patient nauseous during episode. Denies chest pain or unusual shortness of breath. Spontaneous resolution. Electrolytes WNL Patient clinically euvolemic. Appreciate cardiology input and recommendation Pacemaker interrogation has been done Monitor electrolytes and replace as appropriate. Continue home meds. Heart rate remains controlled and denies any cardiac symptoms Has had a brief episode of VT resolved spontaneously and after giving electrolytes (3) Urinary tract infection: Urine culture is growing lactobacillus species and Gardnerella like bacilli No treatment is required as below 70-year-old lady with PMH of chronic heart failure [EF 45 to 50% on 2020 TTE], CAD status post stent, valvular heart disease [moderate MR, mild AR/TR], HTN, HLD, PVD status post surgery, cerebral aneurysm, TIA, COPD, nocturnal hypoxemia on home oxygen at night (per records), chronic anemia [baseline hemoglobin of 11], mood disorder and past tobacco use presented 08/11 to our ED with complaint of shortness of breath. Per patient she had had symptoms for about 1 week prior to arrival. She reports likely she might have gotten Covid from her grandchildren. #. UTI Patient complains of pain burning while passing urine since last few days Urine culture grew lactobacillus species and Gardnerella-like bacilli No need to have any treatment #. History of cerebral aneurysm [place] [facility] [place], last follow-up was 2 years ago. #. COPD #. Past tobacco abuse #. Nocturnal hypoxemia -on home oxygen at night per records No wheezing, continue to monitor clinically Clinically appears stable with regard to COPD No wheezing at rest #. Chronic anemia At baseline DVT prophylaxis per Lovenox subcu Full code Total Time Total Time Spent Total Time Spent (In Minutes): 35 minutes Discharge Plan Discharge Items Patient Disposition: Home - Home Health Services Reason For Visit: COVID PNX, VT Discharge Diagnosis: Pneumonia due to COVID-19 virus infection, ventricular tachycardia, ischemic cardiomyopathy, CAD, COPD Condition on Discharge: Fair Activity: Resume your previous activity Non-emergency contact: Primary Care Provider Call non-emergency contact if: you have any medication questions and your symptoms worsen Follow-up/Referrals: Ankit Glynn [[employer]] - 09/02/21 9:00 am (Date & Time 09/02/2021 9:00 AM Provider Ankit Glynn PA-C Department Cardiology [facility] ) Paula Cartwright PA-C [Primary Care Provider] - 08/19/21 1:45 pm Diet: Heart Healthy Addtl Attending Provider Instructions: Please take extra precautions to avoid fall Finish your antibiotic and steroid as advised Keep taking your oxygen at nighttime Please keep appointment with your healthcare providers You will need to be in isolation for 3 more days as per CDC guideline below: Home Isolation COVID-19 Instructions The following information about Home Isolation is from the CDC Website: https://www.cdc.gov/coronavirus/2019-ncov/hcp/ovixnysq-hdjhhzn-rqblzo.html Stay home except to get medical care People who are mildly ill with COVID-19 are able to isolate at home during their illness. You should restrict activities outside your home, except for getting medical care. Do not go to work, school, or public areas. Avoid using public transportation, ride-sharing, or taxis. Separate yourself from other people and animals in your home People: As much as possible, you should stay in a specific room and away from other people in your home. Also, you should use a separate bathroom, if available. Animals: You should restrict contact with pets and other animals while you are sick with COVID-19, just like you would around other people. Although there have not been reports of pets or other animals becoming sick with COVID-19, it is st ill recommended that people sick with COVID-19 limit contact with animals until more information is known about the virus. When possible, have another member of your household care for your animals while you are sick. If you are sick with COVID-19, avoid contact with your pet, including petting, snuggling, being kissed or licked, and sharing food. If you must care for your pet or be around animals while you are sick, wash your hands before and after you interact with pets and wear a face mask. Call ahead before visiting your doctor If you have a medical appointment, call the healthcare provider and tell them that you have or may have COVID-19. This will help the healthcare providers office take steps to keep other people from getting infected or exposed. Wear a face mask You should wear a face mask when you are around other people (e.g., sharing a room or vehicle) or pets and before you enter a healthcare providers office. If you are not able to wear a face mask (for example, because it causes trouble breathing), then people who live with you should not stay in the same room with you, or they should wear a face mask if they enter your room. Cover your coughs and sneezes Cover your mouth and nose with a tissue when you cough or sneeze. Throw used tissues in a lined trash can. Immediately wash your hands with soap and water for at least 20 seconds or, if soap and water are not available, clean your hands with an alcohol-based hand account installation specialist that contains at least 60% alcohol. Clean your hands often Wash your hands often with soap and water for at least 20 seconds, especially after blowing your nose, coughing, or sneezing; going to the bathroom; and before eating or preparing food. If soap and water are not readily available, use an alcohol-based hand account installation specialist with at least 60% alcohol, covering all surfaces of your hands and rubbing them together until they feel dry. Soap and water are the best option if hands are visibly dirty. Avoid touching your eyes, nose, and mouth with unwashed hands. Avoid sharing personal household items You should not share dishes, drinking glasses, cups, eating utensils, towels, or bedding with other people or pets in your home. After using these items, they should be washed thoroughly with soap and water. Clean all high-touch surfaces everyday High touch surfaces include counters, tabletops, doorknobs, bathroom fixtures, toilets, phones, keyboards, tablets, and bedside tables. Also, clean any surfaces that may have blood, stool, or body fluids on them. Use a household cleaning spray or wipe, according to the label instructions. Labels contain instructions for safe and effective use of the cleaning product including precautions you should take when applying the product, such as wearing gloves and making sure you have good ventilation during use of the product. Monitor your symptoms Seek prompt medical attention if your illness is worsening (e.g., difficulty breathing).Beforeseeking care, call your healthcare provider and tell them that you have, or are being evaluated for, COVID-19. Put on a face mask before you enter the facility. These steps will help the healthcare providers office to keep other people in the office or waiting room from getting infected or exposed. Ask your healthcare provider to call the local or state health department. Persons who are placed under active monitoring or facilitated self- monitoring should follow instructions provided by their local health department or occupational health professionals, as appropriate. When working with your local health department check their available hours. If you have a medical emergency and need to call 911, notify the dispatch personnel that you have, or are being evaluated for COVID-19. If possible, put on a face mask before emergency medical services arrive. Discontinuing home isolation Patients with confirmed COVID-19 should remain under home isolation precautions until the risk of secondary transmission to others is thought to be low. The decision to discontinue home isolation precautions should be made on a [id number] basis, in consultation with healthcare providers and [facility] and [facility] health departments. Pending Studies at Discharge: No Stand-Alone Forms: [facility] [address] [employer], Smoking Cessation Medications and DC Order Prescriptions: New furosemide 40 mg Tablet 40 mg PO MoWeFr@0900 30 Days Qty: 30 RF: 0 furosemide 20 mg Tablet 20 mg PO SuTuThSa@0900 30 Days Qty: 30 RF: 0 dextromethorphan-guaifenesin [Mucinex DM] 60-1,200 mg tablet extended release 12 hr 1 tab PO BID PRN (Reason: cough) Qty: 20 RF: 0 Continued buspirone 5 mg tablet 5 mg PO TID RF: 0 clopidogrel [Plavix] 75 mg tablet 75 mg PO HS RF: 0 gabapentin [Neurontin] 300 mg capsule 300 mg PO QID RF: 0 ezetimibe [Zetia] 10 mg tablet 10 mg PO HS RF: 0 pantoprazole [Protonix] 40 mg tablet,delayed release (DR/EC) 40 mg PO QAM RF: 0 nitroglycerin [Nitrostat] 0.4 mg tablet, sublingual 0.4 mg sublingual UD PRN (Reason: Chest Pain) RF: 0 aspirin [Aspirin Low Dose] 81 mg Tablet,Delayed Release (Dr/Ec) 81 mg PO QAM RF: 0 trazodone 50 mg tablet 50 - 100 mg PO HS PRN (Reason: Sleep) RF: 0 rosuvastatin [Crestor] 20 mg tablet 20 mg PO HS RF: 0 Changed magnesium oxide 400 mg magnesium Tablet 400 mg PO BID Qty: 0 RF: 0 Discontinued furosemide 20 mg tablet 20 mg PO QAM RF: 0 No Action carvedilol 3.125 mg tablet 3.125 mg PO BID RF: 0 cefdinir 300 mg capsule 300 mg PO BID Qty: 8 RF: 0 metoprolol succinate 25 mg Tablet Extended Release 24 Hr 12.5 mg PO BID Qty: 60 RF: 0 Discharge Orders: Discharge Order (Routine); Ordered 08/18/21 Ordered By: Trever Foster Admission Data Admit Date/Time: 08/11/21 19:57 Attending Provider: Trever Foster Admit Provider: Reid Ravi Primary Care Provider: Paula Cartwright Other Providers: Reid Ravi ; Felipe Luis ; Eliezer Pop ; Steven Spencer ; Charanjit Contreras ; Marin Farias ; Ankit Glynn ; Amrita Velasquez ; Amanda Tovar ; Roxana Rios ; Xu Nathan ; Rafael Davis Other Interventions: Discharge Summary Assessment (RN) Last Done: 08/18/21 15:22
== END 2021-08-18 17:03 | disposition home health service (06) | DRG 177 ==
LOC: ED 14:33 → 2E 19:57 → SUATTDRO 19:57 → 2E 21:06

== ENCOUNTER 2021-08-23 15:09 | Inpatient (IN) ==
[2021-08-23] MEDS ORDERED: SODIUM CHLORIDE 0.9% 1000ML 1,000 ML IV SCH (16:45)
[2021-08-23 17:00] LABS: Basophils # (auto) 0.02 K/uL (0-0.2); Basophils % (auto) 0.1 %; Eosinophils # (auto) 0.02 K/uL (0-0.5); Eosinophils % (auto) 0.1 %; Hematocrit (blood only) 37.3 % (37-47); Hemoglobin 12.2 g/dL (12.0-16.0); Immature Granulocytes # (auto) 0.15 K/uL (0.00-0.02); Immature Granulocytes % (auto) 0.9 %; Lymphocytes % (auto) 14.2 %; Mean Corpuscular Hemoglobin 31.2 pg (25-34); Mean Corpuscular Hgb Conc 32.7 g/dL (32-36); Mean Corpuscular Volume 95.4 fL (80-100); Mean Platelet Volume 10.3 fL (7.4-10.4); Monocytes % (auto) 11.8 %; Neutrophils # (auto) 11.78 K/uL (1.4-6.5); Neutrophils % (auto) 72.9 %; Platelet Count 250 K/uL (130-400); RDW Coefficient of Variation 14.2 % (11.5-14.5); RDW Standard Deviation 49.7 fL (36.4-46.3); Red Blood Count 3.91 M/uL (4.2-5.4); White Blood Count 16.17 K/uL (4.8-10.8)
[2021-08-23 17:09] LABS: Albumin Level 2.3 gm/dl (3.4-5.0); BUN Creatinine Ratio 29.2 (10-20); Creatinine Clr Calc Pharmacy 34.4 ml/min; Est GFR (African American) 47.8 ml/min; Est GFR (Non-African American) 41.2 ml/min; Magnesium 2.2 mg/dl (1.8-2.4); Potassium 3.8 mmol/L (3.5-5.1)
[2021-08-23 17:28] LABS: Albumin Globulin Ratio 0.6 (0.9-2); Bilirubin,Total 0.3 mg/dl (0.2-1); Globulin 3.7 gm/dl (2.5-4.0); Thyroid Stimulating Hormone 2.12 uIu/ml (0.300-4.500); Troponin I 0.047 ng/ml (0-0.045)
--- NOTE | 2021-08-23 17:38 | XRay Report ---
XR chest 1V portable CLINICAL HISTORY: recent pna/covid TECHNIQUE: Single frontal radiograph of the chest was obtained. Comparison: Comparison is made to chest one view 08/26/2021 FINDINGS: Stable dual lead pacemaker defibrillator. Cardiomegaly is noted. Calcified aortic knob is seen. Bilat eral lower lung predominant airspace opacities are seen. No evidence of pleural effusion or pneumotho rax. IMPRESSION: 1. Bilateral lower lung predominant airspace opacities which may represent atelectasis, pneumonia, a nd/or aspiration. 2. Stable cardiomegaly. ACT 112: Negative or not required by law. Electronically signed by: Vlad Keenan M.D. 08/23/2021 5:37 PM
--- NOTE | 2021-08-23 17:49 | Emergency Department Note ---
History of Present Illness General Chief complaint: Cough Stated complaint: SLEEPING ALL DAY/COUGH/CHILLS/SOB Time Seen by Provider: 08/23/21 15:59 Source: patient Mode of arrival: ambulatory Limitations: no limitations History of Present Illness Provider complaint: weakness, low bp at home This is a 70-year-old female presents emergency department with daughter at bedside due to concern for persistent weakness and low blood pressure. Patient recently hospitalized with Covid pneumonia, dyspnea, and urinary tract infection. Patient does have underlying COPD and CHF. Patient states she has had persistent weakness since discharge, persistent coarse cough. She states she does wear oxygen at night, but does not need it during the day. She denies any change in the color of her sputum. Patient states she does use breathing treatments at home. Patient denies any overt chest pain or abdominal pain. Denies accompanying leg swelling. Daughter states they tried to check her blood pressure at home and it was unreadable low on their machine. Daughter is concerned that she may be over diuresed that she does take a diuretic daily. She states prior to her last admission she was on 20 mg daily. She states since discharge she has been alternating between 20 mg and 40 mg. Pt seen during a time of high acuity and national emergency pandemic while wearing PPE. Home Medications Medication Instructions Recorded Confirmed Type buspirone 5 mg tablet 5 mg PO TID 12/24/18 08/23/21 History clopidogrel 75 mg tablet (Plavix) 75 mg PO HS 12/24/18 08/23/21 History ezetimibe 10 mg tablet (Zetia) 10 mg PO HS 12/24/18 08/23/21 History gabapentin 300 mg capsule 300 mg PO QID 12/24/18 08/23/21 History (Neurontin) pantoprazole 40 mg tablet,delayed 40 mg PO QAM 12/24/18 08/23/21 History release (Protonix) losartan 25 mg tablet (Cozaar) 25 mg PO HS 08/07/19 08/23/21 History nitroglycerin 0.4 mg sublingual 0.4 mg SUBLINGUAL UD PRN 08/07/19 08/23/21 History tablet (Nitrostat) aspirin 81 mg tablet,delayed 81 mg PO QAM 05/07/21 08/23/21 History release (Aspirin Low Dose) metoprolol succinate 25 mg 25 mg PO BID #60 tab 05/09/21 08/23/21 Rx tablet,extended release 24 hr rosuvastatin 20 mg tablet (Crestor) 20 mg PO HS 08/11/21 08/23/21 History trazodone 50 mg tablet 50 - 100 mg PO HS PRN 08/11/21 08/23/21 History dextromethorphan-guaifenesin ER 60 1 tab PO BID PRN #20 tab 08/18/21 08/23/21 Rx mg-1,200 mg tab,extend release,12hr (Mucinex DM) furosemide 20 mg tablet 20 mg PO SuTuThSa@0900 30 Days #30 08/18/21 08/23/21 Rx tab furosemide 40 mg tablet 40 mg PO MoWeFr@0900 30 Days #30 08/18/21 08/23/21 Rx tab magnesium oxide 400 mg PO BID #0 tab 08/18/21 08/23/21 Rx carvedilol 3.125 mg tablet 3.125 mg PO BID 08/23/21 08/23/21 History Allergies Allergy/AdvReac Type Severity Reaction Status Date / Time lisinopril AdvReac Mild cough Unverified 08/23/21 16:11 Past Med/Surg History Medical History Bilateral femoral artery stenosis "Multiple stents " Biventricular cardiac pacemaker in situ CAD (coronary artery disease) Cardiac defibrillator in place CHF (congestive heart failure) CHF (congestive heart failure) Chronic low back pain COPD (chronic obstructive pulmonary disease) Depression Elevated troponin GERD (gastroesophageal reflux disease) History of TIA (transient ischemic attack) HTN (hypertension) Hyperlipemia CA (myocardial infarction) Pacemaker PVD (peripheral vascular disease) Surgical History Stented coronary artery Social History Smoking Status: Current every day smoker Cigarettes Per Day: 5; Second Hand Exposure: No; Tobacco Cessation Education Requested by Patient: No Hx Alcohol Use: No Hx Substance Use: No Preferred Language: [place] Irish 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 Ability: Effective Helpdesk Manager Required: No Beliefs That Will Affect Care: None marital status: Current Living Situation: Spouse and Family Current Living Situation Comment: Lived with and grandchildren Other Information That Helps Us Care for You: No Feels Safe at Home: Yes Safety Concerns: Feels Safe At This Time Assistive Devices: Cane, Denture - Upper, Denture - Lower, Glasses and Oxygen - at Night Review of Systems A total of 10 systems reviewed and were otherwise negative All systems reviewed & are unremarkable except as noted in HPI & below Physical Exam Vital Signs Vital Signs - 24 hr 08/23/21 15:09 08/23/21 15:18 08/23/21 17:29 Temperature 36.9 C 37.1 C Temperature Source Temporal Artery Scan Oral Pulse Rate 82 Pulse Rate [Apical] Pulse Rhythm [Apical] Pulse Strength [Apical] Respiratory Rate 18 18 Respiratory Effort / Characteristics Non-Labored Spontaneous Non-Labored Spontaneous Respiratory Depth Normal Normal Respiratory Pattern Regular Regular Blood Pressure 72/52 L Blood Pressure [Right Arm] 108/62 Blood Pressure Mean 58 Blood Pressure Mean [Right Arm] 77 Blood Pressure Position [Right Arm] Lying Pulse Oximetry 91 95 Oxygen Delivery Method Room Air Nasal Cannula Oxygen Flow Rate 2 Sepsis Recent Fever Within 48 Hours No Sepsis New/Unexplained Change in Mental Status N/A Sepsis Action Taken by Nursing No Action Required 08/23/21 17:31 08/23/21 17:45 08/23/21 17:46 Temperature Temperature Source Pulse Rate Pulse Rate [Apical] 72 73 76 Pulse Rhythm [Apical] Regular Regular Regular Pulse Strength [Apical] Normal Normal Normal Respiratory Rate 20 20 20 Respiratory Effort / Characteristics Non-Labored Spontaneous Non-Labored Spontaneous Non-Labored Spontaneous Respiratory Depth Normal Normal Normal Respiratory Pattern Regular Regular Regular Blood Pressure Blood Pressure [Right Arm] 89/56 L 76/52 L 62/46 L Blood Pressure Mean Blood Pressure Mean [Right Arm] 67 60 51 Blood Pressure Position [Right Arm] Lying Lying Lying Pulse Oximetry 95 96 96 Oxygen Delivery Method Nasal Cannula Nasal Cannula Nasal Cannula Oxygen Flow Rate 2 2 2 Sepsis Recent Fever Within 48 Hours Sepsis New/Unexplained Change in Mental Status Sepsis Action Taken by Nursing 08/23/21 17:52 08/23/21 17:55 08/23/21 18:00 Temperature Temperature Source Pulse Rate Pulse Rate [Apical] 72 74 71 Pulse Rhythm [Apical] Regular Regular Regular Pulse Strength [Apical] Normal Normal Normal Respiratory Rate 20 20 20 Respiratory Effort / Characteristics Non-Labored Spontaneous Non-Labored Spontaneous Non-Labored Spontaneous Respiratory Depth Normal Normal Normal Respiratory Pattern Regular Regular Regular Blood Pressure Blood Pressure [Right Arm] 78/52 L 83/54 L 99/60 L Blood Pressure Mean Blood Pressure Mean [Right Arm] 60 63 73 Blood Pressure Position [Right Arm] Lying Lying Lying Pulse Oximetry 95 94 96 Oxygen Delivery Method Nasal Cannula Nasal Cannula Nasal Cannula Oxygen Flow Rate 2 2 2 Sepsis Recent Fever Within 48 Hours Sepsis New/Unexplained Change in Mental Status Sepsis Action Taken by Nursing 08/23/21 18:15 08/23/21 18:36 Temperature Temperature Source Pulse Rate Pulse Rate [Apical] 74 72 Pulse Rhythm [Apical] Regular Regular Pulse Strength [Apical] Normal Normal Respiratory Rate 22 20 Respiratory Effort / Characteristics Non-Labored Spontaneous Non-Labored Spontaneous Respiratory Depth Normal Normal Respiratory Pattern Regular Regular Blood Pressure Blood Pressure [Right Arm] 82/54 L 82/53 L Blood Pressure Mean Blood Pressure Mean [Right Arm] 63 62 Blood Pressure Position [Right Arm] Lying Lying Pulse Oximetry 96 95 Oxygen Delivery Method Nasal Cannula Nasal Cannula Oxygen Flow Rate 2 2 Sepsis Recent Fever Within 48 Hours Sepsis New/Unexplained Change in Mental Status Sepsis Action Taken by Nursing GENERAL: alert, ill appearing, well nourished, no distress, non-toxic EYE EXAM: normal conjunctiva, PERRL and EOM's grossly intact OROPHARYNX: no exudate, no erythema, lips, buccal mucosa, and tongue normal and mucous membranes are moist NECK: supple, no nuchal rigidity, no adenopathy, non-tender LUNGS: Clear to auscultation. Normal chest wall mechanics, no w/r/r HEART: no murmurs, S1 normal and S2 normal ABDOMEN: abdomen soft, non-tender, normo-active bowel sounds, no masses, no rebound or guarding. BACK: Back is symmetrical on inspection and there is no deformity, no midline tenderness, no CVA tenderness. SKIN: no rashes and no bruising UPPER EXTREMITIES: upper extremities are grossly normal. FROM, nml pulses b/l. LOWER EXTREMITIES: No pitting edema. FROM, nml pulses b/l. NEURO EXAM: Normal sensorium, cranial nerves II-XII grossly intact, normal speech, no gross weakness of arms, no gross weakness of legs. Gross sensation intact. Course Course 1801: BP started dropping again, given another 250 ml bolus. 1824: Discussed with Dr. Oliveira. Administered Medications Aspirin (Aspirin 81 Mg Ectab) 81 mg PO QAM NIKOS Stop: 09/23/21 08:59 Last Admin: 08/24/21 09:36 Dose: 81 mg Documented by: [id number] Buspirone HCl (Buspirone 5 Mg Tab) 5 mg PO TID NIKOS Stop: 09/22/21 22:28 Last Admin: 08/24/21 15:26 Dose: 5 mg Documented by: [id number] Admin: 08/24/21 09:36 Dose: 5 mg Documented by: [id number] Admin: 08/23/21 23:50 Dose: 5 mg Documented by: [id number] Clopidogrel Bisulfate (Clopidogrel Bisulfate 75 Mg Tab) 75 mg PO HS NIKOS Stop: 09/22/21 22:28 Last Admin: 08/23/21 23:50 Dose: 75 mg Documented by: [id number] Ezetimibe (Ezetimibe 10 Mg Tablet) 10 mg PO HS NIKOS Stop: 09/22/21 22:28 Last Admin: 08/23/21 23:50 Dose: 10 mg Documented by: [id number] Gabapentin (Gabapentin 300 Mg Cap) 300 mg PO BID NIKOS Stop: 09/23/21 08:59 Last Admin: 08/24/21 09:37 Dose: 300 mg Documented by: [id number] Heparin Sodium (Porcine) (Heparin Sod 5,000 Unit/0.5 Ml Vial) 5,000 units SQ Q8 NIKOS Stop: 09/22/21 22:28 Last Admin: 08/24/21 15:25 Dose: 5,000 units Documented by: [id number] Admin: 08/24/21 09:35 Dose: 5,000 units Documented by: [id number] Admin: 08/23/21 23:49 Dose: 5,000 units Documented by: [id number] Sodium Chloride (Nss 1000ml) 1,000 mls @ 50 mls/hr IV .Q20H NIKOS Stop: 08/25/21 09:34 Last Admin: 08/24/21 13:17 Dose: 50 mls/hr Documented by: [id number] Infusion: 08/24/21 13:09 Dose: 0 mls/hr Documented by: [id number] Admin: 08/23/21 23:05 Dose: 75 mls/hr Documented by: [id number] Cefepime HCl 2,000 mg/ Syringe 20 mls @ 5 mls/min IV Q12H PENDING SALE TO [facility]; Protocol Stop: 08/31/21 15:59 Last Admin: 08/24/21 18:26 Dose: 5 mls/min Documented by: [id number] Pantoprazole Sodium (Pantoprazole 40 Mg Tab) 40 mg PO QAM NIKOS Stop: 09/23/21 08:59 Last Admin: 08/24/21 09:37 Dose: 40 mg Documented by: [id number] Rosuvastatin Calcium (Rosuvastatin Calcium 20 Mg Tab) 20 mg PO HS NIKOS Stop: 09/22/21 22:28 Last Admin: 08/23/21 23:50 Dose: 20 mg Documented by: [id number] Discontinued Medications Hydrocortisone Sodium Succinate (Hydrocortisone Sod Succinate 100 Mg/2 Ml Vial) 100 mg IV NOW STA Stop: 08/23/21 19:19 Last Admin: 08/23/21 19:29 Dose: 100 mg Documented by: [id number] Hydrocortisone Sodium Succinate (Hydrocortisone Sod Succinate 100 Mg/2 Ml Vial) 50 mg IV Q6H NIKOS Stop: 09/23/21 01:59 Last Admin: 08/24/21 02:13 Dose: 50 mg Documented by: [id number] Sodium Chloride (Nss 1000ml) 1,000 mls @ 125 mls/hr IV .Q8H NIKOS Stop: 09/22/21 16:44 Last Infusion: 08/23/21 23:05 Dose: 0 mls/hr Documented by: [id number] Admin: 08/23/21 16:57 Dose: 125 mls/hr Documented by: [id number] Sodium Chloride (Nss) 250 mls @ 999 mls/hr IV .Q16M ONE Stop: 08/23/21 22:44 Last Infusion: 08/23/21 20:47 Dose: 0 mls/hr Documented by: [id number] Admin: 08/23/21 20:30 Dose: 999 mls/hr Documented by: [id number] Cefepime HCl 2,000 mg/ Syringe 20 mls @ 5 mls/min IV ONE ONE; Protocol Stop: 08/24/21 04:18 Last Admin: 08/24/21 04:26 Dose: 5 mls/min Documented by: [id number] Hydrocortisone Sodium (Succinate 50 mg/ Syringe) 1 mls @ 4 mls/min IV Q6H NIKOS Stop: 09/23/21 07:59 Last Admin: 08/24/21 14:30 Dose: 4 mls/min Documented by: [id number] Admin: 08/24/21 10:45 Dose: 4 mls/min Documented by: [id number] Miscellaneous Information (Consult Pharmacy) 1 ea N/A NOW STA Stop: 08/23/21 18:45 Last Admin: 08/23/21 19:40 Dose: Not Given Documented by: [id number] Medical Decision Making Differential Diagnosis Differential Diagnosis includes but is not limited to dehydration, stroke, anemia, hypoglycemia, hyponatremia, hypernatremia, urinary tract infection, pneumonia, bronchitis, sepsis, gastroenteritis, additional abdominal pathology, metabolic abnormalities and infections. Medical Records Attestation: I reviewed the patient's medical records. Home Medications Current Medication List: was personally reviewed by me Laboratory Data Attestation: I reviewed the patient's lab results. Result diagrams: 08/24/21 06:20 08/24/21 06:20 Lab Results 08/23/21 08/23/21 08/23/21 Range/Units 15:52 15:52 15:52 WBC 16.17 H (4.8-10.8) K/uL RBC 3.91 L (4.2-5.4) M/uL Hgb 12.2 (12.0-16.0) g/dL Hct 37.3 (37-47) % MCV 95.4 (80-100) fL MCH 31.2 (25-34) pg MCHC 32.7 (32-36) g/dL RDW Std Deviation 49.7 H (36.4-46.3) fL RDW Coeff of Ariela 14.2 (11.5-14.5) % Plt Count 250 (130-400) K/uL MPV 10.3 (7.4-10.4) fL Immature Gran % (Auto) 0.9 % Neut % (Auto) 72.9 % Lymph % (Auto) 14.2 % [place] % (Auto) 11.8 % Eos % (Auto) 0.1 % Baso % (Auto) 0.1 % Neut # (Auto) 11.78 H (1.4-6.5) K/uL Lymph # (Auto) 2.30 (1.2-3.4) K/uL [place] # (Auto) 1.90 H (0.11-0.59) K/uL Eos # (Auto) 0.02 (0-0.5) K/uL Baso # (Auto) 0.02 (0-0.2) K/uL Immature Gran # (Auto) 0.15 H (0.00-0.02) K/uL Sodium 138 (136-145) mmol/L Potassium 3.8 (3.5-5.1) mmol/L Chloride 103 (98-107) mmol/L Carbon Dioxide 26 (21-32) mmol/L Anion Gap 8.0 (3-11) BUN 38 H (7-18) mg/dl Creatinine 1.30 H (0.6-1.2) mg/dl Est Cr Clr Drug Dosing 34.4 ml/min Est GFR ( Amer) 47.8 ml/min Est GFR (Non-Af Amer) 41.2 ml/min BUN/Creatinine Ratio 29.2 H (10-20) Glucose 90 (70-99) mg/dl Calcium 8.0 L (8.5-10.1) mg/dl Magnesium 2.2 (1.8-2.4) mg/dl Total Bilirubin 0.3 (0.2-1) mg/dl AST 39 H (15-37) U/L ALT 93 H (12-78) U/L Alkaline Phosphatase 77 (45-117) U/L Troponin I 0.047 H* (0-0.045) ng/ml NT-Pro-B Natriuret Pep 3194 H (0-900) pg/ml Total Protein 6.0 L (6.4-8.2) gm/dl Albumin 2.3 L (3.4-5.0) gm/dl Globulin 3.7 (2.5-4.0) gm/dl Albumin/Globulin Ratio 0.6 L (0.9-2) Procalcitonin < 0.05 (0-0.5) ng/ml TSH 2.120 (0.300-4.500) uIu/ml SARS-CoV-2 (PCR) (Negative) 08/23/21 Range/Units 17:58 WBC (4.8-10.8) K/uL RBC (4.2-5.4) M/uL Hgb (12.0-16.0) g/dL Hct (37-47) % MCV (80-100) fL MCH (25-34) pg MCHC (32-36) g/dL RDW Std Deviation (36.4-46.3) fL RDW Coeff of Ariela (11.5-14.5) % Plt Count (130-400) K/uL MPV (7.4-10.4) fL Immature Gran % (Auto) % Neut % (Auto) % Lymph % (Auto) % Tw[place]gs % (Auto) % Eos % (Auto) % Baso % (Auto) % Neut # (Auto) (1.4-6.5) K/uL Lymph # (Auto) (1.2-3.4) K/uL [place] # (Auto) (0.11-0.59) K/uL Eos # (Auto) (0-0.5) K/uL Baso # (Auto) (0-0.2) K/uL Immature Gran # (Auto) (0.00-0.02) K/uL Sodium (136-145) mmol/L Potassium (3.5-5.1) mmol/L Chloride (98-107) mmol/L Carbon Dioxide (21-32) mmol/L Anion Gap (3-11) BUN (7-18) mg/dl Creatinine (0.6-1.2) mg/dl Est Cr Clr Drug Dosing ml/min Est GFR ( Amer) ml/min Est GFR (Non-Af Amer) ml/min BUN/Creatinine Ratio (10-20) Glucose (70-99) mg/dl Calcium (8.5-10.1) mg/dl Magnesium (1.8-2.4) mg/dl Total Bilirubin (0.2-1) mg/dl AST (15-37) U/L ALT (12-78) U/L Alkaline Phosphatase (45-117) U/L Troponin I (0-0.045) ng/ml NT-Pro-B Natriuret Pep (0-900) pg/ml Total Protein (6.4-8.2) gm/dl Albumin (3.4-5.0) gm/dl Globulin (2.5-4.0) gm/dl Albumin/Globulin Ratio (0.9-2) Procalcitonin (0-0.5) ng/ml TSH (0.300-4.500) uIu/ml SARS-CoV-2 (PCR) NEGATIVE (Negative) Imaging Data Radiologist's Impression: Chest X-Ray 08/23/21 16:36 XR chest 1V portable CLINICAL HISTORY: recent pna/covid TECHNIQUE: Single frontal radiograph of the chest was obtained. Comparison: Comparison is made to chest one view 08/26/2021 FINDINGS: Stable dual lead pacemaker defibrillator. Cardiomegaly is noted. Calcified aortic knob is seen. Bilateral lower lung predominant airspace opacities are seen. No evidence of pleural effusion or pneumothorax. IMPRESSION: 1. Bilateral lower lung predominant airspace opacities which may represent atelectasis, pneumonia, and/or aspiration. 2. Stable cardiomegaly. ACT 112: Negative or not required by law. Electronically signed by: Vlad Keenan M.D. 08/23/2021 5:37 PM ECG Data Attestation: I personally reviewed and interpreted this ECG as follows: Indication: + SOB/dyspnea Rate (beats per minute): 72 Rhythm: + other ECG Intervals/blocks: + IVCD and + Prolonged QT ECG [place]: + Normal ECG ST segments: + Nonspecific ST abnormalities MDM Narrative This is a 70-year-old female who presents with family at bedside due to concern for persistent weakness and low blood pressure. Daughter at bedside concerned patient is taking too much diuretic which is leading to her low blood pressure and increased weakness. Patient recently hospitalized with Covid pneumonia and urinary tract infection. Patient does have history of COPD in addition. Patient was afebrile here, however was initially hypotensive. She did respond to a 250 mL bolus of fluids which was then turned back to a maintenance rate due to her history of ischemic cardiomyopathy and a BiV pacemaker due to an EF of 40%. Patient's blood pressure began to trend down again and she was given additional 250 mL bolus prior to my conversation with the hospitalist about additional inpatient treatment and management. While awaiting hospitalist evaluation, she began to trend down again and was given an additional 250 mL bolus before being turned back to maintenance as a precaution. Patient was fluid responsive. I do not suspect bacteremia/sepsis at this time. Patient's procalcitonin negative. I suspect her leukocytosis was related to recent dexamethasone as treatment for her Covid infection. I do not suspect acute vascular etiology of her hypotension. An order was placed for continuous cardiac monitoring. The monitor shows a rate of _70_ with _paced_ rhythm. Impression & Plan Generalized weakness, COPD (chronic obstructive pulmonary disease), Hypotension Discharge Plan Visit Data Chief Complaint: Cough Stated Complaint: SLEEPING ALL DAY/COUGH/CHILLS/SOB ED Provider: Juliette Allen Discharge Problem: Generalized weakness, COPD (chronic obstructive pulmonary disease), Hypotension Patient Disposition: Admitted As Inpatient Discharge Instructions Interventions: ED Discharge Assessment Last Done: 08/23/21 20:43 Discharge Problem: COPD (chronic obstructive pulmonary disease) Qualifiers: COPD type: unspecified COPD Qualified Code(s): J44.9 - Chronic obstructive pulmonary disease, unspecified Hypotension Qualifiers: Hypotension type: unspecified hypotension type Qualified Code(s): I95.9 - Hypotension, unspecified
[2021-08-23] MEDS ORDERED: CONSULT PHARMACY STA (18:44)
[2021-08-23] MEDS ORDERED: HYDROCORTISONE SOD SUCCINATE 100 MG/2 ML VIAL IV STA (19:18)
--- NOTE | 2021-08-23 19:26 | History & Physical Report ---
Date of Service August 23, 2021 Assessment & Plan (1) Hypotension: Plan: 70-year-old female with history of recent Covid pneumonia, CAD, ischemic cardiomyopathy EF 45 to 50%, grade 1 diastolic dysfunction, hypertension, PAD, COPD, TIA, cerebral aneurysm Presenting with weakness and hypotension. Hypotension Likely secondary to hypovolemia from dehydration, acute kidney injury from recent diuretic increase Possible adrenal insufficiency --Patient received 250 cc IV NSS bolus x3 BP still on the lower side --Hydrocortisone 100 mg IV, then 50 mg every 6 hours ordered for possible adrenal insufficiency given recent completion of dexamethasone course for Covid IV NSS 75 cc/hr --Sepsis unlikely at this point but does have possible pneumonia on x-ray which could be related to her Covid infection CT chest without contrast Check procalcitonin Check blood cultures, urine culture Cefepime IV added for possible healthcare associated pneumonia Recent Covid pneumonia Discharged August 18, 2021 History of coronary disease Ischemic cardiomyopathy EF 45 to 50% Diastolic CHF Hypertension -Patient the dry side Hold Lasix Hold metoprolol, losartan COPD Not in exacerbation Incentive spirometry TIA Cerebral aneurysm Continue aspirin DVT prophylaxis Heparin SC q8h Disposition pending lives at home will need PT/OT evaluation when medically stable plan of care discussed with patient and her granddaughter in detail and at length all questions answered they are understanding, agreeable, comfortable with the plan of care History of Present Illness Chief Complaint: Weakness, hypotension Primary Care Provider: Paula Cartwright 70-year-old female with history of recent Covid pneumonia, CAD, ischemic cardiomyopathy EF 45 to 50%, grade 1 diastolic dysfunction, hypertension, PAD, COPD, TIA, cerebral aneurysm Presenting with weakness and hypotension. Patient discharged from [facility] last August 18, 2021 after being admitted for Covid pneumonia. She has completed dexamethasone, remdesivir courses while admitted. On discharge, patient's Lasix was increased from 20 mg daily to 20 mg and 40 mg daily, alternating doses. As per family, since discharge, the patient has experienced progressive weakness. She was also noted to have low blood pressure at home. At the ER, the patient was received hypotensive. She was given 2 doses of 250 cc normal saline boluses. Creatinine increased to 1.3 from baseline of 0.8. On exam, the patient was seen resting in bed, not in distress, comfortable. Appears weak and tired. She was on 2 L of nasal cannula. She denies having any active shortness of breath, chest pain, potatoes, dizziness. Has intermittent cough, no fevers or chills. No other symptoms Allergies Allergy/AdvReac Type Severity Reaction Status Date / Time lisinopril AdvReac Mild cough Unverified 08/23/21 16:11 Home Medications Medication Instructions Recorded Confirmed Type buspirone 5 mg tablet 5 mg PO TID 12/24/18 08/23/21 History clopidogrel 75 mg tablet (Plavix) 75 mg PO HS 12/24/18 08/23/21 History ezetimibe 10 mg tablet (Zetia) 10 mg PO HS 12/24/18 08/23/21 History gabapentin 300 mg capsule 300 mg PO QID 12/24/18 08/23/21 History (Neurontin) pantoprazole 40 mg tablet,delayed 40 mg PO QAM 12/24/18 08/23/21 History release (Protonix) losartan 25 mg tablet (Cozaar) 25 mg PO HS 08/07/19 08/23/21 History nitroglycerin 0.4 mg sublingual 0.4 mg SUBLINGUAL UD PRN 08/07/19 08/23/21 History tablet (Nitrostat) aspirin 81 mg tablet,delayed 81 mg PO QAM 05/07/21 08/23/21 History release (Aspirin Low Dose) metoprolol succinate 25 mg 25 mg PO BID #60 tab 05/09/21 08/23/21 Rx tablet,extended release 24 hr rosuvastatin 20 mg tablet (Crestor) 20 mg PO HS 08/11/21 08/23/21 History trazodone 50 mg tablet 50 - 100 mg PO HS PRN 08/11/21 08/23/21 History dextromethorphan-guaifenesin ER 60 1 tab PO BID PRN #20 tab 08/18/21 08/23/21 Rx mg-1,200 mg tab,extend release,12hr (Mucinex DM) furosemide 20 mg tablet 20 mg PO SuTuThSa@0900 30 Days #30 08/18/21 08/23/21 Rx tab furosemide 40 mg tablet 40 mg PO MoWeFr@0900 30 Days #30 08/18/21 08/23/21 Rx tab magnesium oxide 400 mg PO BID #0 tab 08/18/21 08/23/21 Rx carvedilol 3.125 mg tablet 3.125 mg PO BID 08/23/21 08/23/21 History Past Med/Surg History Medical History Bilateral femoral artery stenosis "Multiple stents " Biventricular cardiac pacemaker in situ CAD (coronary artery disease) Cardiac defibrillator in place CHF (congestive heart failure) CHF (congestive heart failure) Chronic low back pain COPD (chronic obstructive pulmonary disease) Depression Elevated troponin GERD (gastroesophageal reflux disease) History of TIA (transient ischemic attack) HTN (hypertension) Hyperlipemia VT (myocardial infarction) Pacemaker PVD (peripheral vascular disease) Surgical History Stented coronary artery Social History Smoking Status: Current some day smoker Cigarettes Per Day: 5; Second Hand Exposure: No; Hx Alcohol Use: No Hx Substance Use: No Preferred Language: Venezuelan 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 Ability: Effective High Value Associate Required: No Beliefs That Will Affect Care: None marital status: Current Living Situation: Family Current Living Situation Comment: Lived with and grandchildren Feels Safe at Home: Yes Assistive Devices: Cane, Denture - Upper, Denture - Lower, Glasses and Oxygen - Continuous Review of Systems Review of Systems: all noted and negative except for above Physical Exam Physical Exam: General- oriented x 3, not in distress, speaks in sentences with no effort or accessory muscle use Head- atraumatic Eyes- PERRL, EOMI, anicteric ENT- Dry oral mucosa Neck- supple, no JVD, no adenopathy, no thyromegaly; carotids +2/2, no bruits appreciated Lungs- Mild rales at the bases, no wheezing, good air entry bilaterally Heart- normal rate, regular rhythm; no murmur, no gallop, no rub appreciated Abdomen- normal bowel sounds, nondistended, soft, nontender, no masses or hepatosplenomegaly Extremities- no pretibial edema, no calf tenderness; peripheral pulses intact Neuro- alert, oriented x 3; CN 2-12 grossly intact; motor 5/5 bilaterally;sensation 100% on all extremities; no other gross focal neurologic deficits Skin- warm & dry Results & Data Results & Data ([facility]) Vital Signs (Past 12 Hours) Vital Signs Temp Pulse Pulse Resp BP BP Pulse Ox 08/23/21 18:36 72 20 82/53 L 95 08/23/21 18:15 74 22 82/54 L 96 08/23/21 18:00 71 20 99/60 L 96 08/23/21 17:55 74 20 83/54 L 94 08/23/21 17:52 72 20 78/52 L 95 08/23/21 17:46 76 20 62/46 L 96 08/23/21 17:45 73 20 76/52 L 96 08/23/21 17:31 72 20 89/56 L 95 08/23/21 17:29 37.1 C 18 108/62 95 08/23/21 15:18 36.9 C 82 18 72/52 L 91 all noted and reviewed including below
[2021-08-23 21:40] LABS: Appearance Urine Clear (Clear); Bilirubin Urine Negative (Negative); Blood Urine Negative (Negative); Color Urine Yellow; Glucose Urine UA Negative (Negative); Ketones Urine Negative (Negative); Leukocyte Esterase Urine Negative (Negative); Nitrite Urine Negative (Negative); Protein Urine Negative (Negative); Specific Gravity Urine 1.013 (1.000-1.030); Urobilinogen Urine Negative (Negative); pH Urine 5.5 (4.5-7.5)
[2021-08-23] MEDS ORDERED: SODIUM CHLORIDE 0.9% 250 ML IV ONE (22:29)
[2021-08-23] MEDS ORDERED: CEFEPIME 2,000 MG in SYRINGE 0 ML IV ONE (22:45)
--- NOTE | 2021-08-23 22:59 | CT Scan Report ---
CT chest diagnostic wo con CLINICAL HISTORY: ff up COVID pneumonia TECHNIQUE: Multidetector row helical CT of the chest was performed. Coronal and sagittal reformations were obtained. Automated dose lowering techniques and/or adjustment according to patient size were u tilized for this exam. Comparison: Comparison is made to CT chest 12/24/2018 FINDINGS: Lungs and pleura: Diffuse interstitial opacities are increased from prior exam. Diffuse emphysematous change and bullous disease noted. Scattered groundglass and consolidative opacities are seen. Heart and pericardium: There is cardiomegaly without evidence of pericardial effusion. Vessels: Severe atherosclerotic changes in the aorta and coronary arteries. Mediastinum and tao: Subcentimeter lymph nodes are seen. Chest wall and lower neck: A stent arising from the right axillary artery is again seen. Abdomen: A hiatal hernia is seen. Bones: Unremarkable. IMPRESSION: Interval worsening of emphysema and interstitial opacities with some groundglass. This may reflect fi ndings of Covid pneumonia and post viral fibrotic changes. Mediastinal lymph nodes are likely reactiv e. ACT 112: Negative or not required by law. Electronically signed by: Vlad Keenan M.D. 08/23/2021 10:57 PM
[2021-08-23] MEDS: SODIUM CHLORIDE 0.9% 1000ML 1,000 ML IV SCH (23:05)
[2021-08-23] MEDS: HEPARIN SOD 5,000 UNIT/0.5 ML VIAL SQ SCH (23:49)
[2021-08-23] MEDS: busPIRone 5 MG TAB PO SCH (23:50)
[2021-08-23] MEDS: EZETIMIBE 10 MG TABLET PO SCH (23:50)
[2021-08-23] MEDS: CLOPIDOGREL BISULFATE 75 MG TAB PO SCH (23:50)
[2021-08-23] MEDS: ROSUVASTATIN CALCIUM 20 MG TAB PO SCH (23:50)
[2021-08-24] MEDS ORDERED: HYDROCORTISONE SOD SUCCINATE 100 MG/2 ML VIAL IV SCH (02:00)
[2021-08-24] MEDS ORDERED: CEFEPIME 2,000 MG in SYRINGE 0 ML IV ONE (04:15)
[2021-08-24 06:42] LABS: Hematocrit (blood only) 36.2 % (37-47); Hemoglobin 11.8 g/dL (12.0-16.0); Immature Granulocytes # (auto) 0.04 K/uL (0.00-0.02); Immature Granulocytes % (auto) 0.4 %; Lymphocytes # (auto) 0.98 K/uL (1.2-3.4); Lymphocytes % (auto) 8.9 %; Mean Corpuscular Hemoglobin 31.1 pg (25-34); Mean Corpuscular Hgb Conc 32.6 g/dL (32-36); Mean Corpuscular Volume 95.5 fL (80-100); Mean Platelet Volume 10.3 fL (7.4-10.4); Monocytes # (auto) 0.33 K/uL (0.11-0.59); Neutrophils # (auto) 9.72 K/uL (1.4-6.5); Neutrophils % (auto) 87.7 %; Platelet Count 199 K/uL (130-400); RDW Coefficient of Variation 14.3 % (11.5-14.5); RDW Standard Deviation 50.5 fL (36.4-46.3); Red Blood Count 3.79 M/uL (4.2-5.4); White Blood Count 11.07 K/uL (4.8-10.8)
[2021-08-24 07:48] LABS: Albumin Globulin Ratio 0.5 (0.9-2); BUN Creatinine Ratio 29.8 (10-20); Bilirubin,Total 0.3 mg/dl (0.2-1); Calcium 7.6 mg/dl (8.5-10.1); Creatinine Clr Calc Pharmacy 46.7 ml/min; Est GFR (Non-African American) 59.5 ml/min; Globulin 3.9 gm/dl (2.5-4.0); Potassium 4.4 mmol/L (3.5-5.1); Total Protein 5.9 gm/dl (6.4-8.2)
[2021-08-24] MEDS ORDERED: INFLUENZA VACCINE HIGH DOSE PF 65+ 0.7 ML SYR IM ONE (08:00)
[2021-08-24] MEDS: HEPARIN SOD 5,000 UNIT/0.5 ML VIAL SQ SCH ×3 (09:35→21:29)
[2021-08-24] MEDS: ASPIRIN 81 MG ECTAB PO SCH (09:36)
[2021-08-24] MEDS: busPIRone 5 MG TAB PO SCH ×3 (09:36→21:29)
[2021-08-24] MEDS: GABAPENTIN 300 MG CAP PO SCH ×2 (09:37→21:29)
[2021-08-24] MEDS: PANTOprazole 40 MG TAB PO SCH (09:37)
--- NOTE | 2021-08-24 10:28 | Electrocardiogram Report ---
Test Reason : Blood Pressure : / mmHG Vent. Rate : 072 BPM Atrial Rate : 072 BPM P-R Int : 098 ms QRS Dur : 144 ms QT Int : 494 ms P-R-T Axes : 050 012 -09 degrees QTc Int : 540 ms Atrial-sensed ventricular-paced rhythm Abnormal ECG When compared with ECG of 11-AUG-2021 15:45, Premature ventricular complexes are no longer Present Vent. rate has decreased BY 29 BPM Confirmed by Alejandro Swartz ([id number]) on 08/24/2021 10:28:12 AM Referred By: REFERRED SELF Confirmed By:Alejandro Swartz
[2021-08-24] MEDS: HYDROCORTISONE SOD 50 MG in SYRINGE 0 ML IV SCH ×2 (10:45→14:30)
[2021-08-24] MEDS ORDERED: CEFEPIME 2,000 MG in SYRINGE 0 ML IV SCH (11:00)
[2021-08-24] MEDS: SODIUM CHLORIDE 0.9% 1000ML 1,000 ML IV SCH (13:17)
--- NOTE | 2021-08-24 18:20 | Hospitalist Progress Note ---
Date of Service August 24, 2021 Assessment & Plan (1) Hypotension: Plan: Patient is a 70 yr female with history of recent Covid pneumonia, CAD, ischemic cardiomyopathy EF 45 to 50%, grade 1 diastolic dysfunction, hypertension, PAD, COPD, TIA, cerebral aneurysm Presenting with weakness and hypotension. Hypotension Likely secondary to dehydration, acute kidney injury, Recent diuretic increase, diarrhea Suspected adrenal insufficiency Recent COVID finished steroid course on prior hospitalization Continue IV fluids Monitor volume status Taper off of hydrocortisone as able Diarrhea check stool studies Sepsis unlikely Recent COVID infection --CT Chest:Interval worsening of emphysema and interstitial opacities with some groundglass. This may reflect findings of Covid pneumonia and post viral fibrotic changes. Mediastinal lymph nodes are likely reactive. Normal procalcitonin Blood cultures pending Empirically started on IV cefepime H/O coronary disease Ischemic cardiomyopathy EF 45 to 50% Diastolic CHF Resume home diuretics as able Hypertension Lasix, metoprolol, losartan on hold Plan to resume when blood pressure more stable COPD Not signs of exacerbation Incentive spirometry TIA Cerebral aneurysm Continue aspirin DVT Px; Heparin SQ CODE STATUS Full code Disposition PT OT prior to discharge Admission and Anticipated Discharge Date Admission Date: August 23, 2021 Subjective Patient is seen and examined at bedside States having diarrhea this morning Feels tired Denies any chest pain, dizziness, nausea, abdominal pain Minimal dyspnea on exertion since last admission Review of Systems Review of Systems: All systems reviewed & are unremarkable except as noted in Subjective Physical Exam Physical Exam: Physical Exam: Vitals signs as noted above General Appearance:Moderately built and nourished, no apparent distress Head: normocephalic, Atraumatic Eyes: normal inspection, EOMI Neck: supple, Trachea midline Respiratory/Chest: Decreased breath sounds at bases, CTA Cardiovascular: S1, S2, No murmur Abdomen/GI:Soft, Non tender, Bowel sounds present Extremities/Musculoskeletal:normal inspection, no edema Neurologic/Psych:AAOX3, grossly no focal neurological deficits Skin: normal color, warm Results & Data Results & Data ([facility]) Vital Signs (Past 12 Hours) Vital Signs Pulse Resp BP Pulse Ox 08/24/21 17:30 71 20 140/72 97 08/24/21 17:00 70 15 95 08/24/21 16:30 72 16 94 08/24/21 16:00 68 18 94 08/24/21 15:30 73 18 97 08/24/21 15:00 70 19 122/75 95 08/24/21 14:30 70 20 115/69 94 08/24/21 14:00 72 24 122/65 97 08/24/21 13:00 73 18 116/64 89 L 08/24/21 12:00 74 19 91/62 L 90 08/24/21 11:00 69 16 91/52 L 90 08/24/21 10:30 72 20 98/60 L 90 08/24/21 10:00 76 21 123/62 92 08/24/21 08:00 60 14 138/67 94 08/24/21 07:30 60 12 130/73 94 08/24/21 07:00 62 15 126/83 95 08/24/21 06:30 64 16 140/80 95 Laboratory Results Short CBC 08/24/21 Range/Units 06:20 WBC 11.07 H (4.8-10.8) K/uL Hgb 11.8 L (12.0-16.0) g/dL Hct 36.2 L (37-47) % Plt Count 199 (130-400) K/uL BMP 08/24/21 06:20 Sodium 141 Potassium 4.4 D Chloride 110 H Carbon Dioxide 25 BUN 29 H Creatinine 0.96 D Glucose 132 H Calcium 7.6 L Liver Function 08/24/21 Range/Units 06:20 Total Bilirubin 0.3 (0.2-1) mg/dl AST 20 (15-37) U/L ALT 71 (12-78) U/L Alkaline Phosphatase 75 (45-117) U/L Albumin 2.0 L (3.4-5.0) gm/dl Urine 08/23/21 Range/Units 21:05 Urine Color Yellow Urine Appearance Clear (Clear) Urine pH 5.5 (4.5-7.5) Ur Specific [place] 1.013 (1.000-1.030) Urine Protein Negative (Negative) Urine Glucose (UA) Negative (Negative)
[2021-08-24] MEDS: CEFEPIME 2,000 MG in SYRINGE 0 ML IV SCH (18:26)
[2021-08-24] MEDS ORDERED: traZODone HCL 100 MG TAB PO PRN (20:35)
[2021-08-24] MEDS: CLOPIDOGREL BISULFATE 75 MG TAB PO SCH (21:30)
[2021-08-24] MEDS: ROSUVASTATIN CALCIUM 20 MG TAB PO SCH (21:30)
[2021-08-24] MEDS: EZETIMIBE 10 MG TABLET PO SCH (21:30)
[2021-08-25] MEDS: CEFEPIME 2,000 MG in SYRINGE 0 ML IV SCH ×2 (03:14→16:03)
[2021-08-25] MEDS: HEPARIN SOD 5,000 UNIT/0.5 ML VIAL SQ SCH ×3 (05:56→22:18)
[2021-08-25 06:30] LABS: Eosinophils # (auto) 0.01 K/uL (0-0.5); Eosinophils % (auto) 0.1 %; Hematocrit (blood only) 32.4 % (37-47); Hemoglobin 10.7 g/dL (12.0-16.0); Immature Granulocytes # (auto) 0.04 K/uL (0.00-0.02); Immature Granulocytes % (auto) 0.3 %; Lymphocytes # (auto) 1.74 K/uL (1.2-3.4); Mean Corpuscular Hemoglobin 31.3 pg (25-34); Mean Corpuscular Volume 94.7 fL (80-100); Mean Platelet Volume 10.3 fL (7.4-10.4); Monocytes # (auto) 0.81 K/uL (0.11-0.59); Neutrophils # (auto) 9.03 K/uL (1.4-6.5); Neutrophils % (auto) 77.6 %; Platelet Count 196 K/uL (130-400); RDW Coefficient of Variation 14.1 % (11.5-14.5); Red Blood Count 3.42 M/uL (4.2-5.4); White Blood Count 11.63 K/uL (4.8-10.8)
[2021-08-25 07:06] LABS: Albumin Level 1.7 gm/dl (3.4-5.0); BUN Creatinine Ratio 27.4 (10-20); Calcium 8.1 mg/dl (8.5-10.1); Creatinine Clr Calc Pharmacy 47.1 ml/min; Est GFR (African American) 69.8 ml/min; Est GFR (Non-African American) 60.3 ml/min; Potassium 3.8 mmol/L (3.5-5.1)
[2021-08-25 07:08] LABS: Albumin Globulin Ratio 0.5 (0.9-2); Bilirubin,Total 0.2 mg/dl (0.2-1); Globulin 3.4 gm/dl (2.5-4.0); Total Protein 5.1 gm/dl (6.4-8.2)
[2021-08-25] MEDS: ASPIRIN 81 MG ECTAB PO SCH (08:12)
[2021-08-25] MEDS: PANTOprazole 40 MG TAB PO SCH (08:12)
[2021-08-25] MEDS: GABAPENTIN 300 MG CAP PO SCH ×2 (08:13→20:27)
[2021-08-25] MEDS: busPIRone 5 MG TAB PO SCH ×3 (08:13→20:28)
[2021-08-25] MEDS: MUCINEX DM~ORDER AWAITING ACTION SCH ×3 (08:42→09:19)
[2021-08-25] MEDS ORDERED: HYDROCORTISONE SOD 50 MG in SYRINGE 0 ML IV SCH (09:00)
[2021-08-25] MEDS ORDERED: guaiFENesin 600 MG TABCR PO PRN (14:00)
--- NOTE | 2021-08-25 20:03 | Hospitalist Progress Note ---
Date of Service August 25, 2021 Assessment & Plan (1) Hypotension: Plan: Patient is a 70 yr female with history of recent Covid pneumonia, CAD, ischemic cardiomyopathy EF 45 to 50%, grade 1 diastolic dysfunction, hypertension, PAD, COPD, TIA, cerebral aneurysm Presenting with weakness and hypotension. Hypotension Likely secondary to dehydration, acute kidney injury, Recent diuretic increase, diarrhea Suspected adrenal insufficiency Recent COVID finished steroid course on prior hospitalization Received IV fluids Monitor volume status Tapered off of hydrocortisone Monitor BP Diarrhea check stool studies if diarrhea reoccurs Sepsis unlikely Recent COVID infection --CT Chest:Interval worsening of emphysema and interstitial opacities with some groundglass. This may reflect findings of Covid pneumonia and post viral fibrotic changes. Mediastinal lymph nodes are likely reactive. Normal procalcitonin Blood cultures Negative to date Empirically started on IV cefepime H/O coronary disease Ischemic cardiomyopathy EF 45 to 50% Diastolic CHF Resume home diuretics as able Hypertension Presented with Hypotension Lasix, metoprolol, losartan on hold Plan to resume when blood pressure more stable COPD Not signs of exacerbation Incentive spirometry TIA Cerebral aneurysm Continue aspirin DVT Px; Heparin SQ CODE STATUS Full code Disposition PT OT prior to discharge Admission and Anticipated Discharge Date Admission Date: August 23, 2021 Subjective Patient is seen and examined at bedside States having minimal cough and generalized weakness Otherwise feels well Eager to get discharged Denies any chest pain, dizziness, nausea, abdominal pain Review of Systems Review of Systems: All systems reviewed & are unremarkable except as noted in Subjective Physical Exam Physical Exam: Physical Exam: Vitals signs as noted above General Appearance:Moderately built and nourished, no apparent distress Head: normocephalic, Atraumatic Eyes: normal inspection, EOMI Neck: supple, Trachea midline Respiratory/Chest: Decreased breath sounds at bases, CTA Cardiovascular: S1, S2, No murmur Abdomen/GI:Soft, Non tender, Bowel sounds present Extremities/Musculoskeletal:normal inspection, no edema Neurologic/Psych:AAOX3, grossly no focal neurological deficits Skin: normal color, warm Results & Data Results & Data ([facility]) Vital Signs (Past 12 Hours) Vital Signs Temp Pulse Resp BP Pulse Ox 08/25/21 18:42 36.7 C 67 16 110/62 93 08/25/21 10:37 36.6 C 79 18 124/61 92 Laboratory Results Short CBC 08/25/21 Range/Units 05:42 WBC 11.63 H (4.8-10.8) K/uL Hgb 10.7 L (12.0-16.0) g/dL Hct 32.4 L (37-47) % Plt Count 196 (130-400) K/uL BMP 08/25/21 05:42 Sodium 142 Potassium 3.8 Chloride 113 H Carbon Dioxide 23 BUN 26 H Creatinine 0.95 Glucose 103 H Calcium 8.1 L Liver Function 08/25/21 Range/Units 05:42 Total Bilirubin 0.2 (0.2-1) mg/dl AST 29 (15-37) U/L ALT 62 (12-78) U/L Alkaline Phosphatase 65 (45-117) U/L Albumin 1.7 L (3.4-5.0) gm/dl
[2021-08-25] MEDS: ROSUVASTATIN CALCIUM 20 MG TAB PO SCH (20:28)
[2021-08-25] MEDS: CLOPIDOGREL BISULFATE 75 MG TAB PO SCH (20:28)
[2021-08-25] MEDS: EZETIMIBE 10 MG TABLET PO SCH (20:28)
[2021-08-26] MEDS: CEFEPIME 2,000 MG in SYRINGE 0 ML IV SCH (05:18)
[2021-08-26] MEDS: HEPARIN SOD 5,000 UNIT/0.5 ML VIAL SQ SCH (05:19)
[2021-08-26 06:36] LABS: Basophils # (auto) 0.01 K/uL (0-0.2); Basophils % (auto) 0.1 %; Hematocrit (blood only) 33.5 % (37-47); Hemoglobin 10.9 g/dL (12.0-16.0); Immature Granulocytes # (auto) 0.04 K/uL (0.00-0.02); Immature Granulocytes % (auto) 0.4 %; Lymphocytes # (auto) 2.55 K/uL (1.2-3.4); Mean Corpuscular Hemoglobin 31.4 pg (25-34); Mean Corpuscular Hgb Conc 32.5 g/dL (32-36); Mean Corpuscular Volume 96.5 fL (80-100); Mean Platelet Volume 10.3 fL (7.4-10.4); Monocytes # (auto) 0.99 K/uL (0.11-0.59); Monocytes % (auto) 8.9 %; Neutrophils # (auto) 7.49 K/uL (1.4-6.5); Neutrophils % (auto) 67.6 %; Platelet Count 173 K/uL (130-400); RDW Coefficient of Variation 14.2 % (11.5-14.5); RDW Standard Deviation 49.7 fL (36.4-46.3); Red Blood Count 3.47 M/uL (4.2-5.4); White Blood Count 11.08 K/uL (4.8-10.8)
[2021-08-26 07:05] LABS: Albumin Level 1.9 gm/dl (3.4-5.0); BUN Creatinine Ratio 24.1 (10-20); Calcium 7.9 mg/dl (8.5-10.1); Creatinine Clr Calc Pharmacy 45.7 ml/min; Est GFR (African American) 67.3 ml/min; Potassium 3.4 mmol/L (3.5-5.1)
[2021-08-26 07:08] LABS: Albumin Globulin Ratio 0.5 (0.9-2); Bilirubin,Total 0.3 mg/dl (0.2-1); Globulin 3.5 gm/dl (2.5-4.0); Total Protein 5.4 gm/dl (6.4-8.2)
[2021-08-26] MEDS: GABAPENTIN 300 MG CAP PO SCH (07:58)
[2021-08-26] MEDS: busPIRone 5 MG TAB PO SCH (07:59)
[2021-08-26] MEDS: PANTOprazole 40 MG TAB PO SCH (07:59)
[2021-08-26] MEDS: ASPIRIN 81 MG ECTAB PO SCH (08:00)
[2021-08-26] MEDS ORDERED: POTASSIUM CHLORIDE CRTAB 20 MEQ TABCR PO STA (09:13)
[2021-08-26 10:15] VITALS: BP 102/59; PULSE 72; TEMP 97.9; O2SAT 96
--- NOTE | 2021-08-26 12:58 | Hospitalist Progress Note ---
Date of Service August 26, 2021 Assessment & Plan (1) Hypotension: Plan: Patient is a 70 yr female with history of recent Covid pneumonia, CAD, ischemic cardiomyopathy EF 45 to 50%, grade 1 diastolic dysfunction, hypertension, PAD, COPD, TIA, cerebral aneurysm Presenting with weakness and hypotension. Hypotension Likely secondary to dehydration, acute kidney injury, Recent diuretic increase, diarrhea Suspected adrenal insufficiency Recent COVID finished steroid course on prior hospitalization Received IV fluids Monitor volume status Tapered off of hydrocortisone Losartan discontinued Metoprolol dose decreased to 12.5 mg twice daily Diarrhea check stool studies if diarrhea reoccurs Resolved Sepsis unlikely Recent COVID infection --CT Chest:Interval worsening of emphysema and interstitial opacities with some groundglass. This may reflect findings of Covid pneumonia and post viral fibrotic changes. Mediastinal lymph nodes are likely reactive. Normal procalcitonin Blood cultures Negative to date Empirically started on IV cefepime Consistent with cefdinir upon discharge H/O coronary disease Ischemic cardiomyopathy EF 45 to 50% Diastolic CHF Resume home diuretics upon discharge Hypertension Presented with Hypotension Management as above COPD Not signs of exacerbation Incentive spirometry TIA Cerebral aneurysm Continue aspirin DVT Px; Heparin SQ CODE STATUS Full code Disposition Home Admission and Anticipated Discharge Date Admission Date: August 23, 2021 Subjective Patient is seen and examined at bedside States feeling well today Reports minimal dry cough Denies any chest pain, shortness of breath, dizziness, nausea, abdominal pain Diarrhea resolved Offers no other complaints Eager to get discharged Review of Systems Review of Systems: All systems reviewed & are unremarkable except as noted in Subjective Physical Exam Physical Exam: Physical Exam: Vitals signs as noted above General Appearance:Moderately built and nourished, no apparent distress Head: normocephalic, Atraumatic Eyes: normal inspection, EOMI Neck: supple, Trachea midline Respiratory/Chest: Decreased breath sounds at bases, CTA Cardiovascular: S1, S2, No murmur Abdomen/GI:Soft, Non tender, Bowel sounds present Extremities/Musculoskeletal:normal inspection, no edema Neurologic/Psych:AAOX3, grossly no focal neurological deficits Skin: normal color, warm Results & Data Results & Data ([facility]) Vital Signs (Past 12 Hours) Vital Signs Temp Pulse Resp BP Pulse Ox 08/26/21 10:14 36.6 C 72 18 102/59 L 96 08/26/21 04:10 36.5 C 64 18 126/78 95 Laboratory Results Short CBC 08/26/21 Range/Units 05:57 WBC 11.08 H (4.8-10.8) K/uL Hgb 10.9 L (12.0-16.0) g/dL Hct 33.5 L (37-47) % Plt Count 173 (130-400) K/uL BMP 08/26/21 05:57 Sodium 143 Potassium 3.4 L Chloride 112 H Carbon Dioxide 24 BUN 24 H Creatinine 0.98 Glucose 92 Calcium 7.9 L Liver Function 08/26/21 Range/Units 05:57 Total Bilirubin 0.3 (0.2-1) mg/dl AST 34 (15-37) U/L ALT 69 (12-78) U/L Alkaline Phosphatase 64 (45-117) U/L Albumin 1.9 L (3.4-5.0) gm/dl
--- NOTE | 2021-08-26 13:19 | Discharge Summary ---
Date of Service August 26, 2021 Admission HPI Per Admitting Provider 70-year-old female with history of recent Covid pneumonia, CAD, ischemic cardiomyopathy EF 45 to 50%, grade 1 diastolic dysfunction, hypertension, PAD, COPD, TIA, cerebral aneurysm Presenting with weakness and hypotension. Patient discharged from [facility] last August 18, 2021 after being admitted for Covid pneumonia. She has completed dexamethasone, remdesivir courses while admitted. On discharge, patient's Lasix was increased from 20 mg daily to 20 mg and 40 mg daily, alternating doses. As per family, since discharge, the patient has experienced progressive weakness. She was also noted to have low blood pressure at home. At the ER, the patient was received hypotensive. She was given 2 doses of 250 cc normal saline boluses. Creatinine increased to 1.3 from baseline of 0.8. On exam, the patient was seen resting in bed, not in distress, comfortable. Appears weak and tired. She was on 2 L of nasal cannula. She denies having any active shortness of breath, chest pain, potatoes, dizziness. Has intermittent cough, no fevers or chills. No other symptoms Admission Exam Per Admitting Provider Physical Exam Physical Exam: General- oriented x 3, not in distress, speaks in sentences with no effort or accessory muscle use Head- atraumatic Eyes- PERRL, EOMI, anicteric ENT- Dry oral mucosa Neck- supple, no JVD, no adenopathy, no thyromegaly; carotids +2/2, no bruits appreciated Lungs- Mild rales at the bases, no wheezing, good air entry bilaterally Heart- normal rate, regular rhythm; no murmur, no gallop, no rub appreciated Abdomen- normal bowel sounds, nondistended, soft, nontender, no masses or hepatosplenomegaly Extremities- no pretibial edema, no calf tenderness; peripheral pulses intact Neuro- alert, oriented x 3; CN 2-12 grossly intact; motor 5/5 bilaterally;sensation 100% on all extremities; no other gross focal neurologic deficits Skin- warm & dry Principal Diagnosis Hypotension COVID 19 infection Acute kidney injury Discharge Data Allergies Allergy/AdvReac Type Severity Reaction Status Date / Time lisinopril AdvReac Mild cough Unverified 08/23/21 16:11 Consultations 08/23/21 18:24 ED Decision to Admit Stat Ordered Studies 08/23/21 22:29 CT chest diagnostic wo con Routine Hospital Course (1) Hypotension: Patient is a 70 yr female with history of recent Covid pneumonia, CAD, ischemic cardiomyopathy EF 45 to 50%, grade 1 diastolic dysfunction, hypertension, PAD, COPD, TIA, cerebral aneurysm Presenting with weakness and hypotension. Hypotension Likely secondary to dehydration, acute kidney injury, Recent diuretic increase, diarrhea Suspected adrenal insufficiency Recent COVID finished steroid course on prior hospitalization Received IV fluids Monitor volume status Tapered off of hydrocortisone Losartan discontinued Metoprolol dose decreased to 12.5 mg twice daily Diarrhea check stool studies if diarrhea reoccurs Resolved Sepsis unlikely Recent COVID infection --CT Chest:Interval worsening of emphysema and interstitial opacities with some groundglass. This may reflect findings of Covid pneumonia and post viral fibrotic changes. Mediastinal lymph nodes are likely reactive. Normal procalcitonin Blood cultures Negative to date Empirically started on IV cefepime Consistent with cefdinir upon discharge H/O coronary disease Ischemic cardiomyopathy EF 45 to 50% Diastolic CHF Resume home diuretics upon discharge Hypertension Presented with Hypotension Management as above COPD Not signs of exacerbation Incentive spirometry TIA Cerebral aneurysm Continue aspirin DVT Px; Heparin SQ CODE STATUS Full code Disposition Home Total Time Total Time Spent Total Time Spent (In Minutes): 45 minutes Discharge Plan Discharge Items Patient Disposition: Home - Self-Care Reason For Visit: SLEEPING ALL DAY/COUGH/CHILLS/SOB Discharge Diagnosis: Hypotension COVID 19 infection Acute kidney injury Activity: Per Instructions section Exercise/Sports: Gradually increase as tolerated Non-emergency contact: Primary Care Provider Call non-emergency contact if: you have any medication questions, your symptoms worsen, your pain is concerning for you and you have a fever Follow-up/Referrals: Paula Cartwright PA-C [Primary Care Provider] - 09/01/21 11:00 am Dietitian Info: Minced and moist Diet: Regular Addtl Attending Provider Instructions: Follow-up with your primary care physician Paula Cartwright PA-C on September 01, 2021 at 11 AM as scheduled ----Your final blood cultures are pending at the time of discharge. Follow-up with your physician for results. ---- Complete the antibiotic course as prescribed. ----Your losartan were held during your hospital stay due to low blood pressure. Do not resume this medication until follow-up with your primary care physician for further recommendations. --Your Metoprolol succinate dose is decreased to 12.5mg twice a day due to low blood pressure. Further adjustment of your medications as per physician. ----Take your blood pressure regularly. If your systolic blood pressure less than 100 mmHg, discuss with your physician for further recommendations. ----Hold taking your furosemide (lasix) for 2 more days and then resume. Seek immediate medical attention if your symptoms reoccur or worsen Please take all medications as instructed on discharge list below. Please call if you have any questions or problems. You can reach a [facility] hospitalist on duty at [facility] 24 hours a day by calling [phone] Pending Studies at Discharge: Yes Studies:: Blood cultures Stand-Alone Forms: [facility] [employer], Smoking Cessation Medications and DC Order Prescriptions: New cefdinir 300 mg capsule 300 mg PO BID Qty: 8 RF: 0 Continued buspirone 5 mg tablet 5 mg PO TID RF: 0 clopidogrel [Plavix] 75 mg tablet 75 mg PO HS RF: 0 gabapentin [Neurontin] 300 mg capsule 300 mg PO QID RF: 0 ezetimibe [Zetia] 10 mg tablet 10 mg PO HS RF: 0 pantoprazole [Protonix] 40 mg tablet,delayed release (DR/EC) 40 mg PO QAM RF: 0 nitroglycerin [Nitrostat] 0.4 mg tablet, sublingual 0.4 mg sublingual UD PRN (Reason: Chest Pain) RF: 0 aspirin [Aspirin Low Dose] 81 mg Tablet,Delayed Release (Dr/Ec) 81 mg PO QAM RF: 0 trazodone 50 mg tablet 50 - 100 mg PO HS PRN (Reason: Sleep) RF: 0 rosuvastatin [Crestor] 20 mg tablet 20 mg PO HS RF: 0 furosemide 40 mg Tablet 40 mg PO MoWeFr@0900 30 Days Qty: 30 RF: 0 furosemide 20 mg Tablet 20 mg PO SuTuThSa@0900 30 Days Qty: 30 RF: 0 magnesium oxide 400 mg magnesium Tablet 400 mg PO BID Qty: 0 RF: 0 dextromethorphan-guaifenesin [Mucinex DM] 60-1,200 mg tablet extended release 12 hr 1 tab PO BID PRN (Reason: cough) Qty: 20 RF: 0 carvedilol 3.125 mg tablet 3.125 mg PO BID RF: 0 Changed metoprolol succinate 25 mg Tablet Extended Release 24 Hr 12.5 mg PO BID Qty: 60 RF: 0 Discontinued losartan [Cozaar] 25 mg tablet 25 mg PO HS RF: 0 Discharge Orders: Discharge Order (Routine); Ordered 08/26/21 Ordered By: Hayden Martinez Admission Data Admit Date/Time: 08/23/21 18:44 Attending Provider: Hayden Martinez Admit Provider: Luis Oliveira Primary Care Provider: Paula Cartwright Other Providers: Luis Oliveira
--- NOTE | 2021-09-04 12:28 | Coding Query ---
CODING QUERY To promote full compliance with coding requirements relating to patient care, provider participation is requested in all cases of orthotic/prosthetic practitioner uncertainty. Please assist us with the question(s) below: Coding Question(s): There is documentation on the H&P of Recent Covid Pneumonia Discharged August 18, 2021, and there is documentation, as on the H&P of, "Sepsis unlikely at this point but does have possible pneumonia on x-ray which could be related to her Covid infection CT chest without contrast Check procalcitonin Check blood cultures, urine culture Cefepime IV added for possible healthcare associated pneumonia", and the Progress Notes, as on Progress Note 08/24 & 08/25 document, "Sepsis unlikely Recent COVID infection --CT Chest:Interval worsening of emphysema and interstitial opacities with some groundglass. This may reflect findings of Covid pneumonia and post viral fibrotic changes. Mediastinal lymph nodes are likely reactive. Normal procalcitonin Blood cultures pending Empirically started on IV cefepime", and the 08/26 Progress Note and Discharge Summary add documentation of, "Consistent with cefdinir upon discharge", and the Discharge Summary also documents under the Principal Diagnosis Area, "COVID 19 infection". Please specify below, in your clinical opinion, regarding documentation of Pneumonia and documentation of Covid 19 infection. Regarding Pneumonia, please specify below, in your clinical opinion: ( ) Healthcare associated Pneumonia was treated/monitored during this admission, with No ongoing Acute Covid-19 Pneumonia ( ) Both Healthcare associated Pneumonia and ongoing Acute Covid-19 Pneumonia were treated/monitored during this admission ( ) Ongoing Acute Covid-19 Pneumonia was treated/monitored during this admission, with No Healthcare associated Pneumonia ( ) Pneumonia is Ruled-out (x ) Other: Please Specify__Difficult to determine if bacterial pneumonia present in addition to recent COVID infection given very recent COVID 19 infection _but was treated empirically Regarding Covid-19 Infection, please specify below, in your clinical opinion: ( ) Ongoing active/acute Covid-19 Infection ( x ) history of recent Covid-19 Infection with no active/acute Covid-19 Infection ( ) Other: Please Specify Physician's Response(s): Thank you Rosa Elena Eugene Principal Diagnosis: "that condition established after study, to be chiefly responsible for occasioning the admission of the patient to the hospital for care." Co-Existing Principal Diagnosis: "when two or more diagnoses equally meet the criteria for principal diagnosis as determined by the circumstances of admission, diagnostic work up, and/or therapy provided, and the Alphabetic Index, Tabular List, or another coding guideline does not provide sequencing direction, any one of the diagnoses may be sequenced first." "When the physician has documented what appears to be a current diagnosis in the body of the record, but has not included the diagnosis in the final diagnostic statement, the physician should be asked whether the diagnosis should be added." (Source [facility] 2 QTR90. p3-4) [facility]
== END 2021-08-26 14:14 | disposition home or self-care (01) | DRG 314 ==
LOC: ED 15:09 → EDINP 18:44 → SUATTDRO 18:44 → 2S 20:43